=== PATIENT | female | born 1935 | race Caucasian/White ===

== ENCOUNTER → 2017-10-29 | Outpatient (CLI) | payer MEDICARE, BC ==
--- NOTE | 2017-10-29 15:18 | BD ---
EXAMINATION TYPE: Axial Bone Density DATE OF EXAM: 10/29/2017 COMPARISON: NONE CLINICAL HISTORY: 82 year-old female age related osteoporosis. Height: 5 FT 1 IN Weight: 138 FRAX RISK QUESTIONS: Family History (Parent hip fracture): YES History of Fracture in Adulthood: YES Secondary Osteoporosis: 3. Menopause before 45: YES RISK FACTORS HISTORY OF: Family History of Osteoporosis: YES Postmenopausal woman: TOTAL HYST AGE 41 MEDICATIONS: Additional Medications: PRAVASTATIN, GABAPENTIN, CARVEDILOL, LOSARTIN, TORSEMIDE,NITROSTAT, LABETALOL ,HYDROCODONE, OMEPRAZOLE, ASPIRIN, XANAX, OCUVITE, BIOTIN, TRICOR Additional History: OVARIAN CANCER AGE 51, BREAST CANCER AGE AGE 65 CHEMO FOR OVARIAN EXAM MEASUREMENTS: Bone mineral densitometry was performed using the [employer] System. Bone mineral density as measured about the Lumbar spine is: ----- L1-L4(G/cm2): 1.160 T Score Values are as follows: ----- L2: -0.3 ----- L3: 0.5 ----- L4: -0.1 ----- L1-L4: -0.2 BASELINE Bone mineral density about the R hip (g/cm2): 0.752 Bone mineral density about the L hip (g/cm2): 0.778 T Score values are as follows: -----R Neck: -2.1 -----L Neck: -1.9 -----R Total: -1.5 -----L Total: -1.2 BASELINE IMPRESSION: Osteopenia (T Score between -2.5 and -1). There is slightly increased risk of fracture and the patient may be considered for treatment. Re-Screen 2-5 years. NOTE: T-SCORE=SD OF THE YOUNG ADULT MEAN.
== END | disposition home or self-care (01) ==
LOC: RADBDWWP 12:29
PROVIDERS: ATTEND Internal Medicine Geriatric Medicine
DX: M85.88 Other specified disorders of bone density and structure, other site (principal)
CPT/HCPCS: 77080

== ENCOUNTER → 2018-02-23 | Outpatient (CLI) | payer MEDICARE, BC ==
--- NOTE | 2018-02-23 10:07 | US ---
EXAMINATION TYPE: US kidneys/renal and bladder DATE OF EXAM: 02/23/2018 COMPARISON: US & CT CLINICAL HISTORY: N18.9 Chronic Kidney Disease. Chronic kidney disease EXAM MEASUREMENTS: Right Kidney: 8.2 x 3.9 x 4.2 cm Left Kidney: 7.9 x 4.8 x 3.7 cm Right Kidney: Cyst upper pole= 0.7 x 0.6 x 0.8 cm, otherwise appeared wnl Left Kidney: Cortical thinning and small in size Bladder: wnl Bilateral Jets seen: Only right jet visualized There is no evidence for hydronephrosis at this point in time. No nephrolithiasis is seen. No stephane s are identified. The urinary bladder is anechoic. Bilateral ureteral jets are seen. IMPRESSION: 1. Renal parenchymal thinning with atrophic changes and cystic changes as noted.
== END | disposition home or self-care (01) ==
LOC: RADUSWWP 09:32
PROVIDERS: ATTEND Internal Medicine Geriatric Medicine
DX: N26.1 Atrophy of kidney (terminal) (principal); N28.89 Other specified disorders of kidney and ureter; N18.9 Chronic kidney disease, unspecified
CPT/HCPCS: 76770

== ENCOUNTER 2018-10-15 10:38 | Inpatient (IN) | payer MEDICARE, BC ==
[2018-10-15] MEDS: SODIUM CHLORIDE 0.9% 500 ML 500 ML IV SCH ×2 (11:05→11:35)
[2018-10-15] MEDS ORDERED: ATROPINE SULFATE 0.4 MG/ML 1 ML VIAL IV STA (11:05)
--- NOTE | 2018-10-15 11:05 | ED ---
General Adult HPI - General Chief complaint: Urogenital Stated complaint: Bladder infection Time Seen by Provider: 10/15/18 10:40 Source: patient, RN notes reviewed Mode of arrival: wheelchair Limitations: no limitations - History of Present Illness Initial comments: This is an 83-year-old female presents emergency department from Dr. Rice's office. Dr. Rice indicated thought the patient might be with septic. Patient states she had a 6 month appointment today when she went into see Dr. mckee she is complaining some back pain some abdominal pain. Patient states she felt very weak at that time. Patient denies any dysuria hematuria urinary frequency. Patient denies any fever. Patient denies any chest pain difficulty breathing first breath per patient denies any palpations. Patient denies any headache patient denies numbness weakness. Patient states she does feel lightheaded. - Related Data Home Medications Medication Instructions Recorded Confirmed ALPRAZolam [Xanax] 0.25 mg PO BID PRN 11/28/14 10/15/18 Aspirin 81 mg PO HS 11/28/14 10/15/18 Labetalol [Trandate] 200 mg PO Q8H PRN 11/28/14 10/15/18 Losartan Potassium 100 mg PO HS 11/28/14 10/15/18 Multivit-Min/FA/Lycopene/Lut 1 tab PO DAILY 11/28/14 10/15/18 [Centrum Silver Tablet] Nitroglycerin Sl Tabs [Nitrostat] 0.4 mg PO Q5M PRN 11/28/14 10/15/18 Omeprazole [PriLOSEC] 20 mg PO AC-BRKFST PRN 11/28/14 10/15/18 Torsemide [Demadex] 5 mg PO QAM PRN 11/28/14 10/15/18 Vits A,C,E/Lutein/Minerals 1 tab PO MOWEFRSA 11/28/14 10/15/18 [Ocuvite with Lutein Tablet] HYDROcodone/APAP 7.5-325MG [[place] 1 tab PO BID PRN 12/05/14 10/15/18 7.5-325] Biotin 1,000 1,000 - 2,000 mg PO DAILY 01/12/16 10/15/18 Apixaban [Eliquis] 2.5 mg PO BID 10/15/18 10/15/18 Carvedilol [Coreg] 25 mg PO BID 10/15/18 10/15/18 Fenofibrate Nanocrystallized 145 mg PO HS 10/15/18 10/15/18 [Fenofibrate] Gabapentin [Neurontin] 300 mg PO BID 10/15/18 10/15/18 hydrALAZINE HCL [Apresoline] 10 mg PO QID PRN 10/15/18 10/15/18 Allergies Allergy/AdvReac Type Severity Reaction Status Date / Time Penicillins Allergy Dyspnea Verified 10/15/18 11:52 Sulfa (Sulfonamide Allergy Dyspnea Verified 10/15/18 11:52 Antibiotics) triamcinolone acetonide AdvReac unsure if Verified 10/15/18 11:52 [From Kenalog] the kenalog was the cause, RASH/HIVES Review of Systems ROS Statement: Those systems with pertinent positive or pertinent negative responses have been documented in the HPI. ROS Other: All systems not noted in ROS Statement are negative. Past Medical History Past Medical History: Atrial Fibrillation, Cancer, Chest Pain / Angina, Fibromyalgia, GERD/Reflux, Hyperlipidemia, Hypertension, Mitral Valve Prolapse (MVP), Neurologic Disorder, Osteoarthritis (OA), Renal Disease, Vascular Disorder Additional Past Medical History / Comment(s): NEUROPATHY ASHER. LEGS & FEET, VARICOSE VEINS, KIDNEYS(small kidneys) FUNCTIONING @ 50%-URINE LEAKAGE- WEARS A PAD, HX skin, BREAST & OVARIAN CA-CHEMO 1986 & 1987, LUMBAR DDD-HERNIATION L3- L4, constipation History of Any Multi-Drug Resistant Organisms: None Reported Past Surgical History: Bowel Resection, Breast Surgery, Heart Catheterization, Hysterectomy, Orthopedic Surgery Additional Past Surgical History / Comment(s): COLOSTOMY & THEN REVERSAL OF COLOSTOMY,ASHER. MASTECTOMY, EXC.CATARACT ASHER, ASHER. THUMB SURGERY, skin cancer removed from nose, bowel resection 01/12/16 Past Anesthesia/Blood Transfusion Reactions: Previous Problems w/ Anesthesia Additional Past Anesthesia/Blood Transfusion Reaction / Comment(s): AFTER LAST PAIN CLINIC PROCEDURE 01/12/15 HAD ALLEGIC REACTION- broke out in hives and itching all over that lasted over 1 week, also had ELEVATED PULSE & BP. Past Psychological History: No Psychological Hx Reported Smoking Status: Former smoker Past Alcohol Use History: None Reported Past Drug Use History: None Reported - Past Family History Daughter(s) Family Medical History: No Reported History Father Family Medical History: Cancer (Father at age of 80 from lung cancer) Mother Family Medical History: Coronary Artery Disease (CAD), CVA/TIA (Mother at age of 94 and she had suffered from CAD, CABG, diabetes mellitus type 2 and CVA), Diabetes Mellitus Additional Family Medical History / Comment(s): HEART PROBLEMS General Exam - General Exam Comments Initial Comments: GENERAL: Patient is well-developed and well-nourished. Patient is nontoxic and well- hydrated and is in mild distress. ENT: Neck is soft and supple. No significant lymphadenopathy is noted. Oropharynx is clear. Moist mucous membranes. Neck has full range of motion without eliciting any pain. EYES: The sclera were anicteric and conjunctiva were pink and moist. Extraocular movements were intact and pupils were equal round and reactive to light. Eyelids were unremarkable. PULMONARY: Unlabored respirations. Good breath sounds bilaterally. No audible rales rhonchi or wheezing was noted. CARDIOVASCULAR: Patient is bradycardic at 40 beats a minute. ABDOMEN: Soft and nontender with normal bowel sounds. SKIN: Skin is clear with no lesions or rashes and otherwise unremarkable. NEUROLOGIC: Patient is alert and oriented x3. Cranial nerves II through XII are grossly intact. Motor and sensory are also intact. Normal speech, volume and content. Symmetrical smile. MUSCULOSKELETAL: Normal extremities with adequate strength and full range of motion. LYMPHATICS: No significant lymphadenopathy is noted PSYCHIATRIC: Normal psychiatric evaluation. Limitations: no limitations Course Vital Signs 10/15/18 10/15/18 10/15/18 10:47 11:09 11:30 Temperature 98.2 F Pulse Rate 57 L 34 L 78 Respiratory 18 16 18 Rate Blood Pressure 55/32 68/34 100/44 O2 Sat by Pulse 97 98 100 Oximetry 10/15/18 10/15/18 10/15/18 12:00 12:30 13:00 Temperature Pulse Rate 80 80 80 Respiratory 14 18 18 Rate Blood Pressure 100/40 92/40 98/41 O2 Sat by Pulse 100 100 99 Oximetry Medical Decision Making - Medical Decision Making EKG shows a junctional bradycardia at 39 bpm QRS is 90 QT interval 422 QTC is 339. I ordered antibiotics 1202 I got a phone call from the nurse that just prior to 2:00 that the patient hadn't ALLERGY to penicillin and we will begin Levaquin at this time.. I told her to go ahead with Erika at this time. I spoke with Dr. Ely he agreed to admit the patient admitted the patient I wrote admitting orders. Patient's blood pressure was low and I gave the patient a liter and half of fluid immediately and it came up to a systolic blood pressure of greater than 100. I spoke with the ICU doctor and he agreed to take the patient. - Lab Data Result diagrams: 10/15/18 11:04 10/15/18 11:04 Lab Results 10/15/18 10/15/18 10/15/18 Range/Units 11:04 11:04 11:04 WBC 12.5 H (3.8-10.6) k/uL RBC 3.55 L (3.80-5.40) m/uL Hgb 11.1 L (11.4-16.0) gm/dL Hct 33.0 L (34.0-46.0) % MCV 93.0 (80.0-100.0) fL MCH 31.2 (25.0-35.0) pg MCHC 33.6 (31.0-37.0) g/dL RDW 13.9 (11.5-15.5) % Plt Count 232 (150-450) k/uL Neutrophils % 91 % Lymphocytes % 4 % Monocytes % 3 % Eosinophils % 1 % Basophils % 0 % Neutrophils # 11.4 H (1.3-7.7) k/uL Lymphocytes # 0.5 L (1.0-4.8) k/uL Monocytes # 0.4 (0-1.0) k/uL Eosinophils # 0.1 (0-0.7) k/uL Basophils # 0.1 (0-0.2) k/uL PT (9.0-12.0) sec INR (<1.2) APTT (22.0-30.0) sec Sodium 136 L (137-145) mmol/L Potassium 5.2 H (3.5-5.1) mmol/L Chloride 106 (98-107) mmol/L Carbon Dioxide 18 L (22-30) mmol/L Anion Gap 12 mmol/L BUN 76 H (7-17) mg/dL Creatinine 2.60 H (0.52-1.04) mg/dL Est GFR (CKD-EPI)AfAm 19 (>60 ml/min/1.73 sqM) Est GFR (CKD-EPI)NonAf 17 (>60 ml/min/1.73 sqM) Glucose 157 H (74-99) mg/dL Plasma Lactic Acid Jerel 2.3 H* (0.7-2.0) mmol/L Calcium 10.1 (8.4-10.2) mg/dL Total Bilirubin 1.2 (0.2-1.3) mg/dL AST 75 H (14-36) U/L ALT 58 H (9-52) U/L Alkaline Phosphatase 50 (38-126) U/L Total Protein 6.4 (6.3-8.2) g/dL Albumin 3.8 (3.5-5.0) g/dL Urine Color Urine Appearance (Clear) Urine pH (5.0-8.0) Ur Specific [place] (1.001-1.035) Urine Protein (Negative) Urine Glucose (UA) (Negative) Urine Ketones (Negative) Urine Blood (Negative) Urine Nitrite (Negative) Urine Bilirubin (Negative) Urine Urobilinogen (<2.0) mg/dL Ur Leukocyte Esterase (Negative) Urine RBC (0-5) /hpf Urine WBC (0-5) /hpf Urine WBC Clumps (None) /hpf Urine Bacteria (None) /hpf 10/15/18 10/15/18 Range/Units 11:04 11:25 WBC (3.8-10.6) k/uL RBC (3.80-5.40) m/uL Hgb (11.4-16.0) gm/dL Hct (34.0-46.0) % MCV (80.0-100.0) fL MCH (25.0-35.0) pg MCHC (31.0-37.0) g/dL RDW (11.5-15.5) % Plt Count (150-450) k/uL Neutrophils % % Lymphocytes % % Monocytes % % Eosinophils % % Basophils % % Neutrophils # (1.3-7.7) k/uL Lymphocytes # (1.0-4.8) k/uL Monocytes # (0-1.0) k/uL Eosinophils # (0-0.7) k/uL Basophils # (0-0.2) k/uL PT 11.8 (9.0-12.0) sec INR 1.1 (<1.2) APTT 23.8 (22.0-30.0) sec Sodium (137-145) mmol/L Potassium (3.5-5.1) mmol/L Chloride (98-107) mmol/L Carbon Dioxide (22-30) mmol/L Anion Gap mmol/L BUN (7-17) mg/dL Creatinine (0.52-1.04) mg/dL Est GFR (CKD-EPI)AfAm (>60 ml/min/1.73 sqM) Est GFR (CKD-EPI)NonAf (>60 ml/min/1.73 sqM) Glucose (74-99) mg/dL Plasma Lactic Acid Jerel (0.7-2.0) mmol/L Calcium (8.4-10.2) mg/dL Total Bilirubin (0.2-1.3) mg/dL AST (14-36) U/L ALT (9-52) U/L Alkaline Phosphatase (38-126) U/L Total Protein (6.3-8.2) g/dL Albumin (3.5-5.0) g/dL Urine Color Yellow Urine Appearance Cloudy H (Clear) Urine pH 6.0 (5.0-8.0) Ur Specific [place] 1.016 (1.001-1.035) Urine Protein 2+ H (Negative) Urine Glucose (UA) Negative (Negative) Urine Ketones Negative (Negative) Urine Blood Moderate H (Negative) Urine Nitrite Negative (Negative) Urine Bilirubin Negative (Negative) Urine Urobilinogen <2.0 (<2.0) mg/dL Ur Leukocyte Esterase Large H (Negative) Urine RBC 180 H (0-5) /hpf Urine WBC >182 H (0-5) /hpf Urine WBC Clumps Many H (None) /hpf Urine Bacteria Moderate H (None) /hpf Critical Care Time Critical Care Time: Yes Total Critical Care Time: 35 Disposition Clinical Impression: Pyelonephritis Disposition: ADMITTED IP TO THIS [facility] Referrals: Lucio Riec MD [Primary Care Provider] - 1-2 days Time of Disposition: 14:09
[2018-10-15 11:47] LABS: INR 1.1 (<1.2); Partial Thromboplastin Time 23.8 sec (22.0-30.0); Prothrombin Time 11.8 sec (9.0-12.0)
[2018-10-15 11:48] LABS: Albumin 3.8 g/dL (3.5-5.0); Calcium 10.1 mg/dL (8.4-10.2); Potassium 5.2 mmol/L (3.5-5.1); Total Bilirubin 1.2 mg/dL (0.2-1.3); Total Protein 6.4 g/dL (6.3-8.2)
[2018-10-15 12:01] LABS: Appearance,Urine Cloudy (Clear); Bacteria,Urine Moderate /hpf; Bilirubin,Urine Negative (Negative); Blood,Urine Moderate (Negative); Color,Urine Yellow; Glucose,Urine (UA) Negative (Negative); Ketones,Urine Negative (Negative); Leukocyte Esterase,Urine Large (Negative); Nitrite,Urine Negative (Negative); Protein,Urine 2+ (Negative); RBC,Urine 180 /hpf (0-5); Specific Gravity,Urine 1.016 (1.001-1.035); Urobilinogen,Urine <2.0 mg/dL (<2.0); WBC,Urine >182 /hpf (0-5)
[2018-10-15 12:12] LABS: Basophils # (A) 0.1 k/uL (0-0.2); Basophils % (A) 0 %; Eosinophils # (A) 0.1 k/uL (0-0.7); Eosinophils % (A) 1 %; HGB 11.1 gm/dL (11.4-16.0); Lymphocytes # (A) 0.5 k/uL (1.0-4.8); Lymphocytes % (A) 4 %; MCH 31.2 pg (25.0-35.0); MCHC 33.6 g/dL (31.0-37.0); Mean Platelet Volume 7.3; Monocytes # (A) 0.4 k/uL (0-1.0); Monocytes % (A) 3 %; Neutrophils # (A) 11.4 k/uL (1.3-7.7); Neutrophils % (A) 91 %; Platelet Count 232 k/uL (150-450); RBC 3.55 m/uL (3.80-5.40); RDW 13.9 % (11.5-15.5); WBC 12.5 k/uL (3.8-10.6)
--- NOTE | 2018-10-15 13:22 | CT ---
EXAMINATION TYPE: CT abdomen pelvis wo con DATE OF EXAM: 10/15/2018 COMPARISON: 01/17/2016 HISTORY: UTI, right sided back pain, pelvic pain CT DLP: 444.3 mGycm Automated exposure control for dose reduction was used. TECHNIQUE: Helical acquisition of images was performed from the lung bases through the pelvis. FINDINGS: LUNG BASES: There is minimal bibasilar subsegmental atelectasis and peripheral basilar predominant fi brosis. Lingular wedge-shaped atelectasis is also seen. There is a small hiatal hernia visualized in the posterior mediastinum. LIVER/GB: The liver is elongated and nonenlarged extending to the iliac crest. The gallbladder is unr emarkable. PANCREAS: No significant abnormality is seen. SPLEEN: No significant abnormality is seen. ADRENALS: No significant abnormality is seen. KIDNEYS: There is left cortical renal atrophy particularly of the lower pole. Nonspecific perinephric fat stranding is seen bilaterally. There is no hydronephrosis nor nephrolithiasis is seen. There is mild periureteral fat stranding surrounding the right mid ureter such as on image 75 through 78. FREE AIR: No free air is visualized ADENOPATHY: No greater than 1 cm short axis lymph nodes are seen in the abdomen or pelvis. REPRODUCTIVE ORGANS: Uterus appears surgically absent. Peritoneum densities may be postsurgical. URINARY BLADDER: Decompressed and suboptimally evaluated OSSEOUS STRUCTURES: Mild multilevel degenerative changes of the spine and dextroscoliosis of the tho racolumbar junction are noted. BOWEL: There is circumferential rectal wall thickening up to 5 mm laterally. This is also seen withi n the distal sigmoid colon. Numerous diverticula are associated sigmoid colon series sigmoid colon is decompressed as is the splenic flexure. Right hemicolectomy has been performed. Small ventral fat fi lled umbilical hernia is seen. IMPRESSION: 1. MILD URETERAL FAT STRANDING OF THE MID RIGHT URETER IS SEEN. GIVEN THE PATIENT'S HISTORY OF URINAR Y TRACT INFECTION ASCENDING INFECTION AND PYELONEPHRITIS SHOULD BE CONSIDERED. PYELONEPHRITIS IS NOT DEFINITIVE WITHOUT CONTRAST AND CT. NO PERINEPHRIC ABSCESS. 2. RECTAL AND SIGMOID COLONIC WALL THICKENING. CORRELATE WITH ANY RECENT COLONOSCOPY TO EXCLUDE MUCOS AL NEOPLASM. THIS COULD ALTERNATIVELY SIMPLY RELATE TO UNDERDISTENTION. NO INFLAMMATORY FAT STRANDING TO SUGGEST PROCTITIS.
[2018-10-15] MEDS ORDERED: NALOXONE 0.4 MG/ML 1 ML VIAL IV PRN (14:10)
[2018-10-15] MEDS ORDERED: LEVOFLOXACIN 750MG-D5W PMX 750 MG in DEXTROSE/WATER 1 150ML.BAG IVPB STA (14:19)
--- NOTE | 2018-10-15 15:49 | XR ---
EXAMINATION TYPE: XR chest 2V DATE OF EXAM: 10/15/2018 COMPARISON: Prior chest x-ray 04/07/[address] 10/15/2017 HISTORY: Difficulty breathing TECHNIQUE: Frontal and lateral views of the chest are obtained. FINDINGS: There is no focal air space opacity, pleural effusion, or pneumothorax seen. The cardiac silhouette size is within normal limits. Prominent lung volumes are suggestive of underlying COPD. Luis F ne mineralization is reduced. There are overlying cardiac leads. The osseous structures are intact. IMPRESSION: No acute cardiopulmonary process. Emphysema.
[2018-10-15] MEDS ORDERED: KETOROLAC 30 MG/ML 1 ML VIAL IVP STA (16:32)
[2018-10-15] MEDS ORDERED: SODIUM CHLORIDE 0.9% 500 ML 500 ML IV ONE (18:46)
[2018-10-15 19:56] LABS: Glucose,Whole Blood 152 mg/dL (75-99)
[2018-10-15] MEDS ORDERED: PANTOPRAZOLE 40 MG TABLET PO PRN (20:08)
[2018-10-15] MEDS ORDERED: hydrALAZINE HCL 10 MG TAB PO PRN (20:08)
--- NOTE | 2018-10-15 20:21 | P.CNPUL ---
History of Present Illness Consult date: 10/15/18 Chief complaint: UTI, sepsis History of present illness: Pleasant 83-year-old female patient was sent over from her primary care physician's office because of an acute pain along the right flank area suspecting an underlying urine tract infection. The patient was therefore routine 6 months check and she was complaining of back and abdominal pain and flank pain and she was feeling also weak. She denies having any dysuria or hematuria or any urinary symptoms. Nevertheless this patient has had previous urinary tract infections. No history of nephrolithiasis. Upon arrival to the burst department, the patient was found to be apprehensive and her initial blood pressure was 65/32. She responded nicely to fluids and his systolic blood pr essure came up to the mid 60s and then 100 and currently her most recent blood pressure is 120/51. She is producing some urine and the Rios catheter inserted for now. There was a positive for 0.5. UA was quite abnormal and creatinine was elevated at 2.6 with a BUN of 76. The CAT scan of the abdomen was done that showed mild uterine fat stranding and evidence of prior nephritis on the right. The patient also has rectal and sigmoid colonic thickening. No diarrhea. Review of Systems Constitutional: Reports fatigue, Reports lethargy, Reports weakness Eyes: denies as per HPI, denies blurred vision, denies bulging eye, denies decreased vision, denies diplopia, denies discharge, denies dry eye, denies irritation, denies itching, denies pain, denies photophobia, denies loss of peripheral vision, denies loss of vision, denies tunnel vision/blind spots Ears: deny: decreased hearing, ear discharge, earache, tinnitus Ears, nose, mouth and throat: Denies headache, Denies sore throat Breasts: absent: as per HPI, change in shape, gynecomastia, masses, nipple discharge, pain, skin changes, swelling Breasts: Reports as per HPI Cardiovascular: Reports as per HPI Respiratory: Reports as per HPI Gastrointestinal: Reports as per HPI Genitourinary: Reports as per HPI Musculoskeletal: Reports as per HPI Musculoskeletal: absent: ankle pain, ankle stiffness, ankle swelling, as per HPI, elbow pain, elbow stiffness, elbow swelling, foot pain, foot stiffness, foot swelling, hand pain, hand stiffness, hand swelling, hip pain, hip stiffness, hip swelling, knee pain, knee stiffness, knee swelling, shoulder pain, shoulder stiffness, shoulder swelling, wrist pain, wrist stiffness, wrist swelling Integumentary: Reports as per HPI Neurological: Reports as per HPI Psychiatric: Reports as per HPI Endocrine: Reports as per HPI Hematologic/Lymphatic: Reports as per HPI Allergic/Immunologic: Reports as per HPI Past Medical History Past Medical History: Atrial Fibrillation, Cancer, Chest Pain / Angina, Fibromyalgia, GERD/Reflux, Hyperlipidemia, Hypertension, Mitral Valve Prolapse (MVP), Neurologic Disorder, Osteoarthritis (OA), Renal Disease, Vascular Disorder Additional Past Medical History / Comment(s): NEUROPATHY ASHER. LEGS & FEET, VARICOSE VEINS, KIDNEYS(small kidneys) FUNCTIONING @ 50%-URINE LEAKAGE- WEARS A PAD, HX skin, BREAST cancer status post bilateral mastectomy & OVARIAN CA status post nephrectomy, hysterectomy and bowel resection with diverting colostomy and subsequent reversal-, history of skin cancer, LUMBAR DDD-HERNIATION L3-L4, constipation History of Any Multi-Drug Resistant Organisms: None Reported Past Surgical History: Bowel Resection, Breast Surgery, Heart Catheterization, Hysterectomy, Orthopedic Surgery Additional Past Surgical History / Comment(s): COLOSTOMY & THEN REVERSAL OF COLOSTOMY,ASHER. MASTECTOMY, EXC.CATARACT ASHER, ASHER. THUMB SURGERY, skin cancer removed from nose, bowel resection 01/12/16 Past Anesthesia/Blood Transfusion Reactions: Previous Problems w/ Anesthesia Additional Past Anesthesia/Blood Transfusion Reaction / Comment(s): AFTER LAST PAIN CLINIC PROCEDURE 01/12/15 HAD ALLEGIC REACTION- broke out in hives and itching all over that lasted over 1 week, also had ELEVATED PULSE & BP. Past Psychological History: No Psychological Hx Reported Smoking Status: Former smoker Past Alcohol Use History: None Reported Past Drug Use History: None Reported - Past Family History Daughter(s) Family Medical History: No Reported History Father Family Medical History: Cancer (Father at age of 80 from lung cancer) Mother Family Medical History: Coronary Artery Disease (CAD), CVA/TIA (Mother at age of 94 and she had suffered from CAD, CABG, diabetes mellitus type 2 and CVA), Diabetes Mellitus Additional Family Medical History / Comment(s): HEART PROBLEMS Medications and Allergies Home Medications Medication Instructions Recorded Confirmed Type ALPRAZolam [Xanax] 0.25 mg PO BID PRN 11/28/14 10/15/18 History Aspirin 81 mg PO HS 11/28/14 10/15/18 History Labetalol [Trandate] 200 mg PO Q8H PRN 11/28/14 10/15/18 History Losartan Potassium 100 mg PO HS 11/28/14 10/15/18 History Multivit-Min/FA/Lycopene/Lut 1 tab PO DAILY 11/28/14 10/15/18 History [Centrum Silver Tablet] Nitroglycerin Sl Tabs [Nitrostat] 0.4 mg PO Q5M PRN 11/28/14 10/15/18 History Omeprazole [PriLOSEC] 20 mg PO AC-BRKFST PRN 11/28/14 10/15/18 History Torsemide [Demadex] 5 mg PO QAM PRN 11/28/14 10/15/18 History Vits A,C,E/Lutein/Minerals 1 tab PO MOWEFRSA 11/28/14 10/15/18 History [Ocuvite with Lutein Tablet] HYDROcodone/APAP 7.5-325MG [Clearwater 1 tab PO BID PRN 12/05/14 10/15/18 History 7.5-325] Biotin 1,000 1,000 - 2,000 mg PO DAILY 01/12/16 10/15/18 History Apixaban [Eliquis] 2.5 mg PO BID 10/15/18 10/15/18 History Carvedilol [Coreg] 25 mg PO BID 10/15/18 10/15/18 History Fenofibrate Nanocrystallized 145 mg PO HS 10/15/18 10/15/18 History [Fenofibrate] Gabapentin [Neurontin] 300 mg PO BID 10/15/18 10/15/18 History hydrALAZINE HCL [Apresoline] 10 mg PO QID PRN 10/15/18 10/15/18 History Allergies Allergy/AdvReac Type Severity Reaction Status Date / Time Penicillins Allergy Dyspnea Verified 10/15/18 11:52 Sulfa (Sulfonamide Allergy Dyspnea Verified 10/15/18 11:52 Antibiotics) triamcinolone acetonide AdvReac unsure if Verified 10/15/18 11:52 [From Kenalog] the kenalog was the cause, RASH/HIVES Physical Exam Vitals: Vital Signs Temp Pulse Resp BP Pulse Ox 10/15/18 19:29 70 16 120/51 100 10/15/18 18:00 74 18 104/53 97 10/15/18 17:00 78 18 114/52 98 10/15/18 16:00 82 18 116/62 97 10/15/18 15:00 79 18 103/46 98 10/15/18 14:00 98.4 F 79 18 102/51 99 10/15/18 13:30 78 18 93/40 99 10/15/18 13:00 80 18 98/41 99 10/15/18 12:30 80 18 92/40 100 10/15/18 12:00 80 14 100/40 100 10/15/18 11:30 78 18 100/44 100 10/15/18 11:09 34 L 16 68/34 98 10/15/18 10:47 98.2 F 57 L 18 55/32 97 Intake and Output 10/15/18 10/15/18 10/15/18 06:59 14:59 22:59 Other: Weight 59.874 kg The patient appeared well nourished and normally developed. Vital signs as documented. Head exam is unremarkable. No scleral icterus or corneal arcus noted. Neck is without jugular venous distension, thyromegaly, or carotid bruits. Carotid upstrokes are brisk bilaterally. Lungs are clear to auscultation and percussion. Cardiac exam reveals the PMI to be normally sized and situated. Rhythm is regular. First and second heart sounds normal. No murmurs, rubs or gallops. Abdominal exam reveals normal bowel sounds, no masses, no organomegaly and no aortic enlargement. Extremities are nonedematous and both femoral and pedal pulses are normal.Examination of the skin revealed no evidence of significant rashes, suspicious appearing nevi or other concerning lesions. Neurologically the patient is awake and alert and there is no focal neurological deficits. Results - Laboratory Findings CBC and BMP: 10/15/18 11:04 10/15/18 11:04 PT/INR, D-dimer PT 11.8 sec (9.0-12.0) 10/15/18 11:04 INR 1.1 (<1.2) 10/15/18 11:04 Abnormal lab findings: Abnormal Labs 10/15/18 10/15/18 10/15/18 11:04 11:04 11:04 WBC 12.5 H RBC 3.55 L Hgb 11.1 L Hct 33.0 L Neutrophils # 11.4 H Lymphocytes # 0.5 L Sodium 136 L Potassium 5.2 H Carbon Dioxide 18 L BUN 76 H Creatinine 2.60 H Glucose 157 H POC Glucose (mg/dL) Plasma Lactic Acid Jerel 2.3 H* AST 75 H ALT 58 H Urine Appearance Urine Protein Urine Blood Ur Leukocyte Esterase Urine RBC Urine WBC Urine WBC Clumps Urine Bacteria 10/15/18 10/15/18 10/15/18 11:25 15:22 19:52 WBC RBC Hgb Hct Neutrophils # Lymphocytes # Sodium Potassium Carbon Dioxide BUN Creatinine Glucose POC Glucose (mg/dL) 152 H Plasma Lactic Acid Jerel 0.5 L AST ALT Urine Appearance Cloudy H Urine Protein 2+ H Urine Blood Moderate H Ur Leukocyte Esterase Large H Urine RBC 180 H Urine WBC >182 H Urine WBC Clumps Many H Urine Bacteria Moderate H - Diagnostic Findings Chest x-ray: image reviewed Assessment and Plan Plan: 1 pyelonephritis, right-sided, with secondary sepsis, suspect underlying gram- negative infection and cultures are still pending. 2 hypotension secondary to above, responded nicely to fluids and the patient is currently on no pressors 3 mild lactic acidosis improved 4. History of urinary incontinence and frequent UTIs 5 history of A. fib current rhythm is sinus 6 history of breast cancer post-bilateral mastectomy 7 ovarian cancer 8 skin cancer 9 peripheral neuropathy 10 chronic kidney disease, stage II Plan Continue IV fluids with normal saline at the rate of 1 25 mL's an hour with IV Levaquin. Urine cultures. Blood cultures. Clearwater 7.5 for pain control. Resume outpatient medication included long-term anticoagulation with Eliquis. Current rhythm is sinus. He milligrams daily stable. Altered mentation. We'll continue to follow.
[2018-10-15] MEDS: APIXABAN 2.5 MG TABLET PO SCH (20:47)
[2018-10-15] MEDS: HYDROcodone/APAP 7.5-325MG 1 EACH TAB PO PRN (20:54)
[2018-10-15] MEDS: GABAPENTIN 300 MG CAP PO SCH (20:55)
[2018-10-15] MEDS: FENOFIBRATE 160 MG TAB PO SCH (20:55)
[2018-10-15] MEDS: ASPIRIN 81 MG PO SCH (20:55)
[2018-10-15] MEDS: CARVEDILOL 12.5 MG TAB PO SCH (22:34)
[2018-10-15] MEDS: LOSARTAN 50 MG TAB PO SCH (22:35)
[2018-10-16] MEDS: ALPRAZolam 0.25 MG TAB PO PRN ×2 (02:05→23:17)
[2018-10-16 02:16] VITALS: BMI 25.9
[2018-10-16] MEDS: SODIUM CHLORIDE 0.9% 1,000 ML IV SCH ×2 (04:54→11:16)
[2018-10-16] MEDS: HYDROcodone/APAP 7.5-325MG 1 EACH TAB PO PRN ×3 (04:55→21:47)
[2018-10-16 06:32] LABS: Albumin 3.1 g/dL (3.5-5.0); Calcium 8.6 mg/dL (8.4-10.2); Magnesium 1.2 mg/dL (1.6-2.3); Potassium 4.7 mmol/L (3.5-5.1); Total Bilirubin 0.9 mg/dL (0.2-1.3); Total Protein 5.5 g/dL (6.3-8.2)
[2018-10-16 06:33] LABS: HCT 29.3 % (34.0-46.0); MCH 29.9 pg (25.0-35.0); MCHC 31.4 g/dL (31.0-37.0); MCV 95.2 fL (80.0-100.0); Mean Platelet Volume 7.2; Platelet Count 148 k/uL (150-450); RBC 3.07 m/uL (3.80-5.40); WBC 22.4 k/uL (3.8-10.6)
[2018-10-16 06:39] LABS: HGB 9.2 gm/dL (11.4-16.0)
[2018-10-16] MEDS ORDERED: MAGNESIUM SULFATE-D5W PMX 1 GM in DEXTROSE/WATER 1 100ML.BAG IVPB ONE (07:00)
[2018-10-16 07:11] LABS: Band Neutrophils % 24 %; Eosinophils # (M) 0.22 k/uL (0-0.7); Lymphocytes # (M) 1.34 k/uL (1.0-4.8); Monocytes # (M) 1.34 k/uL (0-1.0); Neutrophils % (M) 65 %; Nucleated Red Blood Cells 0 /100 WBC (0-0); Total Cells Counted 200
[2018-10-16 07:13] LABS: Anisocytosis (M) Present
[2018-10-16 07:18] LABS: Polychromasia Present
[2018-10-16] MEDS: GABAPENTIN 300 MG CAP PO SCH ×2 (08:35→21:45)
[2018-10-16] MEDS: CARVEDILOL 12.5 MG TAB PO SCH ×2 (08:35→16:31)
[2018-10-16] MEDS: VIT A,C & E-LUTEIN-MINERALS 1 EACH TAB PO SCH (08:35)
[2018-10-16] MEDS: MULTIVITAMINS, THERA 1 EACH TAB PO SCH (08:35)
[2018-10-16] MEDS: APIXABAN 2.5 MG TABLET PO SCH ×2 (08:36→21:45)
[2018-10-16] MEDS ORDERED: BIOTIN PO SCH (09:00)
[2018-10-16] MEDS: SODIUM BICARBONATE TAB 650 MG TAB PO SCH ×3 (11:12→21:46)
[2018-10-16] MEDS ORDERED: LEVOFLOXACIN 500MG-D5W PMX 500 MG in DEXTROSE/WATER 1 100ML.BAG IVPB SCH (12:00)
[2018-10-16] MEDS ORDERED: LEVOFLOXACIN 750MG-D5W PMX 750 MG in DEXTROSE/WATER 1 150ML.BAG IVPB SCH (14:00)
[2018-10-16] MEDS ORDERED: DEXTROSE IVPB SCH (14:00)
[2018-10-16] MEDS ORDERED: LEVOFLOXACIN IVPB SCH (14:00)
[2018-10-16] MEDS ORDERED: WATER IVPB SCH (14:00)
[2018-10-16] MEDS ORDERED: PMX IVPB SCH (14:00)
--- NOTE | 2018-10-16 14:03 | P.HPIM ---
History of Present Illness H&P Date: 10/15/18 Chief Complaint: Pyelonephritis with sepsis. This is an 83-year-old female one of Dr. Rice with a previous medical history significant for hypertension and hypertensive cardiovascular disease, hyperlipidemia, GERD, history of breast cancer status post mastectomy, history of proximal atrial fibrillation currently in sinus rhythm, GERD, osteoarthritis, varicose pain, patient was sent from her doctor's office after she was supposed to have a six-month appointment she was having right sided flank pain and back pain and she thought that she is having one of her urinary tract infection for the past 2 days prior to the arrival to the office however she didn't say anything about it until she came to the office where she became quite shaky hypotensive and weak ended up getting transferred to the emergency department at [facility] where she was found to have a significant pyelonephritis after she had a computed tomography scan of the abdomen and pelvis without contrast that showed periureteral stranding, with significant UTI she also did have a lactic acidosis and worsening of her kidney function issues stated that she has been having diarrhea for quite sometimes but this has been normal for her since she had a right colectomy in the past, patient was started on IV fluid resuscitation and her blood pressure started to come up and she did receive: Most 2 L of IV fluid and she was admitted to the intensive care unit was seen in consultation by Dr. Gutiérrez she was started on IV antibiotic in the form of Levaquin as the patient has penicillin and sulfa ALLERGY also she had urine and blood culture and she was admitted to the ICU for pyelonephritis with sepsis. Review of Systems Constitutional: Reports anorexia, Reports fatigue, Reports malaise, Reports weakness Eyes: denies blurred vision, denies bulging eye, denies decreased vision Ears, nose, mouth and throat: Denies dysphagia, Denies neck lump, Denies swelling in throat, Denies sore throat Cardiovascular: Reports lightheadedness, Denies chest pain, Denies decreased exercise tolerance, Denies rapid heart beat, Denies shortness of breath, Denies syncope Respiratory: Denies congestion, Denies cough with sputum, Denies home oxygen, Denies sleep apnea, Denies snoring, Denies wheezing Gastrointestinal: Reports diarrhea, Reports nausea, Denies abdominal pain, Denies BRBPR, Denies change in bowel habits, Denies heartburn, Denies hematemesis, Denies jaundice, Denies lactose intolerance, Denies loss of appetite, Denies melena, Denies vomiting Genitourinary: Reports dysuria, Reports flank pain, Denies hematuria, Denies kidney stones, Denies nocturia, Denies urgency Menstruation: Reports postmenopausal Musculoskeletal: Reports as per HPI Musculoskeletal: absent: ankle pain, ankle stiffness, ankle swelling, elbow pain, elbow stiffness, elbow swelling, foot pain, foot stiffness, foot swelling, hand pain, hand stiffness, hand swelling, hip pain, hip stiffness, hip swelling, knee pain, knee stiffness, knee swelling, shoulder pain, shoulder stiffness, shoulder swelling, wrist pain, wrist stiffness, wrist swelling Integumentary: Denies pruritus, Denies rash Neurological: Denies numbness, Denies weakness Psychiatric: Denies anxiety, Denies depression Endocrine: Denies fatigue, Denies weight change Past Medical History Past Medical History: Atrial Fibrillation, Cancer, Chest Pain / Angina, Fibromyalgia, GERD/Reflux, Hyperlipidemia, Hypertension, Mitral Valve Prolapse (MVP), Neurologic Disorder, Osteoarthritis (OA), Renal Disease, Vascular Disorder Additional Past Medical History / Comment(s): NEUROPATHY ASHER. LEGS & FEET, VARICOSE VEINS, KIDNEYS(small kidneys) FUNCTIONING @ 50%-URINE LEAKAGE- WEARS A PAD, HX skin, BREAST & OVARIAN CA-CHEMO 1986 & 1987, LUMBAR DDD-HERNIATION L3- L4, constipation History of Any Multi-Drug Resistant Organisms: None Reported Past Surgical History: Bowel Resection, Breast Surgery, Heart Catheterization, Hysterectomy, Orthopedic Surgery Additional Past Surgical History / Comment(s): COLOSTOMY & THEN REVERSAL OF COLOSTOMY,ASHER. MASTECTOMY, EXC.CATARACT ASHER, ASHER. THUMB SURGERY, skin cancer removed from nose, bowel resection 01/12/16 Past Anesthesia/Blood Transfusion Reactions: Previous Problems w/ Anesthesia Additional Past Anesthesia/Blood Transfusion Reaction / Comment(s): AFTER LAST PAIN CLINIC PROCEDURE 01/12/15 HAD ALLEGIC REACTION- broke out in hives and itching all over that lasted over 1 week, also had ELEVATED PULSE & BP. Past Psychological History: No Psychological Hx Reported Smoking Status: Former smoker Past Alcohol Use History: None Reported Past Drug Use History: None Reported - Past Family History Daughter(s) Family Medical History: No Reported History Father Family Medical History: Cancer (Father at age of 80 from lung cancer) Mother Family Medical History: Coronary Artery Disease (CAD), CVA/TIA (Mother at age of 94 and she had suffered from CAD, CABG, diabetes mellitus type 2 and CVA), Diabetes Mellitus Additional Family Medical History / Comment(s): HEART PROBLEMS Medications and Allergies Home Medications Medication Instructions Recorded Confirmed Type ALPRAZolam [Xanax] 0.25 mg PO BID PRN 11/28/14 10/15/18 History Aspirin 81 mg PO HS 11/28/14 10/15/18 History Labetalol [Trandate] 200 mg PO Q8H PRN 11/28/14 10/15/18 History Losartan Potassium 100 mg PO HS 11/28/14 10/15/18 History Multivit-Min/FA/Lycopene/Lut 1 tab PO DAILY 11/28/14 10/15/18 History [Centrum Silver Tablet] Nitroglycerin Sl Tabs [Nitrostat] 0.4 mg PO Q5M PRN 11/28/14 10/15/18 History Omeprazole [PriLOSEC] 20 mg PO AC-BRKFST PRN 11/28/14 10/15/18 History Torsemide [Demadex] 5 mg PO QAM PRN 11/28/14 10/15/18 History Vits A,C,E/Lutein/Minerals 1 tab PO MOWEFRSA 11/28/14 10/15/18 History [Ocuvite with Lutein Tablet] HYDROcodone/APAP 7.5-325MG [Mcbrides 1 tab PO BID PRN 12/05/14 10/15/18 History 7.5-325] Biotin 1,000 1,000 - 2,000 mg PO DAILY 01/12/16 10/15/18 History Apixaban [Eliquis] 2.5 mg PO BID 10/15/18 10/15/18 History Carvedilol [Coreg] 25 mg PO BID 10/15/18 10/15/18 History Fenofibrate Nanocrystallized 145 mg PO HS 10/15/18 10/15/18 History [Fenofibrate] Gabapentin [Neurontin] 300 mg PO BID 10/15/18 10/15/18 History hydrALAZINE HCL [Apresoline] 10 mg PO QID PRN 10/15/18 10/15/18 History Allergies Allergy/AdvReac Type Severity Reaction Status Date / Time Penicillins Allergy Dyspnea Verified 10/15/18 11:52 Sulfa (Sulfonamide Allergy Dyspnea Verified 10/15/18 11:52 Antibiotics) triamcinolone acetonide AdvReac unsure if Verified 10/15/18 11:52 [From Kenalog] the kenalog was the cause, RASH/HIVES Physical Exam Vitals: Vital Signs Temp Pulse Resp BP Pulse Ox 10/15/18 19:29 70 16 120/51 100 10/15/18 18:00 74 18 104/53 97 10/15/18 17:00 78 18 114/52 98 10/15/18 16:00 82 18 116/62 97 10/15/18 15:00 79 18 103/46 98 10/15/18 14:00 98.4 F 79 18 102/51 99 10/15/18 13:30 78 18 93/40 99 10/15/18 13:00 80 18 98/41 99 10/15/18 12:30 80 18 92/40 100 10/15/18 12:00 80 14 100/40 100 10/15/18 11:30 78 18 100/44 100 10/15/18 11:09 34 L 16 68/34 98 10/15/18 10:47 98.2 F 57 L 18 55/32 97 Intake and Output 10/15/18 10/15/18 10/15/18 06:59 14:59 22:59 Other: Weight 59.874 kg - Constitutional General appearance: mild distress - EENT Eyes: anicteric sclerae, EOMI, PERRLA, no ptosis, no scleral icterus, normal appearance ENT: hard of hearing, NA/AT, normal oropharynx, no thrush Ears: bilateral: normal - Neck Neck: no lymphadenopathy, normal ROM, no rigidity, no stridor, no thyromegaly Carotids: bilateral: upstroke normal - Respiratory Respiratory: bilateral: diminished, negative: dullness, rales, rhonchi, wheezing, prolonged expiration, prolonged inspiration - Cardiovascular Rhythm: regular Heart sounds: normal: S1, S2 Abnormal Heart Sounds: systolic murmur, no S3 Gallop, no S4 Gallop, no click - Gastrointestinal General gastrointestinal: normal bowel sounds, soft, no splenomegaly, no tenderness, no umbilical hernia, no ventral hernia - Integumentary Integumentary: normal, normal turgor - Neurologic Neurologic: CNII-XII intact - Musculoskeletal Musculoskeletal: gait normal, generalized weakness, strength equal bilaterally - Psychiatric Psychiatric: A&O x's 3, appropriate affect, intact judgment & insight Results CBC & Chem 7: 10/16/18 05:49 10/16/18 05:49 Labs: Abnormal Lab Results - Last 24 Hours (Table) 10/15/18 10/15/18 10/15/18 Range/Units 11:04 11:04 11:04 WBC 12.5 H (3.8-10.6) k/uL RBC 3.55 L (3.80-5.40) m/uL Hgb 11.1 L (11.4-16.0) gm/dL Hct 33.0 L (34.0-46.0) % Neutrophils # 11.4 H (1.3-7.7) k/uL Lymphocytes # 0.5 L (1.0-4.8) k/uL Sodium 136 L (137-145) mmol/L Potassium 5.2 H (3.5-5.1) mmol/L Carbon Dioxide 18 L (22-30) mmol/L BUN 76 H (7-17) mg/dL Creatinine 2.60 H (0.52-1.04) mg/dL Glucose 157 H (74-99) mg/dL POC Glucose (mg/dL) (75-99) mg/dL Plasma Lactic Acid Jerel 2.3 H* (0.7-2.0) mmol/L AST 75 H (14-36) U/L ALT 58 H (9-52) U/L Urine Appearance (Clear) Urine Protein (Negative) Urine Blood (Negative) Ur Leukocyte Esterase (Negative) Urine RBC (0-5) /hpf Urine WBC (0-5) /hpf Urine WBC Clumps (None) /hpf Urine Bacteria (None) /hpf 10/15/18 10/15/18 10/15/18 Range/Units 11:25 15:22 19:52 WBC (3.8-10.6) k/uL RBC (3.80-5.40) m/uL Hgb (11.4-16.0) gm/dL Hct (34.0-46.0) % Neutrophils # (1.3-7.7) k/uL Lymphocytes # (1.0-4.8) k/uL Sodium (137-145) mmol/L Potassium (3.5-5.1) mmol/L Carbon Dioxide (22-30) mmol/L BUN (7-17) mg/dL Creatinine (0.52-1.04) mg/dL Glucose (74-99) mg/dL POC Glucose (mg/dL) 152 H (75-99) mg/dL Plasma Lactic Acid Jerel 0.5 L (0.7-2.0) mmol/L AST (14-36) U/L ALT (9-52) U/L Urine Appearance Cloudy H (Clear) Urine Protein 2+ H (Negative) Urine Blood Moderate H (Negative) Ur Leukocyte Esterase Large H (Negative) Urine RBC 180 H (0-5) /hpf Urine WBC >182 H (0-5) /hpf Urine WBC Clumps Many H (None) /hpf Urine Bacteria Moderate H (None) /hpf Microbiology - Last 24 Hours (Table) 10/15/18 11:25 Urine Culture - Preliminary Urine,Catheterized Thrombosis Risk Factor Assmnt - DVT/VTE Prophylaxis DVT/VTE Prophylaxis: Pharmacologic Prophylaxis ordered, Mechanical Prophylaxis ordered Assessment and Plan Assessment: Assessment and plan: 1. Right sided pyelonephritis with sepsis. Continue IV fluid resuscitation in the form of normal saline at 125 mL per hour, continue IV antibiotic in the form of Levaquin 500 mg IV piggyback every 48 hours, obtain urine culture and blood culture, continue to monitor the input and output and daily weight, continue with current pain management in the form of Mcbrides 7.5/325 one tablet orally every 8 hours as needed, repeat her CBC and CMP in the next 24 hours. 2. Acute kidney injury and top of chronic kidney disease stage III. Continue IV fluid resuscitation and repeat CMP magnesium in the morning. 3. Non-anion gap metabolic acidosis due to her combination of diarrhea and chronic kidney disease. We will start the patient on sodium bicarbonate. 4. Hypertension and hypertensive cardiovascular disease was hypotensive earlier restart the patient on Coreg 25 mg orally twice every day, losartan 100 mg orally once every day, her blood pressure is good so far. 5. Hyperlipidemia. Continue patient on fenofibrate 160 minute gram orally once every day. 6. Anemia of chronic kidney disease monitor the patient's CBC. She will r equire iron infusion the next 24 hours. 7. Lactic acidosis. Resolved. 8. Paroxysmal atrial fibrillation currently in sinus rhythm continue patient on Coreg 25 mg orally twice every day, Eliquis 2.5 mg orally twice every day. 9. Leukocytosis likely due to the pyelonephritis and sepsis. Continue IV fluid and IV anabiotic repeat CBC the next 24 hours. 10. History of breast cancer status post bilateral mastectomy. In remission. 11. Peripheral neuropathy. Currently on gabapentin 300 mg orally twice every day. 12. Chronic low back pain secondary to degenerative disc disease with spon dylolisthesis status post epidural injections. Continue current Mcbrides 7.5/325 one tablet every 8 hours as needed. 13. GERD. Continue patient on Protonix 40 mg orally once every day. 14. Admitted to inpatient. Estimate a length of stay 2 midnights. 15. Patient is full code.
--- NOTE | 2018-10-16 15:17 | P.PN ---
Subjective Progress Note Date: 10/16/18 This is an 83-year-old female one of Dr. Rice with a previous medical history significant for hypertension and hypertensive cardiovascular disease, hyperlipidemia, GERD, history of breast cancer status post mastectomy, history of proximal atrial fibrillation currently in sinus rhythm, GERD, osteoarthritis, varicose pain, patient was sent from her doctor's office after she was supposed to have a six-month appointment she was having right sided flank pain and back pain and she thought that she is having one of her urinary tract infection for the past 2 days prior to the arrival to the office however she didn't say anything about it until she came to the office where she became quite shaky hypotensive and weak ended up getting transferred to the emergency department at [facility] where she was found to have a significant pyelonephritis after she had a computed tomography scan of the abdomen and pelvis without contrast that showed periureteral stranding, with significant UTI she also did have a lactic acidosis and worsening of her kidney function issues stated that she has been having diarrhea for quite sometimes but this has been normal for her since she had a right colectomy in the past, patient was started on IV fluid resuscitation and her blood pressure started to come up and she did receive: Most 2 L of IV fluid and she was admitted to the intensive care unit was seen in consultation by Dr. Gutiérrez she was started on IV antibiotic in the form of Levaquin as the patient has penicillin and sulfa ALLERGY also she had urine and blood culture and she was admitted to the ICU for pyelonephritis with sepsis. 10/16: Patient remains in the intensive care unit. She states she is still not feeling well and did not sleep during the night. She denies shortness of ozzy ath. She has been afebrile, heart rate in the 60s, blood pressure 120/58, pulse ox 90% on room air. Repeat lab work shows a white count 22.4, hemoglobin 9.2, platelet count 148. BUN 69 creatinine 2.59, sodium 137, potassium 4.7, chloride 111, CO2 15. Magnesium was 1.2. AST 60 and ALT 57. Blood cultures showing no growth after 24 hours and urine culture is showing gram-negative bacilli. Shawna ent has been transitioned to oral Levaquin. Magnesium has been replaced. Patient has also been started on sodium bicarb orally. The patient is waiting for bed on MedSurg floor. Review of Systems Constitutional: Reports anorexia, Reports fatigue, Reports malaise, Reports weakness Eyes: denies blurred vision, denies bulging eye, denies decreased vision Ears, nose, mouth and throat: Denies dysphagia, Denies neck lump, Denies swelling in throat, Denies sore throat Cardiovascular: Reports lightheadedness, Denies chest pain, Denies decreased exercise tolerance, Denies rapid heart beat, Denies shortness of breath, Denies syncope Respiratory: Denies congestion, Denies cough with sputum, Denies home oxygen, Denies sleep apnea, Denies snoring, Denies wheezing Gastrointestinal: Reports diarrhea, Reports nausea, Denies abdominal pain, Denies BRBPR, Denies change in bowel habits, Denies heartburn, Denies hematemesis, Denies jaundice, Denies lactose intolerance, Denies loss of appetite, Denies melena, Denies vomiting Genitourinary: Reports dysuria, Reports flank pain, Denies hematuria, Denies kidney stones, Denies nocturia, Denies urgency Menstruation: Reports postmenopausal Musculoskeletal: Reports as per HPI Musculoskeletal: absent: ankle pain, ankle stiffness, ankle swelling, elbow pain, elbow stiffness, elbow swelling, foot pain, foot stiffness, foot swelling, hand pain, hand stiffness, hand swelling, hip pain, hip stiffness, hip swelling, knee pain, knee stiffness, knee swelling, shoulder pain, shoulder stiffness, shoulder swelling, wrist pain, wrist stiffness, wrist swelling Integumentary: Denies pruritus, Denies rash Neurological: Denies numbness, Denies weakness Psychiatric: Denies anxiety, Denies depression, reports insomnia Endocrine: Denies fatigue, Denies weight change Objective - Vital Signs Vital signs: Vital Signs Temp 96.8 F L 10/16/18 08:00 Pulse 64 10/16/18 09:00 Resp 11 L 10/16/18 09:00 BP 128/58 10/16/18 09:00 Pulse Ox 97 10/16/18 09:00 Intake & Output 10/15/18 10/16/18 10/16/18 18:59 06:59 18:59 Intake Total 1600 250 Output Total 340 Balance 1260 250 Weight 59.874 kg 62.3 kg Intake: IV 1100 150 0.9 1100 150 Intake, IV Titration 100 Amount Magnesium Sulfate-D5w Pmx 100 1 gm In Dextrose/Water 1 100ml.bag @ 100 mls/hr IVPB ONCE ONE Rx#: [id number] Oral 500 Output: Urine 340 Other: Voiding Method Bedside Commode Bedside Commode # Voids 0 1 # Bowel Movements 1 - Exam General appearance: no distress - EENT Eyes: anicteric sclerae, EOMI, PERRLA, no ptosis, no scleral icterus, normal appearance ENT: hard of hearing, NA/AT, normal oropharynx, no thrush Ears: bilateral: normal - Neck Neck: no lymphadenopathy, normal ROM, no rigidity, no stridor, no thyromegaly Carotids: bilateral: upstroke normal - Respiratory Respiratory: bilateral: diminished, negative: dullness, rales, rhonchi, wheezing, prolonged expiration, prolonged inspiration - Cardiovascular Rhythm: regular Heart sounds: normal: S1, S2 Abnormal Heart Sounds: systolic murmur, no S3 Gallop, no S4 Gallop, no click - Gastrointestinal General gastrointestinal: normal bowel sounds, soft, no splenomegaly, no tenderness, no umbilical hernia, no ventral hernia - Integumentary Integumentary: normal, normal turgor - Neurologic Neurologic: CNII-XII intact - Musculoskeletal Musculoskeletal: gait normal, generalized weakness, strength equal bilaterally - Psychiatric Psychiatric: A&O x's 3, appropriate affect, intact judgment & insight - Labs CBC & Chem 7: 10/16/18 05:49 10/16/18 05:49 Labs: Abnormal Lab Results - Last 24 Hours (Table) 10/15/18 10/15/18 10/16/18 Range/Units 15:22 19:52 05:49 WBC 22.4 H (3.8-10.6) k/uL RBC 3.07 L (3.80-5.40) m/uL Hgb 9.2 L D (11.4-16.0) gm/dL Hct 29.3 L (34.0-46.0) % Plt Count 148 L (150-450) k/uL Neutrophils # (Manual) 19.90 H (1.3-7.7) k/uL Monocytes # (Manual) 1.34 H (0-1.0) k/uL Chloride (98-107) mmol/L Carbon Dioxide (22-30) mmol/L BUN (7-17) mg/dL Creatinine (0.52-1.04) mg/dL POC Glucose (mg/dL) 152 H (75-99) mg/dL Plasma Lactic Acid Jerel 0.5 L (0.7-2.0) mmol/L Magnesium (1.6-2.3) mg/dL AST (14-36) U/L ALT (9-52) U/L Total Protein (6.3-8.2) g/dL Albumin (3.5-5.0) g/dL 10/16/18 Range/Units 05:49 WBC (3.8-10.6) k/uL RBC (3.80-5.40) m/uL Hgb (11.4-16.0) gm/dL Hct (34.0-46.0) % Plt Count (150-450) k/uL Neutrophils # (Manual) (1.3-7.7) k/uL Monocytes # (Manual) (0-1.0) k/uL Chloride 111 H (98-107) mmol/L Carbon Dioxide 15 L (22-30) mmol/L BUN 69 H (7-17) mg/dL Creatinine 2.59 H (0.52-1.04) mg/dL POC Glucose (mg/dL) (75-99) mg/dL Plasma Lactic Acid Jerel (0.7-2.0) mmol/L Magnesium 1.2 L (1.6-2.3) mg/dL AST 60 H (14-36) U/L ALT 57 H (9-52) U/L Total Protein 5.5 L (6.3-8.2) g/dL Albumin 3.1 L (3.5-5.0) g/dL Microbiology - Last 24 Hours (Table) 10/15/18 11:25 Urine Culture - Preliminary Urine,Catheterized Assessment and Plan Plan: 1. Right sided pyelonephritis with sepsis. Continue IV fluid resuscitation in the form of normal saline at 75 mL per hour, continue IV antibiotic in the form of Levaquin 500 mg every 48 hours, obtain urine culture and blood culture, continue to monitor the input and output and daily weight, continue with current pain management in the form of [place] 7.5/325 one tablet orally every 8 hours as needed, repeat her CBC and CMP in the next 24 hours. 2. Acute kidney injury and top of chronic kidney disease stage III. Continue IV fluid resuscitation and repeat CMP magnesium in the morning. 3. Non-anion gap metabolic acidosis due to her combination of diarrhea and chronic kidney disease. We will start the patient on sodium bicarbonate. 4. Hypertension and hypertensive cardiovascular disease was hypotensive earlier restart the patient on Coreg 25 mg orally twice every day, losartan 100 mg ora lly once every day, her blood pressure is good so far. 5. Hyperlipidemia. Continue patient on fenofibrate 160 minute gram orally once every day. 6. Anemia of chronic kidney disease monitor the patient's CBC. She will require iron infusion the next 24 hours. 7. Lactic acidosis. Resolved. Patient is on oral sodium bicarbonate tablets. 8. Paroxysmal atrial fibrillation currently in sinus rhythm continue patient on Coreg 25 mg orally twice every day, Eliquis 2.5 mg orally twice every day. 9. Leukocytosis likely due to the pyelonephritis and sepsis. Continue IV fluid and IV antibiotics, repeat CBC the next 24 hours. 10. History of breast cancer status post bilateral mastectomy. In remission. 11. Peripheral neuropathy. Currently on gabapentin 300 mg orally twice every day. 12. 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 Continue current [place] 7.5/325 one tablet every 8 hours as needed. 13. GERD. Continue patient on Protonix 40 mg orally once every day. 14. Patient is full code. Discharge plan: Return home Impression and plan of care have been directed as dictated by the signing physician. Domi Fairchild nurse practitioner acting as scribe for signing physician.
--- NOTE | 2018-10-16 16:32 | P.PN ---
Subjective Progress Note Date: 10/16/18 Pleasant 83-year-old female patient was sent over from her primary care irai sahra's office because of an acute pain along the right flank area suspecting an underlying urine tract infection. The patient was therefore routine 6 months check and she was complaining of back and abdominal pain and flank pain and she was feeling also weak. She denies having any dysuria or hematuria or any urinary symptoms. Nevertheless this patient has had previous urinary tract infections. No history of nephrolithiasis. Upon arrival to the burst department, the patient was found to be apprehensive and her initial blood pressure was 65/32. She responded nicely to fluids and his systolic blood pressure came up to the mid 60s and then 100 and currently her most recent blood pressure is 120/51. She is producing some urine and the Rios catheter inserted for now. There was a positive for 0.5. UA was quite abnormal and creatinine was elevated at 2.6 with a BUN of 76. The CAT scan of the abdomen was done that showed mild ureteral fat stranding and evidence of prior nephritis on the right. The patient also has rectal and sigmoid colonic thickening. No diarrhea. On today's evaluation of 2018 and seeing this patient for a follow-up H is doing extremely well. She is calm and comfortable. No fever. No chills. No nausea or vomiting. The flank pain is still present although it has somewhat subsided. The patient's white cell count is up to 22. The patient's serum bicarbonate dropped down to 15. When necessary is 69 with a creatinine of 2.59. The urine cultures showing gram-negative bacillus. Blood cultures still negative for now. The patient is on Levaquin. The patient is currently in the intensive care unit. The patient has been hemodynamically stable and she did not require any pressors. She is waiting for a medical surgical floor. Objective - Vital Signs Vital signs: Vital Signs Temp 96.9 F L 10/16/18 15:00 Pulse 72 10/16/18 15:00 Resp 15 10/16/18 15:00 BP 122/71 10/16/18 15:00 Pulse Ox 97 10/16/18 15:00 Intake & Output 10/15/18 10/16/18 10/16/18 18:59 06:59 18:59 Intake Total 1600 800 Output Total 340 Balance 1260 800 Weight 59.874 kg 62.3 kg Intake: IV 1100 600 0.9 1100 600 Intake, IV Titration 200 Amount Levofloxacin 500Mg-D5w 100 Pmx 500 mg In Dextrose/ Water 1 100ml.bag @ 100 mls/hr IVPB Q48H [facility] Rx#: [id number] Magnesium Sulfate-D5w Pmx 100 1 gm In Dextrose/Water 1 100ml.bag @ 100 mls/hr IVPB ONCE ONE Rx#: [id number] Oral 500 Output: Urine 340 Other: Voiding Method Bedside Commode Bedside Commode # Voids 0 4 # Bowel Movements 1 3 - Exam The patient appeared well nourished and normally developed. Vital signs as documented. Head exam is unremarkable. No scleral icterus or corneal arcus noted. Neck is without jugular venous distension, thyromegaly, or carotid bruits. Carotid upstrokes are brisk bilaterally. Lungs are clear to auscultation and percussion. Cardiac exam reveals the PMI to be normally sized and situated. Rhythm is regular. First and second heart sounds normal. No murmurs, rubs or gallops. Abdominal exam reveals normal bowel sounds, no masses, no organomegaly and no aortic enlargement. Extremities are nonedematous and both femoral and pedal pulses are normal.Examination of the skin revealed no evidence of significant rashes, suspicious appearing nevi or other concerning lesions. Neurologically the patient is awake and alert and there is no focal neurological deficits. - Labs CBC & Chem 7: 10/16/18 05:49 10/16/18 05:49 Labs: Abnormal Lab Results - Last 24 Hours (Table) 10/15/18 10/16/18 10/16/18 Range/Units 19:52 05:49 05:49 WBC 22.4 H (3.8-10.6) k/uL RBC 3.07 L (3.80-5.40) m/uL Hgb 9.2 L D (11.4-16.0) gm/dL Hct 29.3 L (34.0-46.0) % Plt Count 148 L (150-450) k/uL Neutrophils # (Manual) 19.90 H (1.3-7.7) k/uL Monocytes # (Manual) 1.34 H (0-1.0) k/uL Chloride 111 H (98-107) mmol/L Carbon Dioxide 15 L (22-30) mmol/L BUN 69 H (7-17) mg/dL Creatinine 2.59 H (0.52-1.04) mg/dL POC Glucose (mg/dL) 152 H (75-99) mg/dL Magnesium 1.2 L (1.6-2.3) mg/dL AST 60 H (14-36) U/L ALT 57 H (9-52) U/L Total Protein 5.5 L (6.3-8.2) g/dL Albumin 3.1 L (3.5-5.0) g/dL Microbiology - Last 24 Hours (Table) 10/15/18 11:25 Urine Culture - Preliminary Urine,Catheterized Gram Neg Bacilli 10/15/18 11:25 Blood Culture - Preliminary Blood No Growth after 24 hours Assessment and Plan Plan: 1 pyelonephritis, right-sided, with secondary sepsis, suspect underlying gram- negative infection and the urine culture that showing gram-negative bacillus and the patient is currently on Levaquin. 2 hypotension secondary to above, responded nicely to fluids and the patient is currently on no pressors, and the patient has remained hemodynamically stable throughout the past 12 hours and the patient is on no pressors. 3 mild lactic acidosis improved, and the patient continues to have a component of non-anion gap metabolic acidosis 4. History of urinary incontinence and frequent UTIs 5 history of A. fib current rhythm is sinus 6 history of breast cancer post-bilateral mastectomy 7 ovarian cancer 8 skin cancer 9 peripheral neuropathy 10 chronic kidney disease, stage II 11 leukocytosis secondary to above Plan The IV Fluids to 75 ML an Hour. Continue Levaquin and Adjust the Dose. Add Oral Cardiac up regarding the Metabolic Acidosis Which Is of a Non-Anion Gap Type. We'll Continue to Follow. The Patient Be Transferred to a Medical Surgical Floor.
[2018-10-16] MEDS: ASPIRIN 81 MG PO SCH (21:45)
[2018-10-16] MEDS: FENOFIBRATE 160 MG TAB PO SCH (21:45)
[2018-10-16] MEDS: LOSARTAN 50 MG TAB PO SCH (21:45)
[2018-10-17] MEDS: SODIUM CHLORIDE 0.9% 1,000 ML IV SCH (00:52)
[2018-10-17 08:02] LABS: HCT 28.8 % (34.0-46.0); HGB 9.3 gm/dL (11.4-16.0); MCH 30.6 pg (25.0-35.0); MCHC 32.2 g/dL (31.0-37.0); MCV 94.9 fL (80.0-100.0); Mean Platelet Volume 7.1; Platelet Count 138 k/uL (150-450); RBC 3.04 m/uL (3.80-5.40); RDW 14.1 % (11.5-15.5); WBC 16.7 k/uL (3.8-10.6)
[2018-10-17 08:14] LABS: Albumin 2.8 g/dL (3.5-5.0); Calcium 8.4 mg/dL (8.4-10.2); Potassium 4.4 mmol/L (3.5-5.1); Total Bilirubin 0.5 mg/dL (0.2-1.3); Total Protein 5.3 g/dL (6.3-8.2)
[2018-10-17] MEDS: GABAPENTIN 300 MG CAP PO SCH ×2 (08:54→20:40)
[2018-10-17] MEDS: MULTIVITAMINS, THERA 1 EACH TAB PO SCH (08:54)
[2018-10-17] MEDS: VIT A,C & E-LUTEIN-MINERALS 1 EACH TAB PO SCH (08:54)
[2018-10-17] MEDS: CARVEDILOL 12.5 MG TAB PO SCH ×2 (08:54→17:04)
[2018-10-17] MEDS: APIXABAN 2.5 MG TABLET PO SCH ×3 (08:54→20:40)
[2018-10-17] MEDS: SODIUM BICARBONATE TAB 650 MG TAB PO SCH ×3 (08:54→20:40)
[2018-10-17] MEDS: HYDROcodone/APAP 7.5-325MG 1 EACH TAB PO PRN ×2 (08:56→17:04)
[2018-10-17] MEDS ORDERED: IPRATROPIUM-ALBUTEROL 3 ML NEB INHALATION PRN (09:13)
--- NOTE | 2018-10-17 09:36 | XR ---
EXAMINATION TYPE: XR chest 1V portable DATE OF EXAM: 10/17/2018 HISTORY: shortness of breath. REFERENCE: Previous study dated 10/15/2018. FINDINGS: Lungs are overinflated. The heart is mildly enlarged. I do not see evidence of pneumonia or edema. Pleural spaces are clear. IMPRESSION: 1. MILD CARDIOMEGALY. 2. COPD.
[2018-10-17] MEDS ORDERED: FUROSEMIDE 20 MG TAB PO SCH (11:00)
--- NOTE | 2018-10-17 12:28 | P.NPCON ---
History of Present Illness - Reason for Consult acute renal failure - Chief Complaint Altered mental status and back pain - History of Present Illness 83-year-old lady referred to the hospital by the primary care physician because of confusion and suspected urinary tract infection. She had back pain with radiating symptoms had MRI which showed disc prolapse prior to her hospital ization. When she was talking on the phone with the primary care doctor she sounded very confused and was advised to go to the hospital. When she presented to the hospital she was hypotensive with a systolic blood pressure of 55/32. Urine showed pyuria and she was started on antibiotics for urinary tract infection. Computed tomography scan of the abdomen showed pyelonephritis with periureteric fat stranding on the right side. Her baseline creatinine as of 2016 was 1.1-1.4 MG per DL. She used to follow with Dr. Reeder, one of my partners as outpatient but she moved to [facility] she lost to follow-up and follows with primary care. Creatinine on admission was 2.6 improved to 2.4 today. No nausea vomiting diarrhea. No NSAID use. No recent contrast studies. She is currently on Lasix and Cozaar. Review of Systems Constitutional: Reports as per HPI Past Medical History Past Medical History: Atrial Fibrillation, Cancer, Chest Pain / Angina, Fibromyalgia, GERD/Reflux, Hyperlipidemia, Hypertension, Mitral Valve Prolapse (MVP), Neurologic Disorder, Osteoarthritis (OA), Renal Disease, Vascular Disorder Additional Past Medical History / Comment(s): NEUROPATHY ASHER. LEGS & FEET, VARICOSE VEINS, KIDNEYS(small kidneys) FUNCTIONING @ 50%-URINE LEAKAGE- WEARS A PAD, HX skin, BREAST & OVARIAN CA-CHEMO 1986 & 1987, LUMBAR DDD-HERNIATION L3- L4, constipation History of Any Multi-Drug Resistant Organisms: None Reported Past Surgical History: Bowel Resection, Breast Surgery, Heart Catheterization, Hysterectomy, Orthopedic Surgery Additional Past Surgical History / Comment(s): COLOSTOMY & THEN REVERSAL OF COLOSTOMY,ASHER. MASTECTOMY, EXC.CATARACT ASHER, ASHER. THUMB SURGERY, skin cancer removed from nose, bowel resection 01/12/16 Past Anesthesia/Blood Transfusion Reactions: Previous Problems w/ Anesthesia Additional Past Anesthesia/Blood Transfusion Reaction / Comment(s): AFTER LAST PAIN CLINIC PROCEDURE 01/12/15 HAD ALLEGIC REACTION- broke out in hives and itching all over that lasted over 1 week, also had ELEVATED PULSE & BP. Past Psychological History: No Psychological Hx Reported Smoking Status: Former smoker Past Alcohol Use History: None Reported Past Drug Use History: None Reported - Past Family History Daughter(s) Family Medical History: No Reported History Father Family Medical History: Cancer (Father at age of 80 from lung cancer) Mother Family Medical History: Coronary Artery Disease (CAD), CVA/TIA (Mother at age of 94 and she had suffered from CAD, CABG, diabetes mellitus type 2 and CVA), Diabetes Mellitus Additional Family Medical History / Comment(s): HEART PROBLEMS Medications and Allergies Home Medications Medication Instructions Recorded Confirmed Type ALPRAZolam [Xanax] 0.25 mg PO BID PRN 11/28/14 10/15/18 History Aspirin 81 mg PO HS 11/28/14 10/15/18 History Labetalol [Trandate] 200 mg PO Q8H PRN 11/28/14 10/15/18 History Losartan Potassium 100 mg PO HS 11/28/14 10/15/18 History Multivit-Min/FA/Lycopene/Lut 1 tab PO DAILY 11/28/14 10/15/18 History [Centrum Silver Tablet] Nitroglycerin Sl Tabs [Nitrostat] 0.4 mg PO Q5M PRN 11/28/14 10/15/18 History Omeprazole [PriLOSEC] 20 mg PO AC-BRKFST PRN 11/28/14 10/15/18 History Torsemide [Demadex] 5 mg PO QAM PRN 11/28/14 10/15/18 History Vits A,C,E/Lutein/Minerals 1 tab PO MOWEFRSA 11/28/14 10/15/18 History [Ocuvite with Lutein Tablet] HYDROcodone/APAP 7.5-325MG [[place] 1 tab PO BID PRN 12/05/14 10/15/18 History 7.5-325] Biotin 1,000 1,000 - 2,000 mg PO DAILY 01/12/16 10/15/18 History Apixaban [Eliquis] 2.5 mg PO BID 10/15/18 10/15/18 History Carvedilol [Coreg] 25 mg PO BID 10/15/18 10/15/18 History Fenofibrate Nanocrystallized 145 mg PO HS 10/15/18 10/15/18 History [Fenofibrate] Gabapentin [Neurontin] 300 mg PO BID 10/15/18 10/15/18 History hydrALAZINE HCL [Apresoline] 10 mg PO QID PRN 10/15/18 10/15/18 History Allergies Allergy/AdvReac Type Severity Reaction Status Date / Time Penicillins Allergy Dyspnea Verified 10/15/18 11:52 Sulfa (Sulfonamide Allergy Dyspnea Verified 10/15/18 11:52 Antibiotics) triamcinolone acetonide AdvReac unsure if Verified 10/15/18 11:52 [From Kenalog] the kenalog was the cause, RASH/HIVES Physical Exam Vitals: Vital Signs Temp Pulse Pulse Pulse Resp BP Pulse Ox 10/17/18 07:35 98.3 F 81 16 144/75 92 L 10/17/18 00:00 97.7 F 80 16 180/84 95 10/16/18 23:00 98.1 F 75 16 166/74 97 10/16/18 15:00 96.9 F L 72 15 122/71 97 Intake and Output 10/16/18 10/17/18 10/17/18 22:59 06:59 14:59 Intake Total 1000 Balance 1000 Intake: IV 600 0.9 600 Oral 400 Other: Voiding Method Bedside Commode # Voids 4 1 # Bowel Movements 3 Lying in bed no acute distress S1-S2 heard Lungs clear Abdomen distended Trace edema Results - Lab Results Most recent lab results Calcium 8.4 mg/dL (8.4-10.2) 10/17/18 07:29 Magnesium 1.8 mg/dL (1.6-2.3) 10/16/18 16:10 10/17/18 07:29 10/17/18 07:29 Assessment and Plan Assessment: #1 acute kidney injury suspect hemodynamic ATN with low blood pressure from un derlying sepsis. #2 hypotension on admission secondary to UTI/pyelonephritis with gram-negative infection #3 chronic kidney disease stage III, baseline creatinine 1.1-1.4 as of 2016. She is in [facility] yesterday at [facility]. No recent creatinine to compare. #4 hypertension with chronic kidney disease #5 anemia with chronic kidney disease #6 non-anion gap metabolic acidosis secondary to IV fluids Plan: #1 creatinine improving since admission. Check bladder scan to rule out urinary retention. #2 stop losartan and Lasix. Also stop IV fluids for non-anion gap metabolic acidosis #3 add amlodipine for blood pressure control. Goal 120-140/90. #4 avoid nephrotoxic agents and hypotensive episodes #5 repeat labs in the morning
--- NOTE | 2018-10-17 12:52 | P.PN ---
Subjective Progress Note Date: 10/17/18 This is an 83-year-old female one of Dr. Rice with a previous medical history significant for hypertension and hypertensive cardiovascular disease, hyperlipidemia, GERD, history of breast cancer status post mastectomy, history of proximal atrial fibrillation currently in sinus rhythm, GERD, osteoarthritis, varicose pain, patient was sent from her doctor's office after she was supposed to have a six-month appointment she was having right sided flank pain and back pain and she thought that she is having one of her urinary tract infection for the past 2 days prior to the arrival to the office however she didn't say anything about it until she came to the office where she became quite shaky hypotensive and weak ended up getting transferred to the emergency department at [facility] where she was found to have a significant pyelonephritis after she had a computed tomography scan of the abdomen and pelvis without contrast that showed periureteral stranding, with significant UTI she also did have a lactic acidosis and worsening of her kidney function issues stated that she has been having diarrhea for quite sometimes but this has been normal for her since she had a right colectomy in the past, patient was started on IV fluid resuscitation and her blood pressure started to come up and she did receive: Most 2 L of IV fluid and she was admitted to the intensive care unit was seen in consultation by Dr. Gutiérrez she was started on IV antibiotic in the form of Levaquin as the patient has penicillin and sulfa ALLERGY also she had urine and blood culture and she was admitted to the ICU for pyelonephritis with sepsis. 10/16: Patient remains in the intensive care unit. She states she is still not feeling well and did not sleep during the night. She denies shortness of ozzy ath. She has been afebrile, heart rate in the 60s, blood pressure 120/58, pulse ox 90% on room air. Repeat lab work shows a white count 22.4, hemoglobin 9.2, platelet count 148. BUN 69 creatinine 2.59, sodium 137, potassium 4.7, chloride 111, CO2 15. Magnesium was 1.2. AST 60 and ALT 57. Blood cultures showing no growth after 24 hours and urine culture is showing gram-negative bacilli. Shawna ent has been transitioned to oral Levaquin. Magnesium has been replaced. Patient has also been started on sodium bicarb orally. The patient is waiting for bed on [facility]. 10/17: Patient remains afebrile, blood pressure 144/75, pulse ox 92% on room air, heart rate in the 70s and 80s. Repeat white count is down to 16.7, hemoglobin 9.3, umbilical 138. Chloride is 116 and CO2 16, BUN 66 and creatinine 2.39. AST is 52 and ALT is 52. Blood culture remains with no growth. Urine culture is E. coli pansensitive. Patient is currently on Levaquin. 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 We will ask for nephrology to evaluate. The patient is complaining of shortness of breath this morning and worse with ambulating to the bathroom. Chest x-ray reveals cardiomegaly with no acute findings. Lasix will be added at 20 mg daily oral and nebulizer ordered. IV fluids to saline lock. Review of Systems Constitutional: Reports anorexia, Reports fatigue, Reports malaise, Reports w eakness Eyes: denies blurred vision, denies bulging eye, denies decreased vision Ears, nose, mouth and throat: Denies dysphagia, Denies neck lump, Denies swelling in throat, Denies sore throat Cardiovascular: Reports lightheadedness, Denies chest pain, Denies decreased exercise tolerance, Denies rapid heart beat, reports shortness of breath, Denies syncope Respiratory: Denies congestion, Denies cough with sputum, Denies home oxygen, Denies sleep apnea, Denies snoring, Denies wheezing Gastrointestinal: Reports diarrhea, Reports nausea, Denies abdominal pain, Denies BRBPR, Denies change in bowel habits, Denies heartburn, Denies hematemesis, Denies jaundice, Denies lactose intolerance, Denies loss of appetite, Denies melena, Denies vomiting Genitourinary: Reports dysuria, Reports flank pain, Denies hematuria, Denies kidney stones, Denies nocturia, Denies urgency Menstruation: Reports postmenopausal Musculoskeletal: Reports as per HPI Musculoskeletal: absent: ankle pain, ankle stiffness, ankle swelling, elbow pain, elbow stiffness, elbow swelling, foot pain, foot stiffness, foot swelling, hand pain, hand stiffness, hand swelling, hip pain, hip stiffness, hip swelling, knee pain, knee stiffness, knee swelling, shoulder pain, shoulder stiffness, shoulder swelling, wrist pain, wrist stiffness, wrist swelling Integumentary: Denies pruritus, Denies rash Neurological: Denies numbness, Denies weakness Psychiatric: Denies anxiety, Denies depression, reports insomnia Endocrine: Denies fatigue, Denies weight change Objective - Vital Signs Vital signs: Vital Signs Temp 98.3 F 10/17/18 07:35 Pulse 81 10/17/18 07:35 Resp 16 10/17/18 07:35 BP 144/75 10/17/18 07:35 Pulse Ox 92 L 10/17/18 07:35 Intake & Output 10/16/18 10/17/18 10/17/18 18:59 06:59 18:59 Intake Total 800 1000 Balance 800 1000 Intake: IV 600 600 0.9 600 600 Intake, IV Titration 200 Amount Levofloxacin 500Mg-D5w 100 Pmx 500 mg In Dextrose/ Water 1 100ml.bag @ 100 mls/hr IVPB Q48H [facility] Rx#: [id number] Magnesium Sulfate-D5w Pmx 100 1 gm In Dextrose/Water 1 100ml.bag @ 100 mls/hr IVPB ONCE ONE Rx#: [id number] Oral 400 Other: Voiding Method Bedside Commode # Voids 4 1 # Bowel Movements 3 - Exam General appearance: no distress at rest in bed - EENT Eyes: anicteric sclerae, EOMI, PERRLA, no ptosis, no scleral icterus, normal appearance ENT: hard of hearing, NA/AT, normal oropharynx, no thrush Ears: bilateral: normal - Neck Neck: no lymphadenopathy, normal ROM, no rigidity, no stridor, no thyromegaly Carotids: bilateral: upstroke normal - Respiratory Respiratory: bilateral: diminished, negative: dullness, rales, rhonchi, wheezing, prolonged expiration, prolonged inspiration - Cardiovascular Rhythm: regular Heart sounds: normal: S1, S2 Abnormal Heart Sounds: systolic murmur, no S3 Gallop, no S4 Gallop, no click - Gastrointestinal General gastrointestinal: normal bowel sounds, soft, no splenomegaly, no tenderness, no umbilical hernia, no ventral hernia - Integumentary Integumentary: normal, normal turgor - Neurologic Neurologic: CNII-XII intact - Musculoskeletal Musculoskeletal: gait normal, generalized weakness, strength equal bilaterally - Psychiatric Psychiatric: A&O x's 3, appropriate affect, intact judgment & insight - Labs CBC & Chem 7: 10/17/18 07:29 10/17/18 07:29 Labs: Abnormal Lab Results - Last 24 Hours (Table) 10/17/18 10/17/18 Range/Units 07:29 07:29 WBC 16.7 H (3.8-10.6) k/uL RBC 3.04 L (3.80-5.40) m/uL Hgb 9.3 L (11.4-16.0) gm/dL Hct 28.8 L (34.0-46.0) % Plt Count 138 L (150-450) k/uL Chloride 116 H (98-107) mmol/L Carbon Dioxide 16 L (22-30) mmol/L BUN 66 H (7-17) mg/dL Creatinine 2.39 H (0.52-1.04) mg/dL Glucose 114 H (74-99) mg/dL AST 52 H (14-36) U/L Total Protein 5.3 L (6.3-8.2) g/dL Albumin 2.8 L (3.5-5.0) g/dL Microbiology - Last 24 Hours (Table) 10/15/18 11:25 Urine Culture - Final Urine,Catheterized Escherichia coli 10/15/18 11:25 Blood Culture - Preliminary Blood No Growth after 24 hours Assessment and Plan Plan: 1. Right sided E. coli pyelonephritis with sepsis and septic shock with hypotension. IV fluids discontinued. Continue Levaquin 500 mg every 48 hours, monitor the input and output and daily weight, continue with current pain management in the form of Hickman 7.5/325 one tablet orally every 8 hours as neede d. 2. Acute kidney injury and top of chronic kidney disease stage III. IV fluids will be discontinued. Nephrology consult requested. 3. Non-anion gap metabolic acidosis due to her combination of diarrhea and chronic kidney disease. Continue oral sodium bicarbonate. 4. Hypertension and hypertensive cardiovascular disease. Continue Coreg 25 mg orally twice every day, losartan 100 mg orally once every day. 5. Hyperlipidemia. Continue patient on fenofibrate 160 minute gram orally once every day. 6. Anemia of chronic kidney disease monitor the patient's CBC. 7. Lactic acidosis. Resolved. Patient is on oral sodium bicarbonate tablets. 8. Paroxysmal atrial fibrillation currently in sinus rhythm continue patient on Coreg 25 mg orally twice every day, Eliquis 2.5 mg orally twice every day. 9. Leukocytosis likely due to the pyelonephritis and sepsis. Continue antibiotics 10. History of breast cancer status post bilateral mastectomy. In remission. 11. Peripheral neuropathy. Currently on gabapentin 300 mg orally twice every day. 12. 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 Continue current Hickman 7.5/325 one tablet every 8 hours as needed. 13. GERD. Continue patient on Protonix 40 mg orally once every day. 14. Shortness of breath secondary to fluid overload. Patient has been off her diuretic. We will resume Lasix 20 mg orally daily and stop IV fluids. Chest x- ray shows cardiomegaly. Patient is full code. Discharge plan: Return home Impression and plan of care have been directed as dictated by the signing physician. Domi Fairchild nurse practitioner acting as scribe for signing physician.
--- NOTE | 2018-10-17 14:05 | P.PN ---
Subjective Progress Note Date: 10/17/18 Principal diagnosis: Plan of rate is, right-sided with secondary sepsis. Pleasant 83-year-old female patient was sent over from her primary care physician's office because of an acute pain along the right flank area suspecting an underlying urine tract infection. The patient was therefore routine 6 months check and she was complaining of back and abdominal pain and flank pain and she was feeling also weak. She denies having any dysuria or hematuria or any urinary symptoms. Nevertheless this patient has had previous urinary tract infections. No history of nephrolithiasis. Upon arrival to the burst department, the patient was found to be apprehensive and her initial blood pressure was 65/32. She responded nicely to fluids and his systolic blood pressure came up to the mid 60s and then 100 and currently her most recent blood pressure is 120/51. She is producing some urine and the Rios catheter inserted for now. There was a positive for 0.5. UA was quite abnormal and creatinine was elevated at 2.6 with a BUN of 76. The CAT scan of the abdomen was done that showed mild uterine fat stranding and evidence of prior nephritis on the right. The patient also has rectal and sigmoid colonic thickening. No diarrhea. The patient is seen today 10/17/2018 in follow-up on the regular medical floor. She is currently awake and alert in no acute distress. Laying flat in bed. No oxygen supplementation. She denies any shortness of breath, cough or congestion. She states she did have an episode of shortness of breath last evening possibly related to the fluid volume resuscitation for her sepsis. Today's chest x-ray shows mild cardiomegaly and evidence of COPD but no acute pulmonary process. She is maintaining O2 saturations in the 90s on room air. She's afebrile. Hemodynamically stable. Urine culture positive for E. coli. Blood culture reveals no growth to date. White count 16.7. Hemoglobin 9.3. Creatinine 2.39. She is currently on Levaquin. Objective - Vital Signs Vital signs: Vital Signs Temp 98.3 F 10/17/18 07:35 Pulse 81 10/17/18 07:35 Resp 16 10/17/18 07:35 BP 144/75 10/17/18 07:35 Pulse Ox 92 L 10/17/18 07:35 Intake & Output 10/16/18 10/17/18 10/17/18 18:59 06:59 18:59 Intake Total 800 1000 Output Total 300 Balance 800 1000 -300 Intake: IV 600 600 0.9 600 600 Intake, IV Titration 200 Amount Levofloxacin 500Mg-D5w 100 Pmx 500 mg In Dextrose/ Water 1 100ml.bag @ 100 mls/hr IVPB Q48H [facility] Rx#: [id number] Magnesium Sulfate-D5w Pmx 100 1 gm In Dextrose/Water 1 100ml.bag @ 100 mls/hr IVPB ONCE ONE Rx#: [id number] Oral 400 Output: Post Void Residual 300 Other: Voiding Method Bedside Commode # Voids 4 1 # Bowel Movements 3 - Exam The patient appeared well nourished and normally developed. Vital signs as documented. On room air. Head exam is unremarkable. No scleral icterus or corneal arcus noted. Neck is without jugular venous distension, thyromegaly, or carotid bruits. Carotid upstrokes are brisk bilaterally. Lungs are clear to auscultation and percussion. Cardiac exam reveals the PMI to be normally sized and situated. Rhythm is regular. First and second heart sounds normal. No murmurs, rubs or gallops. Abdominal exam reveals normal bowel sounds, no masses, no organomegaly and no aortic enlargement. Extremities are nonedematous and both femoral and pedal pulses are normal.Examination of the skin revealed no evidence of significant rashes, suspicious appearing nevi or other concerning lesions. Neurologically the patient is awake and alert and there is no focal neurological deficits. - Labs CBC & Chem 7: 10/17/18 07:29 10/17/18 07:29 Labs: Abnormal Lab Results - Last 24 Hours (Table) 10/17/18 10/17/18 Range/Units 07:29 07:29 WBC 16.7 H (3.8-10.6) k/uL RBC 3.04 L (3.80-5.40) m/uL Hgb 9.3 L (11.4-16.0) gm/dL Hct 28.8 L (34.0-46.0) % Plt Count 138 L (150-450) k/uL Chloride 116 H (98-107) mmol/L Carbon Dioxide 16 L (22-30) mmol/L BUN 66 H (7-17) mg/dL Creatinine 2.39 H (0.52-1.04) mg/dL Glucose 114 H (74-99) mg/dL AST 52 H (14-36) U/L Total Protein 5.3 L (6.3-8.2) g/dL Albumin 2.8 L (3.5-5.0) g/dL Microbiology - Last 24 Hours (Table) 10/15/18 11:25 Blood Culture - Preliminary Blood No Growth after 48 hours 10/15/18 11:25 Urine Culture - Final Urine,Catheterized Escherichia coli Assessment and Plan Assessment: Impression: 1 pyelonephritis, right-sided, with secondary sepsis, secondary to E. coli. Currently on Levaquin. 2 hypotension secondary to above, recovered 3 mild lactic acidosis improved, and the patient continues to have a component of non-anion gap metabolic acidosis 4. History of urinary incontinence and frequent UTIs 5 history of A. fib current rhythm is sinus 6 history of breast cancer post-bilateral mastectomy 7 ovarian cancer 8 skin cancer 9 peripheral neuropathy 10 chronic kidney disease, stage II 11 leukocytosis secondary to above Plan The patient was seen and evaluated by Dr. Gutiérrez. She is stable from the pulmonary critical care standpoint. Continue Levaquin. We'll see the patient as-needed basis. I, the cosigning physician, performed a history & physical examination of the patient. Lungs sounds are clear. Maintaining good O2 saturations in the 90s on room air. I discussed the assessment and plan of care with my nurse practitioner, Gosia Faulkner. I attest to the above note as dictated by her.
[2018-10-17] MEDS ORDERED: FUROSEMIDE 10 MG/ML 2 ML VIAL IV ONE (19:31)
[2018-10-17] MEDS: IPRATROPIUM-ALBUTEROL 3 ML NEB INHALATION SCH ×2 (20:23→20:25)
[2018-10-17] MEDS: ASPIRIN 81 MG PO SCH (20:40)
[2018-10-17] MEDS: FENOFIBRATE 160 MG TAB PO SCH (20:40)
[2018-10-17 20:48] LABS: Glucose,Whole Blood 229 mg/dL (75-99)
[2018-10-18] MEDS: HYDROcodone/APAP 7.5-325MG 1 EACH TAB PO PRN ×3 (01:56→22:32)
[2018-10-18 07:27] LABS: HCT 28.4 % (34.0-46.0); HGB 9.4 gm/dL (11.4-16.0); MCHC 33.1 g/dL (31.0-37.0); MCV 93.7 fL (80.0-100.0); Mean Platelet Volume 6.8; Platelet Count 169 k/uL (150-450); RBC 3.03 m/uL (3.80-5.40); RDW 14.4 % (11.5-15.5); WBC 12.1 k/uL (3.8-10.6)
[2018-10-18 07:42] LABS: Glucose,Whole Blood 116 mg/dL (75-99)
[2018-10-18 07:51] LABS: Albumin 2.9 g/dL (3.5-5.0); Calcium 8.8 mg/dL (8.4-10.2); Magnesium 1.6 mg/dL (1.6-2.3); Potassium 4.4 mmol/L (3.5-5.1); Total Bilirubin 0.4 mg/dL (0.2-1.3); Total Protein 5.5 g/dL (6.3-8.2)
[2018-10-18] MEDS: IPRATROPIUM-ALBUTEROL 3 ML NEB INHALATION SCH ×4 (08:16→19:16)
--- NOTE | 2018-10-18 09:16 | P.PN ---
Subjective Progress Note Date: 10/18/18 Seen and examined for the follow-up of acute kidney injury. Hemodynamically stable. One episode of low blood pressure yesterday evening with a systolic and 90s. No nausea vomiting diarrhea. Bladder scans volume of 58 post void. Objective - Vital Signs Vital signs: Vital Signs Temp 98.0 F 10/18/18 02:24 Pulse 82 10/18/18 08:27 Resp 17 10/18/18 02:24 BP 138/79 10/18/18 02:24 Pulse Ox 90 L 10/18/18 02:24 Intake & Output 10/17/18 10/18/18 10/18/18 18:59 06:59 18:59 Intake Total 540 550 Output Total 1000 Balance -460 550 Intake: Intake, IV Titration 450 Amount Sodium Chloride 0.9% 1, 450 000 ml @ 50 mls/hr IV . Q20H [facility] Rx#:[id number] Oral 540 100 Output: Urine 700 Post Void Residual 300 Other: # Voids 1 3 - Exam No acute distress lying comfortable S1-S2 heard Lungs clear Trace edema Abdomen soft - Labs CBC & Chem 7: 10/18/18 07:04 10/18/18 07:04 Labs: Abnormal Lab Results - Last 24 Hours (Table) 10/17/18 10/18/18 10/18/18 Range/Units 20:36 07:04 07:04 WBC 12.1 H (3.8-10.6) k/uL RBC 3.03 L (3.80-5.40) m/uL Hgb 9.4 L (11.4-16.0) gm/dL Hct 28.4 L (34.0-46.0) % Chloride 117 H (98-107) mmol/L Carbon Dioxide 18 L (22-30) mmol/L BUN 57 H (7-17) mg/dL Creatinine 2.32 H (0.52-1.04) mg/dL Glucose 107 H (74-99) mg/dL POC Glucose (mg/dL) 229 H (75-99) mg/dL Total Protein 5.5 L (6.3-8.2) g/dL Albumin 2.9 L (3.5-5.0) g/dL 10/18/18 Range/Units 07:17 WBC (3.8-10.6) k/uL RBC (3.80-5.40) m/uL Hgb (11.4-16.0) gm/dL Hct (34.0-46.0) % Chloride (98-107) mmol/L Carbon Dioxide (22-30) mmol/L BUN (7-17) mg/dL Creatinine (0.52-1.04) mg/dL Glucose (74-99) mg/dL POC Glucose (mg/dL) 116 H (75-99) mg/dL Total Protein (6.3-8.2) g/dL Albumin (3.5-5.0) g/dL Microbiology - Last 24 Hours (Table) 10/15/18 11:25 Blood Culture - Preliminary Blood No Growth after 48 hours 10/15/18 11:25 Urine Culture - Final Urine,Catheterized Escherichia coli Assessment and Plan Assessment: #1 acute kidney injury suspect hemodynamic ATN with low blood pressure from underlying sepsis. #2 hypotension on admission secondary to UTI/pyelonephritis with E. coli #3 chronic kidney disease stage III, baseline creatinine 1.1-1.4 as of 2016. She is in [facility] yesterday at [facility]. No recent creatinine to compare. #4 hypertension with chronic kidney disease #5 anemia with chronic kidney disease #6 non-anion gap metabolic acidosis secondary to IV fluids, IV fluids stopped yesterday. Plan: #1 creatinine improving since admission. Bladder scan postvoid residual of 58. #2 stopped losartan and Lasix yesterday. #3 amlodipine was added yesterday for blood pressure control. Goal 120-140/90. #4 avoid nephrotoxic agents and hypotensive episodes #5 repeat labs in the morning #6 on sodium bicarbonate for metabolic acidosis.
--- NOTE | 2018-10-18 12:03 | P.PN ---
Subjective Progress Note Date: 10/18/18 This is an 83-year-old female one of Dr. Rice with a previous medical history significant for hypertension and hypertensive cardiovascular disease, hyperlipidemia, GERD, history of breast cancer status post mastectomy, history of proximal atrial fibrillation currently in sinus rhythm, GERD, osteoarthritis, varicose pain, patient was sent from her doctor's office after she was supposed to have a six-month appointment she was having right sided flank pain and back pain and she thought that she is having one of her urinary tract infection for the past 2 days prior to the arrival to the office however she didn't say anything about it until she came to the office where she became quite shaky hypotensive and weak ended up getting transferred to the emergency department at [facility] where she was found to have a significant pyelonephritis after she had a computed tomography scan of the abdomen and pelvis without contrast that showed periureteral stranding, with significant UTI she also did have a lactic acidosis and worsening of her kidney function issues stated that she has been having diarrhea for quite sometimes but this has been normal for her since she had a right colectomy in the past, patient was started on IV fluid resuscitation and her blood pressure started to come up and she did receive: Most 2 L of IV fluid and she was admitted to the intensive care unit was seen in consultation by Dr. Gutiérrez she was started on IV antibiotic in the form of Levaquin as the patient has penicillin and sulfa ALLERGY also she had urine and blood culture and she was admitted to the ICU for pyelonephritis with sepsis. 10/16: Patient remains in the intensive care unit. She states she is still not feeling well and did not sleep during the night. She denies shortness of ozzy ath. She has been afebrile, heart rate in the 60s, blood pressure 120/58, pulse ox 90% on room air. Repeat lab work shows a white count 22.4, hemoglobin 9.2, platelet count 148. BUN 69 creatinine 2.59, sodium 137, potassium 4.7, chloride 111, CO2 15. Magnesium was 1.2. AST 60 and ALT 57. Blood cultures showing no growth after 24 hours and urine culture is showing gram-negative bacilli. Shawna ent has been transitioned to oral Levaquin. Magnesium has been replaced. Patient has also been started on sodium bicarb orally. The patient is waiting for bed on [facility]. 10/17: Patient remains afebrile, blood pressure 144/75, pulse ox 92% on room air, heart rate in the 70s and 80s. Repeat white count is down to 16.7, hemoglobin 9.3, umbilical 138. Chloride is 116 and CO2 16, BUN 66 and creatinine 2.39. AST is 52 and ALT is 52. Blood culture remains with no growth. Urine culture is E. coli pansensitive. Patient is currently on Levaquin. 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 We will ask for nephrology to evaluate. The patient is complaining of shortness of breath this morning and worse with ambulating to the bathroom. Chest x-ray reveals cardiomegaly with no acute findings. Lasix will be added at 20 mg daily oral and nebulizer ordered. IV fluids to saline lock. 10/18: She was seen yesterday by nephrology. A-Team was called this morning as patient had complaints of chest pain and was having episodes of pauses throughout the night. Patient was transferred to intensive care unit as an overflow for his cardiac stepdown unit and cardiology consult requested. Patient has been afebrile, heart rate in the 80s to 90s, blood pressure 130/79, pulse ox 90% on 2 L nasal cannula. White count is down to 12.1 and hemoglobin 9.4, platelet count 169. Chloride 117 and CO2 18, BUN 57 creatinine 2.32. Patient states she is still feeling short of breath and oxygen is not helping. She also states that Lasix yesterday did not help. Patient is currently in a sinus rhythm with no pauses noted and blood pressure is stable. She denies chest pain. Review of Systems Constitutional: Reports anorexia, Reports fatigue, Reports malaise, Reports weakness Eyes: denies blurred vision, denies bulging eye, denies decreased vision Ears, nose, mouth and throat: Denies dysphagia, Denies neck lump, Denies swelling in throat, Denies sore throat Cardiovascular: Reports lightheadedness, Denies chest pain, Denies decreased exercise tolerance, Denies rapid heart beat, reports shortness of breath, Denies syncope Respiratory: Denies congestion, Denies cough with sputum, Denies home oxygen, Denies sleep apnea, Denies snoring, Denies wheezing, reports shortness of breath Gastrointestinal: Denies diarrhea, denies nausea, Denies abdominal pain, Denies change in bowel habits, Denies heartburn, Denies hematemesis, Denies jaundice, Denies lactose intolerance, Denies loss of appetite, Denies melena, Denies vomiting Genitourinary: Reports dysuria, denies flank pain, Denies hematuria, Denies kidney stones, Denies nocturia, Denies urgency Menstruation: Reports postmenopausal Musculoskeletal: Reports as per HPI Musculoskeletal: absent: ankle pain, ankle stiffness, ankle swelling, elbow pain, elbow stiffness, elbow swelling, foot pain, foot stiffness, foot swelling, hand pain, hand stiffness, hand swelling, hip pain, hip stiffness, hip swelling, knee pain, knee stiffness, knee swelling, shoulder pain, shoulder stiffness, shoulder swelling, wrist pain, wrist stiffness, wrist swelling Integumentary: Denies pruritus, Denies rash Neurological: Denies numbness, Denies weakness Psychiatric: Denies anxiety, Denies depression, reports insomnia Endocrine: Denies fatigue, Denies weight change Objective - Vital Signs Vital signs: Vital Signs Temp 98.0 F 10/18/18 02:24 Pulse 82 10/18/18 08:27 Resp 17 10/18/18 02:24 BP 138/79 10/18/18 02:24 Pulse Ox 90 L 10/18/18 02:24 Intake & Output 10/17/18 10/18/18 10/18/18 18:59 06:59 18:59 Intake Total 540 550 Output Total 1000 Balance -460 550 Intake: Intake, IV Titration 450 Amount Sodium Chloride 0.9% 1, 450 000 ml @ 50 mls/hr IV . Q20H [facility] Rx#:[id number] Oral 540 100 Output: Urine 700 Post Void Residual 300 Other: # Voids 1 3 - Exam General appearance: no distress at rest in bed. Patient is complaining of feeling cold - EENT Eyes: anicteric sclerae, EOMI, PERRLA, no ptosis, no scleral icterus, normal appearance ENT: hard of hearing, NA/AT, normal oropharynx, no thrush Ears: bilateral: normal - Neck Neck: no lymphadenopathy, normal ROM, no rigidity, no stridor, no thyromegaly Carotids: bilateral: upstroke normal - Respiratory Respiratory: bilateral: diminished, negative: dullness, rales, rhonchi, wheezing, prolonged expiration, prolonged inspiration - Cardiovascular Rhythm: regular Heart sounds: normal: S1, S2 Abnormal Heart Sounds: systolic murmur, no S3 Gallop, no S4 Gallop, no click - Gastrointestinal General gastrointestinal: normal bowel sounds, soft, no splenomegaly, no tenderness, no umbilical hernia, no ventral hernia - Integumentary Integumentary: normal, normal turgor - Neurologic Neurologic: CNII-XII intact - Musculoskeletal Musculoskeletal: gait normal, generalized weakness, strength equal bilaterally - Psychiatric Psychiatric: A&O x's 3, appropriate affect, intact judgment & insight - Labs CBC & Chem 7: 10/18/18 07:04 10/18/18 07:04 Labs: Abnormal Lab Results - Last 24 Hours (Table) 10/17/18 10/18/18 10/18/18 Range/Units 20:36 07:04 07:04 WBC 12.1 H (3.8-10.6) k/uL RBC 3.03 L (3.80-5.40) m/uL Hgb 9.4 L (11.4-16.0) gm/dL Hct 28.4 L (34.0-46.0) % Chloride 117 H (98-107) mmol/L Carbon Dioxide 18 L (22-30) mmol/L BUN 57 H (7-17) mg/dL Creatinine 2.32 H (0.52-1.04) mg/dL Glucose 107 H (74-99) mg/dL POC Glucose (mg/dL) 229 H (75-99) mg/dL Total Protein 5.5 L (6.3-8.2) g/dL Albumin 2.9 L (3.5-5.0) g/dL 10/18/18 Range/Units 07:17 WBC (3.8-10.6) k/uL RBC (3.80-5.40) m/uL Hgb (11.4-16.0) gm/dL Hct (34.0-46.0) % Chloride (98-107) mmol/L Carbon Dioxide (22-30) mmol/L BUN (7-17) mg/dL Creatinine (0.52-1.04) mg/dL Glucose (74-99) mg/dL POC Glucose (mg/dL) 116 H (75-99) mg/dL Total Protein (6.3-8.2) g/dL Albumin (3.5-5.0) g/dL Microbiology - Last 24 Hours (Table) 10/15/18 11:25 Blood Culture - Preliminary Blood No Growth after 48 hours 10/15/18 11:25 Urine Culture - Final Urine,Catheterized Escherichia coli Assessment and Plan Plan: 1. Right sided E. coli pyelonephritis with sepsis and septic shock with hypotension. IV fluids discontinued. Continue Levaquin 500 mg every 48 hours, monitor the input and output and daily weight, continue with current pain management in the form of [place] 7.5/325 one tablet orally every 8 hours as needed. 2. Acute kidney injury suspect hemodynamic ATN with low blood pressure from s epsis and top of chronic kidney disease stage III. IV fluids will be discontinued. Nephrology consult appreciated. Patient is currently off Lasix and losartan. 3. Non-anion gap metabolic acidosis due to her combination of diarrhea and chronic kidney disease. Continue oral sodium bicarbonate. 4. Hypertension and hypertensive cardiovascular disease. Continue Coreg 25 mg orally twice every day, hydralazine 10 mg as needed, losartan was discontinued 5. Hyperlipidemia. Continue patient on fenofibrate 160 minute gram orally once every day. 6. Anemia of chronic kidney disease monitor the patient's CBC. 7. Lactic acidosis. Resolved. Patient is on oral sodium bicarbonate tablets. 8. Paroxysmal atrial fibrillation currently in sinus rhythm continue patient on Coreg 25 mg orally twice every day, Eliquis 2.5 mg orally twice every day. 9. Leukocytosis likely due to the pyelonephritis and sepsis. Continue antibiotics 10. History of breast cancer status post bilateral mastectomy. In remission. 11. Peripheral neuropathy. Currently on gabapentin 300 mg orally twice every day. 12. 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 Continue current [place] 7.5/325 one tablet every 8 hours as needed. 13. GERD. Continue patient on Protonix 40 mg orally once every day. 14. Shortness of breath secondary to fluid overload. Patient has been off her diuretic. Lasix 20 mg IV 1 without improvement. Chest x-ray shows cardiomegaly. Patient is full code. Discharge plan: Return home Impression and plan of care have been directed as dictated by the signing physician. Domi Fairchild nurse practitioner acting as scribe for signing physician.
--- NOTE | 2018-10-18 13:25 | P.CRDCN ---
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 She underwent a computed tomography scan of the abdomen and pelvis without contrast and that showed periurethral stranding with significant UTI and also her lactic acid was elevated. Currently the patient is in the intensive care unit. We get involved in her care because of cardiac arrhythmia mainly in the form of sinus pauses. The patient did have multiple episodes of sinus pauses up to about 8 seconds. She was asymptomatic during these episodes. The patient has been in and out atrial fibrillation. She was receiving Coreg 25 mg by mouth twice a day. She continues to be hypertensive and tachycardic. She denies any symptoms of chest pain or chest discomfort but she stated that she has been short of br eath. No dizziness or lightheadedness. No loss of consciousness of syncope. No feeling of heart racing or fluttering. The patient stated that she underwent a heart catheterization about 5 years ago and that came in to be unremarkable. She continues to follow-up with Dr. Portillo out of [facility]. At this point I am going to decrease the dose of Coreg to 12.5 mg by mouth twice a day. I will start the patient on hydralazine for better blood pressure control. Also I'll obtain a TSH and free T4. Also I am going to check her BNP. Unfortunately, eyes the patient does need to have a permanent pacemaker would come to during this admission because of the infection process with a pyelo nephritis. We'll continue following up with the patient very closely. Past Medical History Past Medical History: Atrial Fibrillation, Cancer, Chest Pain / Angina, Fibromyalgia, GERD/Reflux, Hyperlipidemia, Hypertension, Mitral Valve Prolapse (MVP), Neurologic Disorder, Osteoarthritis (OA), Renal Disease, Vascular Disorder Additional Past Medical History / Comment(s): NEUROPATHY ASHER. LEGS & FEET, VARICOSE VEINS, KIDNEYS(small kidneys) FUNCTIONING @ 50%-URINE LEAKAGE- WEARS A PAD, HX skin, BREAST & OVARIAN CA-CHEMO 1986 & 1987, LUMBAR DDD-HERNIATION L3- L4, constipation History of Any Multi-Drug Resistant Organisms: None Reported Past Surgical History: Bowel Resection, Breast Surgery, Heart Catheterization, Hysterectomy, Orthopedic Surgery Additional Past Surgical History / Comment(s): COLOSTOMY & THEN REVERSAL OF COLOSTOMY,ASHER. MASTECTOMY, EXC.CATARACT ASHER, ASHER. THUMB SURGERY, skin cancer removed from nose, bowel resection 01/12/16 Past Anesthesia/Blood Transfusion Reactions: Previous Problems w/ Anesthesia Additional Past Anesthesia/Blood Transfusion Reaction / Comment(s): AFTER LAST PAIN CLINIC PROCEDURE 01/12/15 HAD ALLEGIC REACTION- broke out in hives and itching all over that lasted over 1 week, also had ELEVATED PULSE & BP. Past Psychological History: No Psychological Hx Reported Smoking Status: Former smoker Past Alcohol Use History: None Reported Past Drug Use History: None Reported - Past Family History Daughter(s) Family Medical History: No Reported History Father Family Medical History: Cancer (Father at age of 80 from lung cancer) Mother Family Medical History: Coronary Artery Disease (CAD), CVA/TIA (Mother at age of 94 and she had suffered from CAD, CABG, diabetes mellitus type 2 and CVA), Diabetes Mellitus Additional Family Medical History / Comment(s): HEART PROBLEMS Medications and Allergies Home Medications Medication Instructions Recorded Confirmed Type ALPRAZolam [Xanax] 0.25 mg PO BID PRN 11/28/14 10/15/18 History Aspirin 81 mg PO HS 11/28/14 10/15/18 History Labetalol [Trandate] 200 mg PO Q8H PRN 11/28/14 10/15/18 History Losartan Potassium 100 mg PO HS 11/28/14 10/15/18 History Multivit-Min/FA/Lycopene/Lut 1 tab PO DAILY 11/28/14 10/15/18 History [Centrum Silver Tablet] Nitroglycerin Sl Tabs [Nitrostat] 0.4 mg PO Q5M PRN 11/28/14 10/15/18 History Omeprazole [PriLOSEC] 20 mg PO AC-BRKFST PRN 11/28/14 10/15/18 History Torsemide [Demadex] 5 mg PO QAM PRN 11/28/14 10/15/18 History Vits A,C,E/Lutein/Minerals 1 tab PO MOWEFRSA 11/28/14 10/15/18 History [Ocuvite with Lutein Tablet] HYDROcodone/APAP 7.5-325MG [[place] 1 tab PO BID PRN 12/05/14 10/15/18 History 7.5-325] Biotin 1,000 1,000 - 2,000 mg PO DAILY 01/12/16 10/15/18 History Carvedilol [Coreg] 25 mg PO BID 10/15/18 10/15/18 History Fenofibrate Nanocrystallized 145 mg PO HS 10/15/18 10/15/18 History [Fenofibrate] Gabapentin [Neurontin] 300 mg PO BID 10/15/18 10/15/18 History hydrALAZINE HCL [Apresoline] 10 mg PO QID PRN 10/15/18 10/15/18 History Allergies Allergy/AdvReac Type Severity Reaction Status Date / Time Penicillins Allergy Dyspnea Verified 10/15/18 11:52 Sulfa (Sulfonamide Allergy Dyspnea Verified 10/15/18 11:52 Antibiotics) triamcinolone acetonide AdvReac unsure if Verified 10/15/18 11:52 [From Kenalog] the kenalog was the cause, RASH/HIVES Physical Exam Vitals: Vital Signs Temp Pulse Pulse Pulse Resp BP BP 10/18/18 10:00 77 15 145/73 10/18/18 09:00 86 24 166/103 10/18/18 08:27 82 10/18/18 08:16 84 10/18/18 08:00 85 12 178/86 10/18/18 07:21 88 25 H 10/18/18 02:24 98.0 F 77 17 138/79 10/17/18 20:29 98 10/17/18 20:18 98 10/17/18 19:04 98.3 F 92 89 18 117/69 10/17/18 18:20 98.3 F 104 H 16 94/53 10/17/18 14:13 98.1 F 78 16 126/71 Pulse Ox 10/18/18 10:00 97 10/18/18 09:00 96 10/18/18 08:27 10/18/18 08:16 10/18/18 08:00 97 10/18/18 07:21 95 10/18/18 02:24 90 L 10/17/18 20:29 10/17/18 20:18 10/17/18 19:04 10/17/18 18:20 92 L 10/17/18 14:13 94 L Intake and Output 10/17/18 10/18/18 10/18/18 22:59 06:59 14:59 Intake Total 100 450 Output Total 400 Balance -300 450 Intake: Intake, IV Titration 450 Amount Sodium Chloride 0.9% 1, 450 000 ml @ 50 mls/hr IV . Q20H [facility] Rx#:[id number] Oral 100 Output: Urine 400 Other: # Voids 1 3 1 - Constitutional General appearance: no acute distress - Respiratory Respiratory: bilateral: rhonchi - Cardiovascular Rhythm: regular Heart sounds: normal: S1, S2 Abnormal Heart Sounds: systolic murmur Results 10/18/18 07:04 10/18/18 07:04 Cardiac Enzymes 10/18/18 Range/Units 07:04 AST 35 (14-36) U/L CBC 10/18/18 Range/Units 07:04 WBC 12.1 H (3.8-10.6) k/uL RBC 3.03 L (3.80-5.40) m/uL Hgb 9.4 L (11.4-16.0) gm/dL Hct 28.4 L (34.0-46.0) % Plt Count 169 (150-450) k/uL Comprehensive Metabolic Panel 10/18/18 Range/Units 07:04 Sodium 141 (137-145) mmol/L Potassium 4.4 (3.5-5.1) mmol/L Chloride 117 H (98-107) mmol/L Carbon Dioxide 18 L (22-30) mmol/L BUN 57 H (7-17) mg/dL Creatinine 2.32 H (0.52-1.04) mg/dL Glucose 107 H (74-99) mg/dL Calcium 8.8 (8.4-10.2) mg/dL AST 35 (14-36) U/L ALT 49 (9-52) U/L Alkaline Phosphatase 56 (38-126) U/L Total Protein 5.5 L (6.3-8.2) g/dL Albumin 2.9 L (3.5-5.0) g/dL Current Medications Generic Name Dose Route Start Last Admin Trade Name Freq PRN Reason Stop Dose Admin Hydrocodone Bitart/Acetaminophen 1 each 10/17/18 09:16 10/18/18 01:56 [place] 7.5-325 PO 1 each TID PRN Administration Pain Albuterol/Ipratropium 3 ml 10/17/18 18:31 10/18/18 12:54 Duoneb 0.5 Mg-3 Mg/3 Ml Soln INHALATION Not Given RT-QID BRIA Alprazolam 0.25 mg 10/15/18 20:08 10/16/18 23:17 Xanax PO 0.25 mg BID PRN Administration Anxiety Amlodipine Besylate 10 mg 10/18/18 09:00 Norvasc PO DAILY BRIA Apixaban 2.5 mg 10/15/18 21:00 10/17/18 20:40 Eliquis PO 2.5 mg BID BRIA Administration Aspirin 81 mg 10/15/18 21:00 10/17/18 20:40 Aspirin PO 81 mg HS BRIA Administration Carvedilol 12.5 mg 10/18/18 17:30 Coreg PO BID-W/MEALS BRIA Fenofibrate 160 mg 10/15/18 21:00 10/17/18 20:40 Lofibra PO 160 mg HS BRIA Administration Gabapentin 300 mg 10/15/18 21:00 10/17/18 20:40 Neurontin PO 300 mg BID BRIA Administration Hydralazine HCl 25 mg 10/18/18 21:00 Apresoline PO BID BRIA Levofloxacin 500 mg 10/18/18 12:00 Levaquin PO Q48H [facility]RIA Multivitamins 1 each 10/16/18 09:00 10/17/18 08:54 Theragran PO 1 each DAILY BRIA Administration Multivitamins/Minerals 1 each 10/16/18 09:00 10/17/18 08:54 Ivite PO 1 each MOWEFRSA BRIA Administration Naloxone HCl 0.2 mg 10/15/18 14:10 Narcan IV Q2M PRN Opioid Reversal Pantoprazole Sodium 40 mg 10/15/18 20:08 Protonix PO AC-BRKFST PRN Indigestion Sodium Bicarbonate 650 mg 10/17/18 16:00 10/17/18 20:40 Sodium Bicarbonate Tab PO 650 mg TID BRIA Administration Intake and Output 10/17/18 10/18/18 10/18/18 22:59 06:59 14:59 Intake Total 100 450 Output Total 400 Balance -300 450 Intake: Intake, IV Titration 450 Amount Sodium Chloride 0.9% 1, 450 000 ml @ 50 mls/hr IV . Q20H [facility] Rx#:[id number] Oral 100 Output: Urine 400 Other: # Voids 1 3 1 10/18/18 07:04 10/18/18 07:04 Assessment and Plan Assessment: Assessment #1 pyelonephritis #2 acute kidney injury secondary to above #3 paroxysmal atrial fibrillation. The patient currently is in normal sinus mechanism #4 multiple episodes of sinus pauses. #5 hypertension #6 multiple comorbid conditions Plan #1 decrease the dose of Coreg #2 start the patient on hydralazine #3 check the TSH and free T4 #4 obtain an echocardiogram was Doppler #5 the patient could be behaving as tachybradycardia syndrome and she might need a permanent pacemaker. This is preferably to be done after the infection is over #6 will follow-up with the patient. Thank you for allowing us participate in her care
[2018-10-18] MEDS: SODIUM BICARBONATE TAB 650 MG TAB PO SCH ×3 (13:34→21:16)
[2018-10-18] MEDS: GABAPENTIN 300 MG CAP PO SCH ×2 (13:35→20:43)
[2018-10-18] MEDS: LEVOFLOXACIN 500 MG TAB PO SCH (13:52)
[2018-10-18] MEDS: amLODIPine 10 MG TAB PO SCH (13:52)
[2018-10-18] MEDS: MULTIVITAMINS, THERA 1 EACH TAB PO SCH (13:52)
[2018-10-18 14:51] LABS: Appearance,Urine Cloudy (Clear); Bacteria,Urine Rare /hpf; Bilirubin,Urine Negative (Negative); Blood,Urine Moderate (Negative); Color,Urine Yellow; Glucose,Urine (UA) Negative (Negative); Ketones,Urine Negative (Negative); Leukocyte Esterase,Urine Large (Negative); Mucus,Urine Rare /hpf; Nitrite,Urine Negative (Negative); PH, Urine 5.5 (5.0-8.0); Protein,Urine Trace (Negative); RBC,Urine >182 /hpf (0-5); Specific Gravity,Urine 1.014 (1.001-1.035); Squamous Epithelial Cell,Urine 1 /hpf (0-4); Urobilinogen,Urine <2.0 mg/dL (<2.0); WBC,Urine 75 /hpf (0-5)
[2018-10-18 17:50] LABS: Glucose,Whole Blood 128 mg/dL (75-99)
[2018-10-18] MEDS: CARVEDILOL 12.5 MG TAB PO SCH (18:13)
[2018-10-18] MEDS: ASPIRIN 81 MG PO SCH (20:43)
[2018-10-18] MEDS: hydrALAZINE HCL 25 MG TAB PO SCH (20:43)
[2018-10-18] MEDS: APIXABAN 2.5 MG TABLET PO SCH (20:43)
[2018-10-18] MEDS: ALPRAZolam 0.25 MG TAB PO PRN (20:43)
[2018-10-18] MEDS: FENOFIBRATE 160 MG TAB PO SCH (21:17)
[2018-10-19 05:59] LABS: Calcium 8.8 mg/dL (8.4-10.2); Potassium 4.1 mmol/L (3.5-5.1)
[2018-10-19] MEDS: CARVEDILOL 12.5 MG TAB PO SCH ×2 (07:08→17:49)
[2018-10-19] MEDS: HYDROcodone/APAP 7.5-325MG 1 EACH TAB PO PRN ×3 (07:08→23:06)
--- NOTE | 2018-10-19 07:33 | P.PN ---
Subjective Progress Note Date: 10/19/18 Principal diagnosis: Cardiac arrhythmia This is a pleasant 83-year-old female patient with does follow with a [facility] at [facility] out of town with a past medical history significant for paroxysmal atrial fibrillation, hypertension, hyperlipidemia, and history of breast cancer, who was admitted from her primary care physician directed to the hospital because off right sided flank pain and back pain and the patient was diagnosed with pyelonephritis and she was admitted and started on antibiotic. She underwent a computed tomography scan of the abdomen and pelvis without contrast and that showed periurethral stranding with significant UTI and also her lactic acid was elevated. Currently the patient is in the intensive care unit. We get involved in her care because of cardiac arrhythmia mainly in the form of sinus pauses. The patient did have multiple episodes of sinus pauses up to about 8 seconds. She was asymptomatic during these episodes. The patient has been in and out atrial fibrillation. She was receiving Coreg 25 mg by mouth twice a day. She continues to be hypertensive and tachycardic. She denies any symptoms of chest pain or chest discomfort but she stated that she has been short of breath. No dizziness or lightheadedness. No loss of consciousness of syncope. No feeling of heart racing or fluttering. The patient stated that she underwent a heart catheterization about 5 years ago and that came in to be unremarkable. She continues to follow-up with Dr. Portillo out of [facility]. On follow-up with the patient today, October 192018, she is overall feeling better. She still have some shortness of breath which is better. No chest pain or chest discomfort. Yesterday I did decrease the dose of Coreg and also I did hydralazine to the current medical regimen. The blood pressure is better and she still have sinus pauses but is of shorter duration. The BMP was checked yesterday and came in to be elevated. I am going to obtain a chest x-ray. The patient might need to be diuresed. We'll continue following up with her. Objective - Vital Signs Vital signs: Vital Signs Temp 98.9 F 10/19/18 06:59 Pulse 90 10/19/18 06:59 Resp 20 10/19/18 06:59 BP 149/71 10/19/18 06:59 Pulse Ox 93 L 10/19/18 06:59 Intake & Output 10/18/18 10/19/1810/19/19 18:59 06:59 18:59 Intake Total 240 Output Total 270 600 Balance -270 -360 Weight 68.6 kg Intake: Oral 240 Output: Urine 250 600 Post Void Residual 20 Other: Voiding Method Bedside Commode # Voids 1 - Constitutional General appearance: Present: no acute distress - Respiratory Respiratory: bilateral: diminished - Cardiovascular Rhythm: regular Heart sounds: normal: S1, S2 - Labs CBC & Chem 7: 10/18/18 07:04 10/19/18 05:26 Labs: Abnormal Lab Results - Last 24 Hours (Table) 10/18/18 10/18/18 10/18/18 Range/Units 07:04 07:17 14:04 Chloride 117 H (98-107) mmol/L Carbon Dioxide 18 L (22-30) mmol/L BUN 57 H (7-17) mg/dL Creatinine 2.32 H (0.52-1.04) mg/dL Glucose 107 H (74-99) mg/dL POC Glucose (mg/dL) 116 H (75-99) mg/dL Total Protein 5.5 L (6.3-8.2) g/dL Albumin 2.9 L (3.5-5.0) g/dL Urine Appearance Cloudy H (Clear) Urine Protein Trace H (Negative) Urine Blood Moderate H (Negative) Ur Leukocyte Esterase Large H (Negative) Urine RBC >182 H (0-5) /hpf Urine WBC 75 H (0-5) /hpf Urine WBC Clumps Rare H (None) /hpf Urine Bacteria Rare H (None) /hpf Urine Mucus Rare H (None) /hpf 10/18/18 10/19/18 Range/Units 16:58 05:26 Chloride 114 H (98-107) mmol/L Carbon Dioxide 17 L (22-30) mmol/L BUN 53 H (7-17) mg/dL Creatinine 2.15 H (0.52-1.04) mg/dL Glucose 108 H (74-99) mg/dL POC Glucose (mg/dL) 128 H (75-99) mg/dL Total Protein (6.3-8.2) g/dL Albumin (3.5-5.0) g/dL Urine Appearance (Clear) Urine Protein (Negative) Urine Blood (Negative) Ur Leukocyte Esterase (Negative) Urine RBC (0-5) /hpf Urine WBC (0-5) /hpf Urine WBC Clumps (None) /hpf Urine Bacteria (None) /hpf Urine Mucus (None) /hpf Microbiology - Last 24 Hours (Table) 10/15/18 11:25 Blood Culture - Preliminary Blood No Growth after 72 hours Assessment and Plan Assessment: Assessment #1 pyelonephritis #2 acute kidney injury secondary to above #3 paroxysmal atrial fibrillation. The patient currently is in normal sinus mechanism #4 multiple episodes of sinus pauses. #5 hypertension #6 multiple comorbid conditions Plan #1 continue the current medical regimen #2 obtain a chest x-ray #3 possible start the patient on some IV Lasix. We'll follow-up with the chest x-ray #4 I would advise against pacemaker at this point in view of the infectious process with pyelonephritis #5 follow-up on the echocardiogram Thank you for allowing us participate in her care
[2018-10-19] MEDS: IPRATROPIUM-ALBUTEROL 3 ML NEB INHALATION SCH ×4 (07:49→20:08)
--- NOTE | 2018-10-19 08:19 | XR ---
EXAMINATION TYPE: XR chest 1V portable DATE OF EXAM: 10/19/2018 COMPARISON: 10/17/2018 HISTORY: Shortness of breath TECHNIQUE: Single frontal view of the chest is obtained. FINDINGS: Diffuse interstitial pattern with bilateral consolidation and pleural effusion. No pneumot horax. Diffuse osteopenia. Heart size stable. IMPRESSION: Diffuse pleural-parenchymal changes may been the basis of CHF otherwise consider pneumon ia.
[2018-10-19] MEDS: GABAPENTIN 300 MG CAP PO SCH ×2 (08:35→21:26)
[2018-10-19] MEDS: VIT A,C & E-LUTEIN-MINERALS 1 EACH TAB PO SCH (08:35)
[2018-10-19] MEDS: APIXABAN 2.5 MG TABLET PO SCH ×2 (08:35→21:26)
[2018-10-19] MEDS: MULTIVITAMINS, THERA 1 EACH TAB PO SCH (08:35)
[2018-10-19] MEDS: SODIUM BICARBONATE TAB 650 MG TAB PO SCH ×3 (08:35→21:26)
[2018-10-19] MEDS: hydrALAZINE HCL 25 MG TAB PO SCH ×2 (09:46→21:26)
[2018-10-19] MEDS: amLODIPine 10 MG TAB PO SCH (09:46)
--- NOTE | 2018-10-19 11:50 | PN ---
PROGRESS NOTE Patient is seen for followup for acute kidney injury. Her renal function has been slowly improving. She was admitted to the hospital with flank pain and abdominal pain and is currently being treated for urinary tract infection. Urine culture grew E coli. The patient has had short pauses for which she is being followed by Cardiology. She has chronic kidney disease stage III with baseline creatinine about 1.4 as of 2016. Serum creatinine has improved this admission down to 2.1 from 2.6 on initial admission. Patient has had good urine output. She remains mildly acidotic, CO2 around 17 and 18. PHYSICAL EXAMINATION: On examination today, blood pressure was 149/71, heart rate 90 per minute, she is afebrile. Examination of the heart, S1, S2. Examination of the lungs, bilateral breath sounds are heard. Abdomen is soft, nontender. Examination of the lower extremities shows no significant edema. LABS: Show sodium 139, potassium 4.1, chloride 114, CO2 IS 17, BUN 53, serum creatinine 2.15. ASSESSMENT: 1. Acute kidney injury associated with underlying urinary tract infection and hypotension, hypoperfusion. Systolic blood pressure was in the 90s at time of admission. Renal function is slowly improving. Continue with antibiotics. Continue to encourage increased oral intake. Continue off of the angiotensin receptor blockers. 2. Chronic kidney disease stage III with previous creatinine 1.4 as of 2016. The etiology is likely nephrosclerosis. 3. Urinary tract infection with urine culture growing Escherichia coli, maintained on Levaquin. 4. Metabolic acidosis secondary to renal failure, currently on sodium bicarb orally which we can continue. 5. Mild volume overload. We can add low-dose oral diuretics. MMODL / IJN: [id number] /
--- NOTE | 2018-10-19 12:15 | ECHOF ---
Referral Reason:pauses MEASUREMENTS -------- HEIGHT: 154.9 cm WEIGHT: 68.5 kg BP: 149/71 IVSd: 1.1 cm (0.6 - 1.1) LVIDd: 4.7 cm (3.9 - 5.3) LVPWd: 1.1 cm (0.6 - 1.1) IVSs: 1.6 cm LVIDs: 3.1 cm LVPWs: 1.7 cm LA Diam: 3.5 cm (2.7 - 3.8) RVIDd: 2.9 cm (< 3.3) LAESV Index (A-L): 30.88 ml/m Ao Diam: 2.8 cm (2.0 - 3.7) AV Cusp: 1.8 cm (1.5 - 2.6) EPSS: 0.4 cm MV E Alejandro: 1.06 m/s MV DecT: 208 ms MV A Alejandro: 1.05 m/s MV E/A Ratio: 1.02 RAP: 5.00 mmHg RVSP: 42.88 mmHg MV EF SLOPE: 39.86 mm/s (70 - 150) MV EXCURSION: 15.62 mm (> 18.000) FINDINGS -------- Sinus rhythm. This was a technically good study. The left ventricular size is normal. There is borderline concentric left ventricular hypertrophy. Overall left ventricular systolic function is normal with, an EF between 60 - 65 %. The right ventricle is normal in size. LA is midly dilated 29-33ml/m2. The right atrium is normal in size. Interatrial and interventricular septum intact. There is mild aortic valve sclerosis. The mitral valve leaflets are mildly thickened. Mild mitral annular calcification present. There is trace to mild mitral regurgitation. Mild tricuspid regurgitation present. There is mild pulmonary hypertension. The right ventricular systolic pressure, as measured by Doppler, is 42.88mmHg. There is no pulmonic regurgitation present. The aortic root size is normal. Normal inferior vena cava with normal inspiratory collapse consistent with estimated right atrial pre ssure of 5 mmHg. There is no pericardial effusion. CONCLUSIONS -------- 1. Sinus rhythm. 2. This was a technically good study. 3. The left ventricular size is normal. 4. There is borderline concentric left ventricular hypertrophy. 5. Overall left ventricular systolic function is normal with, an EF between 60 - 65 %. 6. The right ventricle is normal in size. 7. LA is midly dilated 29-33ml/m2. 8. The right atrium is normal in size. 9. Interatrial and interventricular septum intact. 10. There is mild aortic valve sclerosis. 11. The mitral valve leaflets are mildly thickened. 12. Mild mitral annular calcification present. 13. There is trace to mild mitral regurgitation. 14. Mild tricuspid regurgitation present. 15. There is mild pulmonary hypertension. 16. The right ventricular systolic pressure, as measured by Doppler, is 42.88mmHg. 17. There is no pulmonic regurgitation present. 18. The aortic root size is normal. 19. Normal inferior vena cava with normal inspiratory collapse consistent with estimated right atrial pressure of 5 mmHg. 20. There is no pericardial effusion. CRYPTOGRAPHY TEACHER: Giselle Garg RDCS
[2018-10-19] MEDS: FUROSEMIDE 40 MG TAB PO SCH (12:57)
--- NOTE | 2018-10-19 12:58 | P.PN ---
Subjective Progress Note Date: 10/19/18 This is an 83-year-old female one of Dr. Rice with a previous medical history significant for hypertension and hypertensive cardiovascular disease, hyperlipidemia, GERD, history of breast cancer status post mastectomy, history of proximal atrial fibrillation currently in sinus rhythm, GERD, osteoarthritis, varicose pain, patient was sent from her doctor's office after she was supposed to have a six-month appointment she was having right sided flank pain and back pain and she thought that she is having one of her urinary tract infection for the past 2 days prior to the arrival to the office however she didn't say anything about it until she came to the office where she became quite shaky hypotensive and weak ended up getting transferred to the emergency department at [facility] where she was found to have a significant pyelonephritis after she had a computed tomography scan of the abdomen and pelvis without contrast that showed periureteral stranding, with significant UTI she also did have a lactic acidosis and worsening of her kidney function issues stated that she has been having diarrhea for quite sometimes but this has been normal for her since she had a right colectomy in the past, patient was started on IV fluid resuscitation and her blood pressure started to come up and she did receive: Most 2 L of IV fluid and she was admitted to the intensive care unit was seen in consultation by Dr. Gutiérrez she was started on IV antibiotic in the form of Levaquin as the patient has penicillin and sulfa ALLERGY also she had urine and blood culture and she was admitted to the ICU for pyelonephritis with sepsis. 10/16: Patient remains in the intensive care unit. She states she is still not feeling well and did not sleep during the night. She denies shortness of ozzy ath. She has been afebrile, heart rate in the 60s, blood pressure 120/58, pulse ox 90% on room air. Repeat lab work shows a white count 22.4, hemoglobin 9.2, platelet count 148. BUN 69 creatinine 2.59, sodium 137, potassium 4.7, chloride 111, CO2 15. Magnesium was 1.2. AST 60 and ALT 57. Blood cultures showing no growth after 24 hours and urine culture is showing gram-negative bacilli. Shawna ent has been transitioned to oral Levaquin. Magnesium has been replaced. Patient has also been started on sodium bicarb orally. The patient is waiting for bed on [facility]. 10/17: Patient remains afebrile, blood pressure 144/75, pulse ox 92% on room air, heart rate in the 70s and 80s. Repeat white count is down to 16.7, hemoglobin 9.3, umbilical 138. Chloride is 116 and CO2 16, BUN 66 and creatinine 2.39. AST is 52 and ALT is 52. Blood culture remains with no growth. Urine culture is E. coli pansensitive. Patient is currently on Levaquin. Patient has history of following in [employer] with jewel hole driller is on a special study for kidney disease. We will ask for nephrology to evaluate. The patient is complaining of shortness of breath this morning and worse with ambulating to the bathroom. Chest x-ray reveals cardiomegaly with no acute findings. Lasix will be added at 20 mg daily oral and nebulizer ordered. IV fluids to saline lock. 10/18: She was seen yesterday by nephrology. A-Team was called this morning as patient had complaints of chest pain and was having episodes of pauses throughout the night. Patient was transferred to intensive care unit as an overflow for his cardiac stepdown unit and cardiology consult requested. Patient has been afebrile, heart rate in the 80s to 90s, blood pressure 130/79, pulse ox 90% on 2 L nasal cannula. White count is down to 12.1 and hemoglobin 9.4, platelet count 169. Chloride 117 and CO2 18, BUN 57 creatinine 2.32. Patient states she is still feeling short of breath and oxygen is not helping. She also states that Lasix yesterday did not help. Patient is currently in a sinus rhythm and blood pressure is stable. She denies chest pain. 10/19: Patient remains in the intensive care unit as a cardiac stepdown unit over flow. Repeat chest x-ray reveals diffuse pleuroparenchymal changes seen in base of heart failure otherwise consider pneumonia. Patient has been seen by cardiology and Coreg dose decreased and hydralazine was added. No plan for pacemaker at this point. Echocardiogram has been obtained and report is pending. Repeat lab work reveals BUN 53 and creatinine 2.15. Patient states that she still has some shortness of breath and feels weak. She denies any dizziness. Dr. Coulter is ordered Lasix 40 mg daily for her. Review of Systems Constitutional: Reports anorexia, Reports fatigue, Reports malaise, Reports weakness Eyes: denies blurred vision, denies bulging eye, denies decreased vision Ears, nose, mouth and throat: Denies dysphagia, Denies neck lump, Denies swelling in throat, Denies sore throat Cardiovascular: Reports lightheadedness, Denies chest pain, Denies decreased ex ercise tolerance, Denies rapid heart beat, reports shortness of breath, Denies syncope Respiratory: Denies congestion, Denies cough with sputum, Denies home oxygen, Denies sleep apnea, Denies snoring, Denies wheezing, reports shortness of breath Gastrointestinal: Denies diarrhea, denies nausea, Denies abdominal pain, reports loss of appetite, Denies melena, Denies vomiting Genitourinary: Reports dysuria, denies flank pain, Denies hematuria, Denies kidney stones, Denies nocturia, Denies urgency Menstruation: Reports postmenopausal Musculoskeletal: Reports as per HPI Musculoskeletal: absent: ankle pain, ankle stiffness, ankle swelling, elbow pa in, elbow stiffness, elbow swelling, foot pain, foot stiffness, foot swelling, hand pain, hand stiffness, hand swelling, hip pain, hip stiffness, hip swelling, knee pain, knee stiffness, knee swelling, shoulder pain, shoulder stiffness, shoulder swelling, wrist pain, wrist stiffness, wrist swelling Integumentary: Denies pruritus, Denies rash Neurological: Denies numbness, Denies weakness Psychiatric: Denies anxiety, Denies depression, reports insomnia Endocrine: Denies fatigue, Denies weight change Objective - Vital Signs Vital signs: Vital Signs Temp 97.8 F 10/19/18 08:00 Pulse 80 10/19/18 08:00 Resp 14 10/19/18 08:00 BP 102/81 10/19/18 08:00 Pulse Ox 97 10/19/18 08:00 Intake & Output 10/18/18 10/19/18 10/19/18 18:59 06:59 18:59 Intake Total 240 Output Total 270 600 Balance -270 -360 Weight 68.6 kg Intake: Oral 240 Output: Urine 250 600 Post Void Residual 20 Other: Voiding Method Bedside Commode # Voids 1 - Exam General appearance: no distress at rest in bed. - EENT Eyes: anicteric sclerae, EOMI, PERRLA, no ptosis, no scleral icterus, normal appearance ENT: hard of hearing, NA/AT, normal oropharynx, no thrush Ears: bilateral: normal - Neck Neck: no lymphadenopathy, normal ROM, no rigidity, no stridor, no thyromegaly Carotids: bilateral: upstroke normal - Respiratory Respiratory: bilateral: diminished, negative: dullness, rales, rhonchi, wheezing, prolonged expiration, prolonged inspiration - Cardiovascular Rhythm: regular Heart sounds: normal: S1, S2 Abnormal Heart Sounds: systolic murmur, no S3 Gallop, no S4 Gallop, no click - Gastrointestinal General gastrointestinal: normal bowel sounds, soft, no splenomegaly, no tenderness, no umbilical hernia, no ventral hernia - Integumentary Integumentary: normal, normal turgor - Neurologic Neurologic: CNII-XII intact - Musculoskeletal Musculoskeletal: gait normal, generalized weakness, strength equal bilaterally - Psychiatric Psychiatric: A&O x's 3, appropriate affect, intact judgment & insight - Labs CBC & Chem 7: 10/18/18 07:04 10/19/18 05:26 Labs: Abnormal Lab Results - Last 24 Hours (Table) 10/18/18 10/18/18 10/19/18 Range/Units 14:04 16:58 05:26 Chloride 114 H (98-107) mmol/L Carbon Dioxide 17 L (22-30) mmol/L BUN 53 H (7-17) mg/dL Creatinine 2.15 H (0.52-1.04) mg/dL Glucose 108 H (74-99) mg/dL POC Glucose (mg/dL) 128 H (75-99) mg/dL Urine Appearance Cloudy H (Clear) Urine Protein Trace H (Negative) Urine Blood Moderate H (Negative) Ur Leukocyte Esterase Large H (Negative) Urine RBC >182 H (0-5) /hpf Urine WBC 75 H (0-5) /hpf Urine WBC Clumps Rare H (None) /hpf Urine Bacteria Rare H (None) /hpf Urine Mucus Rare H (None) /hpf Microbiology - Last 24 Hours (Table) 10/15/18 11:25 Blood Culture - Preliminary Blood No Growth after 72 hours Assessment and Plan Plan: 1. Right sided E. coli pyelonephritis with sepsis and septic shock with hypote nsion. IV fluids discontinued. Continue Levaquin 500 mg every 48 hours, monitor the input and output and daily weight, continue with current pain management in the form of [place] 7.5/325 one tablet orally every 8 hours as needed. 2. Acute kidney injury suspect hemodynamic ATN with low blood pressure from sepsis and top of chronic kidney disease stage III. IV fluids will be discontinued. Nephrology consult appreciated. Patient is currently off Lasix and losartan. 3. Non-anion gap metabolic acidosis due to her combination of diarrhea and chronic kidney disease. Continue oral sodium bicarbonate. 4. Hypertension and hypertensive cardiovascular disease. Continue Coreg 12.5 mg orally twice every day, hydralazine 25 mg twice daily added by cardiology, losartan was discontinued 5. Hyperlipidemia. Continue patient on fenofibrate 160 minute gram orally once every day. 6. Anemia of chronic kidney disease monitor the patient's CBC. 7. Lactic acidosis. Resolved. Patient is on oral sodium bicarbonate tablets. 8. Paroxysmal atrial fibrillation currently in sinus rhythm continue patient on Coreg decreased to 12.5 mg orally twice every day, continue Eliquis 2.5 mg orally twice every day. 9. Leukocytosis likely due to the pyelonephritis and sepsis. Continue antibiotics 10. History of breast cancer status post bilateral mastectomy. In remission. 11. Peripheral neuropathy. Currently on gabapentin 300 mg orally twice every day. 12. 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 Continue current [place] 7.5/325 one tablet every 8 hours as needed. 13. GERD. Continue patient on Protonix 40 mg orally once every day. 14. Shortness of breath secondary to fluid overload. Patient has been off her diuretic. Lasix 20 mg IV 1 without improvement. Chest x-ray shows cardiomegaly. Lasix 40 mg oral daily. Patient is full code. Discharge plan: Return home Impression and plan of care have been directed as dictated by the signing physician. Domi Fairchild nurse practitioner acting as scribe for signing physician.
[2018-10-19] MEDS ORDERED: MAGNESIUM HYDROXIDE 2,400 MG/10 ML CUP PO PRN (16:55)
[2018-10-19] MEDS: ALPRAZolam 0.25 MG TAB PO PRN (21:26)
[2018-10-19] MEDS: FENOFIBRATE 160 MG TAB PO SCH (21:26)
[2018-10-19] MEDS: ASPIRIN 81 MG PO SCH (21:26)
[2018-10-20 01:28] VITALS: RESP 18
[2018-10-20] MEDS: CARVEDILOL 12.5 MG TAB PO SCH ×3 (01:42→16:00)
[2018-10-20 07:33] LABS: Calcium 9.1 mg/dL (8.4-10.2); Potassium 3.8 mmol/L (3.5-5.1)
[2018-10-20] MEDS: HYDROcodone/APAP 7.5-325MG 1 EACH TAB PO PRN ×2 (08:25→18:16)
[2018-10-20] MEDS: SODIUM BICARBONATE TAB 650 MG TAB PO SCH ×3 (08:25→21:26)
[2018-10-20] MEDS: LEVOFLOXACIN 500 MG TAB PO SCH (08:27)
[2018-10-20] MEDS: FUROSEMIDE 40 MG TAB PO SCH (08:27)
[2018-10-20] MEDS: MULTIVITAMINS, THERA 1 EACH TAB PO SCH (08:27)
[2018-10-20] MEDS: hydrALAZINE HCL 25 MG TAB PO SCH ×2 (08:27→21:26)
[2018-10-20] MEDS: GABAPENTIN 300 MG CAP PO SCH ×2 (08:27→21:26)
[2018-10-20] MEDS: APIXABAN 2.5 MG TABLET PO SCH ×2 (08:28→21:26)
[2018-10-20] MEDS: amLODIPine 10 MG TAB PO SCH (08:28)
[2018-10-20] MEDS: IPRATROPIUM-ALBUTEROL 3 ML NEB INHALATION SCH ×4 (09:04→20:58)
[2018-10-20] MEDS ORDERED: ACETAMINOPHEN TAB 325 MG TAB PO PRN (11:49)
--- NOTE | 2018-10-20 13:59 | P.PN ---
Subjective Progress Note Date: 10/20/18 This is an 83-year-old female one of Dr. Rice with a previous medical history significant for hypertension and hypertensive cardiovascular disease, hyperlipidemia, GERD, history of breast cancer status post mastectomy, history of proximal atrial fibrillation currently in sinus rhythm, GERD, osteoarthritis, varicose pain, patient was sent from her doctor's office after she was supposed to have a six-month appointment she was having right sided flank pain and back pain and she thought that she is having one of her urinary tract infection for the past 2 days prior to the arrival to the office however she didn't say anything about it until she came to the office where she became quite shaky hypotensive and weak ended up getting transferred to the emergency department at [facility] where she was found to have a significant pyelonephritis after she had a computed tomography scan of the abdomen and pelvis without contrast that showed periureteral stranding, with significant UTI she also did have a lactic acidosis and worsening of her kidney function issues stated that she has been having diarrhea for quite sometimes but this has been normal for her since she had a right colectomy in the past, patient was started on IV fluid resuscitation and her blood pressure started to come up and she did receive: Most 2 L of IV fluid and she was admitted to the intensive care unit was seen in consultation by Dr. Gutiérrez she was started on IV antibiotic in the form of Levaquin as the patient has penicillin and sulfa ALLERGY also she had urine and blood culture and she was admitted to the ICU for pyelonephritis with sepsis. 10/16: Patient remains in the intensive care unit. She states she is still not feeling well and did not sleep during the night. She denies shortness of ozzy ath. She has been afebrile, heart rate in the 60s, blood pressure 120/58, pulse ox 90% on room air. Repeat lab work shows a white count 22.4, hemoglobin 9.2, platelet count 148. BUN 69 creatinine 2.59, sodium 137, potassium 4.7, chloride 111, CO2 15. Magnesium was 1.2. AST 60 and ALT 57. Blood cultures showing no growth after 24 hours and urine culture is showing gram-negative bacilli. Shawna ent has been transitioned to oral Levaquin. Magnesium has been replaced. Patient has also been started on sodium bicarb orally. The patient is waiting for bed on [facility]. 10/17: Patient remains afebrile, blood pressure 144/75, pulse ox 92% on room air, heart rate in the 70s and 80s. Repeat white count is down to 16.7, hemoglobin 9.3, umbilical 138. Chloride is 116 and CO2 16, BUN 66 and creatinine 2.39. AST is 52 and ALT is 52. Blood culture remains with no growth. Urine culture is E. coli pansensitive. Patient is currently on Levaquin. 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 We will ask for nephrology to evaluate. The patient is complaining of shortness of breath this morning and worse with ambulating to the bathroom. Chest x-ray reveals cardiomegaly with no acute findings. Lasix will be added at 20 mg daily oral and nebulizer ordered. IV fluids to saline lock. 10/18: She was seen yesterday by nephrology. A-Team was called this morning as patient had complaints of chest pain and was having episodes of pauses throughout the night. Patient was transferred to intensive care unit as an overflow for his cardiac stepdown unit and cardiology consult requested. Patient has been afebrile, heart rate in the 80s to 90s, blood pressure 130/79, pulse ox 90% on 2 L nasal cannula. White count is down to 12.1 and hemoglobin 9.4, platelet count 169. Chloride 117 and CO2 18, BUN 57 creatinine 2.32. Patient states she is still feeling short of breath and oxygen is not helping. She also states that Lasix yesterday did not help. Patient is currently in a sinus rhythm and blood pressure is stable. She denies chest pain. 10/19: Patient remains in the intensive care unit as a cardiac stepdown unit over flow. Repeat chest x-ray reveals diffuse pleuroparenchymal changes seen in base of heart failure otherwise consider pneumonia. Patient has been seen by cardiology and Coreg dose decreased and hydralazine was added. No plan for pacemaker at this point. Echocardiogram has been obtained and report is pending. Repeat lab work reveals BUN 53 and creatinine 2.15. Patient states that she still has some shortness of breath and feels weak. She denies any dizziness. Dr. Coulter is ordered Lasix 40 mg daily for her. 10/20: The patient is now seen on the cardiac stepdown unit. She has been afebrile, blood pressure 128/72, heart rate in the 80s to 90s, pulse ox 90% on 2 L nasal cannula. Repeat lab work reveals BUN of 56 and creatinine 2.26. Echocardiogram reveals EF of 60-65% with borderline concentric left ventricular hypertrophy, mild aortic valve sclerosis, trace to mild mitral regurgitation, mild tricuspid regurgitation, mild pulmonary hypertension. Patient states her breathing is better. She does have a cough but not bringing up phlegm. She denies any abdominal pain. She does have chronic diarrhea secondary to extensive bowel surgery. She denies feeling lightheaded or dizzy. She does complain of upper and lower back discomfort secondary to stenosis and degenerative disc disease. We will decrease Lasix to 20 mg oral daily. PT and OT added and patient encouraged to increase activity. Review of Systems Constitutional: Reports anorexia, Reports fatigue, Reports malaise, Reports weakness Eyes: denies blurred vision, denies bulging eye, denies decreased vision Ears, nose, mouth and throat: Denies dysphagia, Denies neck lump, Denies swelling in throat, Denies sore throat Cardiovascular: Reports lightheadedness, Denies chest pain, Denies decreased exercise tolerance, Denies rapid heart beat, reports shortness of breath, Denies syncope Respiratory: Denies congestion, reports cough with sputum, Denies home oxygen, Denies sleep apnea, Denies snoring, Denies wheezing, reports shortness of breath Gastrointestinal: Denies diarrhea, denies nausea, Denies abdominal pain, reports loss of appetite, Denies melena, Denies vomiting Genitourinary: Reports dysuria, denies flank pain, Denies hematuria, Denies kidney stones, Denies nocturia, Denies urgency Menstruation: Reports postmenopausal Musculoskeletal: Reports as per HPI Musculoskeletal: absent: ankle pain, ankle stiffness, ankle swelling, elbow pain , elbow stiffness, elbow swelling, foot pain, foot stiffness, foot swelling, hand pain, hand stiffness, hand swelling, hip pain, hip stiffness, hip swelling, knee pain, knee stiffness, knee swelling, shoulder pain, shoulder stiffness, shoulder swelling, wrist pain, wrist stiffness, wrist swelling, complains of back discomfort Integumentary: Denies pruritus, Denies rash Neurological: Denies numbness, Denies weakness Psychiatric: Denies anxiety, Denies depression, reports insomnia Endocrine: Denies fatigue, Denies weight change Objective - Vital Signs Vital signs: Vital Signs Temp 98.2 F 10/20/18 00:00 Pulse 82 10/20/18 09:07 Resp 18 10/20/18 03:41 BP 128/72 10/20/18 03:40 Pulse Ox 98 10/20/18 09:07 Intake & Output 10/19/18 10/20/18 10/20/18 18:59 06:59 18:59 Intake Total 225 240 Output Total 1675 800 Balance -1450 -560 Weight 63.7 kg Intake: Oral 225 240 Output: Urine 1300 400 Post Void Residual 375 400 Other: Voiding Method Bedside Commode Bedside Commode # Voids 1 - Exam General appearance: no distress at rest in bed. - EENT Eyes: anicteric sclerae, EOMI, PERRLA, no ptosis, no scleral icterus, normal appearance ENT: hard of hearing, NA/AT, normal oropharynx, no thrush Ears: bilateral: normal - Neck Neck: no lymphadenopathy, normal ROM, no rigidity, no stridor, no thyromegaly Carotids: bilateral: upstroke normal - Respiratory Respiratory: bilateral: diminished, clear negative: dullness, rales, rhonchi, wheezing, prolonged expiration, prolonged inspiration - Cardiovascular Rhythm: regular Heart sounds: normal: S1, S2 Abnormal Heart Sounds: systolic murmur, no S3 Gallop, no S4 Gallop, no click - Gastrointestinal General gastrointestinal: normal bowel sounds, soft, no splenomegaly, no tenderness, no umbilical hernia, no ventral hernia - Integumentary Integumentary: normal, normal turgor - Neurologic Neurologic: CNII-XII intact - Musculoskeletal Musculoskeletal: gait normal, generalized weakness, strength equal bilaterally - Psychiatric Psychiatric: A&O x's 3, appropriate affect, intact judgment & insight - Labs CBC & Chem 7: 10/18/18 07:04 10/20/18 06:43 Labs: Abnormal Lab Results - Last 24 Hours (Table) 10/20/18 Range/Units 06:43 Chloride 110 H (98-107) mmol/L BUN 56 H (7-17) mg/dL Creatinine 2.26 H (0.52-1.04) mg/dL Glucose 110 H (74-99) mg/dL Microbiology - Last 24 Hours (Table) 10/15/18 11:25 Blood Culture - Preliminary Blood No Growth after 96 hours Assessment and Plan Plan: 1. Right sided E. coli pyelonephritis with sepsis and septic shock with hypotension. IV fluids discontinued. Continue Levaquin 500 mg every 48 hours, monitor the input and output and daily weight, continue with current pain management in the form of Eugene 7.5/325 one tablet orally every 8 hours as needed. 2. Acute kidney injury suspect hemodynamic ATN with low blood pressure from sepsis and top of chronic kidney disease stage III. IV fluids will be discontinued. Nephrology consult appreciated. Patient is currently off losartan. 3. Non-anion gap metabolic acidosis due to her combination of diarrhea and chronic kidney disease. Continue oral sodium bicarbonate. 4. Hypertension and hypertensive cardiovascular disease. Continue Coreg 12.5 mg orally twice every day, hydralazine 25 mg twice daily added by cardiology, losartan was discontinued 5. Hyperlipidemia. Continue patient on fenofibrate 160 minute gram orally once every day. 6. Anemia of chronic kidney disease monitor the patient's CBC. 7. Lactic acidosis. Resolved. Patient is on oral sodium bicarbonate tablets. 8. Paroxysmal atrial fibrillation currently in sinus rhythm continue patient on Coreg decreased to 12.5 mg orally twice every day, continue Eliquis 2.5 mg orally twice every day. 9. Leukocytosis likely due to the pyelonephritis and sepsis. Continue antibiotics 10. History of breast cancer status post bilateral mastectomy. In remission. 11. Peripheral neuropathy. Currently on gabapentin 300 mg orally twice every day. 12. Chronic low back pain secondary to degenerative disc disease with s pondylolisthesis status post epidural injections. Continue current Eugene 7.5/325 one tablet every 8 hours as needed. 13. GERD. Continue patient on Protonix 40 mg orally once every day. 14. Shortness of breath secondary to fluid overload. Patient has been off her diuretic. Lasix 20 mg orally daily. Chest x-ray shows cardiomegaly. Patient is full code. Discharge plan: Return home, PT and OT added. Impression and plan of care have been directed as dictated by the signing physician. Domi Fairchild nurse practitioner acting as scribe for signing physician.
--- NOTE | 2018-10-20 14:42 | P.PN ---
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 She underwent a computed tomography scan of the abdomen and pelvis without contrast and that showed periurethral stranding with significant UTI and also her lactic acid was elevated. Currently the patient is in the intensive care unit. We get involved in her care because of cardiac arrhythmia mainly in the form of sinus pauses. The patient did have multiple episodes of sinus pauses up to about 8 seconds. She was asymptomatic during these episodes. The patient has been in and out atrial fibrillation. She was receiving Coreg 25 mg by mouth twice a day. She continues to be hypertensive and tachycardic. She denies any symptoms of chest pain or chest discomfort but she stated that she has been short of breath. No dizziness or lightheadedness. No loss of consciousness of syncope. No feeling of heart racing or fluttering. The patient stated that she underwent a heart catheterization about 5 years ago and that came in to be unremarkable. She continues to follow-up with Dr. Portillo out of [facility]. 10/20/2018 Patient was seen and examined today, no further episodes of pauses were noted on the monitor. She continues to be on 12-1/2 mg of Coreg twice a day. Blood pressure 106/56 with a heart rate in the 70s to 80s, 93% on room air. Sodium 140, potassium 3.8, BUN 56 and creatinine 2.2. Objective - Vital Signs Vital signs: Vital Signs Temp 97.8 F 10/20/18 12:00 Pulse 80 10/20/18 12:03 Resp 18 10/20/18 12:00 BP 106/57 10/20/18 12:00 Pulse Ox 93 L 10/20/18 12:00 Intake & Output 10/19/18 10/20/18 10/20/18 18:59 06:59 18:59 Intake Total 225 480 Output Total 1675 1000 Balance -1450 -520 Weight 63.7 kg Intake: Oral 225 480 Output: Urine 1300 600 Post Void Residual 375 400 Other: Voiding Method Bedside Commode Bedside Commode Bedside Commode # Voids 1 # Bowel Movements 1 - Exam PHYSICAL EXAMINATION: GENERAL: 83-year-old female in no acute distress at the time of my examination HEENT: Head is atraumatic, normocephalic. Pupils equal, round. Sclera anicteric. Conjunctiva are clear. Mucous membranes of the mouth are moist. Neck is supple. There is no elevated jugular venous pressure. No carotid bruit is heard. HEART EXAMINATION: S1 and S2 1 systolic murmur is heard CHEST EXAMINATION: Lungs reveal scattered coarse rhonchi bilaterally ABDOMEN: Soft, nontender. Bowel sounds are heard. No organomegaly noted. EXTREMITIES: 2+ peripheral pulses with no evidence of peripheral edema and no c group home tenderness noted. NEUROLOGIC patient is awake, alert and oriented 3 . . - Labs CBC & Chem 7: 10/18/18 07:04 10/20/18 06:43 Labs: Abnormal Lab Results - Last 24 Hours (Table) 10/20/18 Range/Units 06:43 Chloride 110 H (98-107) mmol/L BUN 56 H (7-17) mg/dL Creatinine 2.26 H (0.52-1.04) mg/dL Glucose 110 H (74-99) mg/dL Microbiology - Last 24 Hours (Table) 10/15/18 11:25 Blood Culture - Preliminary Blood No Growth after 120 hours Assessment and Plan Plan: Assessment #1 pyelonephritis #2 acute kidney injury secondary to above #3 paroxysmal atrial fibrillation. The patient currently is in normal sinus mec hanism #4 multiple episodes of sinus pauses. #5 hypertension #6 multiple comorbid conditions Plan Echocardiogram with Doppler study was performed which revealed an ejection fraction of 60-65%. No further episodes of pauses have been noted on the monitor. We will continue current dose of beta anitha. DNP note has been reviewed, I agree with a documented findings and plan of care. Patient was seen and examined.
--- NOTE | 2018-10-20 15:55 | CDI ---
Documentation Clarification Form Date: 10/20/2018 3:39:27 PM From: Kavitha EricHamiltonTATYANA givens, CCDS Admit Date: 10/15/2018 2:10:00 PM Patient Name: Teresa Bailey Visit Number: [id number] Discharge Date: ATTENTION: The Clinical Documentation Specialists (CDI) and [facility] Coding Staff appreciate your assistance in clarifying documentation. Please respond to the clarification below the line at the bottom and electronically sign. The CDI & [facility] Coding staff will review the response and follow-up if needed. Please note: Queries are made part of the Legal Health Record. If you have any questions, please contact the author of this message via ITS. Dr. Adrienne Ely: Per the 10/19 & 10/20 attending progress notes: "Repeat chest x-ray reveals diffuse pleuroparenchymal changes seen in base of heart failure otherwise consider pneumonia." History/Risk Factors: Hypertension and hypertensive cardiovascular disease, Hyperlipidemia, GERD, history of breast cancer status post mastectomy, Ovarian cancer status post hysterectomy, Paroxysmal atrial fibrillation currently in sinus rhythm, osteoarthritis and former smoker. Clinical Indicators: Presented with back pain & weakness. Diagnosed with Sepsis due to pyelonephritis. Trace pedal edema noted on 10/17. VS: P 57*, BP 55/32, PO 97 RA-98 2Lnc BNP (10/18): 14,600 Echocardiogram Results: EF 60-65%, systolic wnl, Borderline LVH, Trace-mild MR, Mild TR, mild pulmonary hypertension. CXR 10/15: No acute cardiopulmonary process. CXR 10/17: Mild cardiomegaly. CXR 10/19: Diffuse pleural-parenchymal changes may be on basis of CHF otherwise consider pneumonia. Treatment 10/15: IV fluid rate 1000, IV Levaquin, IV Toradol, IV fluid bolus. 10/16: IV fl rate 50, IV MagSulfate, IV Levaquin, Albuterol INH, po Lasix. 10/17: IV Lasix; 10/19 IV Lasix x1 & po 40 mg, 10/21: po Lasix. In your professional opinion, can you please clarify the acuity and type of CHF if known? Diastolic Heart Failure: o Acute o Chronic o Acute on Chronic Systolic & Diastolic Heart Failure: o Acute o Chronic o Acute on Chronic Heart Failure Unable to Determine Other, please specify (Last Revision: September 2017) It will be in the discharge summary MTDD
--- NOTE | 2018-10-20 20:07 | PN ---
PROGRESS NOTE The patient is seen for followup for chronic kidney disease and acute kidney injury. She has been started on Lasix yesterday. Chest x-ray showed evidence of fluid overload. The patient states she is feeling slightly better in terms of her shortness of breath. She is still quite weak and is complaining of pain in her back. The patient has chronic kidney disease with baseline creatinine around 1.5-1.2 mg/dL in 2016. We do not have any labs after 2016 until this admission. Patient was admitted for urinary tract infection. PHYSICAL EXAMINATION: On examination today, blood pressure this morning was 114/50, heart rate 80 per minute. She is afebrile. Examination of the heart S1, S2. Examination of the lungs bilateral breath sounds are heard. Abdomen is soft, nontender. Exam of lower extremities shows no significant edema. MANAGED CARE SPECIALIST exam is grossly intact. LAB: Show sodium 140, potassium 3.8, chloride 110, BUN 56, serum creatinine 2.26. ASSESSMENT: 1. Acute kidney injury secondary to urinary tract infection, hypotension currently stable. Serum creatinine staying at about 2-2.2 mg/dL now which may be patient's new baseline. 2. Chronic kidney disease with previous creatinine 1.2-1.5 mg/dL in 2016. We do not have any labs between 2016 and 2019 on this admission, her new baseline creatinine may very well be around 2 mg/dL. Etiology is nephrosclerosis. The patient does have trace proteinuria and moderate blood, but she has significant underlying urinary tract infection. 3. Urinary tract infection with urine culture growing Escherichia coli, maintained on Levaquin. 4. Metabolic acidosis, currently on oral sodium bicarb and improved. 5. Chronic low back pain. 6. History of breast cancer status post bilateral mastectomy, currently in remission. 7. Hypertension currently patient remains off of angiotensin receptor blockers. 8. Volume overload. Continue with current dose of Lasix. 9. Paroxysmal atrial fibrillation, currently in sinus rhythm, maintained on Eliquis and Coreg. PLAN: Continue with oral Lasix. Repeat chest x-ray in a.m. I see the Lasix was decreased from 40-20 mg. However, the chest x-ray shows persistent CHF. We may need to increase the diuretics. I will also try to obtain the more recent labs as outpatient to assess patient's baseline renal function. MMODL / IJN: [id number] /
[2018-10-20] MEDS: FENOFIBRATE 160 MG TAB PO SCH (21:26)
[2018-10-20] MEDS: ASPIRIN 81 MG PO SCH (21:26)
[2018-10-21] MEDS: HYDROcodone/APAP 7.5-325MG 1 EACH TAB PO PRN ×2 (01:53→09:05)
[2018-10-21] MEDS: CARVEDILOL 12.5 MG TAB PO SCH (06:44)
[2018-10-21] MEDS: IPRATROPIUM-ALBUTEROL 3 ML NEB INHALATION SCH ×3 (08:39→16:16)
[2018-10-21] MEDS ORDERED: FUROSEMIDE 20 MG TAB PO SCH (09:00)
[2018-10-21] MEDS: APIXABAN 2.5 MG TABLET PO SCH (09:05)
[2018-10-21] MEDS: MULTIVITAMINS, THERA 1 EACH TAB PO SCH (09:05)
[2018-10-21] MEDS: SODIUM BICARBONATE TAB 650 MG TAB PO SCH (09:05)
[2018-10-21] MEDS: amLODIPine 10 MG TAB PO SCH (09:05)
[2018-10-21] MEDS: hydrALAZINE HCL 25 MG TAB PO SCH (09:05)
[2018-10-21] MEDS: GABAPENTIN 300 MG CAP PO SCH (09:05)
[2018-10-21] MEDS: VIT A,C & E-LUTEIN-MINERALS 1 EACH TAB PO SCH (09:08)
--- NOTE | 2018-10-21 09:35 | XR ---
EXAMINATION TYPE: XR chest 2V DATE OF EXAM: 10/21/2018 COMPARISON: 10/19/2018 TECHNIQUE: PA and lateral views submitted. HISTORY: Shortness of breath FINDINGS: Bilateral consolidation small effusion. Underlying COPD noted. There is improvement in the interstiti um. Heart size stable. Diffuse osteopenia. IMPRESSION: 1. COPD with bilateral infiltrate and small effusion. Improving interstitium suggestive of improving CHF.
[2018-10-21 11:10] VITALS: BP 135/63; TEMP 97.5
[2018-10-21 11:51] VITALS: PULSE 82
--- NOTE | 2018-10-21 12:26 | P.PN ---
Subjective Progress Note Date: 10/21/18 This is a pleasant 83-year-old female patient with does follow with a planisher out of town with a past medical history significant for paroxysmal atrial fibrillation, hypertension, hyperlipidemia, and history of breast cancer, who was admitted from her primary care physician directed to the hospital because off right sided flank pain and back pain and the patient was diagnosed with pyelonephritis and she was admitted and started on antibiotic. She underwent a computed tomography scan of the abdomen and pelvis without contrast and that showed periurethral stranding with significant UTI and also her lactic acid was elevated. Currently the patient is in the intensive care unit. We get involved in her care because of cardiac arrhythmia mainly in the form of sinus pauses. The patient did have multiple episodes of sinus pauses up to about 8 seconds. She was asymptomatic during these episodes. The patient has been in and out atrial fibrillation. She was receiving Coreg 25 mg by mouth twice a day. She continues to be hypertensive and tachycardic. She denies any symptoms of chest pain or chest discomfort but she stated that she has been short of breath. No dizziness or lightheadedness. No loss of consciousness of syncope. No feeling of heart racing or fluttering. The patient stated that she underwent a heart catheterization about 5 years ago and that came in to be unremarkable. She continues to follow-up with Dr. Portillo out of [facility]. 10/20/2018 Patient was seen and examined today, no further episodes of pauses were noted on the monitor. She continues to be on 12-1/2 mg of Coreg twice a day. Blood pressure 106/56 with a heart rate in the 70s to 80s, 93% on room air. Sodium 140, potassium 3.8, BUN 56 and creatinine 2.2. 10/21/2018 Patient was seen and examined today, hemodynamically stable, no further pauses noted on the monitor. Objective - Vital Signs Vital signs: Vital Signs Temp 97.5 F L 10/21/18 11:09 Pulse 82 10/21/18 11:50 Resp 18 10/21/18 11:41 BP 135/63 10/21/18 11:09 Pulse Ox 97 10/21/18 11:09 Intake & Output 10/20/18 10/21/18 10/21/18 18:59 06:59 18:59 Intake Total 960 120 180 Output Total 1600 Balance -640 120 180 Weight 61.3 kg Intake: Oral 960 120 180 Output: Urine 1200 Post Void Residual 400 Other: Voiding Method Bedside Commode Bedside Commode # Voids 2 # Bowel Movements 1 - Exam PHYSICAL EXAMINATION: GENERAL: 83-year-old female in no acute distress at the time of my examination HEENT: Head is atraumatic, normocephalic. Pupils equal, round. Sclera anicteric. Conjunctiva are clear. Mucous membranes of the mouth are moist. Neck is supple. There is no elevated jugular venous pressure. No carotid bru it is heard. HEART EXAMINATION: S1 and S2 1 systolic murmur is heard CHEST EXAMINATION: Lungs reveal scattered coarse rhonchi bilaterally ABDOMEN: Soft, nontender. Bowel sounds are heard. No organomegaly noted. EXTREMITIES: 2+ peripheral pulses with no evidence of peripheral edema and no calf tenderness noted. NEUROLOGIC patient is awake, alert and oriented 3 . . - Labs CBC & Chem 7: 10/18/18 07:04 10/20/18 06:43 Labs: Microbiology - Last 24 Hours (Table) 10/15/18 11:25 Blood Culture - Preliminary Blood No Growth after 120 hours Assessment and Plan Plan: Assessment #1 pyelonephritis #2 acute kidney injury secondary to above #3 paroxysmal atrial fibrillation. The patient currently is in normal sinus mechanism #4 multiple episodes of sinus pauses. #5 hypertension #6 multiple comorbid conditions Plan Echocardiogram with Doppler study was performed which revealed an ejection fraction of 60-65%. No further episodes of pauses have been noted on the monitor. We will continue current dose of beta anitha. We will follow this patient along with you now on an as-needed basis only, please don't hesitate to call with any questions. DNP note has been reviewed, I agree with a documented findings and plan of care. Patient was seen and examined.
--- NOTE | 2018-10-21 14:58 | P.DS ---
Providers Date of admission: 10/15/18 14:10 Expected date of discharge: 10/21/18 Attending physician: Adrienne Ely Consults: 10/15/18 14:10 Consult Physician Urgent Consulting Provider: Alexis Gutiérrez Consult Reason/Comments: Critical care management Do you want consulting provider notified?: Yes 10/17/18 10:51 Consult Physician Routine Consulting Provider: Kel Chatterjee Consult Reason/Comments: SHARIF, CKD Do you want consulting provider notified?: Yes 10/18/18 06:29 Consult Physician Urgent Consulting Provider: Juventino Owens Consult Reason/Comments: Pause Do you want consulting provider notified?: Yes 10/18/18 09:24 Consult Physician Routine Consulting Provider: Tono Kendrick Consult Reason/Comments: pauses Do you want consulting provider notified?: Already Contacted Primary care physician: [facility] Course: This is an 83-year-old female one of Dr. Rice with a previous medical history significant for hypertension and hypertensive cardiovascular disease, hyperlipidemia, GERD, history of breast cancer status post mastectomy, history of proximal atrial fibrillation currently in sinus rhythm, GERD, osteoarthritis, varicose pain, patient was sent from her doctor's office after she was supposed to have a six-month appointment she was having right sided flank pain and back pain and she thought that she is having one of her urinary tract infection for the past 2 days prior to the arrival to the office however she didn't say anything about it until she came to the office where she became quite shaky hypotensive and weak ended up getting transferred to the emergency department at [facility] where she was found to have a significant pyelonephritis after she had a computed tomography scan of the abdomen and pelvis without contrast that showed periureteral stranding, with significant UTI she also did have a lactic acidosis and worsening of her kidney function issues stated that she has been having diarrhea for quite sometimes but this has been normal for her since she had a right colectomy in the past, patient was started on IV fluid resuscitation and her blood pressure started to come up and she did receive: Mos t 2 L of IV fluid and she was admitted to the intensive care unit was seen in consultation by Dr. Gutiérrez she was started on IV antibiotic in the form of Levaquin as the patient has penicillin and sulfa ALLERGY also she had urine and blood culture and she was admitted to the ICU for pyelonephritis with sepsis. 10/16: Patient remains in the intensive care unit. She states she is still not feeling well and did not sleep during the night. She denies shortness of breath. She has been afebrile, heart rate in the 60s, blood pressure 120/58, pulse ox 90% on room air. Repeat lab work shows a white count 22.4, hemoglobin 9.2, platelet count 148. BUN 69 creatinine 2.59, sodium 137, potassium 4.7, chloride 111, CO2 15. Magnesium was 1.2. AST 60 and ALT 57. Blood cultures showing no growth after 24 hours and urine culture is showing gram-negative bacilli. Patient has been transitioned to oral Levaquin. Magnesium has been replaced. Patient has also been started on sodium bicarb orally. The patient is waiting for bed on [facility] floor. 10/17: Patient remains afebrile, blood pressure 144/75, pulse ox 92% on room air, heart rate in the 70s and 80s. Repeat white count is down to 16.7, hemoglobin 9.3, umbilical 138. Chloride is 116 and CO2 16, BUN 66 and creatinine 2.39. AST is 52 and ALT is 52. Blood culture remains with no growth. Urine culture is E. coli pansensitive. Patient is currently on Levaquin. 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 We will ask for nephrology to evaluate. The patient is complaining of shortness of breath this morning and worse with ambulating to the bathroom. Chest x-ray reveals cardiomegaly with no acute findings. Lasix will be added at 20 mg daily oral and nebulizer ordered. IV fluids to saline lock. 10/18: She was seen yesterday by nephrology. A-Team was called this morning as patient had complaints of chest pain and was having episodes of pauses throughout the night. Patient was transferred to intensive care unit as an overflow for his cardiac stepdown unit and cardiology consult requested. Patient has been afebrile, heart rate in the 80s to 90s, blood pressure 130/79, pulse ox 90% on 2 L nasal cannula. White count is down to 12.1 and hemoglobin 9.4, platelet count 169. Chloride 117 and CO2 18, BUN 57 creatinine 2.32. Patient states she is still feeling short of breath and oxygen is not helping. She also states that Lasix yesterday did not help. Patient is currently in a sinus rhythm and blood pressure is stable. She denies chest pain. 10/19: Patient remains in the intensive care unit as a cardiac stepdown unit overflow. Repeat chest x-ray reveals diffuse pleuroparenchymal changes seen in base of heart failure otherwise consider pneumonia. Patient has been seen by cardiology and Coreg dose decreased and hydralazine was added. No plan for pacemaker at this point. Echocardiogram has been obtained and report is pending. Repeat lab work reveals BUN 53 and creatinine 2.15. Patient states that she still has some shortness of breath and feels weak. She denies any dizziness. Dr. Coulter is ordered Lasix 40 mg daily for her. 10/20: The patient is now seen on the cardiac stepdown unit. She has been afebrile, blood pressure 128/72, heart rate in the 80s to 90s, pulse ox 90% on 2 L nasal cannula. Repeat lab work reveals BUN of 56 and creatinine 2.26. Echocardiogram reveals EF of 60-65% with borderline concentric left ventricular hypertrophy, mild aortic valve sclerosis, trace to mild mitral regurgitation, mild tricuspid regurgitation, mild pulmonary hypertension. Patient states her breathing is better. She does have a cough but not bringing up phlegm. She denies any abdominal pain. She does have chronic diarrhea secondary to extensive bowel surgery. She denies feeling lightheaded or dizzy. She does complain of upper and lower back discomfort secondary to stenosis and degenerative disc disease. We will decrease Lasix to 20 mg oral daily. PT and OT added and patient encouraged to increase activity. 10/21: Patient has been evaluated by occupational therapy this morning with recommendations for subacute rehab. PT evaluation is pending. Patient has agreed to go to [facility] for subacute rehab. She has been afebrile, heart rate in the 80s, blood pressure 135/63, pulse ox 97% on room air. The patient states that she has some increased weakness. She would really like to go home but she is agreeable to [facility]. She has started to use a walker while in the hospital. Patient will be discharged to [facility] today in stable condition once all arrangements are completed. Discharge diagnoses: 1. Right sided E. coli pyelonephritis with sepsis and septic shock with hypotension. 2. Acute kidney injury suspect hemodynamic ATN with low blood pressure from sepsis and top of chronic kidney disease stage III. 3. Non-anion gap metabolic acidosis due to her combination of diarrhea and c hronic kidney disease. 4. Hypertension and hypertensive cardiovascular disease. 5. Hyperlipidemia. 6. Anemia of chronic kidney disease. 7. Lactic acidosis. 8. Paroxysmal atrial fibrillation currently in sinus rhythm. 9. Leukocytosis likely due to the pyelonephritis and sepsis. 10. History of breast cancer status post bilateral mastectomy. 11. Peripheral neuropathy. 12. 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 13. GERD. 14. Fluid overload secondary to sepsis fluid resuscitation. Patient does not have a history of heart failure. Discharge plan: Subacute rehab at [facility]. Impression and plan of care have been directed as dictated by the signing physician. Domi Fairchild nurse practitioner acting as scribe for signing physician. Patient Condition at Discharge: Good Plan - Discharge Summary Discharge Rx Participant: No New Discharge Prescriptions: New hydrALAZINE HCL [Apresoline] 25 mg PO BID tab Carvedilol [Coreg*] 12.5 mg PO BID-W/MEALS tab Ipratropium-Albuterol Nebulize [Duoneb 0.5 mg-3 mg/3 ml Soln] 3 ml INHALATION RT-QID ampul.neb Apixaban [Eliquis] 2.5 mg PO BID tablet Furosemide [Lasix] 20 mg PO DAILY tab amLODIPine [Norvasc] 10 mg PO DAILY tab Sodium Bicarbonate Tab 650 mg PO TID tab Levofloxacin [Levaquin] 500 mg PO Q48H #4 tab Continue Omeprazole [PriLOSEC] 20 mg PO AC-BRKFST PRN PRN Reason: Indigestion Aspirin 81 mg PO HS Nitroglycerin Sl Tabs [Nitrostat] 0.4 mg PO Q5M PRN PRN Reason: Chest Pain Vits A,C,E/Lutein/Minerals [Ocuvite with Lutein Tablet] 1 tab PO MOWEFRSA Multivit-Min/FA/Lycopene/Lut [Centrum Silver Tablet] 1 tab PO DAILY Biotin 1,000 1,000 - 2,000 mg PO DAILY Fenofibrate Nanocrystallized [Fenofibrate] 145 mg PO HS Gabapentin [Neurontin] 300 mg PO BID HYDROcodone/APAP 7.5-325MG [[place] 7.5-325] 1 tab PO BID PRN #6 tab PRN Reason: Pain ALPRAZolam [Xanax] 0.25 mg PO BID PRN #6 tab PRN Reason: Anxiety Discontinued Losartan Potassium 100 mg PO HS Torsemide [Demadex] 5 mg PO QAM PRN PRN Reason: Edema Labetalol [Trandate] 200 mg PO Q8H PRN PRN Reason: Blood Pressure - High hydrALAZINE HCL [Apresoline] 10 mg PO QID PRN PRN Reason: Blood Pressure - High Carvedilol [Coreg] 25 mg PO BID Discharge Medication List Aspirin 81 mg PO HS 11/28/14 [History] Multivit-Min/FA/Lycopene/Lut [Centrum Silver Tablet] 1 tab PO DAILY 11/28/14 [History] Nitroglycerin Sl Tabs [Nitrostat] 0.4 mg PO Q5M PRN 11/28/14 [History] Omeprazole [PriLOSEC] 20 mg PO AC-BRKFST PRN 11/28/14 [History] Vits A,C,E/Lutein/Minerals [Ocuvite with Lutein Tablet] 1 tab PO MOWEFRSA 11/28/14 [History] Biotin 1,000 1,000 - 2,000 mg PO DAILY 01/12/16 [History] Fenofibrate Nanocrystallized [Fenofibrate] 145 mg PO HS 10/15/18 [History] Gabapentin [Neurontin] 300 mg PO BID 10/15/18 [History] ALPRAZolam [Xanax] 0.25 mg PO BID PRN #6 tab 10/21/18 [Rx] Apixaban [Eliquis] 2.5 mg PO BID tablet 10/21/18 [Rx] Carvedilol [Coreg*] 12.5 mg PO BID-W/MEALS tab 10/21/18 [Rx] Furosemide [Lasix] 20 mg PO DAILY tab 10/21/18 [Rx] HYDROcodone/APAP 7.5-325MG [[place] 7.5-325] 1 tab PO BID PRN #6 tab 10/21/18 [Rx] Ipratropium-Albuterol Nebulize [Duoneb 0.5 mg-3 mg/3 ml Soln] 3 ml INHALATION RT-QID ampul.neb 10/21/18 [Rx] Levofloxacin [Levaquin] 500 mg PO Q48H #4 tab 10/21/18 [Rx] Sodium Bicarbonate Tab 650 mg PO TID tab 10/21/18 [Rx] amLODIPine [Norvasc] 10 mg PO DAILY tab 10/21/18 [Rx] hydrALAZINE HCL [Apresoline] 25 mg PO BID tab 10/21/18 [Rx] Follow up Appointment(s)/Referral(s): Tono Kendrick MD [STAFF PHYSICIAN] - 1 Week Lucio Rice MD [Primary Care Provider] - 1 Week Sarah Quesada MD [STAFF PHYSICIAN] - 1 Week Alexis Gutiérrez MD [STAFF PHYSICIAN] - 1 Week Patient Instructions/Handouts: Acute Kidney Injury (DC), Kidney Infection (DC), Sepsis (GEN) Activity/Diet/Wound Care/Special Instructions: [facility] Discharge Disposition: TRANSFER TO SNF/ECF
--- NOTE | 2018-10-21 18:34 | PN ---
PROGRESS NOTE Patient is seen for followup for acute kidney injury on top of chronic kidney disease. She was admitted with urinary tract infection. Her serum creatinine peaked to about 2.6 mg/dL. It is now down to 2.1 and 2.2 mg/dL. Previous creatinine was as low as 1.2 in 2016. This morning patient states she feels fairly well and wants to go home. PHYSICAL EXAMINATION: Blood pressure this morning was 140/76, heart rate 80 per minute. She is afebrile. Examination of the heart S1, S2. Examination of the lungs bilateral breath sounds are heard. Abdomen is soft, nontender. Exam of lower extremities shows no significant edema. [employer] exam is grossly intact. LAB: Shows sodium 140, potassium 3.8, BUN 56, serum creatinine 2.26. ASSESSMENT: 1. Acute kidney injury secondary to underlying urinary tract infection and sepsis, currently improved from admission. However, the patient will need followup as outpatient as this may be her new baseline for kidney disease. 2. E coli urinary tract infection maintained on antibiotics. 3. Chronic kidney disease stage 3 to 4 with previous creatinine as low as 1.2-1.5 in 2016, most likely secondary to nephrosclerosis. The patient will need follow up as outpatient. 4. History of breast cancer status post bilateral mastectomy. 5. Metabolic acidosis, currently on sodium bicarb. 6. Paroxysmal atrial fibrillation, maintained on Eliquis and Coreg. PLAN: Continue with gentle diuresis. Follow up as outpatient with Nephrology. Continue to avoid nephrotoxic medications. Avoid NSAIDs. MMODL / IJN: [id number] /
== END 2018-10-21 16:22 | DRG 871 ==
LOC: EC 10:38 → 2SICU 14:10 → 4SSUR 10-16 23:22 → 2SICU 10-18 07:10 → 3SCARD 10-19 23:00
PROVIDERS: ADMIT Internal Medicine; ATTEND Internal Medicine
DX: A41.51 Sepsis due to Escherichia coli [E. coli] (principal); R65.21 Severe sepsis with septic shock; N17.0 Acute kidney failure with tubular necrosis; N12 Tubulo-interstitial nephritis, not specified as acute or chronic; E87.2 Acidosis; N18.4 Chronic kidney disease, stage 4 (severe); Z85.828 Personal history of other malignant neoplasm of skin; Z85.3 Personal history of malignant neoplasm of breast; Z85.43 Personal history of malignant neoplasm of ovary; Z92.21 Personal history of antineoplastic chemotherapy; Z90.13 Acquired absence of bilateral breasts and nipples; D63.1 Anemia in chronic kidney disease; E78.5 Hyperlipidemia, unspecified; G62.9 Polyneuropathy, unspecified; G89.29 Other chronic pain; I34.1 Nonrheumatic mitral (valve) prolapse; I48.0 Paroxysmal atrial fibrillation; J44.9 Chronic obstructive pulmonary disease, unspecified; K21.9 Gastro-esophageal reflux disease without esophagitis; K52.9 Noninfective gastroenteritis and colitis, unspecified; M43.10 Spondylolisthesis, site unspecified; M51.36 Other intervertebral disc degeneration, lumbar region; M79.7 Fibromyalgia; N27.1 Small kidney, bilateral; Z79.01 Long term (current) use of anticoagulants; Z79.82 Long term (current) use of aspirin; Z79.899 Other long term (current) drug therapy; Z80.1 Family history of malignant neoplasm of trachea, bronchus and lung; Z82.3 Family history of stroke; Z82.49 Family history of ischemic heart disease and other diseases of the circulatory system; Z83.3 Family history of diabetes mellitus; Z87.440 Personal history of urinary (tract) infections; Z87.891 Personal history of nicotine dependence; Z88.0 Allergy status to penicillin; Z90.49 Acquired absence of other specified parts of digestive tract; Z90.5 Acquired absence of kidney; Z90.710 Acquired absence of both cervix and uterus; E87.70 Fluid overload, unspecified; I83.90 Asymptomatic varicose veins of unspecified lower extremity; I13.10 Hypertensive heart and chronic kidney disease without heart failure, with stage 1 through stage 4 chronic kidney disease, or unspecified chronic kidney disease
CPT/HCPCS: 36415; 71045; 71046; 74176; 80048; 80053; 81001; 83605; 83735; 83880; 84439; 84443; 85025; 85027; 85610; 85730; 87040; 87077; 87086; 87186; 93005; 93306; 94640; 94760; 96365; 96375; 99285

== ENCOUNTER 2018-10-26 19:22 | Emergency (ER) | payer MEDICARE, BC ==
[2018-10-26 19:27] VITALS: BP 111/43; PULSE 83; TEMP 98
[2018-10-26] MEDS ORDERED: PANTOPRAZOLE 40 MG/10 ML VIAL IVP STA (19:29)
[2018-10-26] MEDS ORDERED: SODIUM CHLORIDE 0.9% 500 ML 500 ML IV STA (19:29)
[2018-10-26] MEDS ORDERED: ONDANSETRON 4 MG/2 ML VIAL IVP STA (19:29)
--- NOTE | 2018-10-26 19:30 | ED ---
Recheck HPI - General Chief Complaint: Recheck/Abnormal Lab/Rx Stated Complaint: Abnormal Labs-needs blood transfusion Time Seen by Provider: 10/26/18 19:29 Source: patient, family, RN notes reviewed, old records reviewed Mode of arrival: ambulatory Limitations: no limitations - History of Present Illness Initial Comments: This is an 81-year-old female the ER for evaluation of anemia. Patient resists similar complaints of GI bleed and anemia. Patient recent transfusion. Patient was sent ER for evaluation regarding hemoglobin he will of 6.7 on outpatient basis. Patient denies any complaints currently. No active bleeding. No weakness lightheadedness or dizziness Complaint: abnormal lab -: unknown Returns Today for: Called Because of Abnormal Lab/Test Symptoms Since Prior Visit: no new symptoms Context: called for abnormal lab result Associated Symptoms: malaise - Related Data Home Medications Medication Instructions Recorded Confirmed Aspirin 81 mg PO HS@209911/28/14 10/26/18 Multivit-Min/FA/Lycopene/Lut 1 tab PO DAILY@0911/28/14 10/26/18 [Centrum Silver Tablet] Nitroglycerin Sl Tabs [Nitrostat] 0.4 mg PO Q5M PRN 11/28/14 10/26/18 Omeprazole [PriLOSEC] 20 mg PO DAILY@59911/28/14 10/26/18 Vits A,C,E/Lutein/Minerals 1 tab PO MOWEFRSA@89911/28/14 10/26/18 [Ocuvite with Lutein Tablet] Fenofibrate Nanocrystallized 145 mg PO HS@209910/15/18 10/26/18 [Fenofibrate] Biotin 5 mg PO DAILY@0910/26/18 10/26/18 Carvedilol [Coreg*] 12.5 mg PO BID@0900,1700 10/26/18 10/26/18 Furosemide [Lasix] 20 mg PO DAILY@89910/26/18 10/26/18 HYDROcodone/APAP 7.5-325MG [Whitney 1 tab PO TID PRN 10/26/18 10/26/18 7.5-325] Sodium Bicarbonate Tab 650 mg PO TID@0900,1300,2100 10/26/18 10/26/18 amLODIPine [Norvasc] 10 mg PO DAILY@0900 10/26/18 10/26/18 Previous Rx's Medication Instructions Recorded ALPRAZolam [Xanax] 0.25 mg PO BID PRN #6 tab 10/21/18 Apixaban [Eliquis] 2.5 mg PO BID tablet 10/21/18 Gabapentin [Neurontin] 300 mg PO BID #6 cap 10/21/18 Ipratropium-Albuterol Nebulize 3 ml INHALATION RT-QID ampul.neb 10/21/18 [Duoneb 0.5 mg-3 mg/3 ml Soln] Levofloxacin [Levaquin] 500 mg PO Q48H #4 tab 10/21/18 hydrALAZINE HCL [Apresoline] 25 mg PO BID tab 10/21/18 Allergies Allergy/AdvReac Type Severity Reaction Status Date / Time Penicillins Allergy Dyspnea Verified 10/26/18 19:40 Sulfa (Sulfonamide Allergy Dyspnea Verified 10/26/18 19:40 Antibiotics) triamcinolone acetonide AdvReac unsure if Verified 10/26/18 19:40 [From Kenalog] the kenalog was the cause, RASH/HIVES Review of Systems ROS Statement: Those systems with pertinent positive or pertinent negative responses have been documented in the HPI. ROS Other: All systems not noted in ROS Statement are negative. Past Medical History Past Medical History: Atrial Fibrillation, Cancer, Chest Pain / Angina, Fibro myalgia, GERD/Reflux, Hyperlipidemia, Hypertension, Mitral Valve Prolapse (MVP), Neurologic Disorder, Osteoarthritis (OA), Renal Disease, Vascular Disorder Additional Past Medical History / Comment(s): NEUROPATHY ASHER. LEGS & FEET, VARICOSE VEINS, KIDNEYS(small kidneys) FUNCTIONING @ 50%-URINE LEAKAGE- WEARS A PAD, HX skin, BREAST & OVARIAN CA-CHEMO 1986 & 1987, LUMBAR DDD-HERNIATION L3- L4, constipation History of Any Multi-Drug Resistant Organisms: None Reported Past Surgical History: Bowel Resection, Breast Surgery, Heart Catheterization, Hysterectomy, Orthopedic Surgery Additional Past Surgical History / Comment(s): COLOSTOMY & THEN REVERSAL OF COLOSTOMY,ASHER. MASTECTOMY, EXC.CATARACT ASHER, ASHER. THUMB SURGERY, skin cancer removed from nose, bowel resection 01/12/16 Past Anesthesia/Blood Transfusion Reactions: Previous Problems w/ Anesthesia Additional Past Anesthesia/Blood Transfusion Reaction / Comment(s): AFTER LAST PAIN CLINIC PROCEDURE 01/12/15 HAD ALLEGIC REACTION- broke out in hives and itching all over that lasted over 1 week, also had ELEVATED PULSE & BP. Past Psychological History: No Psychological Hx Reported Smoking Status: Former smoker Past Alcohol Use History: None Reported Past Drug Use History: None Reported - Past Family History Daughter(s) Family Medical History: No Reported History Father Family Medical History: Cancer (Father at age of 80 from lung cancer) Mother Family Medical History: Coronary Artery Disease (CAD), CVA/TIA (Mother at age of 94 and she had suffered from CAD, CABG, diabetes mellitus type 2 and CVA), Diabetes Mellitus Additional Family Medical History / Comment(s): HEART PROBLEMS General Exam Limitations: no limitations General appearance: alert, in no apparent distress Head exam: Present: atraumatic, normocephalic, normal inspection Eye exam: Present: normal appearance, PERRL, EOMI. Absent: scleral icterus, conjunctival injection, periorbital swelling ENT exam: Present: normal exam, mucous membranes moist Neck exam: Present: normal inspection. Absent: tenderness, meningismus, lymphadenopathy Respiratory exam: Present: normal lung sounds bilaterally. Absent: respiratory distress, wheezes, rales, rhonchi, stridor Cardiovascular Exam: Present: regular rate, normal rhythm, normal heart sounds. Absent: systolic murmur, diastolic murmur, rubs, gallop, clicks GI/Abdominal exam: Present: soft, normal bowel sounds. Absent: distended, tenderness, guarding, rebound, rigid Extremities exam: Present: normal inspection, full ROM, normal capillary refill. Absent: tenderness, pedal edema, joint swelling, calf tenderness Back exam: Present: normal inspection Neurological exam: Present: alert, oriented X3, CN II-XII intact Psychiatric exam: Present: normal affect, normal mood Skin exam: Present: warm, dry, intact, normal color. Absent: rash Course Vital Signs 10/26/18 10/26/18 19:25 19:27 Temperature 98 F Pulse Rate 83 Respiratory 20 19 Rate Blood Pressure 111/43 O2 Sat by Pulse 98 Oximetry - Reevaluation(s) Reevaluation #1: Medical record and transfer paperwork reviewed including hemoglobin of 6.7 as an outpatient Medical Decision Making - Medical Decision Making 81 female the ER for evaluation. Abnormal lab values being hemoglobin. Hemoglobin is 8.0 today and patient can be discharged home with no need for transfusion currently - Lab Data Result diagrams: 10/26/18 19:30 Lab Results 10/26/18 10/26/18 10/26/18 Range/Units 19:29 19:30 19:30 WBC 8.6 (3.8-10.6) k/uL RBC 2.75 L (3.80-5.40) m/uL Hgb 8.0 L (11.4-16.0) gm/dL Hct 25.8 L (34.0-46.0) % MCV 94.0 (80.0-100.0) fL MCH 29.0 (25.0-35.0) pg MCHC 30.9 L (31.0-37.0) g/dL RDW 15.2 (11.5-15.5) % Plt Count 380 D (150-450) k/uL Neutrophils % 73 % Lymphocytes % 14 % Monocytes % 5 % Eosinophils % 4 % Basophils % 1 % Neutrophils # 6.3 (1.3-7.7) k/uL Lymphocytes # 1.2 (1.0-4.8) k/uL Monocytes # 0.4 (0-1.0) k/uL Eosinophils # 0.4 (0-0.7) k/uL Basophils # 0.1 (0-0.2) k/uL Hypochromasia Slight PT 12.7 H (9.0-12.0) sec INR 1.2 H (<1.2) APTT 27.8 (22.0-30.0) sec Troponin I <0.012 (0.000-0.034) ng/mL Blood Type Blood Type Recheck Antibody Screen Spec Expiration Date 10/26/18 Range/Units 19:43 WBC (3.8-10.6) k/uL RBC (3.80-5.40) m/uL Hgb (11.4-16.0) gm/dL Hct (34.0-46.0) % MCV (80.0-100.0) fL MCH (25.0-35.0) pg MCHC (31.0-37.0) g/dL RDW (11.5-15.5) % Plt Count (150-450) k/uL Neutrophils % % Lymphocytes % % Monocytes % % Eosinophils % % Basophils % % Neutrophils # (1.3-7.7) k/uL Lymphocytes # (1.0-4.8) k/uL Monocytes # (0-1.0) k/uL Eosinophils # (0-0.7) k/uL Basophils # (0-0.2) k/uL Hypochromasia PT (9.0-12.0) sec INR (<1.2) APTT (22.0-30.0) sec Troponin I (0.000-0.034) ng/mL Blood Type B Positive Blood Type Recheck No Antibody Screen NEGATIVE Spec Expiration Date 10/29/2018 - 2330 Disposition Clinical Impression: Anemia Disposition: HOME SELF-CARE Condition: Good Instructions (If sedation given, give patient instructions): Anemia (ED) Is patient prescribed a controlled substance at d/c from ED?: No Referrals: Lucio Rice MD [Primary Care Provider] - 1-2 days
[2018-10-26 19:58] LABS: Basophils # (A) 0.1 k/uL (0-0.2); Basophils % (A) 1 %; Eosinophils # (A) 0.4 k/uL (0-0.7); Eosinophils % (A) 4 %; HCT 25.8 % (34.0-46.0); Hypochromasia Slight; Lymphocytes # (A) 1.2 k/uL (1.0-4.8); Lymphocytes % (A) 14 %; MCHC 30.9 g/dL (31.0-37.0); Mean Platelet Volume 7.3; Monocytes # (A) 0.4 k/uL (0-1.0); Monocytes % (A) 5 %; Neutrophils # (A) 6.3 k/uL (1.3-7.7); Neutrophils % (A) 73 %; RBC 2.75 m/uL (3.80-5.40); RDW 15.2 % (11.5-15.5); WBC 8.6 k/uL (3.8-10.6)
[2018-10-26 19:59] LABS: Platelet Count 380 k/uL (150-450)
[2018-10-26 20:11] LABS: INR 1.2 (<1.2); Partial Thromboplastin Time 27.8 sec (22.0-30.0); Prothrombin Time 12.7 sec (9.0-12.0)
[2018-10-26 20:41] VITALS: RESP 19
== END 2018-10-26 20:21 | disposition home or self-care (01) ==
LOC: EC 19:22
DX: D64.9 Anemia, unspecified (principal); K21.9 Gastro-esophageal reflux disease without esophagitis; E78.5 Hyperlipidemia, unspecified; I10 Essential (primary) hypertension; M19.90 Unspecified osteoarthritis, unspecified site; Z87.891 Personal history of nicotine dependence; Z88.0 Allergy status to penicillin; Z88.2 Allergy status to sulfonamides; Z88.8 Allergy status to other drugs, medicaments and biological substances; Z79.82 Long term (current) use of aspirin; Z79.899 Other long term (current) drug therapy; Z85.3 Personal history of malignant neoplasm of breast; Z85.43 Personal history of malignant neoplasm of ovary; Z85.828 Personal history of other malignant neoplasm of skin; Z92.21 Personal history of antineoplastic chemotherapy; Z87.448 Personal history of other diseases of urinary system; Z90.13 Acquired absence of bilateral breasts and nipples; Z98.890 Other specified postprocedural states
CPT/HCPCS: 36415; 86900; 86901; 84484; 85025; 85610; 85730; 86850; 99283; 96374; 96375; J2405; C9113

== ENCOUNTER 2019-03-09 00:12 | Inpatient (IN) | payer MEDICARE, BC ==
--- NOTE | 2019-03-09 00:45 | ED ---
SOB HPI - General Stated Complaint: JENNIFER Time Seen by Provider: 03/09/19 00:15 - History of Present Illness Initial Comments: Aimee is a pleasant 83-year-old female who is brought to the emergency department today by EMS for evaluation of shortness of breath. Patient reports she's had progressively worsening shortness of breath without chest pain or cou ple of days. She states that today she felt that she cannot breathe anymore which prompted her call EMS. EMS reports that they arrived on scene to find the patient in moderate respiratory distress and oxygen saturation of 82%. Patient was given 3 breathing treatments a dose of Solu-Medrol and supplemental oxygen in route to the hospital. Upon arrival the patient reports feeling significantly better though she still feels somewhat short of breath. denies any recent fevers or chills she reports she does have a history of heart failure. Plan with all her home medications. - Related Data Home Medications Medication Instructions Recorded Confirmed Aspirin 81 mg PO HS@209911/28/14 10/26/18 Multivit-Min/FA/Lycopene/Lut 1 tab PO DAILY@89911/28/14 10/26/18 [Centrum Silver Tablet] Nitroglycerin Sl Tabs [Nitrostat] 0.4 mg PO Q5M PRN 11/28/14 10/26/18 Omeprazole [PriLOSEC] 20 mg PO DAILY@59911/28/14 10/26/18 Vits A,C,E/Lutein/Minerals 1 tab PO MOWEFRSA@89911/28/14 10/26/18 [Ocuvite with Lutein Tablet] Fenofibrate Nanocrystallized 145 mg PO HS@209910/15/18 10/26/18 [Fenofibrate] Biotin 5 mg PO DAILY@89910/26/18 10/26/18 Carvedilol [Coreg*] 12.5 mg PO BID@0900,1700 10/26/18 10/26/18 Furosemide [Lasix] 20 mg PO DAILY@89910/26/18 10/26/18 HYDROcodone/APAP 7.5-325MG [Vincent 1 tab PO TID PRN 10/26/18 10/26/18 7.5-325] Sodium Bicarbonate Tab 650 mg PO TID@0900,1300,209910/26/18 10/26/18 amLODIPine [Norvasc] 10 mg PO DAILY@0900 10/26/18 10/26/18 Previous Rx's Medication Instructions Recorded ALPRAZolam [Xanax] 0.25 mg PO BID PRN #6 tab 10/21/18 Apixaban [Eliquis] 2.5 mg PO BID tablet 10/21/18 Gabapentin [Neurontin] 300 mg PO BID #6 cap 10/21/18 Ipratropium-Albuterol Nebulize 3 ml INHALATION RT-QID ampul.neb 10/21/18 [Duoneb 0.5 mg-3 mg/3 ml Soln] Levofloxacin [Levaquin] 500 mg PO Q48H #4 tab 10/21/18 hydrALAZINE HCL [Apresoline] 25 mg PO BID tab 10/21/18 Allergies Allergy/AdvReac Type Severity Reaction Status Date / Time Penicillins Allergy Dyspnea Verified 03/09/19 00:46 Sulfa (Sulfonamide Allergy Dyspnea Verified 03/09/19 00:46 Antibiotics) triamcinolone acetonide AdvReac unsure if Verified 03/09/19 00:46 [From Kenalog] the kenalog was the cause, RASH/HIVES Review of Systems ROS Statement: Those systems with pertinent positive or pertinent negative responses have been documented in the HPI. ROS Other: All systems not noted in ROS Statement are negative. Past Medical History Past Medical History: Atrial Fibrillation, Cancer, Chest Pain / Angina, Fibromyalgia, GERD/Reflux, Hyperlipidemia, Hypertension, Mitral Valve Prolapse (MVP), Neurologic Disorder, Osteoarthritis (OA), Renal Disease, Vascular Disorder Additional Past Medical History / Comment(s): NEUROPATHY ASHER. LEGS & FEET, VARICOSE VEINS, KIDNEYS(small kidneys) FUNCTIONING @ 50%-URINE LEAKAGE- WEARS A PAD, HX skin, BREAST & OVARIAN CA-CHEMO 1986 & 1987, LUMBAR DDD-HERNIATION L3- L4, constipation History of Any Multi-Drug Resistant Organisms: None Reported Past Surgical History: Bowel Resection, Breast Surgery, Heart Catheterization, Hysterectomy, Orthopedic Surgery Additional Past Surgical History / Comment(s): COLOSTOMY & THEN REVERSAL OF COLOSTOMY,ASHER. MASTECTOMY, EXC.CATARACT ASHER, ASHER. THUMB SURGERY, skin cancer removed from nose, bowel resection 01/12/16 Past Anesthesia/Blood Transfusion Reactions: Previous Problems w/ Anesthesia Additional Past Anesthesia/Blood Transfusion Reaction / Comment(s): AFTER LAST PAIN CLINIC PROCEDURE 7/30/15 HAD ALLEGIC REACTION- broke out in hives and itching all over that lasted over 1 week, also had ELEVATED PULSE & BP. Past Psychological History: No Psychological Hx Reported Smoking Status: Former smoker Past Alcohol Use History: None Reported Past Drug Use History: None Reported - Past Family History Daughter(s) Family Medical History: No Reported History Father Family Medical History: Cancer (Father at age of 80 from lung cancer) Mother Family Medical History: Coronary Artery Disease (CAD), CVA/TIA (Mother at age of 94 and she had suffered from CAD, CABG, diabetes mellitus type 2 and CVA), Diabetes Mellitus Additional Family Medical History / Comment(s): HEART PROBLEMS General Exam - General Exam Comments Initial Comments: Physical Exam GENERAL: Chronically ill-appearing elderly female HENT: Normocephalic, Atraumatic. EYES: PERRL, EOMI PULMONARY: Decreased breath sounds at left base CARDIOVASCULAR: There is a regular rate and rhythm without any murmurs gallops or rubs. Pacemaker in place ABDOMEN: Soft and nontender with normal bowel sounds. SKIN: Skin is cool to the touch : Deferred NEUROLOGIC: Patient is alert and oriented x3. Moving all extremities spontaneously MUSCULOSKELETAL: Minimal edema lower extremities PSYCHIATRIC: Normal psychiatric evaluation. Course Vital Signs 03/09/19 03/09/19 03/09/19 00:25 00:46 01:07 Temperature Pulse Rate 60 60 Respiratory 20 18 18 Rate Blood Pressure 129/65 O2 Sat by Pulse 94 L 94 L Oximetry 03/09/19 03/09/19 01:43 02:51 Temperature 93.2 F L Pulse Rate Respiratory 18 Rate Blood Pressure 114/52 113/65 O2 Sat by Pulse 92 L 94 L Oximetry Medical Decision Making - Medical Decision Making Patient was seen and evaluated immediately upon arrival to the emergency department Patient contacted EMS was found to be in moderate respiratory distress, oxygen saturation the 80s, she received supplemental oxygen trouble DuoNeb's and slightly Medrol and route to the hospital History and physical exam also concerning for heart failure Labs with chronic anemia, chronic kidney disease, elevation of BNP concerning for heart failure Patient was also noted to be hypothermic with a rectal temperature of only 93 Considering the patients constellation of symptoms I do feel the patient warrants admission to hospital. Patient is agreeable. Patient care was discussed with primary care doctor though who recommends we obtain a pro- calcitonin, cortisol levels, admit the patient for heart failure but treat empirically for sepsis as the patient is hypothermic. Admission orders placed. - Lab Data Result diagrams: 03/09/19 00:55 03/09/19 00:55 Lab Results 03/09/19 03/09/19 03/09/19 Range/Units 00:55 00:55 00:55 WBC 5.5 (3.8-10.6) k/uL RBC 3.22 L (3.80-5.40) m/uL Hgb 9.3 L (11.4-16.0) gm/dL Hct 28.2 L (34.0-46.0) % MCV 87.6 (80.0-100.0) fL MCH 28.7 (25.0-35.0) pg MCHC 32.8 (31.0-37.0) g/dL RDW 19.4 H (11.5-15.5) % Plt Count 163 (150-450) k/uL Hypochromasia Slight Poikilocytosis Slight Anisocytosis Slight PT (9.0-12.0) sec INR (<1.2) APTT (22.0-30.0) sec Sodium 142 (137-145) mmol/L Potassium 5.0 (3.5-5.1) mmol/L Chloride 110 H (98-107) mmol/L Carbon Dioxide 23 (22-30) mmol/L Anion Gap 9 mmol/L BUN 82 H (7-17) mg/dL Creatinine 2.30 H (0.52-1.04) mg/dL Est GFR (CKD-EPI)AfAm 22 (>60 ml/min/1.73 sqM) Est GFR (CKD-EPI)NonAf 19 (>60 ml/min/1.73 sqM) Glucose 160 H (74-99) mg/dL Calcium 10.2 (8.4-10.2) mg/dL Magnesium 2.2 (1.6-2.3) mg/dL Total Bilirubin 0.3 (0.2-1.3) mg/dL AST 176 H (14-36) U/L ALT 113 H (9-52) U/L Alkaline Phosphatase 66 (38-126) U/L Troponin I (0.000-0.034) ng/mL NT-Pro-B Natriuret Pep 1540 pg/mL Total Protein 6.6 (6.3-8.2) g/dL Albumin 3.8 (3.5-5.0) g/dL 03/09/19 03/09/19 Range/Units 00:55 00:55 WBC (3.8-10.6) k/uL RBC (3.80-5.40) m/uL Hgb (11.4-16.0) gm/dL Hct (34.0-46.0) % MCV (80.0-100.0) fL MCH (25.0-35.0) pg MCHC (31.0-37.0) g/dL RDW (11.5-15.5) % Plt Count (150-450) k/uL Hypochromasia Poikilocytosis Anisocytosis PT 13.3 H (9.0-12.0) sec INR 1.3 H (<1.2) APTT 32.4 H (22.0-30.0) sec Sodium (137-145) mmol/L Potassium (3.5-5.1) mmol/L Chloride (98-107) mmol/L Carbon Dioxide (22-30) mmol/L Anion Gap mmol/L BUN (7-17) mg/dL Creatinine (0.52-1.04) mg/dL Est GFR (CKD-EPI)AfAm (>60 ml/min/1.73 sqM) Est GFR (CKD-EPI)NonAf (>60 ml/min/1.73 sqM) Glucose (74-99) mg/dL Calcium (8.4-10.2) mg/dL Magnesium (1.6-2.3) mg/dL Total Bilirubin (0.2-1.3) mg/dL AST (14-36) U/L ALT (9-52) U/L Alkaline Phosphatase (38-126) U/L Troponin I <0.012 (0.000-0.034) ng/mL NT-Pro-B Natriuret Pep pg/mL Total Protein (6.3-8.2) g/dL Albumin (3.5-5.0) g/dL - EKG Data -: EKG Interpreted by [facility] EKG Comments: EKG was obtained due to complaint of shortness of breath, EKG obtained at 1:01 AM, rate is 60 further is atrial paced, NC is prolonged at 3:30, curious 114, QTC [address] elevations or depressions or evidence of acute ischemia or infarction. Disposition Clinical Impression: Congestive heart failure, Pleural effusion, Acute respiratory failure Disposition: ADMITTED IP TO THIS HOSP Condition: Serious Is patient prescribed a controlled substance at d/c from ED?: No Referrals: Lucio Rice MD [Primary Care Provider] - 1-2 days
[2019-03-09 01:17] LABS: INR 1.3 (<1.2); Partial Thromboplastin Time 32.4 sec (22.0-30.0); Prothrombin Time 13.3 sec (9.0-12.0)
[2019-03-09 01:18] LABS: Anisocytosis Slight; HCT 28.2 % (34.0-46.0); HGB 9.3 gm/dL (11.4-16.0); Hypochromasia Slight; MCH 28.7 pg (25.0-35.0); MCHC 32.8 g/dL (31.0-37.0); MCV 87.6 fL (80.0-100.0); Mean Platelet Volume 8.3; Platelet Count 163 k/uL (150-450); Poikilocytosis Slight; RBC 3.22 m/uL (3.80-5.40); RDW 19.4 % (11.5-15.5)
--- NOTE | 2019-03-09 01:32 | XR ---
EXAMINATION TYPE: XR chest 2V DATE OF EXAM: 03/09/2019 COMPARISON: 10/21/2018 HISTORY: Chest pain TECHNIQUE: Frontal and lateral views of the chest are obtained. FINDINGS: There is pulmonary vascular congestion and pulmonary mild edema. There is airspace infiltr ate right lower lobe. There is bilateral blunting of the costophrenic angles. There is a left axillar y pacemaker. Heart is enlarged. IMPRESSION: Congestive heart failure and pulmonary edema is new compared to last exam. There is incr easing pleural fluid on the right side and no change on the left side compared to old exam.
[2019-03-09 01:33] LABS: Albumin 3.8 g/dL (3.5-5.0); Calcium 10.2 mg/dL (8.4-10.2); Magnesium 2.2 mg/dL (1.6-2.3); Total Bilirubin 0.3 mg/dL (0.2-1.3); Total Protein 6.6 g/dL (6.3-8.2)
[2019-03-09] MEDS ORDERED: FUROSEMIDE 10 MG/ML 4 ML VIAL IV STA (01:56)
[2019-03-09] MEDS ORDERED: HYDROcodone/APAP 7.5-325MG 1 EACH TAB PO ONE ×2 (02:27→06:22)
[2019-03-09] MEDS ORDERED: cefTRIAXone IN SWFI 1,000 MG/10 ML SYRINGE IVP STA (03:18)
[2019-03-09] MEDS ORDERED: AZITHROMYCIN 500 MG in SODIUM CHLORIDE 0.9% 250 ML IVPB STA (03:18)
[2019-03-09] MEDS ORDERED: IPRATROPIUM-ALBUTEROL 3 ML NEB INHALATION PRN (03:29)
[2019-03-09 03:41] LABS: Band Neutrophils % 3 %; Eosinophils # (M) 0.22 k/uL (0-0.7); Lymphocytes # (M) 0.97 k/uL (1.0-4.8); Monocytes # (M) 0.43 k/uL (0-1.0); Neutrophils % (M) 67 %; Nucleated Red Blood Cells 1 /100 WBC (0-0); Total Cells Counted 200; WBC 5.4 k/uL (3.8-10.6)
[2019-03-09 03:42] LABS: Polychromasia Present; Target Cells Present
[2019-03-09 03:43] LABS: Large Platelets Present
[2019-03-09 04:02] LABS: Appearance,Urine Clear (Clear); Bacteria,Urine Rare /hpf; Bilirubin,Urine Negative (Negative); Blood,Urine Negative (Negative); Color,Urine Light Yellow; Glucose,Urine (UA) Negative (Negative); Ketones,Urine Negative (Negative); Leukocyte Esterase,Urine Moderate (Negative); Mucus,Urine Rare /hpf; Nitrite,Urine Negative (Negative); PH, Urine 5.5 (5.0-8.0); Protein,Urine Negative (Negative); RBC,Urine 1 /hpf (0-5); Specific Gravity,Urine 1.011 (1.001-1.035); Squamous Epithelial Cell,Urine 1 /hpf (0-4); Transitional Epi Cells,Urine <1 /hpf (0-1); Urobilinogen,Urine <2.0 mg/dL (<2.0); WBC,Urine 20 /hpf (0-5)
[2019-03-09 04:55] LABS: T4, Free (Free Thyroxine) 1.2 ng/dL (0.78-2.19)
[2019-03-09] MEDS: FUROSEMIDE 10 MG/ML 4 ML VIAL IV SCH ×3 (07:12→20:05)
[2019-03-09 10:28] LABS: Anisocytosis Slight; Basophils # (A) 0.1 k/uL (0-0.2); Basophils % (A) 2 %; Eosinophils % (A) 1 %; HCT 30.3 % (34.0-46.0); HGB 9.7 gm/dL (11.4-16.0); Hypochromasia Slight; Lymphocytes # (A) 0.4 k/uL (1.0-4.8); Lymphocytes % (A) 8 %; MCH 28.5 pg (25.0-35.0); MCHC 32.1 g/dL (31.0-37.0); MCV 88.9 fL (80.0-100.0); Monocytes # (A) 0.1 k/uL (0-1.0); Monocytes % (A) 3 %; Neutrophils # (A) 4.1 k/uL (1.3-7.7); Neutrophils % (A) 86 %; Platelet Count 176 k/uL (150-450); Poikilocytosis Slight; RBC 3.41 m/uL (3.80-5.40); RDW 18.1 % (11.5-15.5); WBC 4.8 k/uL (3.8-10.6)
[2019-03-09 11:47] LABS: Albumin 4.1 g/dL (3.5-5.0); Calcium 10.6 mg/dL (8.4-10.2); Potassium 4.4 mmol/L (3.5-5.1); Total Bilirubin 0.3 mg/dL (0.2-1.3); Total Protein 7.2 g/dL (6.3-8.2)
--- NOTE | 2019-03-09 12:54 | P.CNPUL ---
History of Present Illness Consult date: 03/09/19 Reason for consult: dyspnea History of present illness: This is a 83-year-old female patient who came in today because of worsening shortness of breath. The patient was diagnosed having a UTI on outpatient basis and she was diagnosed and treated with antibiotics and she received ciprofloxacin. Progressively following that she became more short of breath. Her pulse ox at the time of arrival was 82 on room air. The patient was given [id number] breathing treatment. Chest x-ray was done and showed CHF and pulmonary edema compared to the prior x-ray from 10/21/2018. There was also increase in pleural fluid on the right more than the left compared to the previous exam. The patient was started on IV Lasix. The patient was admitted t o the medical floor. White cell count is at 4.8 with a hemoglobin of 9.7. The patient has chronic renal failure with a creatinine of 2.3. Her GFR is 18 . Her pro-calcitonin level was slightly elevated at 0.14. Her BNP level is 1540 and a troponin level is less than 0.012. UA had shown 20 daily bases and moderate amount of leukocyte esterase. The patient currently is on IV Lasix. The patient is receiving 40 mg IV Lasix in the 8 hours. She is already feeling much better compared to yesterday. She is less short of breath at this point in time. She her last echo from October 2018 showed an EF of around 6065%. RV was within normal size. There was mild pulmonary hypertension. Right ventricular systolic pressure was 42 mmHg. She is known to have chronic atrial fibrillation. She has been on long-term anticoagulation with Eliquis. She also has hypertension and hyperlipidemia and chronic kidney disease as mentioned. She is post bilateral mastectomy and this was done for breast cancer and the patient is awaiting cancer for which she has undergone surgical resection. Note that the patient also has a pacemaker insertion. The patient has a pacemaker inserted to [facility]. She was having cardiac positive this was confirmed and the patient states that she was having 11 secondary to cardiac positive without any significant syncope. She ultimately end up having a p acemaker inserted at [facility] in [place] Review of Systems Constitutional: Reports fatigue, Reports lethargy, Reports weakness Eyes: denies as per HPI, denies blurred vision, denies bulging eye, denies decreased vision, denies diplopia, denies discharge, denies dry eye, denies irritation, denies itching, denies pain, denies photophobia, denies loss of peripheral vision, denies loss of vision, denies tunnel vision/blind spots Ears: deny: decreased hearing, ear discharge, earache, tinnitus Ears, nose, mouth and throat: Denies headache, Denies sore throat Breasts: absent: as per HPI, change in shape, gynecomastia, masses, nipple discharge, pain, skin changes, swelling Breasts: Reports as per HPI Cardiovascular: Reports as per HPI Respiratory: Reports as per HPI, and there is worsening shortness of breath Gastrointestinal: Reports as per HPI Genitourinary: Reports as per HPI, recent she is for UTI Musculoskeletal: Reports as per HPI Musculoskeletal: absent: ankle pain, ankle stiffness, ankle swelling, as per HPI, elbow pain, elbow stiffness, elbow swelling, foot pain, foot stiffness, foot swelling, hand pain, hand stiffness, hand swelling, hip pain, hip stiffness, hip swelling, knee pain, knee stiffness, knee swelling, shoulder pain , shoulder stiffness, shoulder swelling, wrist pain, wrist stiffness, wrist swelling Integumentary: Reports as per HPI Neurological: Reports as per HPI Psychiatric: Reports as per HPI Endocrine: Reports as per HPI Hematologic/Lymphatic: Reports as per HPI Allergic/Immunologic: Reports as per HPI Past Medical History Past Medical History: Atrial Fibrillation, Coronary Artery Disease (CAD), Cancer, Chest Pain / Angina, Fibromyalgia, GERD/Reflux, Hyperlipidemia, Hypertension, Mitral Valve Prolapse (MVP), Neurologic Disorder, Osteoarthritis (OA), Renal Disease, Vascular Disorder Additional Past Medical History / Comment(s): Coronary artery disease, chronic atrial fibrillation, hypertension, hyperlipidemia, chronic kidney disease stage IV, osteoarthritis, peripheral vascular disease, history of recurrent UTIs, history of right breast cancer with bilateral mastectomy, history of ovarian cancer with surgery followed by chemotherapy, previous history of diverticular disease, Cardenas's esophagus, varicose veins, previous history of pyelonephritis and septic shock treated on outpatient basis, peripheral neuropathy, degenerative arthritis, lumbar stenosis, herniated disc at the level of L3 and L4, chronic back pain, sciatica, history of skin cancer resected, history of recent pacemaker insertion for cardiac causes. History of Any Multi-Drug Resistant Organisms: None Reported Past Surgical History: Bowel Resection, Breast Surgery, Heart Catheterization, Hysterectomy, Orthopedic Surgery, Tonsillectomy Additional Past Surgical History / Comment(s): 12/11/18 pacer inserted at [facility], R breast cancer with bilateral mastectomies/R side lymph node removals, total hysterectomy/bowel resection with part of rectum removed d/t ovarian cancer, bowel resection d/t tumor in ascending colon and also removed appendix, bilateral thumb surgery, pain clinic procedures, skin cancer removals, BMB, EGDs/colonoscopies, bilateral cataract removals/lens implants. Past Anesthesia/Blood Transfusion Reactions: Previous Problems w/ Anesthesia Additional Past Anesthesia/Blood Transfusion Reaction / Comment(s): AFTER LAST PAIN CLINIC PROCEDURE 01/12/15 HAD ALLEGIC REACTION- broke out in hives and itching all over that lasted over 1 week, also had ELEVATED PULSE & BP. Smoking Status: Former smoker - Past Family History Daughter(s) Family Medical History: No Reported History Father Family Medical History: Cancer (Father at age of 80 from lung cancer) Mother Family Medical History: Coronary Artery Disease (CAD), CVA/TIA (Mother at age of 94 and she had suffered from CAD, CABG, diabetes mellitus type 2 and CVA), Diabetes Mellitus Additional Family Medical History / Comment(s): HEART PROBLEMS Medications and Allergies Home Medications Medication Instructions Recorded Confirmed Type Multivit-Min/FA/Lycopene/Lut 1 tab PO DAILY@89911/28/14 03/09/19 History [Centrum Silver Tablet] Nitroglycerin Sl Tabs [Nitrostat] 0.4 mg PO Q5M PRN 11/28/14 03/09/19 History Omeprazole [PriLOSEC] 20 mg PO DAILY@59911/28/14 03/09/19 History Vits A,C,E/Lutein/Minerals 1 tab PO MOWEFRSA@89911/28/14 03/09/19 History [Ocuvite with Lutein Tablet] Fenofibrate Nanocrystallized 145 mg PO HS@2100 10/15/18 03/09/19 History [Fenofibrate] ALPRAZolam [Xanax] 0.25 mg PO BID PRN #6 tab 10/21/18 03/09/19 Rx Apixaban [Eliquis] 2.5 mg PO BID tablet 10/21/18 03/09/19 Rx Gabapentin [Neurontin] 300 mg PO BID #6 cap 10/21/18 03/09/19 Rx hydrALAZINE HCL [Apresoline] 25 mg PO BID tab 10/21/18 03/09/19 Rx Biotin 5 mg PO DAILY@0900 10/26/18 03/09/19 History HYDROcodone/APAP 7.5-325MG [[place] 1 tab PO BID 10/26/18 03/09/19 History 7.5-325] amLODIPine [Norvasc] 10 mg PO DAILY@89910/26/18 03/09/19 History Ascorbic Acid [Vitamin C] 500 mg PO DAILY 03/09/19 03/09/19 History Carvedilol 25 mg PO BID 03/09/19 03/09/19 History Cholecalciferol (Vitamin D3) 2,000 unit PO DAILY 03/09/19 03/09/19 History [Vitamin D3] Fish Oil/Dha/Epa [Fish Oil 1,200 1 cap PO DAILY 03/09/19 03/09/19 History mg Fish Oil] L.acidoph,Paracasei, B.lactis 1 cap PO DAILY 03/09/19 03/09/19 History [Probiotic] Labetalol [Trandate] 200 mg PO Q8H PRN 03/09/19 03/09/19 History Torsemide [Demadex] 5 mg PO Q48H 03/09/19 03/09/19 History Allergies Allergy/AdvReac Type Severity Reaction Status Date / Time Penicillins Allergy Dyspnea Verified 03/09/19 08:18 Sulfa (Sulfonamide Allergy Dyspnea Verified 03/09/19 08:18 Antibiotics) triamcinolone acetonide AdvReac unsure if Verified 03/09/19 08:18 [From Kenalog] the kenalog was the cause, RASH/HIVES Physical Exam Vitals: Vital Signs Temp Pulse Pulse Resp BP BP Pulse Ox 03/09/19 12:00 98.0 F 88 16 133/63 98 03/09/19 08:13 97.0 F L 03/09/19 08:00 78 18 133/63 98 03/09/19 06:14 94.5 F L 68 18 119/56 96 03/09/19 04:29 94.1 F L 63 18 124/57 95 03/09/19 03:38 93.8 F L 62 18 114/63 94 L 03/09/19 02:51 18 113/65 94 L 03/09/19 01:43 93.2 F L 114/52 92 L 03/09/19 01:07 18 03/09/19 00:46 60 18 94 L 03/09/19 00:25 60 20 129/65 94 L Intake and Output 03/08/19 03/09/19 03/09/19 22:59 06:59 14:59 Other: Voiding Method Bedside Commode # Voids 1 Weight 59.874 kg The patient appeared well nourished and normally developed. Vital signs as documented. Head exam is unremarkable. No scleral icterus or corneal arcus noted. Neck is without jugular venous distension, thyromegaly, or carotid bruits. Carotid upstrokes are brisk bilaterally. Lungs are diminished breath sound bilaterally along with some bibasilar crackles.. Cardiac exam reveals the PMI to be normally sized and situated. Rhythm is regular. First and second heart sounds normal. No murmurs, rubs or gallops. The patient is currently atrially paced with a pacemaker pocket of the left anterior chest area that can be easily palpated. Abdominal exam reveals normal bowel sounds, no masses, no organom egaly and no aortic enlargement. Extremities are nonedematous and both femoral and pedal pulses are normal. Examination of the skin revealed no evidence of significant rashes, suspicious appearing nevi or other concerning lesions. Neurologically the patient is awake and alert and there is no focal neurological deficits. Results - Laboratory Findings CBC and BMP: 03/09/19 10:13 03/09/19 10:13 PT/INR, D-dimer PT 13.3 sec (9.0-12.0) H 03/09/19 00:55 INR 1.3 (<1.2) H 03/09/19 00:55 Abnormal lab findings: Abnormal Labs 03/09/19 03/09/19 03/09/19 00:55 00:55 00:55 RBC 3.22 L Hgb 9.3 L Hct 28.2 L RDW 19.4 H Lymphocytes # Lymphocytes # (Manual) 0.97 L Nucleated RBCs 1 H PT 13.3 H INR 1.3 H APTT 32.4 H Chloride 110 H Carbon Dioxide BUN 82 H Creatinine 2.30 H Glucose 160 H Plasma Lactic Acid Jerel Calcium AST 176 H ALT 113 H Procalcitonin TSH Ur Leukocyte Esterase Urine WBC Urine WBC Clumps Urine Bacteria Urine Mucus 03/09/19 03/09/19 03/09/19 00:55 00:55 03:35 RBC Hgb Hct RDW Lymphocytes # Lymphocytes # (Manual) Nucleated RBCs PT INR APTT Chloride Carbon Dioxide BUN Creatinine Glucose Plasma Lactic Acid Jerel Calcium AST ALT Procalcitonin 0.14 H TSH 0.321 L Ur Leukocyte Esterase Moderate H Urine WBC 20 H Urine WBC Clumps Rare H Urine Bacteria Rare H Urine Mucus Rare H 03/09/19 03/09/19 03/09/19 10:13 10:13 10:13 RBC 3.41 L Hgb 9.7 L Hct 30.3 L RDW 18.1 H Lymphocytes # 0.4 L Lymphocytes # (Manual) Nucleated RBCs PT INR APTT Chloride 110 H Carbon Dioxide 21 L BUN 79 H Creatinine 2.39 H Glucose 152 H Plasma Lactic Acid Jerel 0.6 L Calcium 10.6 H AST 163 H ALT 119 H Procalcitonin TSH Ur Leukocyte Esterase Urine WBC Urine WBC Clumps Urine Bacteria Urine Mucus - Diagnostic Findings Chest x-ray: image reviewed Assessment and Plan Plan: 1 acute decompensated heart failure with secondary shortness of breath. The patient's chest x-rays consistent with pulmonary edema and [place] pleural effusion, responding to diuretics 2 CHF with possible diastolic dysfunction 3 history of cardiac pauses post pacemaker insertion in the patient's cardiac r hythm is currently AV paced 4 coronary artery disease 5 history of atrial fibrillation maintained on long-term medical condition with Eliquis 6 chronic stage IV kidney disease 7 history of breast cancer with bilateral mastectomy 8 history of ovarian cancer postresection 9 history of skin cancer 10 previous hospitalization for pyelonephritis, treated 11 history of skin cancer 12 hyperlipidemia 13 hypertension 14 peripheral neuropathy 15 peripheral vascular disease 16 chronic back pain with spinal stenosis and sciatica and degenerative disc disease at the level of L3-L4 17 recurrent UTIs Plan May need to repeat echocardiogram. The final decision will be left up to cardiology. Subject this patient IV Lasix. Optimize volume status. Continue Coreg. Continue long-term articulation with Eliquis. We'll continue to follow. Cardiology consultation regarding the recent cardiac events including a pacemaker insertion. We'll continue to follow.
[2019-03-09] MEDS: HYDROcodone/APAP 7.5-325MG 1 EACH TAB PO SCH ×2 (13:19→20:06)
[2019-03-09] MEDS: hydrALAZINE HCL 25 MG TAB PO SCH ×2 (13:19→22:45)
[2019-03-09] MEDS: GABAPENTIN 300 MG CAP PO SCH ×2 (13:19→20:06)
[2019-03-09] MEDS: methylPREDNISolone SOD SUCCI 40 MG/ML 1 ML VIAL IV SCH ×2 (13:19→20:05)
[2019-03-09] MEDS: amLODIPine 10 MG TAB PO SCH (13:20)
[2019-03-09] MEDS: CARVEDILOL 12.5 MG TAB PO SCH ×3 (13:24→22:45)
[2019-03-09] MEDS: APIXABAN 2.5 MG TABLET PO SCH ×2 (13:24→20:05)
--- NOTE | 2019-03-09 15:15 | P.HPIM ---
History of Present Illness H&P Date: 03/09/19 This is an 83-year-old female one of Dr. Rice, Dr. Kendrick and Dr. Gutiérrez with a previous medical history significant for hypertension and hypertensive cardiovascular disease, hyperlipidemia, GERD, history of breast cancer status post mastectomy, history of paroxysmal atrial fibrillation status post pacemaker, chronic kidney disease stage III, anemia of chronic kidney disease, GERD, osteoarthritis, varicose veins. Patient states that she just Dr. Rice on March 01. The week before she had received her flu immunization and did not feel well but by the time she saw Dr. tyler on Friday she felt like she was back to normal. She did not have any cough at the time. By Friday s he was feeling suddenly very sick with weakness, shortness of breath, cough. She states she was so weak she had trouble standing up. Cough was loose and nonproductive. She denies having any fever or chills. She obtain an antibiotic for UTI but only took one pill. She denies any difficulty with urination, no blood in her urine. She denies any sick contacts. She has chronically loose stools that were unchanged. She does not use oxygen or nebulizer at home. Patient complains of difficulty swallowing food and she has had an EGD done in [address] Young the digits show an esophageal stricture. She has had no follow-up since that time. Patient came into [facility] emergency center for evaluation by EMS. Pulse ox 82% enroute and patient was started on Solu-Medrol and oxygen. Patient was also found to be hypothermic with a rectal temperature of 93. WBC 5.5, hemoglobin 9.3, platelet count 163. Sodium 142, potassium 5.0, chloride 110, CO2 23, BUN 82, creatinine 2.30, blood sugar 160. ProBNP 1540. Total bilirubin 0.3, AST 176, ALT 113, alkaline phosphatase 66, albumin 3.8. INR 1.3, troponin 0.012. EKG was atrial paced rhythm. Chest x-ray reveals congestive heart failure pulmonary edema new compared to last exam on 10/21/2018. There is increasing pleural fluid on the right side and no change on the left. Patient was started on IV Lasix 40 mg every 8 hours, IV Solu-Medrol and admitted to the MedSurg floor. Patient was currently waiting in the ER for room assignment. Oral temperatures up to 98 and Boogie hugger will be discontinued. Review of Systems Constitutional: Reports anorexia, Reports daytime sleepiness, Reports fatigue, Reports lethargy, Reports malaise, Reports poor appetite, Reports weakness, Denies chills, Denies fever Eyes: denies blurred vision, denies pain Ears, nose, mouth and throat: Reports dysphagia, Denies headache, Denies nasal congestion, Denies nasal discharge, Denies sore throat Cardiovascular: Reports dyspnea on exertion, Reports edema, Reports leg edema, Reports shortness of breath, Denies chest pain, Denies syncope Respiratory: Reports cough, Reports dyspnea, Denies cough with sputum, Denies excessive sputum, Denies hemoptysis, Denies home oxygen, Denies sleep apnea, Denies wheezing Gastrointestinal: Denies abdominal pain, Denies diarrhea, Denies nausea, Denies vomiting Genitourinary: Denies dysuria, Denies hematuria, Denies urgency, Denies urinary frequency Musculoskeletal: Reports muscle weakness, Denies myalgias Integumentary: Denies pruritus, Denies rash, Denies wounds Neurological: Denies change in mentation, Denies change in speech, Denies numbness, Denies seizures, Denies weakness Psychiatric: Denies anxiety, Denies depression Endocrine: Denies fatigue, Denies weight change Past Medical History Past Medical History: Atrial Fibrillation, Coronary Artery Disease (CAD), Cancer, Chest Pain / Angina, Fibromyalgia, GERD/Reflux, Hyperlipidemia, Hypertension, Mitral Valve Prolapse (MVP), Neurologic Disorder, Osteoarthritis (OA), Renal Disease, Vascular Disorder Additional Past Medical History / Comment(s): Cardiomyopathy, recent pacemaker insertion for pauses, MVP, ASHD, PVD/venous influx, past UTI and recent UTI completed antibiotic, current upper respiratory tract infection with antibiotic, R breast cancer with surgery, ovarian cancer with surgery and chemotherapy, chronic diarrhea, skin cancers with removals, arthritis in multiple joints, chronic low back pain/bilateral sciatica, lumbar DDD/stenosis/herniated discs L3-L4/DDD, neuropathy bilateral legs/feet, kidneys are "small"-CKD recently told stage IV, pyelonephritis with sepsis/septic shock, anemia, hiatal hernia, diverticular disease, Cardenas's esophagus, varicose veins. History of Any Multi-Drug Resistant Organisms: None Reported Past Surgical History: Bowel Resection, Breast Surgery, Heart Catheterization, Hysterectomy, Orthopedic Surgery, Tonsillectomy Additional Past Surgical History / Comment(s): 12/11/18 pacer inserted at [facility], R breast cancer with bilateral mastectomies/R side lymph node removals, total hysterectomy/bowel resection with part of rectum removed d/t ovarian cancer, bowel resection d/t tumor in ascending colon and also removed appendix, bilateral thumb surgery, pain clinic procedures, skin cancer removals, BMB, EGDs/colonoscopies, bilateral cataract removals/lens implants. Past Anesthesia/Blood Transfusion Reactions: Previous Problems w/ Anesthesia Additional Past Anesthesia/Blood Transfusion Reaction / Comment(s): AFTER LAST PAIN CLINIC PROCEDURE 01/12/15 HAD ALLEGIC REACTION- broke out in hives and itching all over that lasted over 1 week, also had ELEVATED PULSE & BP. Smoking Status: Former smoker - Past Family History Daughter(s) Family Medical History: No Reported History Father Family Medical History: Cancer (Father at age of 80 from lung cancer) Mother Family Medical History: Coronary Artery Disease (CAD), CVA/TIA (Mother at age of 94 and she had suffered from CAD, CABG, diabetes mellitus type 2 and CVA), Diabetes Mellitus Additional Family Medical History / Comment(s): HEART PROBLEMS Medications and Allergies Home Medications Medication Instructions Recorded Confirmed Type Multivit-Min/FA/Lycopene/Lut 1 tab PO DAILY@0911/28/14 03/09/19 History [Centrum Silver Tablet] Nitroglycerin Sl Tabs [Nitrostat] 0.4 mg PO Q5M PRN 11/28/14 03/09/19 History Omeprazole [PriLOSEC] 20 mg PO DAILY@59911/28/14 03/09/19 History Vits A,C,E/Lutein/Minerals 1 tab PO MOWEFRSA@89911/28/14 03/09/19 History [Ocuvite with Lutein Tablet] Fenofibrate Nanocrystallized 145 mg PO HS@2100 10/15/18 03/09/19 History [Fenofibrate] ALPRAZolam [Xanax] 0.25 mg PO BID PRN #6 tab 10/21/18 03/09/19 Rx Apixaban [Eliquis] 2.5 mg PO BID tablet 10/21/18 03/09/19 Rx Gabapentin [Neurontin] 300 mg PO BID #6 cap 10/21/18 03/09/19 Rx hydrALAZINE HCL [Apresoline] 25 mg PO BID tab 10/21/18 03/09/19 Rx Biotin 5 mg PO DAILY@89910/26/18 03/09/19 History HYDROcodone/APAP 7.5-325MG [[place] 1 tab PO BID 10/26/18 03/09/19 History 7.5-325] amLODIPine [Norvasc] 10 mg PO DAILY@89910/26/18 03/09/19 History Ascorbic Acid [Vitamin C] 500 mg PO DAILY 03/09/19 03/09/19 History Carvedilol 25 mg PO BID 03/09/19 03/09/19 History Cholecalciferol (Vitamin D3) 2,000 unit PO DAILY 03/09/19 03/09/19 History [Vitamin D3] Fish Oil/Dha/Epa [Fish Oil 1,200 1 cap PO DAILY 03/09/19 03/09/19 History mg Fish Oil] L.acidoph,Paracasei, B.lactis 1 cap PO DAILY 03/09/19 03/09/19 History [Probiotic] Labetalol [Trandate] 200 mg PO Q8H PRN 03/09/19 03/09/19 History Torsemide [Demadex] 5 mg PO Q48H 03/09/19 03/09/19 History Allergies Allergy/AdvReac Type Severity Reaction Status Date / Time Penicillins Allergy Dyspnea Verified 03/09/19 08:18 Sulfa (Sulfonamide Allergy Dyspnea Verified 03/09/19 08:18 Antibiotics) triamcinolone acetonide AdvReac unsure if Verified 03/09/19 08:18 [From Kenalog] the kenalog was the cause, RASH/HIVES Physical Exam Vitals: Vital Signs Temp Pulse Pulse Resp BP BP Pulse Ox 03/09/19 08:13 97.0 F L 03/09/19 08:00 78 18 133/63 98 03/09/19 06:14 94.5 F L 68 18 119/56 96 03/09/19 04:29 94.1 F L 63 18 124/57 95 03/09/19 03:38 93.8 F L 62 18 114/63 94 L 03/09/19 02:51 18 113/65 94 L 03/09/19 01:43 93.2 F L 114/52 92 L 03/09/19 01:07 18 03/09/19 00:46 60 18 94 L 03/09/19 00:25 60 20 129/65 94 L Intake and Output 03/08/19 03/09/19 03/09/19 22:59 06:59 14:59 Other: Voiding Method Bedside Commode Weight 59.874 kg - Constitutional General appearance: mild distress, patient seen in the emergency center. Deisi Hugger in place. - EENT Eyes: anicteric sclerae, EOMI, PERRLA, no ptosis, no scleral icterus, normal appearance ENT: hard of hearing, NA/AT, normal oropharynx, no thrush Ears: bilateral: normal - Neck Neck: no lymphadenopathy, normal ROM, no rigidity, no stridor, no thyromegaly Carotids: bilateral: upstroke normal - Respiratory Respiratory: bilateral: diminished, negative: dullness, rales, rhonchi, wheezing, prolonged expiration, prolonged inspiration - Cardiovascular Rhythm: regular Heart sounds: normal: S1, S2 Abnormal Heart Sounds: systolic murmur, no S3 Gallop, no S4 Gallop, no click playground monitor is atrial paced - Gastrointestinal General gastrointestinal: normal bowel sounds, soft, no splenomegaly, no t enderness, no umbilical hernia, no ventral hernia - Integumentary Integumentary: normal, normal turgor - Neurologic Neurologic: CNII-XII intact - Musculoskeletal Musculoskeletal: gait normal, generalized weakness, strength equal bilaterally - Psychiatric Psychiatric: A&O x's 3, appropriate affect, intact judgment & insight Results CBC & Chem 7: 03/09/19 10:13 03/09/19 10:13 Labs: Abnormal Lab Results - Last 24 Hours (Table) 03/09/19 03/09/19 03/09/19 Range/Units 00:55 00:55 00:55 RBC 3.22 L (3.80-5.40) m/uL Hgb 9.3 L (11.4-16.0) gm/dL Hct 28.2 L (34.0-46.0) % RDW 19.4 H (11.5-15.5) % Lymphocytes # (1.0-4.8) k/uL Lymphocytes # (Manual) 0.97 L (1.0-4.8) k/uL Nucleated RBCs 1 H (0-0) /100 WBC PT 13.3 H (9.0-12.0) sec INR 1.3 H (<1.2) APTT 32.4 H (22.0-30.0) sec Chloride 110 H (98-107) mmol/L BUN 82 H (7-17) mg/dL Creatinine 2.30 H (0.52-1.04) mg/dL Glucose 160 H (74-99) mg/dL Plasma Lactic Acid Jerel (0.7-2.0) mmol/L AST 176 H (14-36) U/L ALT 113 H (9-52) U/L TSH (0.465-4.680) mIU/L Ur Leukocyte Esterase (Negative) Urine WBC (0-5) /hpf Urine WBC Clumps (None) /hpf Urine Bacteria (None) /hpf Urine Mucus (None) /hpf 03/09/19 03/09/19 03/09/19 Range/Units 00:55 03:35 10:13 RBC (3.80-5.40) m/uL Hgb (11.4-16.0) gm/dL Hct (34.0-46.0) % RDW (11.5-15.5) % Lymphocytes # (1.0-4.8) k/uL Lymphocytes # (Manual) (1.0-4.8) k/uL Nucleated RBCs (0-0) /100 WBC PT (9.0-12.0) sec INR (<1.2) APTT (22.0-30.0) sec Chloride (98-107) mmol/L BUN (7-17) mg/dL Creatinine (0.52-1.04) mg/dL Glucose (74-99) mg/dL Plasma Lactic Acid Jerel 0.6 L (0.7-2.0) mmol/L AST (14-36) U/L ALT (9-52) U/L TSH 0.321 L (0.465-4.680) mIU/L Ur Leukocyte Esterase Moderate H (Negative) Urine WBC 20 H (0-5) /hpf Urine WBC Clumps Rare H (None) /hpf Urine Bacteria Rare H (None) /hpf Urine Mucus Rare H (None) /hpf 03/09/19 Range/Units 10:13 RBC 3.41 L (3.80-5.40) m/uL Hgb 9.7 L (11.4-16.0) gm/dL Hct 30.3 L (34.0-46.0) % RDW 18.1 H (11.5-15.5) % Lymphocytes # 0.4 L (1.0-4.8) k/uL Lymphocytes # (Manual) (1.0-4.8) k/uL Nucleated RBCs (0-0) /100 WBC PT (9.0-12.0) sec INR (<1.2) APTT (22.0-30.0) sec Chloride (98-107) mmol/L BUN (7-17) mg/dL Creatinine (0.52-1.04) mg/dL Glucose (74-99) mg/dL Plasma Lactic Acid Jerel (0.7-2.0) mmol/L AST (14-36) U/L ALT (9-52) U/L TSH (0.465-4.680) mIU/L Ur Leukocyte Esterase (Negative) Urine WBC (0-5) /hpf Urine WBC Clumps (None) /hpf Urine Bacteria (None) /hpf Urine Mucus (None) /hpf Thrombosis Risk Factor Assmnt - DVT/VTE Prophylaxis DVT/VTE Prophylaxis: Pharmacologic Prophylaxis ordered - Choose All That Apply Any of the Below Risk Factors Present?: Yes Each Factor Represents 1 point: Heart failure (<1month), Serious lung disease incl. pneumonia (< 1month) Other Risk Factors: Yes Each Risk Factor Represents 2 Points: Malignancy Each Risk Factor Represents 3 Points: Age 75 years or older Other congenital or acquired thrombophilia - If yes, enter type in comment: No Thrombosis Risk Factor Assessment Total Risk Factor Score: 7 Thrombosis Risk Factor Assessment Level: High Risk Assessment and Plan Plan: 1. Acute diastolic heart failure and bilateral pleural effusion. Consult with Dr. Gutiérrez. Continue Lasix 40 mg IV every 8 hours. 2. History of cardiac pauses status post pacemaker placement. 3. Acute kidney injury with chronic kidney disease stage III. Consult with nephrology. 4. Possible urinary tract infection with sepsis, hypothermia. Deisi skaggs discontinued. 5. Elevated liver function tests. Continue to monitor. 6. Hypertension and hypertensive cardiovascular disease. Continue Coreg 25 mg orally twice every day, amlodipine 10 mg daily, hydralazine 25 mg twice daily. Labetalol on hold. 7. Hyperlipidemia. Continue patient on fenofibrate 160 minute gram orally once every day. 8. Anemia of chronic kidney disease monitor the patient's CBC. 9. Dysphagia with known esophageal stricture. Consult with Dr. Zheng Howard, upper GI study with esophagus ordered. 10. Paroxysmal atrial fibrillation, patient is status post pacemaker. Coreg 25 mg orally twice every day, Eliquis 2.5 mg orally twice every day. 11. Right-sided pyelonephritis and sepsis requiring admission October 2018. 12. History of breast cancer status post bilateral mastectomy. In remission. 13. History of ovarian cancer status post resection. 14. Peripheral neuropathy. Currently on gabapentin 300 mg orally twice every day. 15. 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 Continue current [place] 7.5/325 one tablet twice daily as needed. 16. GERD. Continue patient on Protonix 40 mg orally once every day. 17. Admitted to inpatient. Estimate a length of stay 2 midnights. 18. Patient is full code. Impression and plan of care have been directed as dictated by the signing physician. Domi Fairchild nurse practitioner acting as scribe for signing physician.
[2019-03-09] MEDS: CHOLECALCIFEROL 1,000 UNIT TAB PO SCH (16:08)
--- NOTE | 2019-03-09 17:20 | FL ---
EXAMINATION TYPE: FL UGI w esophagus DATE OF EXAM: 03/09/2019 COMPARISON: 01/22/2016 HISTORY: 83-year-old female with dysphagia to dry foods, difficulty swallowing TECHNIQUE: A double contrast esophagram and UGI study is performed. Total fluoroscopy time: 2 minutes 16 seconds. Total images: 47. FINDINGS: Cervical esophagus evaluation shows persistent superficial penetration. Anterior endplate spondylosis at C5-C6 with mild focal impression onto the posterior upper cervical esophagus secondary to a mildl y hypertrophied cricopharyngeus. The thoracic esophagus shows blunted secondary stripping waves with mild to moderate tertiary perista ltic contractions. No fixed narrowing or mucosal abnormality or suspicious filling defect. Some images show a tiny sliding hiatal hernia. Prone drinking images were not taken due to patient's age. No windy gastroesophageal reflux is identified. The course of the study though there is persistent re tained contrast in the esophagus when the patient is prone or supine. The stomach shows normal distensibility and peristalsis though there is mild generalized fold thicken ing especially towards the fundus and body and suggestion of some possible underlying hyperplastic po lyps. No evidence of any mass or ulcer disease. The duodenal bulb, sweep, and proximal small bowel loops are unremarkable. IMPRESSION: 1. Moderate dysmotility with blunted secondary stripping waves and prolonged pooling of contrast in t he esophagus with the patient is prone or supine. 2. Mild hypertrophy of the cricopharyngeus. 3. Persistent superficial penetration during swallows. No aspiration seen. 4. Mild generalized fold thickening along the gastric fundus and body and suggestion of some underlyi ng hyperplastic polyps. Correlate for a chronic gastritis. 5. Tiny sliding hiatal hernia. 6. No stricture or obstruction.
[2019-03-09] MEDS ORDERED: CARVEDILOL 12.5 MG TAB PO SCH (17:30)
[2019-03-09] MEDS: FENOFIBRATE 160 MG TAB PO SCH (20:06)
[2019-03-09] MEDS ORDERED: hydrALAZINE HCL 25 MG TAB PO SCH (21:00)
[2019-03-09] MEDS ORDERED: HYDROcodone/APAP 7.5-325MG 1 EACH TAB PO SCH (21:00)
[2019-03-09] MEDS ORDERED: GABAPENTIN 300 MG CAP PO SCH (21:00)
[2019-03-09] MEDS ORDERED: APIXABAN 2.5 MG TABLET PO SCH (21:00)
--- NOTE | 2019-03-09 21:44 | CONS ---
CONSULTATION Patient is seen for renal failure. HISTORY OF PRESENT ILLNESS: The patient is an 83-year-old female with history of chronic kidney disease, NKF stage IIIB to IV, with serum creatinine staying at about 2.1-2.3 mg/dL, most of 2019. Etiology is nephrosclerosis. Patient is also enrolled in the [place] study at [facility]. She was admitted to the hospital with complaints of increased lower extremity swelling and shortness of breath. The patient denied any chest pain. No fever, chills, nausea, vomiting, abdominal pain or diarrhea. Serum creatinine is not far from baseline. It is around 2.3-2.39 mg/dL. Currently patient is maintained on IV Lasix and she states she is feeling much better. Chest x-ray confirmed pulmonary vascular congestion. Patient states that the diuretics were decreased as outpatient a few months ago. However, she started significant fluid weight gain over the past 1-2 weeks. PAST MEDICAL HISTORY: CKD stage IV to IIIB, paroxysmal atrial fibrillation, hyperlipidemia, hypertension, osteoarthritis, gastroesophageal reflux disease, mitral valve prolapse, fibromyalgia, cardiomyopathy, ejection fraction not known. PAST SURGICAL HISTORY: Bowel resection, bilateral mastectomies for breast cancer, cardiac catheterization, hysterectomy, tonsillectomy, cataract surgery, appendicectomy, thumb surgery, skin cancer removal. EGDs, colonoscopies, total hysterectomy, bowel resection with part of the rectum removed for ovarian cancer. SOCIAL HISTORY: Negative for smoking, drug abuse or alcohol abuse. MEDICATIONS: Medications prior to admission included multivitamins, Nitrostat, Prilosec, fenofibrate, Eliquis, Neurontin, hydralazine, [place], Norvasc, vitamin C, Coreg, vitamin D3, labetalol, Demadex. ALLERGIES: INCLUDE PENICILLIN CAUSES SHORTNESS OF BREATH. SULFA CAUSES DYSPNEA. KENALOG CREAM CAUSES RASH AND HIVES. REVIEW OF SYSTEMS: As per HPI. Other systems negative. EXAMINATION: Patient is comfortable, awake, alert, oriented x3. She is not in any acute distress. The patient is seen in the ER. Blood pressure was 133/63, heart rate of 80 per minute. Patient is afebrile. Examination of the heart S1, S2. Examination of the lungs, bilateral breath sounds are heard. Decreased breath sounds at bases. Abdomen is soft, nontender. Examination lower extremities shows edema trace bilaterally. F[employer]DER exam grossly intact. LABS: Show hemoglobin 9.7, white cell count 4.8. Sodium 144, potassium 4.4, BUN 79, serum creatinine 2.39, calcium 10.6. UA is completely unremarkable. Chest x-ray showed pulmonary vascular congestion. ASSESSMENT: 1. Chronic kidney disease secondary to nephrosclerosis and NKF stage IV, renal function close to baseline. 2. Congestive heart failure exacerbation, acute on top of chronic. Currently maintained on IV Lasix. It is mainly diastolic dysfunction. Ejection fraction 60 to 65% on echocardiogram done in October of 2018. 3. Coronary artery disease. 4. History of paroxysmal atrial fibrillation, maintained on anticoagulation overload. 5. Right-sided pyelonephritis and sepsis in October of 2018. 6. History of breast cancer, status post bilateral mastectomies. 7. History of ovarian cancer status post hysterectomy, bowel resection, as well as resection of part of the rectum. 8. Chronic back pain, maintained on [place]. 9. Mild hypercalcemia. Check vitamin D levels and PTH levels. PLAN: Continue current dose of IV Lasix. Repeat calcium and basic metabolic panel in a.m. The patient has mild hypercalcemia. She is not maintained on thiazide diuretics. She does take vitamin D3. I will check a 25 hydroxy vitamin D level and patient will be advised to avoid any calcium supplements or Tums for now. We will also check our office records for her previous metabolic bone disease history. Thank you for this consultation. We will continue to follow the patient with you during her hospitalization. MMODL / IJN: [id number] /
[2019-03-09] MEDS: ALPRAZolam 0.25 MG TAB PO PRN (22:45)
--- NOTE | 2019-03-09 23:03 | P.PN ---
Subjective Attempts to see the patient today, however she was not her room and was at her esophagram. Will see her tomorrow. Objective - Vital Signs Vital signs: Vital Signs Temp 97.7 F 03/09/19 19:57 Pulse 89 03/09/19 20:10 Resp 17 03/09/19 20:10 BP 123/72 03/09/19 19:57 Pulse Ox 96 03/09/19 19:57 Intake & Output 03/09/19 03/09/19 03/10/19 06:59 18:59 06:59 Intake Total 480 130 Balance 480 130 Weight 59.874 kg Intake: IV 10 0.9 10 Oral 480 120 Other: Voiding Method Bedside Commode Bedside Commode # Voids 2 - Labs CBC & Chem 7: 03/09/19 10:13 03/09/19 10:13 Labs: Abnormal Lab Results - Last 24 Hours (Table) 03/09/19 03/09/19 03/09/19 Range/Units 00:55 00:55 00:55 RBC 3.22 L (3.80-5.40) m/uL Hgb 9.3 L (11.4-16.0) gm/dL Hct 28.2 L (34.0-46.0) % RDW 19.4 H (11.5-15.5) % Lymphocytes # (1.0-4.8) k/uL Lymphocytes # (Manual) 0.97 L (1.0-4.8) k/uL Nucleated RBCs 1 H (0-0) /100 WBC PT 13.3 H (9.0-12.0) sec INR 1.3 H (<1.2) APTT 32.4 H (22.0-30.0) sec Chloride 110 H (98-107) mmol/L Carbon Dioxide (22-30) mmol/L BUN 82 H (7-17) mg/dL Creatinine 2.30 H (0.52-1.04) mg/dL Glucose 160 H (74-99) mg/dL Plasma Lactic Acid Jerel (0.7-2.0) mmol/L Calcium (8.4-10.2) mg/dL AST 176 H (14-36) U/L ALT 113 H (9-52) U/L Procalcitonin (0.02-0.09) ng/mL TSH (0.465-4.680) mIU/L Ur Leukocyte Esterase (Negative) Urine WBC (0-5) /hpf Urine WBC Clumps (None) /hpf Urine Bacteria (None) /hpf Urine Mucus (None) /hpf 03/09/19 03/09/19 03/09/19 Range/Units 00:55 00:55 03:35 RBC (3.80-5.40) m/uL Hgb (11.4-16.0) gm/dL Hct (34.0-46.0) % RDW (11.5-15.5) % Lymphocytes # (1.0-4.8) k/uL Lymphocytes # (Manual) (1.0-4.8) k/uL Nucleated RBCs (0-0) /100 WBC PT (9.0-12.0) sec INR (<1.2) APTT (22.0-30.0) sec Chloride (98-107) mmol/L Carbon Dioxide (22-30) mmol/L BUN (7-17) mg/dL Creatinine (0.52-1.04) mg/dL Glucose (74-99) mg/dL Plasma Lactic Acid Jerel (0.7-2.0) mmol/L Calcium (8.4-10.2) mg/dL AST (14-36) U/L ALT (9-52) U/L Procalcitonin 0.14 H (0.02-0.09) ng/mL TSH 0.321 L (0.465-4.680) mIU/L Ur Leukocyte Esterase Moderate H (Negative) Urine WBC 20 H (0-5) /hpf Urine WBC Clumps Rare H (None) /hpf Urine Bacteria Rare H (None) /hpf Urine Mucus Rare H (None) /hpf 03/09/19 03/09/19 03/09/19 Range/Units 10:13 10:13 10:13 RBC 3.41 L (3.80-5.40) m/uL Hgb 9.7 L (11.4-16.0) gm/dL Hct 30.3 L (34.0-46.0) % RDW 18.1 H (11.5-15.5) % Lymphocytes # 0.4 L (1.0-4.8) k/uL Lymphocytes # (Manual) (1.0-4.8) k/uL Nucleated RBCs (0-0) /100 WBC PT (9.0-12.0) sec INR (<1.2) APTT (22.0-30.0) sec Chloride 110 H (98-107) mmol/L Carbon Dioxide 21 L (22-30) mmol/L BUN 79 H (7-17) mg/dL Creatinine 2.39 H (0.52-1.04) mg/dL Glucose 152 H (74-99) mg/dL Plasma Lactic Acid Jerel 0.6 L (0.7-2.0) mmol/L Calcium 10.6 H (8.4-10.2) mg/dL AST 163 H (14-36) U/L ALT 119 H (9-52) U/L Procalcitonin (0.02-0.09) ng/mL TSH (0.465-4.680) mIU/L Ur Leukocyte Esterase (Negative) Urine WBC (0-5) /hpf Urine WBC Clumps (None) /hpf Urine Bacteria (None) /hpf Urine Mucus (None) /hpf
[2019-03-10] MEDS: methylPREDNISolone SOD SUCCI 40 MG/ML 1 ML VIAL IV SCH ×3 (01:06→17:15)
[2019-03-10] MEDS: FUROSEMIDE 10 MG/ML 4 ML VIAL IV SCH ×2 (05:12→12:12)
[2019-03-10] MEDS: PANTOPRAZOLE 40 MG TABLET PO SCH (06:54)
[2019-03-10] MEDS: CARVEDILOL 12.5 MG TAB PO SCH ×2 (06:54→17:15)
[2019-03-10] MEDS: HYDROcodone/APAP 7.5-325MG 1 EACH TAB PO SCH ×2 (06:54→19:51)
[2019-03-10] MEDS ORDERED: CHOLECALCIFEROL 1,000 UNIT TAB PO SCH (09:00)
[2019-03-10] MEDS ORDERED: amLODIPine 10 MG TAB PO SCH (09:00)
[2019-03-10] MEDS: APIXABAN 2.5 MG TABLET PO SCH ×2 (10:28→19:50)
[2019-03-10] MEDS: MULTIVITAMINS, THERA 1 EACH TAB PO SCH (10:28)
[2019-03-10] MEDS: CHOLECALCIFEROL 1,000 UNIT TAB PO SCH (10:28)
[2019-03-10] MEDS: GABAPENTIN 300 MG CAP PO SCH ×2 (10:28→19:50)
[2019-03-10] MEDS: hydrALAZINE HCL 25 MG TAB PO SCH ×2 (10:28→19:51)
[2019-03-10] MEDS: amLODIPine 10 MG TAB PO SCH (10:28)
--- NOTE | 2019-03-10 10:54 | P.CRDCN ---
History of Present Illness Consult date: 03/10/19 History of present illness: This is a 83-year-old female with history of atrial fibrillation, sick sinus syndrome and permanent pacemaker implantation and chronic renal failure. Patient apparently was recently seen in the primary care physician's office for sickness and not feeling well. She was diagnosed to have UTI and was treated with antibiotics and also Cipro. However, patient started having progressive shortness of breath and finally came to the emergency room. Her chest x-ray were consistent with congestive heart failure and pleural effusion. She was tr eated with IV Lasix with improvement of her symptoms to some extent. Denied any chest pain, palpitations, dizziness or syncope. Patient was here in October and had an echocardiogram which showed an ejection fraction of 60-65%. Right-sided pressures were normal at the time. EKG showed atrial paced rhythm. She is on long-term anticoagulation therapy because of history of atrial fibrillation. I'll continue her current medical therapy. We'll get an echocardiogram to assess LV function. Further recommendation will depend upon the clinical course Review of Systems As per the chart Past Medical History Past Medical History: Atrial Fibrillation, Coronary Artery Disease (CAD), Cancer, Chest Pain / Angina, Fibromyalgia, GERD/Reflux, Hyperlipidemia, Hypertension, Mitral Valve Prolapse (MVP), Neurologic Disorder, Osteoarthritis (OA), Renal Disease, Vascular Disorder Additional Past Medical History / Comment(s): Cardiomyopathy, recent pacemaker insertion for pauses, MVP, ASHD, PVD/venous influx, past UTI and recent UTI completed antibiotic, current upper respiratory tract infection with antibiotic, R breast cancer with surgery, ovarian cancer with surgery and chemotherapy, chronic diarrhea, skin cancers with removals, arthritis in multiple joints, chronic low back pain/bilateral sciatica, lumbar DDD/stenosis/herniated discs L3-L4/DDD, neuropathy bilateral legs/feet, kidneys are "small"-CKD recently told stage IV, pyelonephritis with sepsis/septic shock, anemia, hiatal hernia, diverticular disease, Cardenas's esophagus, varicose veins. History of Any Multi-Drug Resistant Organisms: None Reported Past Surgical History: Bowel Resection, Breast Surgery, Heart Catheterization, Hysterectomy, Orthopedic Surgery, Tonsillectomy Additional Past Surgical History / Comment(s): 12/11/[address] [facility], R breast cancer with bilateral mastectomies/R side lymph node removals, total hysterectomy/bowel resection with part of rectum removed d/t ovarian cancer, bowel resection d/t tumor in ascending colon and also removed appendix, bilateral thumb surgery, pain clinic procedures, skin cancer removals, BMB, EGDs/colonoscopies, bilateral cataract removals/lens implants. Past Anesthesia/Blood Transfusion Reactions: Previous Problems w/ Anesthesia Additional Past Anesthesia/Blood Transfusion Reaction / Comment(s): AFTER LAST PAIN CLINIC PROCEDURE 01/12/15 HAD ALLEGIC REACTION- broke out in hives and itching all over that lasted over 1 week, also had ELEVATED PULSE & BP. Smoking Status: Former smoker - Past Family History Daughter(s) Family Medical History: No Reported History Father Family Medical History: Cancer (Father at age of 80 from lung cancer) Mother Family Medical History: Coronary Artery Disease (CAD), CVA/TIA (Mother at age of 94 and she had suffered from CAD, CABG, diabetes mellitus type 2 and CVA), Diabetes Mellitus Additional Family Medical History / Comment(s): HEART PROBLEMS Medications and Allergies Home Medications Medication Instructions Recorded Confirmed Type Multivit-Min/FA/Lycopene/Lut 1 tab PO DAILY@0900 11/28/14 03/09/19 History [Centrum Silver Tablet] Nitroglycerin Sl Tabs [Nitrostat] 0.4 mg PO Q5M PRN 11/28/14 03/09/19 History Omeprazole [PriLOSEC] 20 mg PO DAILY@0600 11/28/14 03/09/19 History Vits A,C,E/Lutein/Minerals 1 tab PO MOWEFRSA@0900 11/28/14 03/09/19 History [Ocuvite with Lutein Tablet] Fenofibrate Nanocrystallized 145 mg PO HS@2100 10/15/18 03/09/19 History [Fenofibrate] ALPRAZolam [Xanax] 0.25 mg PO BID PRN #6 tab 10/21/18 03/09/19 Rx Apixaban [Eliquis] 2.5 mg PO BID tablet 10/21/18 03/09/19 Rx Gabapentin [Neurontin] 300 mg PO BID #6 cap 10/21/18 03/09/19 Rx hydrALAZINE HCL [Apresoline] 25 mg PO BID tab 10/21/18 03/09/19 Rx Biotin 5 mg PO DAILY@0900 05/13/19 09/24/19 History HYDROcodone/APAP 7.5-325MG [Acworth 1 tab PO BID 10/26/18 03/09/19 History 7.5-325] amLODIPine [Norvasc] 10 mg PO DAILY@0900 10/26/18 03/09/19 History Ascorbic Acid [Vitamin C] 500 mg PO DAILY 03/09/19 03/09/19 History Carvedilol 25 mg PO BID 03/09/19 03/09/19 History Cholecalciferol (Vitamin D3) 2,000 unit PO DAILY 03/09/19 03/09/19 History [Vitamin D3] Fish Oil/Dha/Epa [Fish Oil 1,200 1 cap PO DAILY 03/09/19 03/09/19 History mg Fish Oil] L.acidoph,Paracasei, B.lactis 1 cap PO DAILY 03/09/19 03/09/19 History [Probiotic] Labetalol [Trandate] 200 mg PO Q8H PRN 03/09/19 03/09/19 History Torsemide [Demadex] 5 mg PO Q48H 03/09/19 03/09/19 History Allergies Allergy/AdvReac Type Severity Reaction Status Date / Time Penicillins Allergy Dyspnea Verified 03/09/19 08:18 Sulfa (Sulfonamide Allergy Dyspnea Verified 03/09/19 08:18 Antibiotics) triamcinolone acetonide AdvReac unsure if Verified 03/09/19 08:18 [From Kenalog] the kenalog was the cause, RASH/HIVES Physical Exam Vitals: Vital Signs Temp Pulse Resp BP Pulse Ox 03/10/19 08:45 96.7 F L 78 16 108/42 96 03/10/19 08:12 95 03/10/19 04:00 97.9 F 84 17 116/63 2 L 03/10/19 00:00 97.7 F 91 19 131/68 96 03/09/19 20:10 89 17 03/09/19 19:57 97.7 F 89 17 123/72 96 03/09/19 15:50 97.4 F L 82 16 120/65 95 03/09/19 13:30 98.0 F 87 16 124/64 96 03/09/19 12:00 98.0 F 88 16 133/63 98 Intake and Output 03/09/19 03/10/19 03/10/19 22:59 06:59 14:59 Intake Total 370 240 Output Total 900 Balance 370 -900 240 Intake: IV 10 0.9 10 Oral 360 240 Output: Urine 900 Other: Voiding Method Bedside Commode Bedside Commode # Voids 2 3 Weight 59.874 kg GENERAL EXAM: Patient is alert and oriented and doesn't appear to be in any acute distress HEENT: Normocephalic. Normal reaction of pupils, equal size, normal range of extraocular motion. No erythema or exudates in the throat. NECK: No masses, no nuchal rigidity. CHEST: No chest wall deformity. LUNGS: Distant breath sounds on the right side HEART: S1 and S2 normal with no audible mumurs or gallops. Regular rhythm, fe morals equal on both sides.. ABDOMEN: No hepatosplenomegaly, normal bowel sounds, no guarding or rigidity. SKIN: No rashes CENTRAL NERVOUS SYSTEM: No focal deficits. EXTREMITIES: No cyanosis, clubbing or edema. Results 03/09/19 10:13 03/09/19 10:13 Cardiac Enzymes 03/09/19 Range/Units 10:13 AST 163 H (14-36) U/L Comprehensive Metabolic Panel 03/09/19 Range/Units 10:13 Sodium 144 (137-145) mmol/L Potassium 4.4 (3.5-5.1) mmol/L Chloride 110 H (98-107) mmol/L Carbon Dioxide 21 L (22-30) mmol/L BUN 79 H (7-17) mg/dL Creatinine 2.39 H (0.52-1.04) mg/dL Glucose 152 H (74-99) mg/dL Calcium 10.6 H (8.4-10.2) mg/dL AST 163 H (14-36) U/L ALT 119 H (9-52) U/L Alkaline Phosphatase 74 (38-126) U/L Total Protein 7.2 (6.3-8.2) g/dL Albumin 4.1 (3.5-5.0) g/dL Current Medications Generic Name Dose Route Start Last Admin Trade Name Freq PRN Reason Stop Dose Admin Hydrocodone Bitart/Acetaminophen 1 each 03/09/19 13:00 03/10/19 06:54 [place] 7.5-325 PO 1 each BID BRIA Administration Albuterol/Ipratropium 3 ml 03/09/19 03:29 Duoneb 0.5 Mg-3 Mg/3 Ml Soln INHALATION Q4H PRN Wheezing Alprazolam 0.25 mg 03/09/19 10:00 03/09/19 22:45 Xanax PO 0.25 mg BID PRN Administration Anxiety Amlodipine Besylate 10 mg 03/09/19 13:00 03/10/19 10:28 Norvasc PO 10 mg DAILY@0900 BRIA Administration Apixaban 2.5 mg 03/09/19 13:00 03/10/19 10:28 Eliquis PO 2.5 mg BID BRIA Administration Carvedilol 25 mg 03/09/19 12:47 03/10/19 06:54 Coreg PO 25 mg BID-W/MEALS BRIA Administration Cholecalciferol 2,000 unit 03/09/19 13:00 03/10/19 10:28 Vitamin D3 (25 Mcg = 1000 Iu) PO 2,000 unit DAILY BRIA Administration Fenofibrate 160 mg 03/09/19 21:00 03/09/19 20:06 Lofibra PO 160 mg HS@2100 BRIA Administration Furosemide 40 mg 03/09/19 03:30 03/10/19 05:12 Lasix IV Not Given Q8H BRIA Gabapentin 300 mg 03/09/19 12:49 03/10/19 10:28 Neurontin PO 300 mg BID BRIA Administration Hydralazine HCl 25 mg 03/09/19 13:00 03/10/19 10:28 Apresoline PO 25 mg BID BRIA Administration Methylprednisolone Sodium Succinate 40 mg 03/09/19 08:00 03/10/19 10:27 Solu-Medrol IV 40 mg Q8H BRIA Administration Multivitamins 1 each 03/10/19 09:00 03/10/19 10:28 Theragran PO 1 each DAILY@0900 BRIA Administration Pantoprazole Sodium 40 mg 03/10/19 06:00 03/10/19 06:54 Protonix PO 40 mg DAILY@0600 BRIA Administration Intake and Output 03/09/19 03/10/19 03/10/19 22:59 06:59 14:59 Intake Total 370 240 Output Total 900 Balance 370 -900 240 Intake: IV 10 0.9 10 Oral 360 240 Output: Urine 900 Other: Voiding Method Bedside Commode Bedside Commode # Voids 2 3 Weight 59.874 kg Patient Weight 03/11/19 06:59 Weight 59.874 kg 03/09/19 10:13 03/09/19 10:13 EKG Interpretations (text) Atrial paced rhythm Assessment and Plan (1) Acute diastolic CHF (congestive heart failure) Current Visit: Yes Status: Acute Code(s): I50.31 - ACUTE DIASTOLIC (CONGESTIVE) HEART FAILURE SNOMED Code(s): 482338705 (2) History of atrial fibrillation Current Visit: Yes Status: Acute Code(s): Z86.79 - PERSONAL HISTORY OF OTHER DISEASES OF THE CIRCULATORY SYSTEM SNOMED Code(s): 569504743 (3) Chronic renal failure Current Visit: Yes Status: Acute Code(s): N18.9 - CHRONIC KIDNEY DISEASE, UNSPECIFIED SNOMED Code(s): 22418413 (4) Essential hypertension Current Visit: Yes Status: Acute Code(s): I10 - ESSENTIAL (PRIMARY) HYPERTENSION SNOMED Code(s): 27854198 Plan: Continue current medical therapy. Patient is on beta anitha and hydralazine. I'll get an echocardiogram repeated. Further examination depend upon the clinical course
[2019-03-10 11:41] LABS: Vitamin D 25 Hydroxy 28.7 ng/mL (30.0-100.0)
--- NOTE | 2019-03-10 11:50 | PN ---
PROGRESS NOTE Patient is seen for followup for chronic kidney disease. We do not have labs from today. She feels better. Patient was admitted with CHF exacerbation and volume overload. She is maintained on Lasix 40 mg q.8 hours. PHYSICAL EXAMINATION: On examination, blood pressure is 108/42, heart rate 78 per minute. Patient is afebrile. EXAMINATION OF THE HEART: S1, S2. EXAMINATION OF THE LUNGS: Bilateral breath sounds are heard. Abdomen is soft, nontender. Examination of the lower extremities shows trace edema bilaterally. MEAT APPRENTICE exam is grossly intact. Hemoglobin is 9.7 g/dL from yesterday. Creatinine was 2.39 yesterday. ASSESSMENT: 1. Chronic kidney disease NKF stage 4, renal function fairly stable. 2. Congestive heart failure exacerbation, volume overload. Repeat labs today. Consider decreasing Lasix to q.12 hours and the patient can likely be discharged tomorrow. 3. Diastolic heart failure. 4. Coronary artery disease. 5. History of paroxysmal atrial fibrillation. 6. History of breast cancer and ovarian cancer, status post bilateral mastectomy, hysterectomy, bowel resection as well as resection of part of the rectum. 7. Mild hypercalcemia for which the vitamin D and PTH levels were ordered, they are and currently pending. PLAN: Check labs today. Consider changing the Lasix to q.12 hours and switch to p.o. diuretics tomorrow. MMODL / IJN: [id number] /
[2019-03-10 12:16] LABS: Calcium 9.6 mg/dL (8.4-10.2)
--- NOTE | 2019-03-10 13:01 | ECHOF ---
Referral Reason:Chest pain and cardiomyopathy MEASUREMENTS -------- HEIGHT: 154.9 cm WEIGHT: 59.9 kg BP: 108/42 RVIDd: 3.3 cm (< 3.3) IVSd: 1.3 cm (0.6 - 1.1) LVIDd: 4.8 cm (3.9 - 5.3) LVPWd: 1.2 cm (0.6 - 1.1) IVSs: 1.5 cm LVIDs: 3.2 cm LVPWs: 1.5 cm LA Diam: 3.7 cm (2.7 - 3.8) LAESV Index (A-L): 33.91 ml/m Ao Diam: 2.5 cm (2.0 - 3.7) AV Cusp: 1.7 cm (1.5 - 2.6) MV EXCURSION: 12.755 mm (> 18.000) MV EF SLOPE: 29 mm/s (70 - 150) EPSS: 0.6 cm MV E Alejandro: 1.19 m/s MV DecT: 175 ms MV A Alejandro: 0.94 m/s MV E/A Ratio: 1.26 RAP: 5.00 mmHg RVSP: 38.38 mmHg TAPSE: 25.44 mm FINDINGS -------- Sinus rhythm. Pacerwire seen in RV and RA. This was a technically good study. The left ventricular size is normal. There is mild concentric left ventricular hypertrophy. Overa ll left ventricular systolic function is normal with, an EF between 55 - 60 %. The diastolic fillin g pattern indicates impaired relaxation 19.36. The right ventricle is mildly enlarged. LA is midly dilated 29-33ml/m2. The right atrial size is normal. Interatrial and interventricular septum intact. The aortic valve is trileaflet and appears structurally normal. Trace amount of aortic regurgitatio n. Mild mitral annular calcification present. Moderate mitral regurgitation is present. [id number] tricuspid regurgitation present. There is mild pulmonary hypertension. The right ventricular systolic pressure, as measured by Doppler, is 38.38mmHg. Trace/mild (physiologic) pulmonic regurgitation. The aortic root size is normal. Normal inferior vena cava with normal inspiratory collapse consistent with estimated right atrial pre ssure of 5 mmHg. There is no pericardial effusion. CONCLUSIONS -------- 1. Sinus rhythm. 2. Pacerwire seen in RV and RA. 3. This was a technically good study. 4. The left ventricular size is normal. 5. There is mild concentric left ventricular hypertrophy. 6. Overall left ventricular systolic function is normal with, an EF between 55 - 60 %. 7. The diastolic filling pattern indicates impaired relaxation 19.36.. 8. The right ventricle is mildly enlarged. 9. LA is midly dilated 29-33ml/m2. 10. The aortic valve is trileaflet and appears structurally normal. 11. Trace amount of aortic regurgitation. 12. Mild mitral annular calcification present. 13. Moderate mitral regurgitation is present. 14. Ojdr-wm-bfzmurio tricuspid regurgitation present. 15. There is mild pulmonary hypertension. 16. Trace/mild (physiologic) pulmonic regurgitation. 17. The aortic root size is normal. 18. Normal inferior vena cava with normal inspiratory collapse consistent with estimated right atrial pressure of 5 mmHg. 19. There is no pericardial effusion. DIRECTOR HOSPICE OPERATIONS: Giselle Garg RDCS
[2019-03-10] MEDS ORDERED: DOCUSATE 100 MG CAP PO PRN (13:30)
--- NOTE | 2019-03-10 15:54 | P.PN ---
Subjective Progress Note Date: 03/10/19 This is an 83-year-old female one of Dr. Rice, Dr. Kendrick and Dr. Gutiérrez with a previous medical history significant for hypertension and hypertensive cardiovascular disease, hyperlipidemia, GERD, history of breast cancer status post mastectomy, history of paroxysmal atrial fibrillation status post pacemaker, chronic kidney disease stage III, anemia of chronic kidney disease, GERD, osteoarthritis, varicose veins. Patient states that she just Dr. Rice on March 01. The week before she had received her flu immunization and did not feel well but by the time she saw Dr. tyler on Friday she felt like she was back to normal. She did not have any cough at the time. By Friday she was feeling suddenly very sick with weakness, shortness of breath, cough. She states she was so weak she had trouble standing up. Cough was loose and nonproductive. She denies having any fever or chills. She obtain an antibiotic for UTI but only took one pill. She denies any difficulty with urination, no blood in her urine. She denies any sick contacts. She has chronically loose stools that were unchanged. She does not use oxygen or nebulizer at home. Patient complains of difficulty swallowing food and she has had an EGD [place] [address] Young the digits show an esophageal stricture. She has had no follow-up since that time. Patient came into [facility] emergency center for evaluation by EMS. Pulse ox 82% enroute and patient was started on Solu-Medrol and oxygen. Patient was also found to be hypothermic with a rectal temperature of 93. WBC 5.5, hemoglobin 9.3, platelet count 163. Sodium 142, potassium 5.0, chloride 110, CO2 23, BUN 82, creatinine 2.30, blood sugar 160. ProBNP 1540. Total bilirubin 0.3, AST 176, ALT 113, alkaline phosphatase 66, albumin 3.8. INR 1.3, troponin 0.012. EKG was atrial paced rhythm. Chest x-ray reveals congestive he art failure pulmonary edema new compared to last exam on 10/21/2018. There is increasing pleural fluid on the right side and no change on the left. Patient was started on IV Lasix 40 mg every 8 hours, IV Solu-Medrol and admitted to [facility] floor. Patient was currently waiting in the ER for room assignment. Oral temperatures up to 98 and Boogie hugger will be discontinued. 03/10: Esophagram reveals moderate dysmotility with blunted secondary stripping waves and prolonged pooling of contrast in the esophagus with patient prone or supine. Mild hypertrophy of the cricopharyngeus. Persistent superficial penetration during swallows. No aspiration seen. Mild generalized bowl thickening along the gastric fundus and body suggesting some underlying hyperplastic polyps. Correlate for chronic gastritis. Tiny sliding hiatal hernia. No stricture or obstruction. Consult with is pending. Patient has been seen by property assessment monitor with recommendations to continue current medical therapy. Echocardiogram has been ordered. She has been afebrile, heart rate 70, blood pressure 108/42, pulse ox 96% on 2 L nasal cannula. Patient is currently on Lasix 40 mg every 8 hours IV & Medrol 40 mg every 8 hours. Patient has been seen by nephrology with recommendations to decrease Lasix to oral which will be done, assignment to decrease to 40 mg IV every 8 hours. Patient states that she is a little short of breath but not bad. No pedal edema. Echocardiogram reveals an EF of 55-60% with mild concentric left nuclear hypertrophy, trace aortic regurgitation, moderate mitral regurgitation, mzpn-[id number]-jvjmnhyn tricuspid regurgitation, mild pulmonary hypertension, no pericardial effusion. Anticipate discharge home tomorrow. We will add PT OT evaluations to ensure patient is safe to return home. Objective - Vital Signs Vital signs: Vital Signs Temp 96.7 F L 03/10/19 08:45 Pulse 78 03/10/19 08:45 Resp 16 03/10/19 08:45 BP 108/42 03/10/19 08:45 Pulse Ox 96 03/10/19 08:45 Intake & Output 03/09/19 03/10/19 03/10/19 18:59 06:59 18:59 Intake Total 480 130 240 Output Total 900 Balance 480 -770 240 Weight 60.4 kg 59.874 kg Intake: IV 10 0.9 10 Oral 480 120 240 Output: Urine 900 Other: Voiding Method Bedside Commode Bedside Commode # Voids 2 3 - Exam Review of Systems Constitutional: Reports anorexia, Reports daytime sleepiness, Reports fatigue, d enies lethargy, Reports malaise, Reports poor appetite, Reports weakness, Denies chills, Denies fever Eyes: denies blurred vision, denies pain Ears, nose, mouth and throat: Reports dysphagia, Denies headache, Denies nasal congestion, Denies nasal discharge, Denies sore throat Cardiovascular: Reports dyspnea on exertion, denies edema, denies leg edema, denies shortness of breath, Denies chest pain, Denies syncope Respiratory: Reports cough, denies dyspnea, Denies cough with sputum, Denies excessive sputum, Denies hemoptysis, Denies home oxygen, Denies sleep apnea, Denies wheezing Gastrointestinal: Denies abdominal pain, Denies diarrhea, Denies nausea, Denies vomiting Genitourinary: Denies dysuria, Denies hematuria, Denies urgency, Denies urinary frequency Musculoskeletal: Reports muscle weakness, Denies myalgias Integumentary: Denies pruritus, Denies rash, Denies wounds Neurological: Denies change in mentation, Denies change in speech, Denies numbness, Denies seizures, Denies weakness Psychiatric: Denies anxiety, Denies depression Endocrine: Denies fatigue, Denies weight change - Constitutional General appearance: mild distress, patient sitting up in bed appears to be comfortable and in no acute distress. - EENT Eyes: anicteric sclerae, EOMI, PERRLA, no ptosis, no scleral icterus, normal appearance ENT: hard of hearing, NA/AT, normal oropharynx, no thrush Ears: bilateral: normal - Neck Neck: no lymphadenopathy, normal ROM, no rigidity, no stridor, no thyromegaly Carotids: bilateral: upstroke normal - Respiratory Respiratory: bilateral: diminished, negative: dullness, rales, rhonchi, wheezing, prolonged expiration, prolonged inspiration - Cardiovascular Rhythm: regular Heart sounds: normal: S1, S2 Abnormal Heart Sounds: systolic murmur, no S3 Gallop, no S4 Gallop, no click property assessment monitor is atrial paced No pedal edema - Gastrointestinal General gastrointestinal: normal bowel sounds, soft, no splenomegaly, no tenderness, no umbilical hernia, no ventral hernia - Integumentary Integumentary: normal, normal turgor - Neurologic Neurologic: CNII-XII intact - Musculoskeletal Musculoskeletal: gait normal, generalized weakness, strength equal bilaterally - Psychiatric Psychiatric: A&O x's 3, appropriate affect, intact judgment & insight - Labs CBC & Chem 7: 03/09/19 10:13 03/10/19 11:19 Labs: Abnormal Lab Results - Last 24 Hours (Table) 03/09/19 03/09/19 Range/Units 00:55 10:13 Chloride 110 H (98-107) mmol/L Carbon Dioxide 21 L (22-30) mmol/L BUN 79 H (7-17) mg/dL Creatinine 2.39 H (0.52-1.04) mg/dL Glucose 152 H (74-99) mg/dL Calcium 10.6 H (8.4-10.2) mg/dL AST 163 H (14-36) U/L ALT 119 H (9-52) U/L Procalcitonin 0.14 H (0.02-0.09) ng/mL Microbiology - Last 24 Hours (Table) 03/09/19 04:17 Blood Culture - Preliminary Blood No Growth after 24 hours Assessment and Plan Plan: 1. Acute diastolic heart failure and bilateral pleural effusion. Consult with Dr. Gutiérrez appreciated. Continue Lasix transitioned to oral. Solu-Medrol decreased to 40 mg IV every 8 hours 2. History of cardiac pauses status post pacemaker placement. 3. Acute kidney injury with chronic kidney disease stage III. Consult with nephrolog appreciated y. 4. Possible urinary tract infection with sepsis, hypothermia. Deisi hugger discontinued. Rocephin added. 5. Elevated liver function tests. Continue to monitor. 6. Hypertension and hypertensive cardiovascular disease. Continue Coreg 25 mg orally twice every day, amlodipine 10 mg daily, hydralazine 25 mg twice daily. Labetalol on hold. 7. Hyperlipidemia. Continue patient on fenofibrate 160 minute gram orally once every day. 8. Anemia of chronic kidney disease monitor the patient's CBC. 9. Dysphagia with known esophageal stricture. Consult with Dr. Zheng Howard, upper GI study with esophagus ordered. 10. Paroxysmal atrial fibrillation, patient is status post pacemaker. Coreg 25 mg orally twice every day, Eliquis 2.5 mg orally twice every day. 11. Right-sided pyelonephritis and sepsis requiring admission October 2018. 12. History of breast cancer status post bilateral mastectomy. In remission. 13. History of ovarian cancer status post resection. 14. Peripheral neuropathy. Currently on gabapentin 300 mg orally twice every day. 15. 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 Continue current [place] 7.5/325 one tablet twice daily as needed. 16. GERD. Continue patient on Protonix 40 mg orally once every day. Patient is full code. Discharge plan: Return home tomorrow. PT and OT.. Impression and plan of care have been directed as dictated by the signing physician. Domi Fairchild nurse practitioner acting as scribe for signing physician.
--- NOTE | 2019-03-10 17:33 | P.PN ---
Subjective Progress Note Date: 03/10/19 Principal diagnosis: acute decompensated heart failure with secondary shortness of breath. The patient's chest x-rays consistent with pulmonary edema and Byetta pleural effusion, responding to diuretics This is a 83-year-old female patient who came in today because of worsening shortness of breath. The patient was diagnosed having a UTI on outpatient basis and she was diagnosed and treated with antibiotics and she received ciprofloxacin. Progressively following that she became more short of breath. Her pulse ox at the time of arrival was 82 on room air. The patient was given [id number] breathing treatment. Chest x-ray was done and showed CHF and pulmonary edema compared to the prior x-ray from 10/21/2018. There was also increase in pleural fluid on the right more than the left compared to the previous exam. The patient was started on IV Lasix. The patient was admitted to the medical floor. White cell count is at 4.8 with a hemoglobin of 9.7. The patient has chronic renal failure with a creatinine of 2.3. Her GFR is 18 . Her pro-calcitonin level was slightly elevated at 0.14. Her BNP level is 1540 and a troponin level is less than 0.012. UA had shown 20 daily bases and moderate amount of leukocyte esterase. The patient currently is on IV Lasix. The patient is receiving 40 mg IV Lasix in the 8 hours. She is already feeling much better compared to yesterday. She is less short of breath at this point in time. She her last echo from October 2018 showed an EF of around 6065%. RV was within normal size. There was mild pulmonary hypertension. Right ventricular systolic pressure was 42 mmHg. She is known to have chronic atrial fibrillation . She has been on long-term anticoagulation with Eliquis. She also has hypertension and hyperlipidemia and chronic kidney disease as mentioned. She is post bilateral mastectomy and this was done for breast cancer and the patient is awaiting cancer for which she has undergone surgical resection. Note that the patient also has a pacemaker insertion. The patient has a pacemaker inserted to [facility]. She was having cardiac positive this was confirmed and the patient states that she was having 11 secondary to cardiac positive without any significant syncope. She ultimately end up having a pacemaker inserted at [facility] in [place]. On 03/10/2019 patient seen in follow-up on selective care unit, she is awake and alert, reports improvement in her breathing, she is currently on room air, with a pulse ox of 95%, she is afebrile, denies any chest pain, no significant cough or congestion. She has been ambulating in the room, tolerating activity well, she states social dyspnea has significantly improved, lung sounds are positive for minimal crackles at the right lower base, no rhonchi, or wheezing. Echocardiogram has been completed showing normal EF of 55-60%, trace aortic regurgitation, moderate mitral regurgitation, not to moderate tricuspid regurgitation. She is maintaining on Lasix 40 mg every 8 hours. Nephrology is following Objective - Vital Signs Vital signs: Vital Signs Temp 96.8 F L 03/10/19 16:00 Pulse 77 03/10/19 16:00 Resp 16 03/10/19 16:00 BP 115/65 03/10/19 16:00 Pulse Ox 95 03/10/19 16:00 Intake & Output 03/09/19 03/10/19 03/10/19 18:59 06:59 18:59 Intake Total 480 130 480 Output Total 900 Balance 480 -770 480 Weight 60.4 kg 59.874 kg Intake: IV 10 0.9 10 Oral 480 120 480 Output: Urine 900 Other: Voiding Method Bedside Commode Bedside Commode Bedside Commode # Voids 2 3 3 # Bowel Movements 1 - Exam GENERAL EXAM: Alert, active, comfortable in no apparent distress. HEAD: Normocephalic/atraumatic. EYES: Normal reaction of pupils, equal size. Conjunctiva pink, sclera white. NOSE: Clear with pink turbinates. THROAT: No erythema or exudates. NECK: No masses, no JVD, no thyroid enlargement, no adenopathy. CHEST: No chest wall deformity. Symmetrical expansion. LUNGS: Equal air entry with minimal crackles at the right lower base, no wheeze, rhonchi or dullness. CVS: Regular rate and rhythm, normal S1 and S2, no gallops, no murmurs, no rubs ABDOMEN: Soft, nontender. No hepatosplenomegaly, normal bowel sounds, no guarding or rigidity. EXTREMITIES: No clubbing, no edema, no cyanosis, 2+ pulses and upper and lower extremities. MUSCULOSKELETAL: Muscle strength and tone normal. SPINE: No scoliosis or deformity SKIN: No rashes CENTRAL NERVOUS SYSTEM: Alert and oriented -3. No focal deficits, tone is normal in all 4 extremities. PSYCHIATRIC: Alert and oriented -3. Appropriate affect. Intact judgment and insight. - Labs CBC & Chem 7: 03/09/19 10:13 03/10/19 11:19 Labs: Abnormal Lab Results - Last 24 Hours (Table) 03/10/19 03/10/19 Range/Units 05:52 11:19 BUN 114 H* (7-17) mg/dL Creatinine 2.56 H (0.52-1.04) mg/dL Glucose 150 H (74-99) mg/dL Vitamin D 25-Hydroxy 28.7 L (30.0-100.0) ng/mL PTH Intact 125.6 H (14.0-72.0) pg/mL Microbiology - Last 24 Hours (Table) 03/09/19 10:13 Blood Culture - Preliminary Blood No Growth after 24 hours 03/09/19 04:17 Blood Culture - Preliminary Blood No Growth after 24 hours Assessment and Plan Plan: 1 acute decompensated heart failure with secondary shortness of breath. The patient's chest x-rays consistent with pulmonary edema and Byetta pleural effusion, responding to diuretics 2 CHF with possible diastolic dysfunction 3 history of cardiac pauses post pacemaker insertion in the patient's cardiac rhythm is currently AV paced 4 coronary artery disease 5 history of atrial fibrillation maintained on long-term medical condition with Eliquis 6 chronic stage IV kidney disease 7 history of breast cancer with bilateral mastectomy 8 history of ovarian cancer postresection 9 history of skin cancer 10 previous hospitalization for pyelonephritis, treated 11 history of skin cancer 12 hyperlipidemia 13 hypertension 14 peripheral neuropathy 15 peripheral vascular disease 16 chronic back pain with spinal stenosis and sciatica and degenerative disc disease at the level of L3-L4 17 recurrent UTIs Plan: Continue current medical treatment, diuretics per nephrology and cardiology, maintaining negative fluid balance, breathing has improved, she is off the johnson pplemental oxygen, increase activity as tolerated, echocardiogram results have been noted, no acute events overnight, no complaints of chest pain. I performed a history & physical examination of the patient and discussed their management with my nurse practitioner, Randa Junior. I reviewed the nurse practitioner's note and agree with the documented findings and plan of care. Lung sounds are positive for minimal crackles at the right lower base. The findings and the impression was discussed with the patient. I attest to the documentation by the nurse practitioner. Time with Patient: Less than 30
[2019-03-10] MEDS: FENOFIBRATE 160 MG TAB PO SCH (19:51)
[2019-03-10] MEDS ORDERED: FUROSEMIDE 10 MG/ML 4 ML VIAL IV SCH (21:00)
--- NOTE | 2019-03-10 22:19 | P.CONS ---
History of Present Illness - Reason for Consult Consult date: 03/10/19 Dysphagia Requesting physician: Yessica Sun - Chief Complaint Shortness of breath - History of Present Illness 83-year-old female with a medical history significant for hypertension, hyperlipidemia, GERD, rest cancer status post mastectomy, proximal atrial fibrillation, chronic kidney disease and osteoarthritis who presented to the hospital for evaluation of shortness of breath. The patient reported feeling weak and short of breath with associated cough prior to presentation. Currently she is receiving treatment for an acute exacerbation of congestive heart failu re. The patient was evaluated with x-ray esophagram due to complaints of solid food dysphagia with findings of esophageal dysmotility, hiatal hernia, and gastritis. The patient has a long-standing history of solid food dysphagia with patient reporting difficulty swallowing solid foods such as breads and chicken. This has been going on at least since 2015 when the patient had an upper endoscopy with the surgical service on 01/24/2016 which was significant for a hiatal hernia, and gastritis. She reports that episodes of dysphagia are predominantly the sensation of food moving down her esophagus slowly. The patient states that she generally will alleviate foods which are very chopped and take small bites with sips of water between solid bites and ordered to minimize a problem. Currently she is seen sitting bedside reporting that she has tolerated her dinner. Review of Systems REVIEW OF SYSTEMS: CONSTITUTIONAL: Denies any fevers, chills, but does report fatigue and weight gain prior to presentation. CARDIOVASCULAR: Denies any chest pain, palpitations high or low blood pressures RESPIRATORY: Denies any hemoptysis or cough, but does report shortness of breath. GENITOURINARY: No dysuria or hematuria. MUSCULOSKELETAL: No weakness reported. SKIN: Denies any new rashes or lesions, jaundice or pallor. PSYCHIATRIC: Denies any depression or anxiety. NEUROLOGY: Denies headache, denies any new focal deficits. EARS/NOSE/THROAT: No recent hearing change, congestion, nasal discharge or sore throat. EYES: No pain in eyes, discharge or change in vision. GASTROINTESTINAL: As per HPI. Past Medical History Past Medical History: Atrial Fibrillation, Coronary Artery Disease (CAD), Cancer, Chest Pain / Angina, Fibromyalgia, GERD/Reflux, Hyperlipidemia, Hypertension, Mitral Valve Prolapse (MVP), Neurologic Disorder, Osteoarthritis (OA), Renal Disease, Vascular Disorder Additional Past Medical History / Comment(s): Cardiomyopathy, recent pacemaker insertion for pauses, MVP, ASHD, PVD/venous influx, past UTI and recent UTI completed antibiotic, current upper respiratory tract infection with antibiotic, R breast cancer with surgery, ovarian cancer with surgery and chemotherapy, chronic diarrhea, skin cancers with removals, arthritis in multiple joints, chronic low back pain/bilateral sciatica, lumbar DDD/stenosis/herniated discs L3-L4/DDD, neuropathy bilateral legs/feet, kidneys are "small"-CKD recently told stage IV, pyelonephritis with sepsis/septic shock, anemia, hiatal hernia, diverticular disease, Cardenas's esophagus, varicose veins. History of Any Multi-Drug Resistant Organisms: None Reported Past Surgical History: Bowel Resection, Breast Surgery, Heart Catheterization, Hysterectomy, Orthopedic Surgery, Tonsillectomy Additional Past Surgical History / Comment(s): 12/11/18 pacer inserted at [facility], R breast cancer with bilateral mastectomies/R side lymph node removals, total hysterectomy/bowel resection with part of rectum removed d/t ovarian cancer, bowel resection d/t tumor in ascending colon and also removed appendix, bilateral thumb surgery, pain clinic procedures, skin cancer removals, BMB, EGDs/colonoscopies, bilateral cataract removals/lens implants. Past Anesthesia/Blood Transfusion Reactions: Previous Problems w/ Anesthesia Additional Past Anesthesia/Blood Transfusion Reaction / Comm: AFTER LAST PAIN CLINIC PROCEDURE 01/12/15 HAD ALLEGIC REACTION- broke out in hives and itching all over that lasted over 1 week, also had ELEVATED PULSE & BP. Smoking Status: Former smoker - Past Family History Daughter(s) Family Medical History: No Reported History Father Family Medical History: Cancer (Father at age of 80 from lung cancer) Mother Family Medical History: Coronary Artery Disease (CAD), CVA/TIA (Mother at age of 94 and she had suffered from CAD, CABG, diabetes mellitus type 2 and CVA), Diabetes Mellitus Additional Family Medical History / Comment(s): HEART PROBLEMS Medications and Allergies Home Medications Medication Instructions Recorded Confirmed Type Multivit-Min/FA/Lycopene/Lut 1 tab PO DAILY@0900 11/28/14 03/09/19 History [Centrum Silver Tablet] Nitroglycerin Sl Tabs [Nitrostat] 0.4 mg PO Q5M PRN 11/28/14 03/09/19 History Omeprazole [PriLOSEC] 20 mg PO DAILY@59911/28/14 03/09/19 History Vits A,C,E/Lutein/Minerals 1 tab PO MOWEFRSA@89911/28/14 03/09/19 History [Ocuvite with Lutein Tablet] Fenofibrate Nanocrystallized 145 mg PO HS@2100 10/15/18 03/09/19 History [Fenofibrate] ALPRAZolam [Xanax] 0.25 mg PO BID PRN #6 tab 10/21/18 03/09/19 Rx Apixaban [Eliquis] 2.5 mg PO BID tablet 10/21/18 03/09/19 Rx Gabapentin [Neurontin] 300 mg PO BID #6 cap 10/21/18 03/09/19 Rx hydrALAZINE HCL [Apresoline] 25 mg PO BID tab 10/21/18 03/09/19 Rx Biotin 5 mg PO DAILY@89910/26/18 03/09/19 History HYDROcodone/APAP 7.5-325MG [[place] 1 tab PO BID 10/26/18 03/09/19 History 7.5-325] amLODIPine [Norvasc] 10 mg PO DAILY@89910/26/18 03/09/19 History Ascorbic Acid [Vitamin C] 500 mg PO DAILY 03/09/19 03/09/19 History Carvedilol 25 mg PO BID 03/09/19 03/09/19 History Cholecalciferol (Vitamin D3) 2,000 unit PO DAILY 03/09/19 03/09/19 History [Vitamin D3] Fish Oil/Dha/Epa [Fish Oil 1,200 1 cap PO DAILY 03/09/19 03/09/19 History mg Fish Oil] L.acidoph,Paracasei, B.lactis 1 cap PO DAILY 03/09/19 03/09/19 History [Probiotic] Labetalol [Trandate] 200 mg PO Q8H PRN 03/09/19 03/09/19 History Torsemide [Demadex] 5 mg PO Q48H 03/09/19 03/09/19 History Allergies Allergy/AdvReac Type Severity Reaction Status Date / Time Penicillins Allergy Dyspnea Verified 03/09/19 08:18 Sulfa (Sulfonamide Allergy Dyspnea Verified 03/09/19 08:18 Antibiotics) triamcinolone acetonide AdvReac unsure if Verified 03/09/19 08:18 [From Kenalog] the kenalog was the cause, RASH/HIVES Physical Exam Vitals: Vital Signs Temp Pulse Resp BP Pulse Ox 03/10/19 11:55 76 16 113/43 96 03/10/19 08:45 96.7 F L 78 16 108/42 96 03/10/19 08:12 95 03/10/19 04:00 97.9 F 84 17 116/63 2 L 03/10/19 00:00 97.7 F 91 19 131/68 96 03/09/19 20:10 89 17 03/09/19 19:57 97.7 F 89 17 123/72 96 03/09/19 15:50 97.4 F L 82 16 120/65 95 Intake and Output 03/10/19 03/10/19 03/10/19 06:59 14:59 22:59 Intake Total 480 Output Total 900 Balance -900 480 Intake: Oral 480 Output: Urine 900 Other: Voiding Method Bedside Commode Bedside Commode # Voids 3 3 # Bowel Movements 1 Weight 60.4 kg 59.874 kg On physical examination, patient appears comfortable in no apparent distress. HEAD: Normocephalic, atraumatic. EYES: No scleral icterus. No conjunctival injection. MOUTH: No lesions, tongue midline. NECK: Trachea midline, no gross abnormalities. CHEST: Decreased air entry bilaterally. HEART: S1-S2 appreciated. ABDOMEN: Soft, obese. Bowel sounds are positive. No organomegaly. No guarding or rigidity. EXTREMITIES: Bilateral pedal edema. SKIN: No rashes, no jaundice. NEUROLOGIC: Alert and oriented x3. No focal deficits. Results CBC & Chem 7: 03/09/19 10:13 03/10/19 11:19 Labs: Abnormal Lab Results - Last 24 Hours (Table) 03/10/19 03/10/19 Range/Units 05:52 11:19 BUN 114 H* (7-17) mg/dL Creatinine 2.56 H (0.52-1.04) mg/dL Glucose 150 H (74-99) mg/dL Vitamin D 25-Hydroxy 28.7 L (30.0-100.0) ng/mL PTH Intact 125.6 H (14.0-72.0) pg/mL Microbiology - Last 24 Hours (Table) 03/09/19 10:13 Blood Culture - Preliminary Blood No Growth after 24 hours 03/09/19 04:17 Blood Culture - Preliminary Blood No Growth after 24 hours Abdominal x-ray: report reviewed (x-ray esophagram due to complaints of solid food dysphagia with findings of esophageal dysmotility, hiatal hernia, and gastritis) Assessment and Plan (1) Esophageal dysphagia Narrative/Plan: 83-year-old female with multiple medical comorbidities currently receiving treatment for an acute exacerbation of congestive heart failure who reports intermittent solid food dysphagia. She had x-ray esophagram with findings of dysmotility, a hiatal hernia, and gastritis. Previously she had EGD and which showed a hiatal hernia, gastritis and a patent distal esophageal narrowing. Patient reports that she is been able to manage with lifestyle modifications including sitting upright while eating, symptoms of liquids betwe en solid foods and avoiding trigger foods as well as chopping her food finely. Current Visit: Yes Status: Acute Code(s): R13.10 - DYSPHAGIA, UNSPECIFIED SNOMED Code(s): 79849767 (2) GERD (gastroesophageal reflux disease) Current Visit: No Status: Acute Code(s): K21.9 - GASTRO-ESOPHAGEAL REFLUX DI SEASE WITHOUT ESOPHAGITIS SNOMED Code(s): 486812058 Plan: Supportive care Okay for diet as tolerated Continue Protonix daily Continue management of acute exacerbation of congestive heart failure per primary team Discussion with the patient is not interested in further evaluation at this time given the chronicity of her symptoms, if the patient would like to undergo further testing can have repeat EGD and possible manometry an outpatient setting after discharge Thank you for allowing us to participate in the care of the patient, the [facility] will stand by, please call us back with any questions or concerns
[2019-03-11] MEDS: ALPRAZolam 0.25 MG TAB PO PRN (00:14)
[2019-03-11] MEDS: methylPREDNISolone SOD SUCCI 40 MG/ML 1 ML VIAL IV SCH ×2 (00:14→08:19)
[2019-03-11] MEDS: CARVEDILOL 12.5 MG TAB PO SCH ×2 (06:17→17:22)
[2019-03-11] MEDS: PANTOPRAZOLE 40 MG TABLET PO SCH (06:17)
[2019-03-11 06:23] LABS: Anisocytosis Slight; HCT 24.5 % (34.0-46.0); Hypochromasia Slight; MCH 28.9 pg (25.0-35.0); MCV 87.6 fL (80.0-100.0); Platelet Count 196 k/uL (150-450); RDW 19.9 % (11.5-15.5); WBC 15.2 k/uL (3.8-10.6)
[2019-03-11 06:25] LABS: Albumin 3.6 g/dL (3.5-5.0); Calcium 9.5 mg/dL (8.4-10.2); HGB 8.1 gm/dL (11.4-16.0); Potassium 3.4 mmol/L (3.5-5.1); Total Bilirubin 0.2 mg/dL (0.2-1.3); Total Protein 6.3 g/dL (6.3-8.2)
[2019-03-11] MEDS: HYDROcodone/APAP 7.5-325MG 1 EACH TAB PO SCH ×2 (08:18→20:04)
[2019-03-11] MEDS: GABAPENTIN 300 MG CAP PO SCH ×2 (08:18→20:04)
[2019-03-11] MEDS: CHOLECALCIFEROL 1,000 UNIT TAB PO SCH (08:18)
[2019-03-11] MEDS: hydrALAZINE HCL 25 MG TAB PO SCH (08:18)
[2019-03-11] MEDS: APIXABAN 2.5 MG TABLET PO SCH ×2 (08:19→20:05)
[2019-03-11] MEDS: MULTIVITAMINS, THERA 1 EACH TAB PO SCH (08:19)
[2019-03-11] MEDS ORDERED: FUROSEMIDE 40 MG TAB PO SCH (09:00)
--- NOTE | 2019-03-11 11:49 | P.PN ---
Subjective Progress Note Date: 03/11/19 This 83-year-old female is admitted with increasing shortness of breath and evidence of congestive heart failure. Echo showed normal LV function, suggestive of diastolic CHF. Patient is diuresing well. Chest x-ray showed improvement. Patient still complains of exertional shortness of breath. We'll continue current medical therapy. Increase activity Objective - Vital Signs Vital signs: Vital Signs Temp 97.3 F L 03/11/19 11:33 Pulse 76 03/11/19 11:33 Resp 20 03/11/19 11:33 BP 107/57 03/11/19 11:33 Pulse Ox 93 L 03/11/19 11:33 Intake & Output 03/10/19 03/11/19 03/11/19 18:59 06:59 18:59 Intake Total 480 240 Output Total 500 Balance 480 -260 Weight 59.874 kg 60.2 kg Intake: Oral 480 240 Output: Urine 500 Other: Voiding Method Bedside Commode Bedside Commode # Voids 3 1 1 # Bowel Movements 1 1 - Exam GENERAL EXAM: Patient is alert and oriented and doesn't appear to be in any acute distress HEENT: Normocephalic. Normal reaction of pupils, equal size, normal range of extraocular motion. No erythema or exudates in the throat. NECK: No masses, no nuchal rigidity. CHEST: No chest wall deformity. LUNGS: Equal air entry with no crackles or wheeze. HEART: S1 and S2 normal with no audible mumurs or gallops. Regular rhythm, femorals equal on both sides.. ABDOMEN: No hepatosplenomegaly, normal bowel sounds, no guarding or rigidity. SKIN: No rashes CENTRAL NERVOUS SYSTEM: No focal deficits. EXTREMITIES: No cyanosis, clubbing or edema. - Labs CBC & Chem 7: 03/11/19 05:42 03/11/19 05:42 Labs: Abnormal Lab Results - Last 24 Hours (Table) 03/10/19 03/11/19 03/11/19 Range/Units 11:19 05:42 05:42 WBC 15.2 H (3.8-10.6) k/uL RBC 2.80 L (3.80-5.40) m/uL Hgb 8.1 L D (11.4-16.0) gm/dL Hct 24.5 L (34.0-46.0) % RDW 19.9 H (11.5-15.5) % Potassium 3.4 L (3.5-5.1) mmol/L BUN 114 H* 120 H* (7-17) mg/dL Creatinine 2.56 H 2.83 H (0.52-1.04) mg/dL Glucose 150 H 162 H (74-99) mg/dL AST 68 H (14-36) U/L ALT 83 H (9-52) U/L Microbiology - Last 24 Hours (Table) 03/09/19 04:17 Blood Culture - Preliminary Blood No Growth after 48 hours 03/09/19 10:13 Blood Culture - Preliminary Blood No Growth after 24 hours Assessment and Plan (1) Acute diastolic CHF (congestive heart failure) Current Visit: Yes Status: Acute Code(s): I50.31 - ACUTE DIASTOLIC (CONGESTIVE) HEART FAILURE SNOMED Code(s): 097653271 (2) History of atrial fibrillation Current Visit: Yes Status: Acute Code(s): Z86.79 - PERSONAL HISTORY OF OTHER DISEASES OF THE CIRCULATORY SYSTEM SNOMED Code(s): 779292769 (3) Chronic renal failure Current Visit: Yes Status: Acute Code(s): N18.9 - CHRONIC KIDNEY DISEASE, UNSPECIFIED SNOMED Code(s): 23284745 (4) Essential hypertension Current Visit: Yes Status: Acute Code(s): I10 - ESSENTIAL (PRIMARY) HYPERTENSION SNOMED Code(s): 68140650 Plan: Patient's volume status is improved. Chest x-ray also showed improvement. However, patient is still symptomatic. Part of her symptoms could be from COPD. Increase activity. May switch to by mouth diuretics
--- NOTE | 2019-03-11 12:50 | XR ---
EXAMINATION TYPE: XR chest 2V DATE OF EXAM: 03/11/2019 COMPARISON: Prior chest x-ray 03/09/2019 HISTORY: Congestive heart failure TECHNIQUE: Frontal and lateral views of the chest are obtained. FINDINGS: Heart is stable, enlarged. Patient is rotated which makes accentuate appearance. There is a generator in the left pectoral region, leads are present in the right atrium and ventricle. No evid ent pneumothorax. Bibasilar increased densities present with blunting the costophrenic angles. There is improvement in the interstitium, aeration in the upper lungs. Pulmonary vascularity is improved. P rominent lung volumes suggest underlying COPD. IMPRESSION: Improvement in patient's aeration, volume status. Persistent pleural effusions right gre ater than left and probable associated atelectasis. Pneumonia not excluded, follow-up as indicated.
--- NOTE | 2019-03-11 15:04 | P.PN ---
Subjective Progress Note Date: 03/11/19 This is an 83-year-old female one of Dr. Rice, Dr. Kendrick and Dr. Gutiérrez with a previous medical history significant for hypertension and hypertensive cardiovascular disease, hyperlipidemia, GERD, history of breast cancer status post mastectomy, history of paroxysmal atrial fibrillation status post pacemaker, chronic kidney disease stage III, anemia of chronic kidney disease, GERD, osteoarthritis, varicose veins. Patient states that she just Dr. Rice on March 01. The week before she had received her flu immunization and did not feel well but by the time she saw Dr. tyler on Friday she felt like she was back to normal. She did not have any cough at the time. By Friday she was feeling suddenly very sick with weakness, shortness of breath, cough. She states she was so weak she had trouble standing up. Cough was loose and nonproductive. She denies having any fever or chills. She obtain an antibiotic for UTI but only took one pill. She denies any difficulty with urination, no blood in her urine. She denies any sick contacts. She has chronically loose stools that were unchanged. She does not use oxygen or nebulizer at home. Patient complains of difficulty swallowing food and she has had an EGD [place] [address] Young the digits show an esophageal stricture. She has had no follow-up since that time. Patient came into [facility] emergency center for evaluation by EMS. Pulse ox 82% enroute and patient was started on Solu-Medrol and oxygen. Patient was also found to be hypothermic with a rectal temperature of 93. WBC 5.5, hemoglobin 9.3, platelet count 163. Sodium 142, potassium 5.0, chloride 110, CO2 23, BUN 82, creatinine 2.30, blood sugar 160. ProBNP 1540. Total bilirubin 0.3, AST 176, ALT 113, alkaline phosphatase 66, albumin 3.8. INR 1.3, troponin 0.012. EKG was atrial paced rhythm. Chest x-ray reveals congestive he art failure pulmonary edema new compared to last exam on 10/21/2018. There is increasing pleural fluid on the right side and no change on the left. Patient was started on IV Lasix 40 mg every 8 hours, IV Solu-Medrol and [facility]. Patient was currently waiting in the ER for room assignment. Oral temperatures up to 98 and Boogie hugger will be discontinued. 03/10: Esophagram reveals moderate dysmotility with blunted secondary stripping waves and prolonged pooling of contrast in the esophagus with patient prone or supine. Mild hypertrophy of the cricopharyngeus. Persistent superficial penetration during swallows. No aspiration seen. Mild generalized bowl thickening along the gastric fundus and body suggesting some underlying hyperplastic polyps. Correlate for chronic gastritis. Tiny sliding hiatal hernia. No stricture or obstruction. Consult with is pending. Patient has been seen by outside parts salesman with recommendations to continue current medical therapy. Echocardiogram has been ordered. She has been afebrile, heart rate 70, blood pressure 108/42, pulse ox 96% on 2 L nasal cannula. Patient is currently on Lasix 40 mg every 8 hours IV & Medrol 40 mg every 8 hours. Patient has been seen by nephrology with recommendations to decrease Lasix to oral which will be done, assignment to decrease to 40 mg IV every 8 hours. Patient states that she is a little short of breath but not bad. No pedal edema. Echocardiogram reveals an EF of 55-60% with mild concentric left nuclear hypertrophy, trace aortic regurgitation, moderate mitral regurgitation, [id number] tricuspid regurgitation, mild pulmonary hypertension, no pericardial effusion. Anticipate discharge home tomorrow. We will add PT OT evaluations to ensure patient is safe to return home. 03/11: Patient was seen by Dr. Rendon with recommendations for possible EGD and possible manometry as an outpatient. Patient has been afebrile, heart rate 76, blood pressure 107/57 and pulse ox 93% on room air. Pulse ox after ambulation is 94%. Patient states she continues to have some shortness of breath. She occasionally has lightheadedness. Hydralazine will be discontinued due to lower blood pressure and worsening renal failure. Lasix decreased to 20 mg oral daily and Solu-Medrol changed to oral prednisone. Patient does state she has a productive cough. She denies any choking. She is on modified diet. Repeat lab work reveals potassium 3.4, BUN 120 and creatinine 2.3. WBC 15.2, hemoglobin 8.1. Chest x-ray reveals improvement in aeration and blind status. Persistent pleural effusions right greater than left probably associated atelectasis. Pneumonia not excluded. Plan to monitor overnight and plan for discharge tomorrow. Objective - Vital Signs Vital signs: Vital Signs Temp 97.3 F L 03/11/19 11:33 Pulse 76 03/11/19 11:33 Resp 20 03/11/19 11:33 BP 107/57 03/11/19 11:33 Pulse Ox 93 L 03/11/19 11:33 Intake & Output 03/10/19 03/11/19 03/11/19 18:59 06:59 18:59 Intake Total 480 240 Output Total 500 Balance 480 -260 Weight 59.874 kg 60.2 kg Intake: Oral 480 240 Output: Urine 500 Other: Voiding Method Bedside Commode Bedside Commode # Voids 3 1 1 # Bowel Movements 1 1 - Exam Review of Systems Constitutional: Reports anorexia, Reports daytime sleepiness, Reports fatigue, denies lethargy, Reports malaise, Reports poor appetite, Reports weakness Eyes: denies blurred vision, denies pain Ears, nose, mouth and throat: Reports dysphagia, Denies headache, Denies nasal congestion, Denies nasal discharge, Denies sore throat Cardiovascular: Reports dyspnea on exertion, denies edema, denies leg edema, denies shortness of breath, Denies chest pain, Denies syncope Respiratory: Reports cough, denies dyspnea, Denies cough with sputum, Denies excessive sputum, Denies hemoptysis, Denies home oxygen, Denies sleep apnea, Denies wheezing Gastrointestinal: Denies abdominal pain, Denies diarrhea, Denies nausea, Denies vomiting Genitourinary: Denies dysuria, Denies hematuria, Denies urgency, Denies urinary frequency Musculoskeletal: Reports muscle weakness, Denies myalgias Integumentary: Denies pruritus, Denies rash, Denies wounds Neurological: Denies change in mentation, Denies change in speech, Denies numbn ess, Denies seizures, Denies weakness Psychiatric: Denies anxiety, Denies depression Endocrine: Denies fatigue, Denies weight change - Constitutional General appearance: no distress, patient sitting up in bed appears to be comfortable and in no acute distress. - EENT Eyes: anicteric sclerae, EOMI, PERRLA, no ptosis, no scleral icterus, normal appearance ENT: hard of hearing, NA/AT, normal oropharynx, no thrush Ears: bilateral: normal - Neck Neck: no lymphadenopathy, normal ROM, no rigidity, no stridor, no thyromegaly Carotids: bilateral: upstroke normal - Respiratory Respiratory: bilateral: diminished, negative: dullness, rales, rhonchi, wheezing, prolonged expiration, prolonged inspiration - Cardiovascular Rhythm: regular Heart sounds: normal: S1, S2 Abnormal Heart Sounds: systolic murmur, no S3 Gallop, no S4 Gallop, no click library monitor is atrial paced No pedal edema - Gastrointestinal General gastrointestinal: normal bowel sounds, soft, no splenomegaly, no tenderness, no umbilical hernia, no ventral hernia - Integumentary Integumentary: normal, normal turgor - Neurologic Neurologic: CNII-XII intact - Musculoskeletal Musculoskeletal: gait normal, generalized weakness, strength equal bilaterally - Psychiatric Psychiatric: A&O x's 3, appropriate affect, intact judgment & insight - Labs CBC & Chem 7: 03/11/19 05:42 03/11/19 05:42 Labs: Abnormal Lab Results - Last 24 Hours (Table) 03/10/19 03/11/19 03/11/19 Range/Units 11:19 05:42 05:42 WBC 15.2 H (3.8-10.6) k/uL RBC 2.80 L (3.80-5.40) m/uL Hgb 8.1 L D (11.4-16.0) gm/dL Hct 24.5 L (34.0-46.0) % RDW 19.9 H (11.5-15.5) % Potassium 3.4 L (3.5-5.1) mmol/L BUN 114 H* 120 H* (7-17) mg/dL Creatinine 2.56 H 2.83 H (0.52-1.04) mg/dL Glucose 150 H 162 H (74-99) mg/dL AST 68 H (14-36) U/L ALT 83 H (9-52) U/L Microbiology - Last 24 Hours (Table) 03/09/19 04:17 Blood Culture - Preliminary Blood No Growth after 48 hours 03/09/19 10:13 Blood Culture - Preliminary Blood No Growth after 24 hours Assessment and Plan Plan: 1. Acute diastolic heart failure and bilateral pleural effusion. Consult with Dr. Brock murrell. Continue Lasix transitioned to oral and decreased to 20 mg daily. Solu-Medrol transitioned to oral prednisone. 2. History of cardiac pauses status post pacemaker placement. 3. Acute kidney injury with chronic kidney disease stage III. Consult with nephrolog appreciated. 4. Possible urinary tract infection with sepsis, hypothermia. Deisi hugger discontinued. Rocephin added. 5. Elevated liver function tests, improved. Continue to monitor. 6. Hypertension and hypertensive cardiovascular disease. Continue Coreg 25 mg orally twice every day, amlodipine 10 mg daily, hydralazine discontinued. Labetalol on hold. 7. Hyperlipidemia. Continue patient on fenofibrate 160 minute gram orally once every day. 8. Anemia of chronic kidney disease monitor the patient's CBC. 9. Dysphagia with known esophageal stricture. Consult with Dr. Zheng Howard, upper GI study with esophagus ordered. Consult with GI appreciated. Plan for outpatient evaluation for possible EGD. 10. Paroxysmal atrial fibrillation, patient is status post pacemaker. Coreg 25 mg orally twice every day, Eliquis 2.5 mg orally twice every day. 11. Right-sided pyelonephritis and sepsis requiring admission October 2018. 12. History of breast cancer status post bilateral mastectomy. In remission. 13. History of ovarian cancer status post resection. 14. Peripheral neuropathy. Currently on gabapentin 300 mg orally twice every day. 15. 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 Continue current [place] 7.5/325 one tablet twice daily as needed. 16. GERD. Continue patient on Protonix 40 mg orally once every day. Patient is full code. Discharge plan: Return home tomorrow. PT and OT. Impression and plan of care have been directed as dictated by the signing physician. Domi Fairchild nurse practitioner acting as scribe for signing physician.
[2019-03-11] MEDS: AZITHROMYCIN 500 MG TAB PO SCH (17:22)
[2019-03-11] MEDS: FENOFIBRATE 160 MG TAB PO SCH (20:05)
--- NOTE | 2019-03-11 20:33 | PN ---
PROGRESS NOTE The patient is seen for followup for acute kidney injury, which appears to be mainly cardiorenal. Lasix was decreased yesterday as serum creatinine had increased to 2.5. BUN was elevated as well. However, BUN is also elevated from steroids. The patient states she is feeling jittery and shaky and does not like the side effects of the steroids. She states she is breathing better. The patient has been voiding. PHYSICAL EXAMINATION: Blood pressure was 107/57, heart rate 76 per minute. She is afebrile. Examination of the heart S1, S2. Examination of the lungs, bilateral breath sounds are heard. Abdomen is soft, nontender. Exam of lower extremities shows no evidence of edema. GENERATION ENGINEERING TECHNOLOGIST exam grossly intact. LABS: Show sodium 139, potassium 3.4, chloride 103, BUN 120, serum creatinine 2.83, hemoglobin 8.1 g/dL. Calcium is 9.5, vitamin D was 28.7, PTH 125.6. ASSESSMENT: 1. Acute kidney injury, cardiorenal. Lasix has been decreased. Serum creatinine has gone up somewhat to about 2.8 from around 2.3 previously. She is currently switched to p.o. Lasix. The patient's blood pressure is also slightly on the lower side. I will hold off on the amlodipine for now. 2. Hypokalemia secondary to diuretics, being replaced. 3. Mild hypercalcemia, currently resolved. The vitamin D level was not elevated. PTH was 125.6, which is slightly on the higher side for a calcium of 10.6. The patient will benefit from use of Sensipar if she remains hypercalcemic, this can be monitored as outpatient. 4. Chronic obstructive pulmonary disease with exacerbation. PLAN: Check chest x-ray today. Continue with vitamin D3. Decrease steroids. Hold off on the amlodipine for now and repeat labs in a.m. Patient can possibly be discharged tomorrow depending on her respiratory status. MMODL / IJN: [id number] /
[2019-03-12] MEDS: ALPRAZolam 0.25 MG TAB PO PRN ×2 (01:20→23:48)
[2019-03-12] MEDS: PANTOPRAZOLE 40 MG TABLET PO SCH (06:14)
[2019-03-12] MEDS: CARVEDILOL 12.5 MG TAB PO SCH ×2 (06:14→16:32)
[2019-03-12 07:05] LABS: Potassium 3.1 mmol/L (3.5-5.1)
[2019-03-12] MEDS: FUROSEMIDE 20 MG TAB PO SCH (07:47)
[2019-03-12] MEDS: GABAPENTIN 300 MG CAP PO SCH ×2 (07:47→21:18)
[2019-03-12] MEDS: APIXABAN 2.5 MG TABLET PO SCH (07:47)
[2019-03-12] MEDS: AZITHROMYCIN 500 MG TAB PO SCH (07:47)
[2019-03-12] MEDS: CHOLECALCIFEROL 1,000 UNIT TAB PO SCH (07:47)
[2019-03-12] MEDS: MULTIVITAMINS, THERA 1 EACH TAB PO SCH (07:48)
--- NOTE | 2019-03-12 08:40 | PN ---
PROGRESS NOTE Patient is seen for followup for CKD and acute kidney injury. She was admitted with volume overload. Patient has been diuresed. Her creatinine jumped up to about 2.8. Diuretics were decreased. The creatinine is down to 2.6 today. The patient states she is feeling better. She is maintained on steroids and this is associated with significant increase in her BUN. PHYSICAL EXAMINATION: On examination today, blood pressure was 118/56, heart rate is 72 per minute. Patient is afebrile. EXAMINATION OF THE HEART: S1, S2. EXAMINATION OF THE LUNGS: Bilateral breath sounds are heard. Abdomen is soft, nontender. Examination of the lower extremities shows no significant edema. LABS: Labs show sodium 141, potassium 3.1, BUN 126, serum creatinine 2.65. ASSESSMENT: 1. 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 2. Acute kidney injury, cardiorenal and associated with recent diuresis, currently improving. 3. Disproportionately elevated BUN secondary to steroids. 4. Hypokalemia from diuresis. 5. Hypercalcemia on initial admission, currently improved. PTH was at 125 which is slightly high for a calcium of 10.6. If the hypercalcemia persists as outpatient, we can add Sensipar. Calcium is down to 9.0 now. Patient is advised not to take any calcium supplements. She can continue with the vitamin D supplementation. 6. Anemia. No active bleeding noted. Follow up and rule out iron deficiency. This can be done as outpatient if the patient is being discharged. PLAN: Patient is stable for discharge from Nephrology standpoint. Follow up as outpatient in one week. MMODL / IJN: [id number] /
[2019-03-12] MEDS ORDERED: Potassium Replacement Protocol 1 EACH MISC MISCELLANE PRN (08:41)
[2019-03-12] MEDS ORDERED: predniSONE 20 MG TAB PO SCH (09:00)
[2019-03-12] MEDS ORDERED: POTASSIUM CHLORIDE ER 20 MEQ TAB.ER PO SCH (09:00)
[2019-03-12] MEDS ORDERED: FUROSEMIDE 40 MG TAB PO SCH (09:00)
[2019-03-12] MEDS: POTASSIUM CHLORIDE ER 20 MEQ TAB.ER PO SCH ×2 (10:03→16:32)
[2019-03-12] MEDS: HYDROcodone/APAP 7.5-325MG 1 EACH TAB PO SCH ×2 (11:00→21:18)
--- NOTE | 2019-03-12 14:00 | P.PN ---
Subjective Progress Note Date: 03/12/19 This is an 83-year-old female one of Dr. Rice, Dr. Kendrick and Dr. Gutiérrez with a previous medical history significant for hypertension and hypertensive cardiovascular disease, hyperlipidemia, GERD, history of breast cancer status post mastectomy, history of paroxysmal atrial fibrillation status post pacemaker, chronic kidney disease stage III, anemia of chronic kidney disease, GERD, osteoarthritis, varicose veins. Patient states that she just Dr. Rice on March 01. The week before she had received her flu immunization and did not feel well but by the time she saw Dr. tyler on Friday she felt like she was back to normal. She did not have any cough at the time. By Friday she was feeling suddenly very sick with weakness, shortness of breath, cough. She states she was so weak she had trouble standing up. Cough was loose and nonproductive. She denies having any fever or chills. She obtain an antibiotic for UTI but only took one pill. She denies any difficulty with urination, no blood in her urine. She denies any sick contacts. She has chronically loose stools that were unchanged. She does not use oxygen or nebulizer at home. Patient complains of difficulty swallowing food and she has had an EGD [place] [address] Young the digits show an esophageal stricture. She has had no follow-up since that time. Patient came into [facility] emergency center for evaluation by EMS. Pulse ox 82% enroute and patient was started on Solu-Medrol and oxygen. Patient was also found to be hypothermic with a rectal temperature of 93. WBC 5.5, hemoglobin 9.3, platelet count 163. Sodium 142, potassium 5.0, chloride 110, CO2 23, BUN 82, creatinine 2.30, blood sugar 160. ProBNP 1540. Total bilirubin 0.3, AST 176, ALT 113, alkaline phosphatase 66, albumin 3.8. INR 1.3, troponin 0.012. EKG was atrial paced rhythm. Chest x-ray reveals congestive he art failure pulmonary edema new compared to last exam on 10/21/2018. There is increasing pleural fluid on the right side and no change on the left. Patient was started on IV Lasix 40 mg every 8 hours, IV Solu-Medrol and admitted to the [facility] floor. Patient was currently waiting in the ER for room assignment. Oral temperatures up to 98 and Boogie hugger will be discontinued. 03/10: Esophagram reveals moderate dysmotility with blunted secondary stripping waves and prolonged pooling of contrast in the esophagus with patient prone or supine. Mild hypertrophy of the cricopharyngeus. Persistent superficial penetration during swallows. No aspiration seen. Mild generalized bowl thickening along the gastric fundus and body suggesting some underlying hyperplastic polyps. Correlate for chronic gastritis. Tiny sliding hiatal hernia. No stricture or obstruction. Consult with is pending. 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 Echocardiogram has been ordered. She has been afebrile, heart rate 70, blood pressure 108/42, pulse ox 96% on 2 L nasal cannula. Patient is currently on Lasix 40 mg every 8 hours IV & Medrol 40 mg every 8 hours. Patient has been seen by nephrology with recommendations to decrease Lasix to oral which will be done, assignment to decrease to 40 mg IV every 8 hours. Patient states that she is a little short of breath but not bad. No pedal edema. Echocardiogram reveals an EF of 55-60% with mild concentric left nuclear hypertrophy, trace aortic regurgitation, moderate mitral regurgitation, [id number] tricuspid regurgitation, mild pulmonary hypertension, no pericardial effusion. Anticipate discharge home tomorrow. We will add PT OT evaluations to ensure patient is safe to return home. 03/11: Patient was seen by Dr. Rendon with recommendations for possible EGD and possible manometry as an outpatient. Patient has been afebrile, heart rate 76, blood pressure 107/57 and pulse ox 93% on room air. Pulse ox after ambulation is 94%. Patient states she continues to have some shortness of breath. She occasionally has lightheadedness. Hydralazine will be discontinued due to lower blood pressure and worsening renal failure. Lasix decreased to 20 mg oral daily and Solu-Medrol changed to oral prednisone. Patient does state she has a productive cough. She denies any choking. She is on modified diet. Repeat lab work reveals potassium 3.4, BUN 120 and creatinine 2.3. WBC 15.2, hemoglobin 8.1. Chest x-ray reveals improvement in aeration and blind status. Persistent pleural effusions right greater than left probably associated atelectasis. Pneumonia not excluded. Plan to monitor overnight and plan for discharge tomorrow. 03/12: Patient has been evaluated by Dr. Coulter this morning and cleared for discharge with plan for follow-up in one week. She has been afebrile, blood pressure 118/56, pulse ox 91% on room air. Heart rate 72. Repeat lab work reveals potassium 3.1 and patient has been replaced with 80 mEq of potassium. BUN 126 and creatinine 2.65. Vitamin D 25-hydroxy 28.7 and parathyroid hormone intact 125.6. This morning, patient complains of diarrhea which is not unusual for her but she noticed black stools. We will discontinue eliquis and prednisone and start Pulmicort. Dr. Rendon will be reconsulted. The patient gives history of having 2 bowel resections 1 for large tumor and one secondary to an ovarian tumor. She has had a colonoscopy done in [address] Young. Objective - Vital Signs Vital signs: Vital Signs Temp 97.3 F L 03/12/19 07:38 Pulse 72 03/12/19 07:38 Resp 12 03/12/19 07:38 BP 118/56 03/12/19 07:38 Pulse Ox 91 L 03/12/19 07:38 Intake & Output 03/11/19 03/12/19 03/12/19 18:59 06:59 18:59 Intake Total 650 120 360 Output Total 500 150 Balance 150 120 210 Weight 60.2 kg Intake: Intake, IV Titration 50 Amount cefTRIAXone 1 gm In 50 Sodium Chloride 0.9% 50 ml @ 100 mls/hr IVPB Q24HR [facility] Rx#:[id number] Oral 600 120 360 Output: Urine 500 150 Other: Voiding Method Bedside Commode Bedside Commode # Voids 2 1 # Bowel Movements 1 - Exam Review of Systems Constitutional: Reports anorexia, Reports daytime sleepiness, Reports fatigue, denies lethargy, Reports malaise, Reports poor appetite, Reports weakness Eyes: denies blurred vision, denies pain Ears, nose, mouth and throat: Reports dysphagia, Denies headache, Denies nasal congestion, Denies nasal discharge, Denies sore throat Cardiovascular: Reports dyspnea on exertion, denies edema, denies leg edema, denies shortness of breath, Denies chest pain, Denies syncope Respiratory: Reports cough, denies dyspnea, Denies cough with sputum, Denies excessive sputum, Denies hemoptysis, Denies home oxygen, Denies sleep apnea, Denies wheezing Gastrointestinal: Denies abdominal pain, reports diarrhea, Denies nausea, Denies vomiting, reports black stools Genitourinary: Denies dysuria, Denies hematuria, Denies urgency, Denies urinary frequency Musculoskeletal: Reports muscle weakness, Denies myalgias Integumentary: Denies pruritus, Denies rash, Denies wounds Neurological: Denies change in mentation, Denies change in speech, Denies numbness, Denies seizures, Denies weakness Psychiatric: Denies anxiety, Denies depression Endocrine: Denies fatigue, Denies weight change - Constitutional General appearance: no distress, patient sitting up in bed. - EENT Eyes: anicteric sclerae, EOMI, PERRLA, no ptosis, no scleral icterus, normal appearance ENT: hard of hearing, NA/AT, normal oropharynx, no thrush Ears: bilateral: normal - Neck Neck: no lymphadenopathy, normal ROM, no rigidity, no stridor, no thyromegaly Carotids: bilateral: upstroke normal - Respiratory Respiratory: bilateral: diminished, negative: dullness, rales, rhonchi, wheezing, prolonged expiration, prolonged inspiration - Cardiovascular Rhythm: regular Heart sounds: normal: S1, S2 Abnormal Heart Sounds: systolic murmur, no S3 Gallop, no S4 Gallop, no click library monitor is atrial paced No pedal edema - Gastrointestinal General gastrointestinal: normal bowel sounds, soft, no splenomegaly, no tenderness, no umbilical hernia, no ventral hernia - Integumentary Integumentary: normal, normal turgor - Neurologic Neurologic: CNII-XII intact - Musculoskeletal Musculoskeletal: gait normal, generalized weakness, strength equal bilaterally - Psychiatric Psychiatric: A&O x's 3, appropriate affect, intact judgment & insight - Labs CBC & Chem 7: 03/11/19 05:42 03/12/19 12:05 Labs: Abnormal Lab Results - Last 24 Hours (Table) 03/12/19 Range/Units 06:24 Potassium 3.1 L (3.5-5.1) mmol/L BUN 126 H* (7-17) mg/dL Creatinine 2.65 H (0.52-1.04) mg/dL Glucose 137 H (74-99) mg/dL Microbiology - Last 24 Hours (Table) 03/09/19 04:17 Blood Culture - Preliminary Blood No Growth after 72 hours 03/09/19 10:13 Blood Culture - Preliminary Blood No Growth after 48 hours Assessment and Plan Plan: 1. Acute diastolic heart failure and bilateral pleural effusion. Consult with Dr. Gutiérrez appreciated. Continue Lasix transitioned to oral and decreased to 20 mg daily discontinue prednisone. 2. History of cardiac pauses status post pacemaker placement. 3. Acute kidney injury with chronic kidney disease stage III. Consult with nephrolog appreciated. 4. Possible urinary tract infection with sepsis, hypothermia. Deisi hugger discontinued. Rocephin added. 5. Elevated liver function tests, improved. Continue to monitor. 6. Acute GI bleed with black stools. Stool specimen will be sent for C. difficile toxin. Reconsult Dr. Rendon, discontinue eliquis, discontinue prednisone. 7. Hypertension and hypertensive cardiovascular disease. Continue Coreg 25 mg orally twice every day, amlodipine 10 mg daily, hydralazine discontinued. Labetalol on hold. 7. Hyperlipidemia. Continue patient on fenofibrate 160 minute gram orally once every day. 8. Anemia of chronic kidney disease monitor the patient's CBC. 9. Dysphagia with known esophageal stricture. Consult with GI appreciated. Plan for outpatient evaluation for possible EGD. 10. Paroxysmal atrial fibrillation, patient is status post pacemaker. Coreg 25 mg orally twice every day, Eliquis --placed on hold. 11. Right-sided pyelonephritis and sepsis requiring admission October 2018. 12. History of breast cancer status post bilateral mastectomy. In remission. 13. History of ovarian cancer status post resection. 14. Peripheral neuropathy. Currently on gabapentin 300 mg orally twice every day. 15. Chronic low back pain secondary to degenerative disc disease with sp ondylolisthesis status post epidural injections. Continue current Dudley 7.5/325 one tablet twice daily as needed. 16. GERD. Continue patient on Protonix 40 mg orally once every day. Patient is full code. Discharge plan: Return home. PT and OT. Impression and plan of care have been directed as dictated by the signing physician. Domi Fairchild nurse practitioner acting as scribe for signing bean gray.
--- NOTE | 2019-03-12 14:25 | P.PN ---
Subjective Progress Note Date: 03/12/19 Principal diagnosis: rectal bleeding 83-year-old female CKD stage 4 nephrosclerosis admitted with acute CHF exacerbation on ELiquis seen in GI consult a few days ago for esophageal dysphasia. GI service asked to reevaluate patient today regards to red blood per rectum without abdominal pain x24 hours. Hemoglobin yesterday 8.1 repeat pending. Previous hemoglobin 03/09/2019 was 9.7. BUN is elevated 126. Creatinine is 2.6 and stable. Patient has a history of chronic diarrhea and bowel resection secondary to and large unresectable colon polyp per colonoscopy. She had more than 10 bowel movements her last 24 hours upon wiping bright red blood thought it was related to perirectal. Anticoagulation discontinued today. Last bowel movement described as dark chocolate in color. Presently no abdominal pain denies hematemesis. Tolerating diet without difficulty or dysphasia. Esophagram study earlier this week reported no evidence of obstruction. Colonoscopy 2016 reported as normal. EGD 2016 hiatal hernia patent distal esophageal narrowing. Objective - Vital Signs Vital signs: Vital Signs Temp 97.3 F L 03/12/19 11:50 Pulse 68 03/12/19 11:50 Resp 16 03/12/19 12:00 BP 118/56 03/12/19 11:50 Pulse Ox 90 L 03/12/19 11:50 Intake & Output 03/11/19 03/12/19 03/12/19 18:59 06:59 18:59 Intake Total 650 120 720 Output Total 500 150 Balance 150 120 570 Weight 60.2 kg Intake: Intake, IV Titration 50 Amount cefTRIAXone 1 gm In 50 Sodium Chloride 0.9% 50 ml @ 100 mls/hr IVPB Q24HR [facility] Rx#:[id number] Oral 600 120 720 Output: Urine 500 150 Other: Voiding Method Bedside Commode Bedside Commode # Voids 2 1 # Bowel Movements 1 - Exam General appearance: The patient is alert, oriented, in no acute distress. HET: Head is normocephalic and atraumatic. Pupils are equal and reactive. Oropharynx is clear without lesions. Neck: Supple without lymphadenopathy. Trachea midline. Heart: S1 S2. Lungs: No crackles or wheezes are heard. Abdomen: Soft, nontender, nondistended with bowel sounds. No peritoneal signs. No palpable organomegaly or masses. Extremities: Normal skin color and turgor. No cyanosis, rash, ulceration, clubbing, or edema. Radial and pedal pulses are 2/4 bilaterally. REctal: Internal hemorrhoid felt no blood on foner. No masses. No external hemorrhoids. Perirectal irritation noted. Neurological: No focal deficits. Strength and sensation are grossly intact. - Labs CBC & Chem 7: 03/11/19 05:42 03/12/19 12:05 Labs: Abnormal Lab Results - Last 24 Hours (Table) 03/12/19 Range/Units 06:24 Potassium 3.1 L (3.5-5.1) mmol/L BUN 126 H* (7-17) mg/dL Creatinine 2.65 H (0.52-1.04) mg/dL Glucose 137 H (74-99) mg/dL Microbiology - Last 24 Hours (Table) 03/09/19 10:13 Blood Culture - Preliminary Blood No Growth after 72 hours 03/09/19 04:17 Blood Culture - Preliminary Blood No Growth after 72 hours Assessment and Plan (1) Rectal bleeding Narrative/Plan: Suspect hemorrhoidal in nature exacerbated by anticoagulation and multiple episodes of diarrhea x 24 hours. Rectal exam small internal hemorrhoid no active bleeding. Anticoagulation discontinued. Colonoscopy 2016 reported as normal per pt. Current Visit: Yes Status: Acute Code(s): K62.5 - HEMORRHAGE OF ANUS AND RECTUM SNOMED Code(s): 87455359 (2) Esophageal dysphagia Narrative/Plan: Esophogram no obstruction EGD 2016 patent distal esophageal narrowing. Current Visit: Yes Status: Acute Code(s): R13.10 - DYSPHAGIA, UNSPECIFIED SNOMED Code(s): 91250301 (3) Acute diastolic CHF (congestive heart failure) Current Visit: Yes Status: Acute Code(s): I50.31 - ACUTE DIASTOLIC (CONGESTIVE) HEART FAILURE SNOMED Code(s): 140987071 (4) Chronic kidney disease Narrative/Plan: stage IV disproportionate BUN/creatinine suspect secondary to steroids nephrology following. Current Visit: Yes Status: Acute Code(s): N18.9 - CHRONIC KIDNEY DISEASE, UNSPECIFIED SNOMED Code(s): 106911946 Plan: 1. Anusol-HC QHS. 2. CBC monitoring. 3. Eliquis on hold. 4. Will follow. Assessment and plan of care discussed with Dr. Howard
[2019-03-12 14:31] LABS: Anisocytosis Slight; Basophils % (A) 0 %; Eosinophils % (A) 0 %; HCT 24.3 % (34.0-46.0); HGB 7.9 gm/dL (11.4-16.0); Hypochromasia Slight; Lymphocytes # (A) 0.5 k/uL (1.0-4.8); Lymphocytes % (A) 4 %; MCH 28.5 pg (25.0-35.0); MCHC 32.7 g/dL (31.0-37.0); MCV 87.1 fL (80.0-100.0); Mean Platelet Volume 6.6; Monocytes # (A) 0.4 k/uL (0-1.0); Monocytes % (A) 3 %; Neutrophils # (A) 11.1 k/uL (1.3-7.7); Neutrophils % (A) 91 %; Platelet Count 206 k/uL (150-450); Poikilocytosis Slight; RBC 2.79 m/uL (3.80-5.40); RDW 18.3 % (11.5-15.5); WBC 12.2 k/uL (3.8-10.6)
--- NOTE | 2019-03-12 17:07 | P.PN ---
Subjective Progress Note Date: 03/12/19 This 83-year-old female is admitted with increasing shortness of breath and evidence of congestive heart failure. Echo showed normal LV function, suggestive of diastolic CHF. Patient is diuresing well. Chest x-ray showed improvement. Patient still complains of exertional shortness of breath. We'll continue current medical therapy. Increase activity 03/12/2019: This patient is admitted with a diastolic CHF. Treated with the diuretics and with improvement of in CHF findings. However, patient developed significant diarrhea and also rectal bleeding last night. Seen by surgical team. She is being treated for possible hemorrhoids. Still complains of being fatigued and tired. No overt signs of fluid overload. Continue current management. If patient's diarrhea and bleeding remains stable, patient could be discharged home within next 24 hours Objective - Vital Signs Vital signs: Vital Signs Temp 98.2 F 03/12/19 16:00 Pulse 79 03/12/19 16:00 Resp 16 03/12/19 16:00 BP 121/64 03/12/19 16:00 Pulse Ox 94 L 03/12/19 16:00 Intake & Output 03/11/19 03/12/19 03/12/19 18:59 06:59 18:59 Intake Total 650 120 920 Output Total 500 750 Balance 150 120 170 Weight 60.2 kg Intake: Intake, IV Titration 50 Amount cefTRIAXone 1 gm In 50 Sodium Chloride 0.9% 50 ml @ 100 mls/hr IVPB Q24HR [facility] Rx#:[id number] Oral 600 120 920 Output: Urine 500 750 Other: Voiding Method Bedside Commode Bedside Commode # Voids 2 1 # Bowel Movements 1 - Exam GENERAL EXAM: Patient is alert and oriented and doesn't appear to be in any acute distress HEENT: Normocephalic. Normal reaction of pupils, equal size, normal range of extraocular motion. No erythema or exudates in the throat. NECK: No masses, no nuchal rigidity. CHEST: No chest wall deformity. LUNGS: Equal air entry with no crackles or wheeze. HEART: S1 and S2 normal with no audible mumurs or gallops. Regular rhythm, femorals equal on both sides.. ABDOMEN: No hepatosplenomegaly, normal bowel sounds, no guarding or rigidity. SKIN: No rashes CENTRAL NERVOUS SYSTEM: No focal deficits. EXTREMITIES: No cyanosis, clubbing or edema. - Labs CBC & Chem 7: 03/12/19 13:54 03/12/19 12:05 Labs: Abnormal Lab Results - Last 24 Hours (Table) 03/12/19 03/12/19 Range/Units 06:24 13:54 WBC 12.2 H (3.8-10.6) k/uL RBC 2.79 L (3.80-5.40) m/uL Hgb 7.9 L (11.4-16.0) gm/dL Hct 24.3 L (34.0-46.0) % RDW 18.3 H (11.5-15.5) % Neutrophils # 11.1 H (1.3-7.7) k/uL Lymphocytes # 0.5 L (1.0-4.8) k/uL Potassium 3.1 L (3.5-5.1) mmol/L BUN 126 H* (7-17) mg/dL Creatinine 2.65 H (0.52-1.04) mg/dL Glucose 137 H (74-99) mg/dL Microbiology - Last 24 Hours (Table) 03/09/19 10:13 Blood Culture - Preliminary Blood No Growth after 72 hours 03/09/19 04:17 Blood Culture - Preliminary Blood No Growth after 72 hours Assessment and Plan (1) Acute diastolic CHF (congestive heart failure) Current Visit: Yes Status: Acute Code(s): I50.31 - ACUTE DIASTOLIC (CONGE STIVE) HEART FAILURE SNOMED Code(s): 330077883 (2) History of atrial fibrillation Current Visit: Yes Status: Acute Code(s): Z86.79 - PERSONAL HISTORY OF OTHER DISEASES OF THE CIRCULATORY SYSTEM SNOMED Code(s): 444346828 (3) Chronic renal failure Current Visit: Yes Status: Acute Code(s): N18.9 - CHRONIC KIDNEY DISEASE, UNSPECIFIED SNOMED Code(s): 93393341 (4) Essential hypertension Current Visit: Yes Status: Acute Code(s): I10 - ESSENTIAL (PRIMARY) HYPERTENSION SNOMED Code(s): 47031794 Plan: Patient developed issues with the diarrhea and rectal bleeding. Being seen by surgical team. Cardiac-bustillo seems to be stable. Admitted to diastolic CHF. If clinically stable, patient could be discharged home within next 24 hours
[2019-03-12] MEDS: BUDESONIDE 0.5 MG/2 ML NEBU INHALATION SCH (20:18)
[2019-03-12] MEDS: FENOFIBRATE 160 MG TAB PO SCH (21:18)
[2019-03-12] MEDS: HYDROCORTISONE SUPPOSITORY 25 MG SUPP RECTAL SCH (21:19)
[2019-03-13] MEDS: CARVEDILOL 12.5 MG TAB PO SCH ×2 (06:19→17:09)
[2019-03-13] MEDS: PANTOPRAZOLE 40 MG TABLET PO SCH (06:19)
[2019-03-13 07:20] LABS: Potassium 3.4 mmol/L (3.5-5.1)
[2019-03-13] MEDS: BUDESONIDE 0.5 MG/2 ML NEBU INHALATION SCH ×2 (08:01→19:09)
[2019-03-13] MEDS: MULTIVITAMINS, THERA 1 EACH TAB PO SCH (09:19)
[2019-03-13] MEDS: CHOLECALCIFEROL 1,000 UNIT TAB PO SCH (09:19)
[2019-03-13] MEDS: AZITHROMYCIN 500 MG TAB PO SCH (09:19)
[2019-03-13] MEDS: GABAPENTIN 300 MG CAP PO SCH ×2 (09:19→21:30)
[2019-03-13] MEDS: FUROSEMIDE 20 MG TAB PO SCH (09:19)
[2019-03-13 10:27] LABS: Anisocytosis Slight; Basophils # (A) 0.1 k/uL (0-0.2); Basophils % (A) 1 %; Eosinophils % (A) 0 %; HCT 23.7 % (34.0-46.0); HGB 7.8 gm/dL (11.4-16.0); Hypochromasia Moderate; Lymphocytes # (A) 0.7 k/uL (1.0-4.8); Lymphocytes % (A) 7 %; MCH 29.5 pg (25.0-35.0); MCHC 32.7 g/dL (31.0-37.0); MCV 90.2 fL (80.0-100.0); Mean Platelet Volume 8.6; Monocytes # (A) 0.8 k/uL (0-1.0); Monocytes % (A) 8 %; Neutrophils # (A) 7.8 k/uL (1.3-7.7); Neutrophils % (A) 81 %; Platelet Count 185 k/uL (150-450); Poikilocytosis Slight; RBC 2.63 m/uL (3.80-5.40); RDW 18.2 % (11.5-15.5); WBC 9.6 k/uL (3.8-10.6)
--- NOTE | 2019-03-13 10:41 | PN ---
PROGRESS NOTE DATE OF DICTATION: 03/13/2019 The patient is an 83-year-old pleasant white female admitted to the hospital with congestive heart failure. While in the hospital she started complaining of rectal bleeding for the last 2 days' duration. She has been having about 2 to 3 episodes of bright red blood per rectum. She was seen in consultation yesterday and started on hydrocortisone suppositories and this morning had one episode of rectal bleeding. She denies any abdominal pain, reports no nausea or vomiting. She has history of atrial fibrillation and has been on oral anticoagulation with Eliquis, which has been on hold since yesterday. She reports no nausea or vomiting. PHYSICAL EXAMINATION: She appears comfortable, in no apparent distress. Vital signs are stable. Blood pressure 124/58, pulse rate 71, temperature 97.4. HEENT examination unremarkable. Conjunctivae pink. Sclerae anicteric. Oral cavity no lesions. NECK: No JVD or lymph node enlargement. CHEST: Clear to auscultation. HEART: Regular rate and rhythm. ABDOMEN: Soft. Bowel sounds are positive. No organomegaly. EXTREMITIES: No pedal edema. SKIN: No rashes. NEUROLOGIC: Alert and oriented x3. No focal deficits. LABS: WBC 12.2, hemoglobin 7.9, platelets 206. At the time of admission to the hospital her hemoglobin was 9.7. IMPRESSION: 1. Rectal bleeding, probably related to internal hemorrhoids. The patient did mention that she had a colonoscopy done about 3 years ago that was unremarkable. She has been having intermittent rectal bleeding for 2 days. Eliquis has been on hold. No significant change in her symptoms. She dropped her hemoglobin from 9.7 to 7.9 g/dL. 2. History of atrial fibrillation, on Eliquis, which has been on hold since yesterday. 3. Exacerbation of congestive heart failure. Patient gradually improving. 4. Chronic renal insufficiency. RECOMMENDATIONS: 1. Continue with Anusol HC suppository once at bedtime. 2. Hold Eliquis. 3. Will continue to monitor the patient daily with a repeat CBC tomorrow morning. If she still continues to bleed, will consider colonoscopy during this hospitalization. However, if she does well tomorrow, she can be discharged home with an outpatient followup. Plan was discussed with the patient. She is agreeable to it. Thank you for this consultation. MMODL / IJN: [id number] /
[2019-03-13] MEDS: POTASSIUM CHLORIDE ER 20 MEQ TAB.ER PO SCH (11:56)
[2019-03-13] MEDS: HYDROcodone/APAP 7.5-325MG 1 EACH TAB PO SCH ×2 (11:56→21:30)
[2019-03-13] MEDS ORDERED: LOPERAMIDE 2 MG CAP PO PRN (12:04)
--- NOTE | 2019-03-13 12:11 | P.PN ---
Subjective Progress Note Date: 03/13/19 This is an 83-year-old female one of Dr. Rice, Dr. Kendrick and Dr. Gutiérrez with a previous medical history significant for hypertension and hypertensive cardiovascular disease, hyperlipidemia, GERD, history of breast cancer status post mastectomy, history of paroxysmal atrial fibrillation status post pacemaker, chronic kidney disease stage III, anemia of chronic kidney disease, GERD, osteoarthritis, varicose veins. Patient states that she just Dr. Rice on March 01. The week before she had received her flu immunization and did not feel well but by the time she saw Dr. tyler on Friday she felt like she was back to normal. She did not have any cough at the time. By Friday she was feeling suddenly very sick with weakness, shortness of breath, cough. She states she was so weak she had trouble standing up. Cough was loose and nonproductive. She denies having any fever or chills. She obtain an antibiotic for UTI but only took one pill. She denies any difficulty with urination, no blood in her urine. She denies any sick contacts. She has chronically loose stools that were unchanged. She does not use oxygen or nebulizer at home. Patient complains of difficulty swallowing food and she has had an EGD [place] [address] Young the digits show an esophageal stricture. She has had no follow-up since that time. Patient came into [facility] emergency center for evaluation by EMS. Pulse ox 82% enroute and patient was started on Solu-Medrol and oxygen. Patient was also found to be hypothermic with a rectal temperature of 93. WBC 5.5, hemoglobin 9.3, platelet count 163. Sodium 142, potassium 5.0, chloride 110, CO2 23, BUN 82, creatinine 2.30, blood sugar 160. ProBNP 1540. Total bilirubin 0.3, AST 176, ALT 113, alkaline phosphatase 66, albumin 3.8. INR 1.3, troponin 0.012. EKG was atrial paced rhythm. Chest x-ray reveals congestive he art failure pulmonary edema new compared to last exam on 10/21/2018. There is increasing pleural fluid on the right side and no change on the left. Patient was started on IV Lasix 40 mg every 8 hours, IV Solu-Medrol and admitted to the [facility] floor. Patient was currently waiting in the ER for room assignment. Oral temperatures up to 98 and Boogie hugger will be discontinued. 03/10: Esophagram reveals moderate dysmotility with blunted secondary stripping waves and prolonged pooling of contrast in the esophagus with patient prone or supine. Mild hypertrophy of the cricopharyngeus. Persistent superficial penetration during swallows. No aspiration seen. Mild generalized bowl thickening along the gastric fundus and body suggesting some underlying hyperplastic polyps. Correlate for chronic gastritis. Tiny sliding hiatal hernia. No stricture or obstruction. Consult with is pending. Patient has been seen by county historian with recommendations to continue current medical therapy. Echocardiogram has been ordered. She has been afebrile, heart rate 70, blood pressure 108/42, pulse ox 96% on 2 L nasal cannula. Patient is currently on Lasix 40 mg every 8 hours IV & Medrol 40 mg every 8 hours. Patient has been seen by nephrology with recommendations to decrease Lasix to oral which will be done, assignment to decrease to 40 mg IV every 8 hours. Patient states that she is a little short of breath but not bad. No pedal edema. Echocardiogram reveals an EF of 55-60% with mild concentric left nuclear hypertrophy, trace aortic regurgitation, moderate mitral regurgitation, [id number] tricuspid regurgitation, mild pulmonary hypertension, no pericardial effusion. Anticipate discharge home tomorrow. We will add PT OT evaluations to ensure patient is safe to return home. 03/11: Patient was seen by Dr. Rendon with recommendations for possible EGD and possible manometry as an outpatient. Patient has been afebrile, heart rate 76, blood pressure 107/57 and pulse ox 93% on room air. Pulse ox after ambulation is 94%. Patient states she continues to have some shortness of breath. She occasionally has lightheadedness. Hydralazine will be discontinued due to lower blood pressure and worsening renal failure. Lasix decreased to 20 mg oral daily and Solu-Medrol changed to oral prednisone. Patient does state she has a productive cough. She denies any choking. She is on modified diet. Repeat lab work reveals potassium 3.4, BUN 120 and creatinine 2.3. WBC 15.2, hemoglobin 8.1. Chest x-ray reveals improvement in aeration and blind status. Persistent pleural effusions right greater than left probably associated atelectasis. Pneumonia not excluded. Plan to monitor overnight and plan for discharge tomorrow. 03/12: Patient has been evaluated by Dr. Coulter this morning and cleared for discharge with plan for follow-up in one week. She has been afebrile, blood pressure 118/56, pulse ox 91% on room air. Heart rate 72. Repeat lab work reveals potassium 3.1 and patient has been replaced with 80 mEq of potassium. BUN 126 and creatinine 2.65. Vitamin D 25-hydroxy 28.7 and parathyroid hormone intact 125.6. This morning, patient complains of diarrhea which is not unusual for her but she noticed black stools. We will discontinue eliquis and prednisone and start Pulmicort. Dr. Rendon will be reconsulted. The patient gives history of having 2 bowel resections 1 for large tumor and one secondary to an ovarian tumor. She has had a colonoscopy done in [address] Young. 03/13 patient examined bedside continues to have 8-10 bowel movements a day. She is using Anusol for hemorrhoidal bleed. Patient has short gut from previous surgeries and has 4-5 loose stools at her baseline. We'll initiate Imodium to help with diarrhea and improve hemorrhoidal bleed. Patient is unable to tolerate regular heart healthy diet will switch to soft mechanical diet. On evaluation of patient's blood work patient has a WBC of 12.2 improved from 15 patient was once prednisone prior. Hemoglobin is stable at 7.9. Potassium 3.4 status full support he milliequivalent potassium. BUN has improved to 1:15 creatinine stable at 2.32. Repeat CBC and a pro-calcitonin ordered. Objective - Vital Signs Vital signs: Vital Signs Temp 97.4 F L 03/13/19 07:35 Pulse 76 03/13/19 08:13 Resp 16 03/13/19 07:35 BP 124/58 03/13/19 07:35 Pulse Ox 93 L 03/13/19 07:35 Intake & Output 03/12/19 03/13/19 03/13/19 18:59 06:59 18:59 Intake Total 920 240 Output Total 750 Balance 170 240 Weight 60.1 kg Intake: Oral 920 240 Output: Urine 750 Other: Voiding Method Bedside Commode Bedside Commode Bedside Commode - Exam Review of Systems Constitutional: Reports anorexia, Reports daytime sleepiness, Reports fatigue, denies lethargy, Reports malaise, Reports poor appetite, Reports weakness Eyes: denies blurred vision, denies pain Ears, nose, mouth and throat: Reports dysphagia, Denies headache, Denies nasal congestion, Denies nasal discharge, Denies sore throat Cardiovascular: Reports dyspnea on exertion, denies edema, denies leg edema, denies shortness of breath, Denies chest pain, Denies syncope Respiratory: Reports cough, denies dyspnea, Denies cough with sputum, Denies excessive sputum, Denies hemoptysis, Denies home oxygen, Denies sleep apnea, Denies wheezing Gastrointestinal: Denies abdominal pain, reports diarrhea worsened, Denies nausea, Denies vomiting, reports fresh blood per rectum Genitourinary: Denies dysuria, Denies hematuria, Denies urgency, Denies urinary frequency Musculoskeletal: Reports muscle weakness, Denies myalgias Integumentary: Denies pruritus, Denies rash, Denies wounds Neurological: Denies change in mentation, Denies change in speech, Denies numbness, Denies seizures, Denies weakness Psychiatric: Denies anxiety, Denies depression Endocrine: Denies fatigue, Denies weight change - Constitutional General appearance: no distress, patient sitting up in bed. - EENT Eyes: anicteric sclerae, EOMI, PERRLA, no ptosis, no scleral icterus, normal appearance ENT: hard of hearing, NA/AT, normal oropharynx, no thrush Ears: bilateral: normal - Neck Neck: no lymphadenopathy, normal ROM, no rigidity, no stridor, no thyromegaly Carotids: bilateral: upstroke normal - Respiratory Respiratory: bilateral: diminished, negative: dullness, rales, rhonchi, wheezing, prolonged expiration, prolonged inspiration - Cardiovascular Rhythm: regular Heart sounds: normal: S1, S2 Abnormal Heart Sounds: systolic murmur, no S3 Gallop, no S4 Gallop, no click security monitor is atrial paced No pedal edema - Gastrointestinal General gastrointestinal: normal bowel sounds, soft, no splenomegaly, no tenderness, no umbilical hernia, no ventral hernia - Integumentary Integumentary: normal, normal turgor - Neurologic Neurologic: CNII-XII intact - Musculoskeletal Musculoskeletal: gait normal, generalized weakness, strength equal bilaterally - Psychiatric Psychiatric: A&O x's 3, appropriate affect, intact judgment & insight - Labs CBC & Chem 7: 03/13/19 05:48 09/28/19 05:48 Labs: Abnormal Lab Results - Last 24 Hours (Table) 03/12/19 03/13/19 03/13/19 Range/Units 13:54 05:48 05:48 WBC 12.2 H (3.8-10.6) k/uL RBC 2.79 L 2.63 L (3.80-5.40) m/uL Hgb 7.9 L 7.8 L (11.4-16.0) gm/dL Hct 24.3 L 23.7 L (34.0-46.0) % RDW 18.3 H 18.2 H (11.5-15.5) % Neutrophils # 11.1 H 7.8 H (1.3-7.7) k/uL Lymphocytes # 0.5 L 0.7 L (1.0-4.8) k/uL Potassium 3.4 L (3.5-5.1) mmol/L BUN 115 H* (7-17) mg/dL Creatinine 2.32 H (0.52-1.04) mg/dL Glucose 179 H (74-99) mg/dL Microbiology - Last 24 Hours (Table) 03/09/19 04:17 Blood Culture - Preliminary Blood No Growth after 96 hours 03/09/19 10:13 Blood Culture - Preliminary Blood No Growth after 72 hours Assessment and Plan Plan: 1. Acute diastolic heart failure and bilateral pleural effusion. Consult with Dr. Gutiérrez appreciated. Continue Lasix transitioned to oral and decreased to 20 mg daily discontinue prednisone. 2. History of cardiac pauses status post pacemaker placement. 3. Acute kidney injury with chronic kidney disease stage III. Consult with nephrolog appreciated. 4. Possible urinary tract infection with sepsis, hypothermia. Deisi hugger discontinued. Rocephin added. Stop date 03/14 5. Elevated liver function tests, improved. Continue to monitor. 6. Acute GI bleed with black stools. The continue to hemorrhoidal bleed Stool specimen will be sent for C. difficile toxin. Reconsult Dr. Rendon, discontinue eliquis, discontinue prednisone. On and also 7. Hypertension and hypertensive cardiovascular disease. Continue Coreg 25 mg orally twice every day, amlodipine 10 mg daily, hydralazine discontinued. Labetalol on hold. 7. Hyperlipidemia. Continue patient on fenofibrate 160 minute gram orally once every day. 8. Anemia of chronic kidney disease monitor the patient's CBC. 9. Dysphagia with known esophageal stricture. Consult with GI appreciated. Plan for outpatient evaluation for possible EGD. Soft mechanical diet while in the hospital 10. Paroxysmal atrial fibrillation, patient is status post pacemaker. Coreg 25 mg orally twice every day, Eliquis --placed on hold. 11. Right-sided pyelonephritis and sepsis requiring admission October 2018. 12. History of breast cancer status post bilateral mastectomy. In remission. 13. History of ovarian cancer status post resection. 14. Peripheral neuropathy. Currently on gabapentin 300 mg orally twice every day. 15. 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 Continue current Marshall 7.5/325 one tablet twice daily as needed. 16. GERD. Continue patient on Protonix 40 mg orally once every day. Patient is full code. Discharge plan: Return home. PT and OT.
--- NOTE | 2019-03-13 12:56 | P.PN ---
Subjective Progress Note Date: 03/13/19 Follow-up of chronic kidney disease. No acute issues. Feels better today. Objective - Vital Signs Vital signs: Vital Signs Temp 97.4 F L 03/13/19 07:35 Pulse 76 03/13/19 08:13 Resp 16 03/13/19 07:35 BP 124/58 03/13/19 07:35 Pulse Ox 93 L 03/13/19 07:35 Intake & Output 03/12/19 03/13/19 03/13/19 18:59 06:59 18:59 Intake Total 920 600 Output Total 750 Balance 170 600 Weight 60.1 kg Intake: Oral 920 600 Output: Urine 750 Other: Voiding Method Bedside Commode Bedside Commode Bedside Commode - Exam No acute distress S1-S2 heard Decreased breath sounds Abdomen soft Trace edema - Labs CBC & Chem 7: 03/13/19 05:48 03/13/19 05:48 Labs: Abnormal Lab Results - Last 24 Hours (Table) 03/12/19 03/13/19 03/13/19 Range/Units 13:54 05:48 05:48 WBC 12.2 H (3.8-10.6) k/uL RBC 2.79 L 2.63 L (3.80-5.40) m/uL Hgb 7.9 L 7.8 L (11.4-16.0) gm/dL Hct 24.3 L 23.7 L (34.0-46.0) % RDW 18.3 H 18.2 H (11.5-15.5) % Neutrophils # 11.1 H 7.8 H (1.3-7.7) k/uL Lymphocytes # 0.5 L 0.7 L (1.0-4.8) k/uL Potassium 3.4 L (3.5-5.1) mmol/L BUN 115 H* (7-17) mg/dL Creatinine 2.32 H (0.52-1.04) mg/dL Glucose 179 H (74-99) mg/dL Microbiology - Last 24 Hours (Table) 03/09/19 10:13 Blood Culture - Preliminary Blood No Growth after 96 hours 03/09/19 04:17 Blood Culture - Preliminary Blood No Growth after 96 hours Assessment and Plan Assessment: #1 chronic kidney disease stage IV secondary to nephrosclerosis, currently at baseline #2 acute kidney injury resolved. #3 hypokalemia secondary to diuretics #4 hypercalcemia on admission, resolved #5 anemia Plan: #1 renal function stable. #2 continue with Lasix at discharge. #3 avoid nephrotoxic agents and hypotensive episodes. #4 stable from nephrology point of view for discharge to be followed up in the office in a week.
--- NOTE | 2019-03-13 14:06 | P.PN ---
Subjective Progress Note Date: 03/13/19 supplies an 83-year-old female patient who is admitted with increasing shortness of breath and evidence of congestive heart failure. Echocardiogram showed normal LV systolic function which is suggestive of diastolic congestive heart failure. She's been diuresed with improvement in her breathing. Chest x-ray showed improvement. She continues to have some mild exertional shortness of breath but this is improved. Patient developed some diarrhea as well as rectal bleeding and has been evaluated by GI was recommended to continue to hold Eliquisand continue to monitor CBC tomorrow and if needed consider colonoscopy during this hospitalization. hemoglobin this morning is stable compared to yesterday. Objective - Vital Signs Vital signs: Vital Signs Temp 97.4 F L 03/13/19 07:35 Pulse 73 03/13/19 12:00 Resp 16 03/13/19 12:00 BP 122/78 03/13/19 12:00 Pulse Ox 96 03/13/19 12:00 Intake & Output 03/12/19 03/13/19 03/13/19 18:59 06:59 18:59 Intake Total 920 650 Output Total 750 Balance 170 650 Weight 60.1 kg Intake: IV 50 cefTRIAXone 1 gm In 50 Sodium Chloride 0.9% 50 ml @ 100 mls/hr IVPB Q24HR [facility] Rx#:[id number] Oral 920 600 Output: Urine 750 Other: Voiding Method Bedside Commode Bedside Commode Bedside Commode - Exam PHYSICAL EXAMINATION: HEENT: [Head is atraumatic, normocephalic. Pupils equal, round. Neck is supple. There is no elevated jugular venous pressure.] HEART EXAMINATION: [Heart sounds regular, S1 and S2 with a systolic murmur at the apex.] CHEST EXAMINATION:[ Lungs are clear to auscultation and precussion. No chest wall tenderness is noted on palpation or with deep breathing.] ABDOMEN: [ Soft, nontender. Bowel sounds are heard. No organomegaly noted]. EXTREMITIES:[ 2+ peripheral pulses with no evidence of peripheral edema and no calf tenderness noted]. NEUROLOGIC [patient is awake, alert and oriented x3.] . - Labs CBC & Chem 7: 03/13/19 05:48 03/13/19 05:48 Labs: Abnormal Lab Results - Last 24 Hours (Table) 09/27/19 09/28/19 09/28/19 Range/Units 13:54 05:48 05:48 WBC 12.2 H (3.8-10.6) k/uL RBC 2.79 L 2.63 L (3.80-5.40) m/uL Hgb 7.9 L 7.8 L (11.4-16.0) gm/dL Hct 24.3 L 23.7 L (34.0-46.0) % RDW 18.3 H 18.2 H (11.5-15.5) % Neutrophils # 11.1 H 7.8 H (1.3-7.7) k/uL Lymphocytes # 0.5 L 0.7 L (1.0-4.8) k/uL Potassium 3.4 L (3.5-5.1) mmol/L BUN 115 H* (7-17) mg/dL Creatinine 2.32 H (0.52-1.04) mg/dL Glucose 179 H (74-99) mg/dL Microbiology - Last 24 Hours (Table) 03/09/19 10:13 Blood Culture - Preliminary Blood No Growth after 96 hours 03/09/19 04:17 Blood Culture - Preliminary Blood No Growth after 96 hours Assessment and Plan Assessment: #1 acute on chronic diastolic congestive heart failure #2 paroxysmal atrial fibrillation #3 rectal bleeding and anemia #4 chronic kidney disease #5 hypertension Plan: from cardiology perspective, medications were reviewed and will continue the same. From our standpoint patient may be discharged home once cleared by GI and primary. We will continue to follow the patient and provide further recommendations accordingly. TUBE BACKER note has been reviewed, I agree with a documented findings and plan of care. Patient was seen and examined.
[2019-03-13] MEDS: FENOFIBRATE 160 MG TAB PO SCH (21:30)
[2019-03-13] MEDS: HYDROCORTISONE SUPPOSITORY 25 MG SUPP RECTAL SCH (21:30)
[2019-03-14] MEDS: ALPRAZolam 0.25 MG TAB PO PRN (00:12)
[2019-03-14 06:18] LABS: Calcium 8.9 mg/dL (8.4-10.2); Potassium 4.1 mmol/L (3.5-5.1)
[2019-03-14] MEDS: CARVEDILOL 12.5 MG TAB PO SCH ×2 (06:32→17:01)
[2019-03-14] MEDS: PANTOPRAZOLE 40 MG TABLET PO SCH (06:32)
[2019-03-14 06:34] LABS: Anisocytosis Slight; Basophils % (A) 0 %; Eosinophils # (A) 0.3 k/uL (0-0.7); Eosinophils % (A) 3 %; HCT 22.4 % (34.0-46.0); HGB 7.2 gm/dL (11.4-16.0); Hypochromasia Moderate; Lymphocytes # (A) 1.2 k/uL (1.0-4.8); Lymphocytes % (A) 15 %; MCHC 32.3 g/dL (31.0-37.0); MCV 86.8 fL (80.0-100.0); Mean Platelet Volume 6.7; Monocytes # (A) 0.4 k/uL (0-1.0); Monocytes % (A) 5 %; Neutrophils # (A) 5.9 k/uL (1.3-7.7); Neutrophils % (A) 72 %; Platelet Count 200 k/uL (150-450); Poikilocytosis Slight; RBC 2.59 m/uL (3.80-5.40); WBC 8.2 k/uL (3.8-10.6)
[2019-03-14] MEDS: BUDESONIDE 0.5 MG/2 ML NEBU INHALATION SCH ×2 (08:20→19:45)
[2019-03-14] MEDS: AZITHROMYCIN 500 MG TAB PO SCH (08:36)
[2019-03-14] MEDS: POTASSIUM CHLORIDE ER 20 MEQ TAB.ER PO SCH (08:38)
[2019-03-14] MEDS: FUROSEMIDE 20 MG TAB PO SCH (08:38)
[2019-03-14] MEDS: CHOLECALCIFEROL 1,000 UNIT TAB PO SCH (08:38)
[2019-03-14] MEDS: MULTIVITAMINS, THERA 1 EACH TAB PO SCH (08:38)
[2019-03-14] MEDS: GABAPENTIN 300 MG CAP PO SCH ×2 (08:38→20:58)
[2019-03-14] MEDS: HYDROcodone/APAP 7.5-325MG 1 EACH TAB PO SCH ×2 (10:51→20:58)
--- NOTE | 2019-03-14 11:08 | P.PN ---
Subjective Progress Note Date: 03/14/19 Follow-up of chronic kidney disease. No acute issues. Feels better today. Objective - Vital Signs Vital signs: Vital Signs Temp 97.8 F 03/14/19 08:00 Pulse 72 03/14/19 08:30 Resp 16 03/14/19 08:00 BP 115/65 03/14/19 08:00 Pulse Ox 93 L 03/14/19 08:00 Intake & Output 03/13/19 03/14/19 03/14/19 18:59 06:59 18:59 Intake Total 650 240 Balance 650 240 Weight 59.8 kg Intake: IV 50 cefTRIAXone 1 gm In 50 Sodium Chloride 0.9% 50 ml @ 100 mls/hr IVPB Q24HR [facility] Rx#:[id number] Oral 600 240 Other: Voiding Method Bedside Commode Toilet Toilet - Exam No acute distress S1-S2 heard Decreased breath sounds Abdomen soft Trace edema - Labs CBC & Chem 7: 03/14/19 05:50 03/14/19 05:50 Labs: Abnormal Lab Results - Last 24 Hours (Table) 03/13/19 03/14/19 03/14/19 Range/Units 05:48 05:50 05:50 RBC 2.59 L (3.80-5.40) m/uL Hgb 7.2 L (11.4-16.0) gm/dL Hct 22.4 L (34.0-46.0) % RDW 18.0 H (11.5-15.5) % Chloride 109 H (98-107) mmol/L BUN 100 H (7-17) mg/dL Creatinine 2.22 H (0.52-1.04) mg/dL Glucose 113 H (74-99) mg/dL Procalcitonin 0.10 H (0.02-0.09) ng/mL Microbiology - Last 24 Hours (Table) 03/09/19 04:17 Blood Culture - Preliminary Blood No Growth after 120 hours 03/09/19 10:13 Blood Culture - Preliminary Blood No Growth after 96 hours Assessment and Plan Assessment: #1 chronic kidney disease stage IV secondary to nephrosclerosis, currently at baseline #2 acute kidney injury resolved. #3 hypokalemia secondary to diuretics #4 hypercalcemia on admission, resolved #5 anemia Plan: #1 renal function stable. #2 continue with Lasix at discharge. #3 avoid nephrotoxic agents and hypotensive episodes. #4 stable from nephrology point of view for discharge to be followed up in the office in a week.
--- NOTE | 2019-03-14 11:42 | P.PN ---
Subjective Progress Note Date: 03/14/19 supplies an 83-year-old female patient who is admitted with increasing shortness of breath and evidence of congestive heart failure. Echocardiogram showed normal LV systolic function which is suggestive of diastolic congestive heart failure. She's been diuresed with improvement in her breathing. Chest x-ray showed improvement. She continues to have some mild exertional shortness of breath but this is improved. Patient developed some diarrhea as well as rectal bleeding and has been evaluated by GI was recommended to continue to hold Eliquisand continue to monitor CBC tomorrow and if needed consider colonoscopy during this hospitalization. hemoglobin this morning is stable compared to yesterday. 03/14/19 patient was seen and examined this morning. She is sitting up at the side of the bed. She was seen by Dr. Dolly Howard this morning and due to further rectal bleeding and continued decline in hemoglobin she is going to be scheduled for colonoscopy tomorrow. Anticoagulants remain on hold. her renal function is stable. Objective - Vital Signs Vital signs: Vital Signs Temp 97.8 F 03/14/19 08:00 Pulse 72 03/14/19 08:30 Resp 16 03/14/19 08:00 BP 115/65 03/14/19 08:00 Pulse Ox 93 L 03/14/19 08:00 Intake & Output 03/13/19 03/14/19 03/14/19 18:59 06:59 18:59 Intake Total 650 240 360 Balance 650 240 360 Weight 59.8 kg Intake: IV 50 cefTRIAXone 1 gm In 50 Sodium Chloride 0.9% 50 ml @ 100 mls/hr IVPB Q24HR [facility] Rx#:[id number] Oral 600 240 360 Other: Voiding Method Bedside Commode Toilet Toilet - Exam PHYSICAL EXAMINATION: HEENT: [Head is atraumatic, normocephalic. Pupils equal, round. Neck is supple. There is no elevated jugular venous pressure.] HEART EXAMINATION: [Heart sounds regular, S1 and S2 with a systolic murmur at the apex.] CHEST EXAMINATION:[ Lungs are clear to auscultation. No chest wall tenderness is noted on palpation or with deep breathing.] ABDOMEN: [ Soft, nontender. Bowel sounds are heard. No organomegaly noted]. EXTREMITIES:[ 2+ peripheral pulses with no evidence of peripheral edema and no calf tenderness noted]. NEUROLOGIC [patient is awake, alert and oriented x3.] . - Labs CBC & Chem 7: 03/14/19 05:50 03/14/19 05:50 Labs: Abnormal Lab Results - Last 24 Hours (Table) 03/13/19 03/14/19 03/14/19 Range/Units 05:48 05:50 05:50 RBC 2.59 L (3.80-5.40) m/uL Hgb 7.2 L (11.4-16.0) gm/dL Hct 22.4 L (34.0-46.0) % RDW 18.0 H (11.5-15.5) % Chloride 109 H (98-107) mmol/L BUN 100 H (7-17) mg/dL Creatinine 2.22 H (0.52-1.04) mg/dL Glucose 113 H (74-99) mg/dL Procalcitonin 0.10 H (0.02-0.09) ng/mL Microbiology - Last 24 Hours (Table) 03/09/19 04:17 Blood Culture - Preliminary Blood No Growth after 120 hours 03/09/19 10:13 Blood Culture - Preliminary Blood No Growth after 96 hours Assessment and Plan Assessment: #1 acute on chronic diastolic congestive heart failure #2 paroxysmal atrial fibrillation #3 rectal bleeding and anemia #4 chronic kidney disease #5 hypertension Plan: from cardiology perspective, medications were reviewed and will continue the same. continue to hold anticoagulation. We will await recommendations from Dr. Dolly Howard following colonoscopy tomorrow. further recommendations to follow. TRUCK [employer]IVER FLAT[employer]ED note has been reviewed, I agree with a documented findings and plan of care. Patient was seen and examined.
--- NOTE | 2019-03-14 12:42 | P.PN ---
Subjective This is an 83-year-old female one of Dr. Rice, Dr. Kendrick and Dr. Gutiérrez with a previous medical history significant for hypertension and hypertensive cardiovascular disease, hyperlipidemia, GERD, history of breast cancer status post mastectomy, history of paroxysmal atrial fibrillation status post pacemaker, chronic kidney disease stage III, anemia of chronic kidney disease, GERD, osteoarthritis, varicose veins. Patient states that she just Dr. Rice on March 01. The week before she had received her flu immunization and did not feel well but by the time she saw Dr. tyler on Friday she felt like she was back to normal. She did not have any cough at the time. By Friday she was feeling suddenly very sick with weakness, shortness of breath, cough. She states she was so weak she had trouble standing up. Cough was loose and nonproductive. She denies having any fever or chills. She obtain an antibiotic for UTI but only took one pill. She denies any difficulty with urination, no blood in her urine. She denies any sick contacts. She has chronically loose stools that were unchanged. She does not use oxygen or nebulizer at home. Patient complains of difficulty swallowing food and she has had an EGD done in with Dr. Young the digits show an esophageal stricture. She has had no follow-up since that time. Patient came into [facility] emergency center for evaluation by EMS. Pulse ox 82% enroute and patient was started on Solu-Medrol and oxygen. Patient was also found to be hypothermic with a rectal temperature of 93. WBC 5.5, hemoglobin 9.3, platelet count 163. Sodium 142, potassium 5.0, chloride 110, CO2 23, BUN 82, creatinine 2.30, blood sugar 160. ProBNP 1540. Total danny irubin 0.3, AST 176, ALT 113, alkaline phosphatase 66, albumin 3.8. INR 1.3, troponin 0.012. EKG was atrial paced rhythm. Chest x-ray reveals congestive heart failure pulmonary edema new compared to last exam on 10/21/2018. There is increasing pleural fluid on the right side and no change on the left. Patient was started on IV Lasix 40 mg every 8 hours, IV Solu-Medrol and admitted to the [facility] floor. Patient was currently waiting in the ER for room assignment. Oral temperatures up to 98 and Boogie hugger will be discontinued. 03/10: Esophagram reveals moderate dysmotility with blunted secondary stripping waves and prolonged pooling of contrast in the esophagus with patient prone or s upine. Mild hypertrophy of the cricopharyngeus. Persistent superficial penetration during swallows. No aspiration seen. Mild generalized bowl thickening along the gastric fundus and body suggesting some underlying hyperplastic polyps. Correlate for chronic gastritis. Tiny sliding hiatal hernia. No stricture or obstruction. Consult with is pending. Patient has been seen by agency trainer with recommendations to continue current medical therapy. Echocardiogram has been ordered. She has been afebrile, heart rate 70, blood pressure 108/42, pulse ox 96% on 2 L nasal cannula. Patient is currently on Lasix 40 mg every 8 hours IV & Medrol 40 mg every 8 hours. Patient has been seen by nephrology with recommendations to decrease Lasix to oral which will be done, assignment to decrease to 40 mg IV every 8 hours. Patient states that she is a little short of breath but not bad. No pedal edema. Echocardiogram reveals an EF of 55-60% with mild concentric left nuclear hypertrophy, trace aortic regurgitation, moderate mitral regurgitation, [id number] tricuspid regurgitation, mild pulmonary hypertension, no pericardial effusion. Anticipate discharge home tomorrow. We will add PT OT evaluations to ensure patient is safe to return home. 03/11: Patient was seen by Dr. Rendon with recommendations for possible EGD and possible manometry as an outpatient. Patient has been afebrile, heart rate 76, blood pressure 107/57 and pulse ox 93% on room air. Pulse ox after ambulation is 94%. Patient states she continues to have some shortness of breath. She occasionally has lightheadedness. Hydralazine will be discontinued due to lower blood pressure and worsening renal failure. Lasix decreased to 20 mg oral daily and Solu-Medrol changed to oral prednisone. Patient does state she has a productive cough. She denies any choking. She is on modified diet. Repeat lab work reveals potassium 3.4, BUN 120 and creatinine 2.3. WBC 15.2, hemoglobin 8.1. Chest x-ray reveals improvement in aeration and blind status. Persistent pleural effusions right greater than left probably associated atelectasis. Pneumonia not excluded. Plan to monitor overnight and plan for discharge tomorrow. 03/12: Patient has been evaluated by Dr. Coulter this morning and cleared for dis charge with plan for follow-up in one week. She has been afebrile, blood pressure 118/56, pulse ox 91% on room air. Heart rate 72. Repeat lab work reveals potassium 3.1 and patient has been replaced with 80 mEq of potassium. BUN 126 and creatinine 2.65. Vitamin D 25-hydroxy 28.7 and parathyroid hormone intact 125.6. This morning, patient complains of diarrhea which is not unusual for her but she noticed black stools. We will discontinue eliquis and prednisone and start Pulmicort. Dr. Rendon will be reconsulted. The patient gives history of having 2 bowel resections 1 for large tumor and one secondary to an ovarian tumor. She has had a colonoscopy done [place] [address] Young. 03/13 patient examined bedside continues to have 8-10 bowel movements a day. She is using Anusol for hemorrhoidal bleed. Patient has short gut from previous surgeries and has 4-5 loose stools at her baseline. We'll initiate Imodium to help with diarrhea and improve hemorrhoidal bleed. Patient is unable to tolerate regular heart healthy diet will switch to soft mechanical diet. On evaluation of patient's blood work patient has a WBC of 12.2 improved from 15 patient was once prednisone prior. Hemoglobin is stable at 7.9. Potassium 3.4 status full support he milliequivalent potassium. BUN has improved to 1:15 creatinine stable at 2.32. Repeat CBC and a pro-calcitonin ordered. 03/14 patient examined bedside continued to have bowel movements which has improve in consistency since yesterday. Hemoglobin today is 7.2 patient otherwise is feeling well tolerating diet. She denies any chest pain or shortness of breath or abdominal pain. Plan for colonoscopy tomorrow. 2. Objective - Vital Signs Vital signs: Vital Signs Temp 97 F L 03/14/19 11:52 Pulse 62 03/14/19 11:52 Resp 16 03/14/19 11:52 BP 118/56 03/14/19 11:52 Pulse Ox 98 03/14/19 11:52 Intake & Output 03/13/19 03/14/19 03/14/19 18:59 06:59 18:59 Intake Total 650 240 410 Balance 650 240 410 Weight 59.8 kg Intake: IV 50 50 cefTRIAXone 1 gm In 50 50 Sodium Chloride 0.9% 50 ml @ 100 mls/hr IVPB Q24HR [facility] Rx#:[id number] Oral 600 240 360 Other: Voiding Method Bedside Commode Toilet Toilet - Exam Review of Systems Constitutional: Reports anorexia, Reports daytime sleepiness, Reports fatigue, denies lethargy, Reports malaise, Reports poor appetite, Reports weakness Eyes: denies blurred vision, denies pain Ears, nose, mouth and throat: Reports dysphagia, Denies headache, Denies nasal congestion, Denies nasal discharge, Denies sore throat Cardiovascular: Reports dyspnea on exertion, denies edema, denies leg edema, d enies shortness of breath, Denies chest pain, Denies syncope Respiratory: Reports cough, denies dyspnea, Denies cough with sputum, Denies excessive sputum, Denies hemoptysis, Denies home oxygen, Denies sleep apnea, Denies wheezing Gastrointestinal: Denies abdominal pain, reports diarrhea worsened, Denies nausea, Denies vomiting, reports fresh blood per rectum Genitourinary: Denies dysuria, Denies hematuria, Denies urgency, Denies urinary frequency Musculoskeletal: Reports muscle weakness, Denies myalgias Integumentary: Denies pruritus, Denies rash, Denies wounds Neurological: Denies change in mentation, Denies change in speech, Denies numbness, Denies seizures, Denies weakness Psychiatric: Denies anxiety, Denies depression Endocrine: Denies fatigue, Denies weight change - Constitutional General appearance: no distress, patient sitting up in bed. - EENT Eyes: anicteric sclerae, EOMI, PERRLA, no ptosis, no scleral icterus, normal appearance ENT: hard of hearing, NA/AT, normal oropharynx, no thrush Ears: bilateral: normal - Neck Neck: no lymphadenopathy, normal ROM, no rigidity, no stridor, no thyromegaly Carotids: bilateral: upstroke normal - Respiratory Respiratory: bilateral: diminished, negative: dullness, rales, rhonchi, wheezing, prolonged expiration, prolonged inspiration - Cardiovascular Rhythm: regular Heart sounds: normal: S1, S2 Abnormal Heart Sounds: systolic murmur, no S3 Gallop, no S4 Gallop, no click secured entrance monitor is atrial paced No pedal edema - Gastrointestinal General gastrointestinal: normal bowel sounds, soft, no splenomegaly, no tenderness, no umbilical hernia, no ventral hernia - Integumentary Integumentary: normal, normal turgor - Neurologic Neurologic: CNII-XII intact - Musculoskeletal Musculoskeletal: gait normal, generalized weakness, strength equal bilaterally - Psychiatric Psychiatric: A&O x's 3, appropriate affect, intact judgment & insight - Labs CBC & Chem 7: 03/14/19 05:50 03/14/19 05:50 Labs: Abnormal Lab Results - Last 24 Hours (Table) 03/13/19 03/14/19 03/14/19 Range/Units 05:48 05:50 05:50 RBC 2.59 L (3.80-5.40) m/uL Hgb 7.2 L (11.4-16.0) gm/dL Hct 22.4 L (34.0-46.0) % RDW 18.0 H (11.5-15.5) % Chloride 109 H (98-107) mmol/L BUN 100 H (7-17) mg/dL Creatinine 2.22 H (0.52-1.04) mg/dL Glucose 113 H (74-99) mg/dL Procalcitonin 0.10 H (0.02-0.09) ng/mL Microbiology - Last 24 Hours (Table) 03/09/19 10:13 Blood Culture - Preliminary Blood No Growth after 120 hours 03/09/19 04:17 Blood Culture - Preliminary Blood No Growth after 120 hours Assessment and Plan Plan: 1. Acute diastolic heart failure and bilateral pleural effusion. Consult with Dr. Gutiérrez appreciated. Continue Lasix transitioned to oral and decreased to 20 mg daily discontinue prednisone. 2. History of cardiac pauses status post pacemaker placement. 3. Acute kidney injury with chronic kidney disease stage III. Consult with nephrolog appreciated. 4. Possible urinary tract infection with sepsis, hypothermia. Deisi hugger discontinued. Rocephin added. Stop date 03/14 5. Elevated liver function tests, improved. Continue to monitor. 6. Acute GI bleed with black stools. The continue to hemorrhoidal bleed Stool specimen will be sent for C. difficile toxin. Reconsult Dr. Rendon, filibertou e gila, discontinue prednisone. Plan plan for colonoscopy tomorrow 7. Hypertension and hypertensive cardiovascular disease. Continue Coreg 25 mg orally twice every day, amlodipine 10 mg daily, hydralazine discontinued. Labetalol on hold. 7. Hyperlipidemia. Continue patient on fenofibrate 160 minute gram orally once every day. 8. Anemia of chronic kidney disease monitor the patient's CBC. 9. Dysphagia with known esophageal stricture. Consult with GI appreciated. Plan for outpatient evaluation for possible EGD. Soft mechanical diet while in the hospital 10. Paroxysmal atrial fibrillation, patient is status post pacemaker. Coreg 25 mg orally twice every day, Eliquis --placed on hold. 11. Right-sided pyelonephritis and sepsis requiring admission October 2018. 12. History of breast cancer status post bilateral mastectomy. In remission. 13. History of ovarian cancer status post resection. 14. Peripheral neuropathy. Currently on gabapentin 300 mg orally twice every day. 15. 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 Continue current Cumby 7.5/325 one tablet twice daily as needed. 16. GERD. Continue patient on Protonix 40 mg orally once every day. Patient is full code. Discharge plan: Return home. PT and OT.
--- NOTE | 2019-03-14 13:42 | PN ---
PROGRESS NOTE DATE OF DICTATION: March 14, 2019 Patient is an 83-year-old pleasant white female admitted to hospital with congestive heart failure. While in the hospital, she started developing some rectal bleeding. She is having 2-3 bowel movements daily with bright red blood per rectum. She was started on suppositories and Eliquis has been on hold for 3 days with no resolution of her symptoms. She dropped hemoglobin to 7.2 g/dL today. She denies any abdominal pain. Reports no nausea, vomiting. PHYSICAL EXAMINATION: Appears comfortable. No apparent distress. VITAL SIGNS: Stable. Blood pressure is 118/56, pulse rate 62, temperature 97. HEENT examination unremarkable. Conjunctivae pink. Sclerae anicteric. Oral cavity no lesions. NECK: No JVD or lymph node enlargement. CHEST: Clear to auscultation. HEART: Regular rate and rhythm. ABDOMEN: Soft. Bowel sounds are positive. No organomegaly. EXTREMITIES: No pedal edema. SKIN: No rashes. NEUROLOGIC: Alert and oriented x3. No focal deficits. LABS: From today WBC 8.2, hemoglobin 7.2, platelets 200. BUN 100, creatinine 2.22. IMPRESSION: 1. Rectal bleeding for the last 3 days duration. Hemoglobin gradually dropping to 7.2 g/dL. Clinically, she is hemodynamically stable. Eliquis has been on hold for 2 days, but she still continues to have rectal bleeding. 2. Diastolic congestive heart failure, which has improved. 3. History of cardiac arrhythmias status post pacemaker implantation in the past. 4. Chronic kidney disease. 5. Atrial fibrillation on Eliquis, currently on hold for the last 2 days. RECOMMENDATIONS: 1. CBC in the morning. 2. We will proceed with colonoscopy tomorrow. I had a lengthy discussion with the patient regarding further workup of rectal bleeding, especially since the fact that the Eliquis has been on hold and she still continues to have small amount of bleeding and drop in her hemoglobin in the last 2 days. Discussed with her risks, benefits, and complications of the procedure and she is agreeable to it. 3. In the meantime, continue to hold Eliquis. 4. Repeat CBC in the morning. 5. We will follow with you closely during her hospital stay. Thank you for this consultation. MMODL / IJN: [id number] /
[2019-03-14] MEDS ORDERED: PEG 3350-NA SULF,BICARB,CL/KCL 4,000 ML BOTTLE PO ONE (17:00)
[2019-03-14] MEDS: FENOFIBRATE 160 MG TAB PO SCH (20:58)
[2019-03-14] MEDS: HYDROCORTISONE SUPPOSITORY 25 MG SUPP RECTAL SCH (20:59)
[2019-03-15] MEDS: ALPRAZolam 0.25 MG TAB PO PRN ×2 (04:09→23:20)
[2019-03-15] MEDS: CARVEDILOL 12.5 MG TAB PO SCH ×2 (06:53→17:08)
[2019-03-15] MEDS: PANTOPRAZOLE 40 MG TABLET PO SCH (06:54)
[2019-03-15] MEDS: GABAPENTIN 300 MG CAP PO SCH ×2 (06:56→20:36)
[2019-03-15] MEDS: AZITHROMYCIN 500 MG TAB PO SCH (08:18)
[2019-03-15] MEDS: HYDROcodone/APAP 7.5-325MG 1 EACH TAB PO SCH ×2 (08:18→20:35)
[2019-03-15] MEDS: BUDESONIDE 0.5 MG/2 ML NEBU INHALATION SCH ×2 (08:49→20:33)
[2019-03-15 09:59] LABS: Ferritin 64.3 ng/mL (10.0-291.0)
[2019-03-15 10:13] LABS: Iron Saturation 5.92 (12.00-45.00)
[2019-03-15] MEDS ORDERED: DARBEPOETIN ALFA 40 MCG/0.4 ML SYRINGE SQ SCH (13:00)
--- NOTE | 2019-03-15 13:00 | P.PN ---
Subjective Patient is seen in follow-up for acute kidney injury on chronic kidney disease. Renal function is improved. Creatinine 2.22 as of yesterday. Scheduled for EGD and colonoscopy today. Urine output is good. No vomiting or diarrhea. No active bleeding. Vital signs are stable. General: The patient appeared well nourished and normally developed. HEENT: Head exam is unremarkable. Neck is without jugular venous distension. LUNGS: Lungs are clear to auscultation and percussion. Breath sounds decreased. HEART: Rate and Rhythm are regular. First and second heart sounds normal. No murmurs, rubs or gallops. ABDOMEN: Abdominal exam reveals normal bowel sounds. Non-tender and non- distended. No evidence of peritonitis. EXTREMITITES: No clubbing, cyanosis, or edema. Objective - Vital Signs Vital signs: Vital Signs Temp 97.7 F 03/15/19 11:38 Pulse 70 03/15/19 11:38 Resp 20 03/15/19 11:38 BP 120/61 03/15/19 11:38 Pulse Ox 95 03/15/19 11:38 Intake & Output 03/14/19 03/15/19 03/15/19 18:59 06:59 18:59 Intake Total 1130 Output Total 1300 Balance 1130 -1300 Weight 58.6 kg Intake: IV 50 cefTRIAXone 1 gm In 50 Sodium Chloride 0.9% 50 ml @ 100 mls/hr IVPB Q24HR [facility] Rx#:[id number] Oral 1080 Output: Urine 800 Stool 500 Other: Voiding Method Toilet Toilet # Voids 1 400 # Bowel Movements 3 - Labs CBC & Chem 7: 03/14/19 05:50 03/14/19 05:50 Labs: Abnormal Lab Results - Last 24 Hours (Table) 03/14/19 03/15/19 Range/Units 05:50 00:58 Plasma Lactic Acid Jerel <0.5 L (0.7-2.0) mmol/L Iron 26 L (50-170) ug/dL Iron Saturation 5.92 L (12.00-45.00) Microbiology - Last 24 Hours (Table) 03/09/19 10:13 Blood Culture - Final Blood No Growth after 144 hours 03/09/19 04:17 Blood Culture - Final Blood No Growth after 144 hours Assessment and Plan Plan: Assessment: 1. Acute kidney injury mostly prerenal secondary to cardiorenal syndrome. Resolved. 2. Chronic kidney disease stage IV secondary to nephrosclerosis with baseline creatinine in the range of 2.1-2.3. GFR at baseline. 3. Chronic diastolic CHF with moderate mitral regurgitation and mild to mode rate tricuspid regurgitation. 4. Anemia of chronic kidney disease. Iron deficiency noted. Scheduled for EGD and colonoscopy today. 5. Hypertension with chronic kidney disease. Controlled. Plan: Maintain Lasix 20 mg daily. IV iron 3 doses. First dose today. Add Aranesp. Continue to monitor renal function and urine output.
[2019-03-15] MEDS ORDERED: PROPOFOL 10 MG/ML 20 ML VIAL IV ONE (13:31)
[2019-03-15] MEDS ORDERED: IV FLUID CONTINUATION 1,000 ML IV ONE ×2 (13:43)
--- NOTE | 2019-03-15 13:48 | P.PCN ---
Date of Procedure: 03/15/19 Procedure(s) Performed: BRIEF HISTORY: Patient is a 83-year-old pleasant white female admitted hospital with exacerbation of congestive heart failure. His been hospital she was having rectal bleeding and dropped hemoglobin from 9-7.2 g/dL. Sindy has been on hold for 4 days and she continues to have intermittent rectal bleeding and and she is hence scheduled for a colonoscopy to evaluate further. PROCEDURE PERFORMED: Colonoscopy. PREOPERATIVE DIAGNOSIS: rectal bleeding or 5 days duration IV sedation per Anesthesia. PROCEDURE: After informed consent was obtained, the patient, was brought into the endoscopy unit. IV sedation was administered by Anesthesia under continuous monitoring. Digital rectal examination was normal. Initially the Olympus CF-160 flexible video colonoscope was then inserted in the rectum, gradually advanced into the right colon with ileocolic anastomosis was visualized and appeared normal. The mucosa of the transverse colon, descending colon, sigmoid colon, and rectum appeared normal. Scattered sigmoid diverticulosis seen. Retroflexion was performed in the rectum and monitor hemorrhoids ere seen. The patient tolerated the procedure well. IMPRESSION: Small internal hemorrhoids with no active bleeding Scattered sigmoidal diverticulosis RECOMMENDATIONS: Findings of this examination were discussed with the patient as well as a family. She was advised to be a high-fiber diet and take fiber supplements a regular basis. Anticoagulation can be resumed today. She'll be started on a regular diet.
[2019-03-15] MEDS: SODIUM FERRIC GLUCONAT-SUCROSE 125 MG in SODIUM CHLORIDE 0.9% 100 ML IVPB SCH (14:29)
--- NOTE | 2019-03-15 15:39 | P.PN ---
Subjective Progress Note Date: 03/15/19 This is an 83-year-old female one of Dr. Rice, Dr. Kendrick and Dr. Gutiérrez with a previous medical history significant for hypertension and hypertensive cardiovascular disease, hyperlipidemia, GERD, history of breast cancer status post mastectomy, history of paroxysmal atrial fibrillation status post pacemaker, chronic kidney disease stage III, anemia of chronic kidney disease, GERD, osteoarthritis, varicose veins. Patient states that she just Dr. Rice on March 01. The week before she had received her flu immunization and did not feel well but by the time she saw Dr. tyler on Friday she felt like she was back to normal. She did not have any cough at the time. By Friday she was feeling suddenly very sick with weakness, shortness of breath, cough. She states she was so weak she had trouble standing up. Cough was loose and nonproductive. She denies having any fever or chills. She obtain an antibiotic for UTI but only took one pill. She denies any difficulty with urination, no blood in her urine. She denies any sick contacts. She has chronically loose stools that were unchanged. She does not use oxygen or nebulizer at home. Patient complains of difficulty swallowing food and she has had an EGD [place] [address] Young the digits show an esophageal stricture. She has had no follow-up since that time. Patient came into [facility] emergency center for evaluation by EMS. Pulse ox 82% enroute and patient was started on Solu-Medrol and oxygen. Patient was also found to be hypothermic with a rectal temperature of 93. WBC 5.5, hemoglobin 9.3, platelet count 163. Sodium 142, potassium 5.0, chloride 110, CO2 23, BUN 82, creatinine 2.30, blood sugar 160. ProBNP 1540. Total bilirubin 0.3, AST 176, ALT 113, alkaline phosphatase 66, albumin 3.8. INR 1.3, troponin 0.012. EKG was atrial paced rhythm. Chest x-ray reveals congestive he art failure pulmonary edema new compared to last exam on 10/21/2018. There is increasing pleural fluid on the right side and no change on the left. Patient was started on IV Lasix 40 mg every 8 hours, IV Solu-Medrol and admitted to the [facility] floor. Patient was currently waiting in the ER for room assignment. Oral temperatures up to 98 and Boogie hugger will be discontinued. 03/10: Esophagram reveals moderate dysmotility with blunted secondary stripping waves and prolonged pooling of contrast in the esophagus with patient prone or supine. Mild hypertrophy of the cricopharyngeus. Persistent superficial penetration during swallows. No aspiration seen. Mild generalized bowl thickening along the gastric fundus and body suggesting some underlying hyperplastic polyps. Correlate for chronic gastritis. Tiny sliding hiatal hernia. No stricture or obstruction. Consult with is pending. Patient has been seen by environmental compliance officer with recommendations to continue current medical therapy. Echocardiogram has been ordered. She has been afebrile, heart rate 70, blood pressure 108/42, pulse ox 96% on 2 L nasal cannula. Patient is currently on Lasix 40 mg every 8 hours IV & Medrol 40 mg every 8 hours. Patient has been seen by nephrology with recommendations to decrease Lasix to oral which will be done, assignment to decrease to 40 mg IV every 8 hours. Patient states that she is a little short of breath but not bad. No pedal edema. Echocardiogram reveals an EF of 55-60% with mild concentric left nuclear hypertrophy, trace aortic regurgitation, moderate mitral regurgitation, [id number] tricuspid regurgitation, mild pulmonary hypertension, no pericardial effusion. Anticipate discharge home tomorrow. We will add PT OT evaluations to ensure patient is safe to return home. 03/11: Patient was seen by Dr. Rendon with recommendations for possible EGD and possible manometry as an outpatient. Patient has been afebrile, heart rate 76, blood pressure 107/57 and pulse ox 93% on room air. Pulse ox after ambulation is 94%. Patient states she continues to have some shortness of breath. She occasionally has lightheadedness. Hydralazine will be discontinued due to lower blood pressure and worsening renal failure. Lasix decreased to 20 mg oral daily and Solu-Medrol changed to oral prednisone. Patient does state she has a productive cough. She denies any choking. She is on modified diet. Repeat lab work reveals potassium 3.4, BUN 120 and creatinine 2.3. WBC 15.2, hemoglobin 8.1. Chest x-ray reveals improvement in aeration and blind status. Persistent pleural effusions right greater than left probably associated atelectasis. Pneumonia not excluded. Plan to monitor overnight and plan for discharge tomorrow. 03/12: Patient has been evaluated by Dr. Coulter this morning and cleared for discharge with plan for follow-up in one week. She has been afebrile, blood pressure 118/56, pulse ox 91% on room air. Heart rate 72. Repeat lab work reveals potassium 3.1 and patient has been replaced with 80 mEq of potassium. BUN 126 and creatinine 2.65. Vitamin D 25-hydroxy 28.7 and parathyroid hormone intact 125.6. This morning, patient complains of diarrhea which is not unusual for her but she noticed black stools. We will discontinue eliquis and prednisone and start Pulmicort. Dr. Rendon will be reconsulted. The patient gives history of having 2 bowel resections 1 for large tumor and one secondary to an ovarian tumor. She has had a colonoscopy done in [address] Young. 03/13 patient examined bedside continues to have 8-10 bowel movements a day. She is using Anusol for hemorrhoidal bleed. Patient has short gut from previous surgeries and has 4-5 loose stools at her baseline. We'll initiate Imodium to help with diarrhea and improve hemorrhoidal bleed. Patient is unable to tolerate regular heart healthy diet will switch to soft mechanical diet. On evaluation of patient's blood work patient has a WBC of 12.2 improved from 15 patient was once prednisone prior. Hemoglobin is stable at 7.9. Potassium 3.4 status full support he milliequivalent potassium. BUN has improved to 1:15 creatinine stable at 2.32. Repeat CBC and a pro-calcitonin ordered. 03/14 patient examined bedside continued to have bowel movements which has improve in consistency since yesterday. Hemoglobin today is 7.2 patient otherwise is feeling well tolerating diet. She denies any chest pain or shortness of breath or abdominal pain. Plan for colonoscopy tomorrow. 2. 03/15: Patient again had hypothermia mass night down to 92 requiring Boogie hugger. Patient states that she was feeling very weak and cold last evening. She is feeling better this morning. She is scheduled to undergo EGD and colonoscopy today with Dr. Howard. Patient has had no nausea or vomiting. No diarrhea. No blood in her stools. Iron studies were low and she is scheduled for 3 doses of IV iron starting today and Aranesp was added to Dr. Chatterjee. Currently temperature is 97.7, heart rate 70, blood pressure 120/61 and pulse ox 95% on room air. Lactic acid was negative. Objective - Vital Signs Vital signs: Vital Signs Temp 97.4 F L 03/15/19 14:20 Pulse 71 03/15/19 14:20 Resp 20 03/15/19 14:20 BP 122/55 03/15/19 14:20 Pulse Ox 98 03/15/19 14:20 Intake & Output 03/14/19 03/15/19 03/15/19 18:59 06:59 18:59 Intake Total 1130 50 Output Total 1300 Balance 1130 -1300 50 Weight 58.6 kg Intake: IV 50 50 cefTRIAXone 1 gm In 50 Sodium Chloride 0.9% 50 ml @ 100 mls/hr IVPB Q24HR [facility] Rx#:[id number] Oral 1080 Output: Urine 800 Stool 500 Other: Voiding Method Toilet Toilet # Voids 1 400 # Bowel Movements 3 - Exam Review of Systems Constitutional: Reports anorexia, report chills Reports daytime sleepiness, Reports fatigue, denies lethargy, Reports malaise, Reports poor appetite, Reports weakness Eyes: denies blurred vision, denies pain Ears, nose, mouth and throat: Reports dysphagia, Denies headache, Denies nasal congestion, Denies nasal discharge, Denies sore throat Cardiovascular: Reports dyspnea on exertion, denies edema, denies leg edema, denies shortness of breath, Denies chest pain, Denies syncope Respiratory: Reports cough, denies dyspnea, Denies cough with sputum, Denies ex cessive sputum, Denies hemoptysis, Denies home oxygen, Denies sleep apnea, Denies wheezing Gastrointestinal: Denies abdominal pain, reports diarrhea, Denies nausea, Denies vomiting, reports black stools Genitourinary: Denies dysuria, Denies hematuria, Denies urgency, Denies urinary frequency Musculoskeletal: Reports muscle weakness, Denies myalgias Integumentary: Denies pruritus, Denies rash, Denies wounds Neurological: Denies change in mentation, Denies change in speech, Denies numbness, Denies seizures, Denies weakness Psychiatric: Denies anxiety, Denies depression Endocrine: Denies fatigue, Denies weight change - Constitutional General appearance: no distress, patient sitting up in bed. is at bedside. - EENT Eyes: anicteric sclerae, EOMI, PERRLA, no ptosis, no scleral icterus, normal appearance ENT: hard of hearing, NA/AT, normal oropharynx, no thrush Ears: bilateral: normal - Neck Neck: no lymphadenopathy, normal ROM, no rigidity, no stridor, no thyromegaly Carotids: bilateral: upstroke normal - Respiratory Respiratory: bilateral: diminished, negative: dullness, rales, rhonchi, wheezing, prolonged expiration, prolonged inspiration - Cardiovascular Rhythm: regular Heart sounds: normal: S1, S2 Abnormal Heart Sounds: systolic murmur, no S3 Gallop, no S4 Gallop, no click site monitor is atrial paced No pedal edema - Gastrointestinal General gastrointestinal: normal bowel sounds, soft, no splenomegaly, no tenderness, no umbilical hernia, no ventral hernia - Integumentary Integumentary: normal, normal turgor - Neurologic Neurologic: CNII-XII intact - Musculoskeletal Musculoskeletal: gait normal, generalized weakness, strength equal bilaterally - Psychiatric Psychiatric: A&O x's 3, appropriate affect, intact judgment & insight - Labs CBC & Chem 7: 03/14/19 05:50 03/14/19 05:50 Labs: Abnormal Lab Results - Last 24 Hours (Table) 03/14/19 03/15/19 Range/Units 05:50 00:58 Plasma Lactic Acid Jerel <0.5 L (0.7-2.0) mmol/L Iron 26 L (50-170) ug/dL Iron Saturation 5.92 L (12.00-45.00) Microbiology - Last 24 Hours (Table) 03/09/19 10:13 Blood Culture - Final Blood No Growth after 144 hours 03/09/19 04:17 Blood Culture - Final Blood No Growth after 144 hours Assessment and Plan Plan: 1. Acute diastolic heart failure and bilateral pleural effusion. Consult with Dr. Gutiérrez appreciated. Continue Lasix transitioned to oral and decreased to 20 mg daily discontinue prednisone. 2. History of cardiac pauses status post pacemaker placement. 3. Acute kidney injury with chronic kidney disease stage III. Consult with nephrolog appreciated. 4. Possible urinary tract infection with sepsis, hypothermia. Deisi hugger discontinued. Rocephin completed. 5. Elevated liver function tests, improved. Continue to monitor. 6. Acute GI bleed with black stools. Stool specimen will be sent for C. difficile toxin. Reconsult Dr. Rendon, discontinue eliquis, discontinue prednisone. Plan for EGD and colonoscopy today. 7. Hypertension and hypertensive cardiovascular disease. Continue Coreg 25 mg orally twice every day, amlodipine and hydralazine discontinued. Labetalol on hold. 7. Hyperlipidemia. Continue patient on fenofibrate 160 minute gram orally once every day. 8. Anemia of chronic kidney disease monitor the patient's CBC. Ferrlecit 3 doses, Aranesp started by Dr. Chatterjee. 9. Dysphagia with known esophageal stricture. Consult with GI appreciated. Plan for outpatient evaluation for possible EGD. 10. Paroxysmal atrial fibrillation, patient is status post pacemaker. Coreg 25 mg orally twice every day, Eliquis --placed on hold. 11. Right-sided pyelonephritis and sepsis requiring admission October 2018. 12. History of breast cancer status post bilateral mastectomy. In remission. 13. History of ovarian cancer status post resection. 14. Peripheral neuropathy. Currently on gabapentin 300 mg orally twice every day. 15. 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 Continue current [place] 7.5/325 one tablet twice daily as needed. 16. GERD. Continue patient on Protonix 40 mg orally once every day. Patient is full code. Discharge plan: Return home. PT and OT. Impression and plan of care have been directed as dictated by the signing physician. Domi Fairchild nurse practitioner acting as scribe for signing physician.
[2019-03-15] MEDS: MULTIVITAMINS, THERA 1 EACH TAB PO SCH (17:08)
[2019-03-15] MEDS: FUROSEMIDE 20 MG TAB PO SCH (17:08)
[2019-03-15] MEDS: CHOLECALCIFEROL 1,000 UNIT TAB PO SCH (17:08)
[2019-03-15] MEDS: HYDROCORTISONE SUPPOSITORY 25 MG SUPP RECTAL SCH (20:35)
[2019-03-15] MEDS: FENOFIBRATE 160 MG TAB PO SCH (20:36)
[2019-03-16] MEDS: CARVEDILOL 12.5 MG TAB PO SCH ×2 (05:56→17:28)
[2019-03-16] MEDS: PANTOPRAZOLE 40 MG TABLET PO SCH (05:56)
[2019-03-16] MEDS: BUDESONIDE 0.5 MG/2 ML NEBU INHALATION SCH ×2 (07:30→20:27)
[2019-03-16] MEDS: HYDROcodone/APAP 7.5-325MG 1 EACH TAB PO SCH ×2 (08:16→20:17)
[2019-03-16] MEDS: FUROSEMIDE 20 MG TAB PO SCH (08:16)
[2019-03-16] MEDS: MULTIVITAMINS, THERA 1 EACH TAB PO SCH (08:17)
[2019-03-16] MEDS: CHOLECALCIFEROL 1,000 UNIT TAB PO SCH (08:17)
[2019-03-16] MEDS: GABAPENTIN 300 MG CAP PO SCH ×2 (08:17→20:17)
[2019-03-16] MEDS: AZITHROMYCIN 500 MG TAB PO SCH (08:17)
[2019-03-16] MEDS: SODIUM FERRIC GLUCONAT-SUCROSE 125 MG in SODIUM CHLORIDE 0.9% 100 ML IVPB SCH (10:03)
[2019-03-16 11:22] LABS: Anisocytosis Slight; HCT 24.6 % (34.0-46.0); HGB 8.1 gm/dL (11.4-16.0); Hypochromasia Moderate; MCH 28.9 pg (25.0-35.0); MCV 87.6 fL (80.0-100.0); Mean Platelet Volume 6.3; Platelet Count 195 k/uL (150-450); Poikilocytosis Slight; RDW 17.2 % (11.5-15.5); WBC 6.7 k/uL (3.8-10.6)
[2019-03-16 11:39] LABS: Potassium 3.6 mmol/L (3.5-5.1)
--- NOTE | 2019-03-16 13:42 | P.PN ---
Subjective Progress Note Date: 03/16/19 This is an 83-year-old female one of Dr. Rice, Dr. Kendrick and Dr. Gutiérrez with a previous medical history significant for hypertension and hypertensive cardiovascular disease, hyperlipidemia, GERD, history of breast cancer status post mastectomy, history of paroxysmal atrial fibrillation status post pacemaker, chronic kidney disease stage III, anemia of chronic kidney disease, GERD, osteoarthritis, varicose veins. Patient states that she just Dr. Rice on March 01. The week before she had received her flu immunization and did not feel well but by the time she saw Dr. tyler on Friday she felt like she was back to normal. She did not have any cough at the time. By Friday she was feeling suddenly very sick with weakness, shortness of breath, cough. She states she was so weak she had trouble standing up. Cough was loose and nonproductive. She denies having any fever or chills. She obtain an antibiotic for UTI but only took one pill. She denies any difficulty with urination, no blood in her urine. She denies any sick contacts. She has chronically loose stools that were unchanged. She does not use oxygen or nebulizer at home. Patient complains of difficulty swallowing food and she has had an EGD [place] [address] Young the digits show an esophageal stricture. She has had no follow-up since that time. Patient came into [facility] emergency center for evaluation by EMS. Pulse ox 82% enroute and patient was started on Solu-Medrol and oxygen. Patient was also found to be hypothermic with a rectal temperature of 93. WBC 5.5, hemoglobin 9.3, platelet count 163. Sodium 142, potassium 5.0, chloride 110, CO2 23, BUN 82, creatinine 2.30, blood sugar 160. ProBNP 1540. Total bilirubin 0.3, AST 176, ALT 113, alkaline phosphatase 66, albumin 3.8. INR 1.3, troponin 0.012. EKG was atrial paced rhythm. Chest x-ray reveals congestive he art failure pulmonary edema new compared to last exam on 10/21/2018. There is increasing pleural fluid on the right side and no change on the left. Patient was started on IV Lasix 40 mg every 8 hours, IV Solu-Medrol and admitted to the [facility] floor. Patient was currently waiting in the ER for room assignment. Oral temperatures up to 98 and Boogie hugger will be discontinued. 03/10: Esophagram reveals moderate dysmotility with blunted secondary stripping waves and prolonged pooling of contrast in the esophagus with patient prone or supine. Mild hypertrophy of the cricopharyngeus. Persistent superficial penetration during swallows. No aspiration seen. Mild generalized bowl thickening along the gastric fundus and body suggesting some underlying hyperplastic polyps. Correlate for chronic gastritis. Tiny sliding hiatal hernia. No stricture or obstruction. Consult with is pending. Patient has been seen by drywaller with recommendations to continue current medical therapy. Echocardiogram has been ordered. She has been afebrile, heart rate 70, blood pressure 108/42, pulse ox 96% on 2 L nasal cannula. Patient is currently on Lasix 40 mg every 8 hours IV & Medrol 40 mg every 8 hours. Patient has been seen by nephrology with recommendations to decrease Lasix to oral which will be done, assignment to decrease to 40 mg IV every 8 hours. Patient states that she is a little short of breath but not bad. No pedal edema. Echocardiogram reveals an EF of 55-60% with mild concentric left nuclear hypertrophy, trace aortic regurgitation, moderate mitral regurgitation, [id number] tricuspid regurgitation, mild pulmonary hypertension, no pericardial effusion. Anticipate discharge home tomorrow. We will add PT OT evaluations to ensure patient is safe to return home. 03/11: Patient was seen by Dr. Rendon with recommendations for possible EGD and possible manometry as an outpatient. Patient has been afebrile, heart rate 76, blood pressure 107/57 and pulse ox 93% on room air. Pulse ox after ambulation is 94%. Patient states she continues to have some shortness of breath. She occasionally has lightheadedness. Hydralazine will be discontinued due to lower blood pressure and worsening renal failure. Lasix decreased to 20 mg oral daily and Solu-Medrol changed to oral prednisone. Patient does state she has a productive cough. She denies any choking. She is on modified diet. Repeat lab work reveals potassium 3.4, BUN 120 and creatinine 2.3. WBC 15.2, hemoglobin 8.1. Chest x-ray reveals improvement in aeration and blind status. Persistent pleural effusions right greater than left probably associated atelectasis. Pneumonia not excluded. Plan to monitor overnight and plan for discharge tomorrow. 03/12: Patient has been evaluated by Dr. Coulter this morning and cleared for discharge with plan for follow-up in one week. She has been afebrile, blood pressure 118/56, pulse ox 91% on room air. Heart rate 72. Repeat lab work reveals potassium 3.1 and patient has been replaced with 80 mEq of potassium. BUN 126 and creatinine 2.65. Vitamin D 25-hydroxy 28.7 and parathyroid hormone intact 125.6. This morning, patient complains of diarrhea which is not unusual for her but she noticed black stools. We will discontinue eliquis and prednisone and start Pulmicort. Dr. Rendon will be reconsulted. The patient gives history of having 2 bowel resections 1 for large tumor and one secondary to an ovarian tumor. She has had a colonoscopy done in [address] Young. 03/13 patient examined bedside continues to have 8-10 bowel movements a day. She is using Anusol for hemorrhoidal bleed. Patient has short gut from previous surgeries and has 4-5 loose stools at her baseline. We'll initiate Imodium to help with diarrhea and improve hemorrhoidal bleed. Patient is unable to tolerate regular heart healthy diet will switch to soft mechanical diet. On evaluation of patient's blood work patient has a WBC of 12.2 improved from 15 patient was once prednisone prior. Hemoglobin is stable at 7.9. Potassium 3.4 status full support he milliequivalent potassium. BUN has improved to 1:15 creatinine stable at 2.32. Repeat CBC and a pro-calcitonin ordered. 03/14 patient examined bedside continued to have bowel movements which has improve in consistency since yesterday. Hemoglobin today is 7.2 patient otherwise is feeling well tolerating diet. She denies any chest pain or shortness of breath or abdominal pain. Plan for colonoscopy tomorrow. 2. 03/15: Patient again had hypothermia mass night down to 92 requiring Boogie hugger. Patient states that she was feeling very weak and cold last evening. She is feeling better this morning. She is scheduled to undergo EGD and colonoscopy today with Dr. Howard. Patient has had no nausea or vomiting. No diarrhea. No blood in her stools. Iron studies were low and she is scheduled for 3 doses of IV iron starting today and Aranesp was added to Dr. Chatterjee. Currently temperature is 97.7, heart rate 70, blood pressure 120/61 and pulse ox 95% on room air. Lactic acid was negative. 03/16: Yesterday, patient underwent EGD and colonoscopy with Dr. Howard that revealed small internal hemorrhoids with no active bleeding and scattered sigmoidal diverticulosis. She cleared patient for regular diet and anticoagulation can be resumed. Discussed case with Dr. SHANICE Tapia today and he would like to hold eliquis until next Friday. Patient states that this morning she was feeling weak, dizzy and has some shortness of breath when she got up to bathroom. She has not had any hypothermia documented. She is completing her course of antibiotics and was to be discontinued. Repeat hemoglobin is at 8.1. She does not wish to go to rehab at discharge plans return home. We are anticipating discharge home tomorrow. Patient will be receiving one more dose of Ferrlecit tomorrow Objective - Vital Signs Vital signs: Vital Signs Temp 98 F 03/16/19 11:25 Pulse 68 03/16/19 11:25 Resp 20 03/16/19 11:28 BP 130/60 03/16/19 11:25 Pulse Ox 95 03/16/19 11:25 Intake & Output 03/15/19 03/16/19 03/16/19 18:59 06:59 18:59 Intake Total 170 240 Output Total 200 Balance 170 -200 240 Weight 57.9 kg Intake: IV 50 Oral 120 240 Output: Urine 200 Other: Voiding Method Toilet # Voids 400 1 - Exam Review of Systems Constitutional: Reports anorexia, report chills Reports daytime sleepiness, Reports fatigue, denies lethargy, Reports malaise, Reports poor appetite, Reports weakness, reports dizziness Eyes: denies blurred vision, denies pain Ears, nose, mouth and throat: Reports dysphagia, Denies headache, Denies nasal congestion, Denies nasal discharge, Denies sore throat Cardiovascular: Reports dyspnea on exertion, denies edema, denies leg edema, denies shortness of breath, Denies chest pain, Denies syncope Respiratory: Reports cough, denies dyspnea, Denies cough with sputum, Denies excessive sputum, Denies hemoptysis, Denies home oxygen, Denies sleep apnea, Denies wheezing Gastrointestinal: Denies abdominal pain, reports diarrhea, Denies nausea, Denies vomiting, reports black stools Genitourinary: Denies dysuria, Denies hematuria, Denies urgency, Denies urinary frequency Musculoskeletal: Reports muscle weakness, Denies myalgias Integumentary: Denies pruritus, Denies rash, Denies wounds Neurological: Denies change in mentation, Denies change in speech, Denies numbness, Denies seizures, Denies weakness Psychiatric: Denies anxiety, Denies depression Endocrine: Denies fatigue, Denies weight change - Constitutional General appearance: no distress, patient sitting up in bed. - EENT Eyes: anicteric sclerae, EOMI, PERRLA, no ptosis, no scleral icterus, normal appearance ENT: hard of hearing, NA/AT, normal oropharynx, no thrush Ears: bilateral: normal - Neck Neck: no lymphadenopathy, normal ROM, no rigidity, no stridor, no thyromegaly Carotids: bilateral: upstroke normal - Respiratory Respiratory: bilateral: diminished, negative: dullness, rales, rhonchi, wheezing, prolonged expiration, prolonged inspiration - Cardiovascular Rhythm: regular Heart sounds: normal: S1, S2 Abnormal Heart Sounds: systolic murmur, no S3 Gallop, no S4 Gallop, no click guest room inspector is atrial paced No pedal edema - Gastrointestinal General gastrointestinal: normal bowel sounds, soft, no splenomegaly, no tenderness, no umbilical hernia, no ventral hernia - Integumentary Integumentary: normal, normal turgor - Neurologic Neurologic: CNII-XII intact - Musculoskeletal Musculoskeletal: gait normal, generalized weakness, strength equal bilaterally - Psychiatric Psychiatric: A&O x's 3, appropriate affect, intact judgment & insight - Labs CBC & Chem 7: 03/16/19 10:53 03/16/19 10:53 Labs: Abnormal Lab Results - Last 24 Hours (Table) 03/16/19 03/16/19 Range/Units 10:53 10:53 RBC 2.80 L (3.80-5.40) m/uL Hgb 8.1 L (11.4-16.0) gm/dL Hct 24.6 L (34.0-46.0) % RDW 17.2 H (11.5-15.5) % BUN 59 H (7-17) mg/dL Creatinine 1.99 H (0.52-1.04) mg/dL Glucose 117 H (74-99) mg/dL Microbiology - Last 24 Hours (Table) 03/09/19 10:13 Blood Culture - Final Blood No Growth after 144 hours Assessment and Plan Plan: 1. Acute diastolic heart failure and bilateral pleural effusion. Consult with Dr. Gutiérrez appreciated. Continue Lasix transitioned to oral and decreased to 20 mg daily discontinue prednisone. 2. History of cardiac pauses status post pacemaker placement. 3. Acute kidney injury with chronic kidney disease stage III. Consult with nephrolog appreciated. 4. Possible urinary tract infection with sepsis, hypothermia. Deisi hugger discontinued. Rocephin completed. 5. Elevated liver function tests, improved. Continue to monitor. 6. Acute GI bleed with black stools. Stool specimen will be sent for C. difficile toxin. Reconsult Dr. Rendon, discontinue eliquis, discontinue prednisone. Status post EGD and colonoscopy. 7. Hypertension and hypertensive cardiovascular disease. Continue Coreg 25 mg orally twice every day, amlodipine and hydralazine discontinued. Labetalol on hold. 7. Hyperlipidemia. Continue patient on fenofibrate 160 minute gram orally once every day. 8. Anemia of chronic kidney disease monitor the patient's CBC. Ferrlecit 3 doses, Aranesp started by Dr. Chatterjee. 9. Dysphagia with known esophageal stricture. Consult with GI appreciated. Plan for outpatient evaluation for possible EGD. 10. Paroxysmal atrial fibrillation, patient is status post pacemaker. Coreg 25 mg orally twice every day, Eliquis --continue to hold until Friday. 11. Right-sided pyelonephritis and sepsis requiring admission October 2018. 12. History of breast cancer status post bilateral mastectomy. In remission. 13. History of ovarian cancer status post resection. 14. Peripheral neuropathy. Currently on gabapentin 300 mg orally twice every day. 15. Chronic low back pain secondary to degenerative disc disease with spon dylolisthesis status post epidural injections. Continue current Chappell 7.5/325 one tablet twice daily as needed. 16. GERD. Continue patient on Protonix 40 mg orally once every day. Patient is full code. Discharge plan: Return home on Friday. PT and OT. Impression and plan of care have been directed as dictated by the signing physician. Domi Fairchild nurse practitioner acting as scribe for signing physician.
[2019-03-16 14:05] VITALS: BMI 24.1
[2019-03-16] MEDS ORDERED: ACETAMINOPHEN TAB 325 MG TAB PO PRN (14:07)
--- NOTE | 2019-03-16 15:45 | P.PN ---
Subjective Progress Note Date: 03/16/19 This is an 83-year-old female who follows with Dr. Kendrick in the office, she has a previous medical history significant for hypertension and hypertensive cardiovascular disease, hyperlipidemia, GERD, history of breast cancer status post mastectomy, history of paroxysmal atrial fibrillation status post pacemaker, chronic kidney disease stage III, anemia of chronic kidney disease, GERD, osteoarthritis, varicose veins. She initially presented to the hospital with symptoms of weakness with associated shortness of breath and cough. On presentation here the patient was found to be hypothermic, chest x- ray showed congestive heart failure with pulmonary edema and she was diuresed with IV diuretics. Because of anemia the patient was seen in consultation by Dr. Cheryl eden who recommended the patient undergo a colonoscopy which was performed yesterday and revealed small internal hemorrhoids with no active bleeding, scattered sigmoid diverticulosis. The patient was seen and examined today, overall doing well. She was cleared from GI perspective to be reinitiated on her Eliquis. Her hemoglobin today is 8.1. Dr. Rosa Elena Tapia's recommendation was to continue to hold the Eliquis for one week and then resume at next Friday. She may be able to be discharged home from our perspective to follow-up with Dr. Mathis in the office post discharge. Objective - Vital Signs Vital signs: Vital Signs Temp 98 F 03/16/19 11:25 Pulse 68 03/16/19 11:25 Resp 20 03/16/19 11:28 BP 130/60 03/16/19 11:25 Pulse Ox 95 03/16/19 11:25 Intake & Output 03/15/19 03/16/19 03/16/19 18:59 06:59 18:59 Intake Total 170 480 Output Total 200 Balance 170 -200 480 Weight 57.9 kg 57.9 kg Intake: IV 50 Oral 120 480 Output: Urine 200 Other: Voiding Method Toilet # Voids 400 1 2 # Bowel Movements 0 - Exam PHYSICAL EXAMINATION: HEENT: [Head is atraumatic, normocephalic. Pupils equal, round. Neck is supple. There is no elevated jugular venous pressure.] HEART EXAMINATION: [Heart sounds regular, S1 and S2 with a systolic murmur at the apex.] CHEST EXAMINATION:[ Lungs are clear to auscultation. No chest wall tenderness is noted on palpation or with deep breathing.] ABDOMEN: [ Soft, nontender. Bowel sounds are heard. No organomegaly noted]. EXTREMITIES:[ 2+ peripheral pulses with no evidence of peripheral edema and no calf tenderness noted]. NEUROLOGIC [patient is awake, alert and oriented x3.] . - Labs CBC & Chem 7: 03/16/19 10:53 03/16/19 10:53 Labs: Abnormal Lab Results - Last 24 Hours (Table) 03/16/19 03/16/19 Range/Units 10:53 10:53 RBC 2.80 L (3.80-5.40) m/uL Hgb 8.1 L (11.4-16.0) gm/dL Hct 24.6 L (34.0-46.0) % RDW 17.2 H (11.5-15.5) % BUN 59 H (7-17) mg/dL Creatinine 1.99 H (0.52-1.04) mg/dL Glucose 117 H (74-99) mg/dL Microbiology - Last 24 Hours (Table) 03/09/19 10:13 Blood Culture - Final Blood No Growth after 144 hours Assessment and Plan Plan: Assessment and Plan Plan: 1. Acute diastolic heart failure and bilateral pleural effusion. 2. History of cardiac pauses status post pacemaker placement. 3. Acute kidney injury with chronic kidney disease stage III. 4. Possible urinary tract infection with sepsis, hypothermia. 5. Elevated liver function tests, improved. 6. Acute GI bleed with black stools. Status post colonoscopy of yesterday which revealed small internal hemorrhoids with no active bleeding, scattered s igmoid diverticulosis 7. Hypertension and hypertensive cardiovascular disease. 7. Hyperlipidemia. 8. Anemia of chronic kidney disease 9. Dysphagia 10. Paroxysmal atrial fibrillation, patient is status post pacemaker. 11. Right-sided pyelonephritis and sepsis requiring admission October 2018. 12. History of breast cancer status post bilateral mastectomy. In remission. 13. History of ovarian cancer status post resection. 14. Peripheral neuropathy. 15. 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 16. GERD. Plan From cardiology's perspective, the patient may be able to be discharged home today, Dr. SHANICE Tapia's recommendation is to hold the Eliquis for one week and resume it Friday, follow-up appointment with her encoding machine operator, Dr. Mathis in one week. DNP note has been reviewed, I agree with a documented findings and plan of care. Patient was seen and examined.
--- NOTE | 2019-03-16 18:20 | PN ---
PROGRESS NOTE DATE OF DICTATION: 03/16/2019 Patient is an 83-year-old pleasant white female admitted to the hospital with some congestive heart failure. While in the hospital, she developed rectal bleeding. Eliquis was on hold. She still continued to have bleeding; hence a colonoscopy was done yesterday that showed diverticulosis and small internal hemorrhoids. The patient is doing better today. No further bleeding. No abdominal pain. PHYSICAL EXAMINATION: She appears comfortable. No apparent distress. VITAL SIGNS: Stable. Blood pressure is 127/61, pulse rate 70, temperature 98.3. HEENT examination unremarkable. Conjunctivae pink. Sclerae anicteric. Oral cavity no lesions. NECK: No JVD or lymph node enlargement. CHEST: Clear to auscultation. HEART: Regular rate and rhythm. ABDOMEN: Soft. Bowel sounds are positive. No organomegaly. EXTREMITIES: No pedal edema. SKIN: No rashes. NEUROLOGIC: Alert and oriented x3. No focal deficits. LABS: WBC 6.7, hemoglobin 8.1, platelets 195. BUN 59, creatinine 1.99. IMPRESSION: 1. Rectal bleeding related to internal hemorrhoids. She had a colonoscopy yesterday that showed small internal hemorrhoids and sigmoid diverticulosis. 2. Congestive heart failure. 3. Atrial fibrillation, on Eliquis, which has been on hold. RECOMMENDATIONS: 1. Resume Eliquis as per Cardiology. 2. Advance diet as tolerated. 3. She can be discharged home and was advised to follow up in office if she has recurrent bleeding. MMODL / IJN: [id number] /
--- NOTE | 2019-03-16 19:34 | PN ---
PROGRESS NOTE Patient is seen for followup for chronic kidney disease and acute kidney injury. Her renal function has improved. Creatinine is down to 1.9. Overall, patient states she is feeling better. Hemoglobin is at 8.1. However, she did feel lightheaded and dizzy on trying to go to the bathroom this morning. Patient had a colonoscopy yesterday by Dr. Howard which showed small internal hemorrhoids and scattered sigmoid diverticulosis. No active bleeding was noted. On examination today, blood pressure was 130/60, heart rate 68 per minute. She is afebrile. EXAMINATION OF THE HEART: S1 and S2. EXAMINATION OF LUNGS: Bilateral breath sounds are heard. ABDOMEN: Soft, non-tender. Examination of lower extremities shows no evidence of edema. BLIND LACER exam is grossly intact. Labs show sodium 143, potassium 3.6, BUN 59, serum creatinine 1.9. ASSESSMENT: 1. Acute kidney injury, prerenal, currently improved. 2. Disproportionately elevated BUN secondary to steroids, now improving. 3. Anemia with severe iron deficiency, maintained on IV iron, status post colonoscopy yesterday which showed no evidence of bleeding. 4. Chronic kidney disease, NKF stage IV. 5. Esophageal dysphagia. 6. Diastolic heart failure, currently improved. PLAN: Continue current dose of diuretics. Continue Aranesp. Patient can be discharged. She will follow up as outpatient. MMODL / IJN: [id number] /
[2019-03-16] MEDS: FENOFIBRATE 160 MG TAB PO SCH (20:17)
[2019-03-16] MEDS: HYDROCORTISONE SUPPOSITORY 25 MG SUPP RECTAL SCH (20:17)
[2019-03-16] MEDS ORDERED: APIXABAN 2.5 MG TABLET PO SCH (21:00)
[2019-03-17] MEDS: PANTOPRAZOLE 40 MG TABLET PO SCH (05:53)
[2019-03-17] MEDS: CARVEDILOL 12.5 MG TAB PO SCH (05:53)
[2019-03-17 05:59] VITALS: TEMP 98.3
[2019-03-17 07:07] LABS: Anisocytosis Slight; HCT 26.3 % (34.0-46.0); HGB 8.1 gm/dL (11.4-16.0); Hypochromasia Slight; MCV 90.4 fL (80.0-100.0); Mean Platelet Volume 7.3; Platelet Count 193 k/uL (150-450); RBC 2.91 m/uL (3.80-5.40); RDW 17.3 % (11.5-15.5); WBC 6.6 k/uL (3.8-10.6)
[2019-03-17 07:25] LABS: Calcium 9.3 mg/dL (8.4-10.2); Potassium 3.6 mmol/L (3.5-5.1)
[2019-03-17] MEDS: BUDESONIDE 0.5 MG/2 ML NEBU INHALATION SCH (08:53)
[2019-03-17] MEDS: GABAPENTIN 300 MG CAP PO SCH (09:06)
[2019-03-17] MEDS: HYDROcodone/APAP 7.5-325MG 1 EACH TAB PO SCH (09:06)
[2019-03-17] MEDS: FUROSEMIDE 20 MG TAB PO SCH (09:06)
[2019-03-17] MEDS: CHOLECALCIFEROL 1,000 UNIT TAB PO SCH (09:07)
[2019-03-17] MEDS: AZITHROMYCIN 500 MG TAB PO SCH (09:07)
[2019-03-17] MEDS: MULTIVITAMINS, THERA 1 EACH TAB PO SCH (09:07)
[2019-03-17] MEDS: SODIUM FERRIC GLUCONAT-SUCROSE 125 MG in SODIUM CHLORIDE 0.9% 100 ML IVPB SCH (10:00)
[2019-03-17 12:33] VITALS: BP 104/60; PULSE 68; RESP 18
--- NOTE | 2019-03-18 10:16 | P.DS ---
Providers Date of admission: 03/09/19 03:27 Expected date of discharge: 03/17/19 Attending physician: Yessica Moreno Consults: 03/09/19 03:27 Consult Physician Routine Consulting Provider: Alexis Gutiérrez Consult Reason/Comments: Dr moreno request Do you want consulting provider notified?: Yes, Notify in am Consult Physician Stat Consulting Provider: Kel Chatterjee Consult Reason/Comments: established patient Do you want consulting provider notified?: Yes, Notify in am 03/09/19 12:51 Consult Physician Routine Consulting Provider: 03/09/19 15:16 Consult Physician Routine Consulting Provider: Aide Elizabeth Consult Reason/Comments: CHF Do you want consulting provider notified?: Yes 03/12/19 12:28 Consult Physician Routine Consulting Provider: Oumar Rendon Consult Reason/Comments: GIBleed Do you want consulting provider notified?: Yes Primary care physician: [facility] Course: This is an 83-year-old female one of Dr. Rice, Dr. Kendrick and Dr. Gutiérrez with a previous medical history significant for hypertension and hypertensive cardiovascular disease, hyperlipidemia, GERD, history of breast cancer status post mastectomy, history of paroxysmal atrial fibrillation status post pacemaker, chronic kidney disease stage III, anemia of chronic kidney disease, GERD, osteoarthritis, varicose veins. Patient states that she just Dr. Rice on March 01. The week before she had received her flu immunization and did not feel well but by the time she saw Dr. tyler on Friday she felt like she was back to normal. She did not have any cough at the time. By Friday she was feeling suddenly very sick with weakness, shortness of breath, cough. She states she was so weak she had trouble standing up. Cough was loose and nonproductive. She denies having any fever or chills. She obtain an antibiotic for UTI but only took one pill. She denies any difficulty with urination, no blood in her urine. She denies any sick contacts. She has chronically loose stools that were unchanged. She does not use oxygen or nebulizer at home. Patient complains of difficulty swallowing food and she has had an EGD done [place] [address] Young the digits show an esophageal stricture. She has had no follow-up since that time. Patient came into [facility] emergency center for evaluation by EMS. Pulse ox 82% enroute and patient was started on Solu-Medrol and oxygen. Patient was also found to be hypothermic with a rectal temperature of 93. WBC 5.5, hemoglobin 9.3, platelet count 163. Sodium 142, potassium 5.0, chloride 110, CO2 23, BUN 82, creatinine 2.30, blood sugar 160. ProBNP 1540. Total bilirubin 0.3, AST 176, ALT 113, alkaline phosphatase 66, albumin 3.8. INR 1.3, troponin 0.012. EKG was atrial paced rhythm. Chest x-ray reveals congestive heart failure pulmonary edema new compared to last exam on 10/21/2018. There is increasing pleural fluid on the right side and no change on the left. Patient was started on IV Lasix 40 mg every 8 hours, IV Solu-Medrol and admitted to the [facility] floor. Patient was currently waiting in the ER for room assignment. Oral temperatures up to 98 and Boogie hugger will be discontinued. 03/10: Esophagram reveals moderate dysmotility with blunted secondary stripping waves and prolonged pooling of contrast in the esophagus with patient prone or supine. Mild hypertrophy of the cricopharyngeus. Persistent superficial penetration during swallows. No aspiration seen. Mild generalized bowl thickening along the gastric fundus and body suggesting some underlying hyperplastic polyps. Correlate for chronic gastritis. Tiny sliding hiatal hernia. No stricture or obstruction. Consult with is pending. Patient has been seen by pairer odds with recommendations to continue current medical therapy. Echocardiogram has been ordered. She has been afebrile, heart rate 70, blood pressure 108/42, pulse ox 96% on 2 L nasal cannula. Patient is currently on Lasix 40 mg every 8 hours IV & Medrol 40 mg every 8 hours. Patient has been seen by nephrology with recommendations to decrease Lasix to oral which will be done, assignment to decrease to 40 mg IV every 8 hours. Patient states that she is a little short of breath but not bad. No pedal edema. Echocardiogram reveals an EF of 55-60% with mild concentric left nuclear hypertrophy, trace aortic regurgitation, moderate mitral regurgitation, wzqw-[id number] tricuspid regurgitation, mild pulmonary hypertension, no pericardial effusion. Anticipate discharge home tomorrow. We will add PT OT evaluations to ensure patient is safe to return home. 03/11: Patient was seen by Dr. Rendon with recommendations for possible EGD and possible manometry as an outpatient. Patient has been afebrile, heart rate 76, blood pressure 107/57 and pulse ox 93% on room air. Pulse ox after ambulation is 94%. Patient states she continues to have some shortness of breath. She occasionally has lightheadedness. Hydralazine will be discontinued due to lower blood pressure and worsening renal failure. Lasix decreased to 20 mg oral daily and Solu-Medrol changed to oral prednisone. Patient does state she has a productive cough. She denies any choking. She is on modified diet. Repeat lab work reveals potassium 3.4, BUN 120 and creatinine 2.3. WBC 15.2, hemoglobin 8.1. Chest x-ray reveals improvement in aeration and blind status. Persistent pleural effusions right greater than left probably associated atelectasis. Pneumonia not excluded. Plan to monitor overnight and plan for discharge t omorrow. 03/12: Patient has been evaluated by Dr. Coulter this morning and cleared for discharge with plan for follow-up in one week. She has been afebrile, blood pressure 118/56, pulse ox 91% on room air. Heart rate 72. Repeat lab work reveals potassium 3.1 and patient has been replaced with 80 mEq of potassium. BUN 126 and creatinine 2.65. Vitamin D 25-hydroxy 28.7 and parathyroid hormone intact 125.6. This morning, patient complains of diarrhea which is not unusual for her but she noticed black stools. We will discontinue eliquis and prednisone and start Pulmicort. Dr. Rendon will be reconsulted. The patient gives history of having 2 bowel resections 1 for large tumor and one secondary to an ovarian tumor. She has had a colonoscopy done in [address] Young. 03/13 patient examined bedside continues to have 8-10 bowel movements a day. She is using Anusol for hemorrhoidal bleed. Patient has short gut from previous surgeries and has 4-5 loose stools at her baseline. We'll initiate Imodium to help with diarrhea and improve hemorrhoidal bleed. Patient is unable to tolerate regular heart healthy diet will switch to soft mechanical diet. On evaluation of patient's blood work patient has a WBC of 12.2 improved from 15 patient was once prednisone prior. Hemoglobin is stable at 7.9. Potassium 3.4 status full support he milliequivalent potassium. BUN has improved to 1:15 creatinine stable at 2.32. Repeat CBC and a pro-calcitonin ordered. 03/14 patient examined bedside continued to have bowel movements which has improve in consistency since yesterday. Hemoglobin today is 7.2 patient otherwise is feeling well tolerating diet. She denies any chest pain or shortness of breath or abdominal pain. Plan for colonoscopy tomorrow. 2. 03/15: Patient again had hypothermia mass night down to 92 requiring Boogie hugger. Patient states that she was feeling very weak and cold last evening. She is feeling better this morning. She is scheduled to undergo EGD and c olonoscopy today with Dr. Howard. Patient has had no nausea or vomiting. No diarrhea. No blood in her stools. Iron studies were low and she is scheduled for 3 doses of IV iron starting today and Aranesp was added to Dr. Chatterjee. Currently temperature is 97.7, heart rate 70, blood pressure 120/61 and pulse ox 95% on room air. Lactic acid was negative. 03/16: Yesterday, patient underwent EGD and colonoscopy with Dr. Howard that revealed small internal hemorrhoids with no active bleeding and scattered sigmoidal diverticulosis. She cleared patient for regular diet and anticoagulation can be resumed. Discussed case with Dr. SHANICE Tapia today and he would like to hold eliquis until next Friday. Patient states that this morning she was feeling weak, dizzy and has some shortness of breath when she got up to bathroom. She has not had any hypothermia documented. She is completing her course of antibiotics and was to be discontinued. Repeat hemoglobin is at 8.1. She does not wish to go to rehab at discharge plans return home. We are anticipating discharge home tomorrow. Patient will be receiving one more dose of Ferrlecit tomorrow 03/17: Patient has been afebrile, heart rate 69, blood pressure 116/55, pulse ox 95% on room air. Patient has not had any episodes of hypothermia. WBC 6.6, hemoglobin 8.1, platelet count 193. Electro-lytes within normal limits, BUN 15 creatinine 2.11, blood sugar 69. Patient is found ambulating in her room. She is anxious for discharge home. is at bedside. Patient denies any new complaints. Patient will be discharged home today in stable condition. Discharge diagnoses: 1. Acute diastolic heart failure and bilateral pleural effusion. 2. History of cardiac pauses status post pacemaker placement. 3. Acute kidney injury with chronic kidney disease stage III. 4. Possible urinary tract infection with sepsis, hypothermia. 5. Elevated liver function tests, improved. 6. Acute GI bleed with black stools. Status post EGD and colonoscopy. 7. Hypertension and hypertensive cardiovascular disease. 8. Hyperlipidemia. 9. Anemia of chronic kidney disease 10. Dysphagia with known esophageal stricture. Plan for outpatient evaluation for possible EGD. 11. Paroxysmal atrial fibrillation, patient is status post pacemaker. 12. Right-sided pyelonephritis and sepsis requiring admission October 2018. 13. History of breast cancer status post bilateral mastectomy. In remission. 14. History of ovarian cancer status post resection. 15. Peripheral neuropathy. 16. 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 17. GERD. Discharge plan: home Impression and plan of care have been directed as dictated by the signing physician. Domi Fairchild nurse practitioner acting as scribe for signing physician. Patient Condition at Discharge: Good Plan - Discharge Summary Discharge Rx Participant: No New Discharge Prescriptions: New Hydrocortisone Suppository [Anusol-Hc] 25 mg RECTAL HS #30 supp Continue Omeprazole [PriLOSEC] 20 mg PO DAILY@0600 Nitroglycerin Sl Tabs [Nitrostat] 0.4 mg PO Q5M PRN PRN Reason: Chest Pain Vits A,C,E/Lutein/Minerals [Ocuvite with Lutein Tablet] 1 tab PO MOWEFRSA@0900 Multivit-Min/FA/Lycopene/Lut [Centrum Silver Tablet] 1 tab PO DAILY@0900 Fenofibrate Nanocrystallized [Fenofibrate] 145 mg PO HS@2100 ALPRAZolam [Xanax] 0.25 mg PO BID PRN #6 tab PRN Reason: Anxiety Gabapentin [Neurontin] 300 mg PO BID #6 cap HYDROcodone/APAP 7.5-325MG [[place] 7.5-325] 1 tab PO BID Biotin 5 mg PO DAILY@0900 L.acidoph,Paracasei, B.lactis [Probiotic] 1 cap PO DAILY Cholecalciferol (Vitamin D3) [Vitamin D3] 2,000 unit PO DAILY Ascorbic Acid [Vitamin C] 500 mg PO DAILY Torsemide [Demadex] 5 mg PO Q48H Carvedilol 25 mg PO BID Fish Oil/Dha/Epa [Fish Oil 1,200 mg Fish Oil] 1 cap PO DAILY Apixaban [Eliquis] 2.5 mg PO BID #0 tablet Changed amLODIPine [Norvasc] 5 mg PO DAILY@0900 #0 Discontinued hydrALAZINE HCL [Apresoline] 25 mg PO BID tab Labetalol [Trandate] 200 mg PO Q8H PRN PRN Reason: Blood Pressure - High Discharge Medication List Multivit-Min/FA/Lycopene/Lut [Centrum Silver Tablet] 1 tab PO DAILY@0911/28/14 [History] Nitroglycerin Sl Tabs [Nitrostat] 0.4 mg PO Q5M PRN 11/28/14 [History] Omeprazole [PriLOSEC] 20 mg PO DAILY@0611/28/14 [History] Vits A,C,E/Lutein/Minerals [Ocuvite with Lutein Tablet] 1 tab PO MOWEFRSA@0900 11/28/14 [History] Fenofibrate Nanocrystallized [Fenofibrate] 145 mg PO HS@2100 10/15/18 [History] ALPRAZolam [Xanax] 0.25 mg PO BID PRN #6 tab 10/21/18 [Rx] Gabapentin [Neurontin] 300 mg PO BID #6 cap 10/21/18 [Rx] Biotin 5 mg PO DAILY@0900 10/26/18 [History] HYDROcodone/APAP 7.5-325MG [[place] 7.5-325] 1 tab PO BID 10/26/18 [History] Ascorbic Acid [Vitamin C] 500 mg PO DAILY 03/09/19 [History] Carvedilol 25 mg PO BID 03/09/19 [History] Cholecalciferol (Vitamin D3) [Vitamin D3] 2,000 unit PO DAILY 03/09/19 [History] Fish Oil/Dha/Epa [Fish Oil 1,200 mg Fish Oil] 1 cap PO DAILY 03/09/19 [History] L.acidoph,Paracasei, B.lactis [Probiotic] 1 cap PO DAILY 03/09/19 [History] Torsemide [Demadex] 5 mg PO Q48H 03/09/19 [History] Apixaban [Eliquis] 2.5 mg PO BID #0 tablet 03/17/19 [Rx] Hydrocortisone Suppository [Anusol-Hc] 25 mg RECTAL HS #30 supp 03/17/19 [Rx] amLODIPine [Norvasc] 5 mg PO DAILY@0900 #0 03/17/19 [Rx] Follow up Appointment(s)/Referral(s): Zuri Coulter MD [STAFF PHYSICIAN] - 04/20/19 2:00 pm (Friday with Che MEDINA.) Lucio Rice MD [Primary Care Provider] - 1 Week (Office will call with follow up appointment. ) Cosme Adams MD [REFERRING] - 03/23/19 1:00 pm (Friday Please keep previous follow up appointment, arrive at 12:30 PM for pacemaker check.) Alexis Gutiérrez MD [STAFF PHYSICIAN] - 1 Week (Pulmonary.) Oumar Rendon MD [STAFF PHYSICIAN] - 04/06/19 9:00 am (Friday Please call office with new Medicare number after you are discharged from hospital. Your follow up appointment is with Shameka Zelaya NP. Please arrive at 8:30 AM for new patient paperwork.) Patient Instructions/Handouts: Heart Failure (DC), Chronic Dysphagia (DC), Low- Sodium Diet (DC), Barium Swallow (DC) Activity/Diet/Wound Care/Special Instructions: Resume Eliquis on Friday, 03/23. Discharge Disposition: HOME SELF-CARE
== END 2019-03-17 13:49 | disposition home or self-care (01) | DRG 291 ==
LOC: EC 00:12 → 3SCARD 03:27
PROVIDERS: ADMIT Family Medicine; ATTEND Family Medicine
PROC: 0DJD8ZZ Inspection of Lower Intestinal Tract, Via Natural or Artificial Opening Endoscopic (ICD-10-PCS; principal; 2019-03-15 08:55)
DX: I13.0 Hypertensive heart and chronic kidney disease with heart failure and stage 1 through stage 4 chronic kidney disease, or unspecified chronic kidney disease (principal); I50.33 Acute on chronic diastolic (congestive) heart failure; J96.00 Acute respiratory failure, unspecified whether with hypoxia or hypercapnia; N17.9 Acute kidney failure, unspecified; J44.1 Chronic obstructive pulmonary disease with (acute) exacerbation; K62.5 Hemorrhage of anus and rectum; N18.4 Chronic kidney disease, stage 4 (severe); J98.11 Atelectasis; G62.9 Polyneuropathy, unspecified; I27.20 Pulmonary hypertension, unspecified; I49.5 Sick sinus syndrome; I08.1 Rheumatic disorders of both mitral and tricuspid valves; E83.52 Hypercalcemia; I42.9 Cardiomyopathy, unspecified; I48.0 Paroxysmal atrial fibrillation; D63.1 Anemia in chronic kidney disease; K22.2 Esophageal obstruction; R13.14 Dysphagia, pharyngoesophageal phase; I73.9 Peripheral vascular disease, unspecified; K29.70 Gastritis, unspecified, without bleeding; K64.8 Other hemorrhoids; E78.5 Hyperlipidemia, unspecified; I83.90 Asymptomatic varicose veins of unspecified lower extremity; N27.1 Small kidney, bilateral; M79.7 Fibromyalgia; M48.061 Spinal stenosis, lumbar region without neurogenic claudication; M51.16 Intervertebral disc disorders with radiculopathy, lumbar region; M51.17 Intervertebral disc disorders with radiculopathy, lumbosacral region; M43.16 Spondylolisthesis, lumbar region; K44.9 Diaphragmatic hernia without obstruction or gangrene; I25.10 Atherosclerotic heart disease of native coronary artery without angina pectoris; E87.6 Hypokalemia; K57.30 Diverticulosis of large intestine without perforation or abscess without bleeding; K22.70 Barrett's esophagus without dysplasia; K21.9 Gastro-esophageal reflux disease without esophagitis; M19.90 Unspecified osteoarthritis, unspecified site; T50.2X5A Adverse effect of carbonic-anhydrase inhibitors, benzothiadiazides and other diuretics, initial encounter; T38.0X5A Adverse effect of glucocorticoids and synthetic analogues, initial encounter; D50.9 Iron deficiency anemia, unspecified; K22.4 Dyskinesia of esophagus; K52.9 Noninfective gastroenteritis and colitis, unspecified; K59.00 Constipation, unspecified; G89.29 Other chronic pain; H91.90 Unspecified hearing loss, unspecified ear; Z79.01 Long term (current) use of anticoagulants; Z79.82 Long term (current) use of aspirin; Z79.899 Other long term (current) drug therapy; Z95.0 Presence of cardiac pacemaker; Z90.710 Acquired absence of both cervix and uterus; Z90.13 Acquired absence of bilateral breasts and nipples; Z85.3 Personal history of malignant neoplasm of breast; Z85.43 Personal history of malignant neoplasm of ovary; Z85.828 Personal history of other malignant neoplasm of skin; Z87.440 Personal history of urinary (tract) infections; Z90.49 Acquired absence of other specified parts of digestive tract; Z86.010 Personal history of colon polyps; Z92.21 Personal history of antineoplastic chemotherapy; Z87.891 Personal history of nicotine dependence; Z98.890 Other specified postprocedural states; Z98.42 Cataract extraction status, left eye; Z98.41 Cataract extraction status, right eye; Z96.1 Presence of intraocular lens; Z88.0 Allergy status to penicillin; Z88.2 Allergy status to sulfonamides; Z88.8 Allergy status to other drugs, medicaments and biological substances; Z80.1 Family history of malignant neoplasm of trachea, bronchus and lung; Z82.49 Family history of ischemic heart disease and other diseases of the circulatory system; Z83.3 Family history of diabetes mellitus; Z82.3 Family history of stroke
CPT/HCPCS: 36415; 45378; 71046; 74240; 80048; 80053; 81001; 82306; 82533; 82728; 83540; 83550; 83605; 83735; 83880; 83970; 84132; 84145; 84439; 84443; 84484; 85025; 85027; 85610; 85730; 87040; 93005; 93306; 94640; 94760; 96365; 96366; 96375; 96376; 99285

== ENCOUNTER 2019-04-21 10:32 | Day surgery (SDC) | payer MEDICARE, BC ==
[2019-04-19 18:27] VITALS: BMI 24.5
[~2019-04-21 10:32] MED LIST: LACTATED RINGERS 1,000 ML IV SCH; LIDOCAINE 1% 20 ML VIAL (10MG/ML) FOR IV START INTRADERMA PRN
[2019-04-21 11:08] VITALS: TEMP 98
[2019-04-21] MEDS ORDERED: LIDOCAINE 1% 20 ML VIAL (10MG/ML) FOR IV START INTRADERMA ONE (11:09)
[2019-04-21] MEDS ORDERED: LACTATED RINGERS 1,000 ML IV ONE (11:09)
[2019-04-21] MEDS ORDERED: PROPOFOL 10 MG/ML 20 ML VIAL IV ONE (12:07)
--- NOTE | 2019-04-21 12:20 | P.PCN ---
Date of Procedure: 04/21/19 Procedure(s) Performed: BRIEF HISTORY: Patient is a 83-year-old, pleasant, white female, scheduled for an upper endoscopy as a part of evaluation of intermittent dysphagia to solids for the last 5 years duration. She did have an upper GI done in February 2019 that showed moderate esophageal dysmotility. She is hence scheduled for an upper endoscopy with possible dilation today. PROCEDURE PERFORMED: Esophagogastroduodenoscopy with biopsy. PREOPERATIVE DIAGNOSIS: Admitted dysphagia to solids for the last 5 years duration. IV sedation per anesthesia. PROCEDURE: After informed consent was obtained, the patient was brought into the endoscopy unit. IV sedation was administered by Anesthesia under continuous monitoring. Initially the Olympus GIF-140 video endoscope was inserted into the mouth. Esophagus intubated with some difficulty suspicious for recurrent of fentanyl dysfunction. It was gradually advanced into the stomach and duodenum and carefully examined. In the bulb of the duodenum there was a 1 cm polyp that was biopsied. The second part of the duodenum appeared normal. The scope at this time was withdrawn to the stomach, adequately insufflated with air, and upon careful examination, mucosa of the antrum, had mild gastritis and biopsies were done from this area. The body, cardia and the fundus appeared normal. The scope was then withdrawn into the esophagus. The GE junction was located at 39 cm from the incisors. It was 5 mm a Cardenas's appearing mucosa just proximal to the GE junction which was biopsied. The rest of the esophagus appeared normal. There were no erosions or ulcerations seen . The proximal cervical esophagus was carefully examined and appeared normal. Biopsies were done from the distal esophagus and the patient tolerated the procedure well. IMPRESSION: 1. Hesitancy to the passage of the scope in the upper esophageal sphincter suggestive of A pharyngeal dysfunction Is to be the cause of dysphagia. 2. No evidence of esophageal stricture 3. Short segment Cardenas's esophagus 4. mild antral gastritis. 5. 1 cm duodenal polyp in the duodenal bulb status post multiple biopsies. RECOMMENDATIONS: The findings of this examination were discussed with the patient as well as a family. She was advised to follow with the biopsy results. She will continue with her current medications. Advised on soft diet..
[2019-04-21 12:31] VITALS: PULSE 60; RESP 16
[2019-04-21 12:56] VITALS: BP 119/68
== END 2019-04-21 13:37 | disposition home or self-care (01) ==
LOC: ORWHC2ENDO 10:32
PROVIDERS: ATTEND Internal Medicine Gastroenterology
DX: K29.80 Duodenitis without bleeding (principal); K29.50 Unspecified chronic gastritis without bleeding; K31.7 Polyp of stomach and duodenum; K22.70 Barrett's esophagus without dysplasia; I25.10 Atherosclerotic heart disease of native coronary artery without angina pectoris; I11.0 Hypertensive heart disease with heart failure; I50.9 Heart failure, unspecified; E78.5 Hyperlipidemia, unspecified; I48.91 Unspecified atrial fibrillation; I34.1 Nonrheumatic mitral (valve) prolapse; I73.9 Peripheral vascular disease, unspecified; J44.9 Chronic obstructive pulmonary disease, unspecified; N28.9 Disorder of kidney and ureter, unspecified; K21.9 Gastro-esophageal reflux disease without esophagitis; D64.9 Anemia, unspecified; Z85.3 Personal history of malignant neoplasm of breast; Z85.43 Personal history of malignant neoplasm of ovary; Z79.01 Long term (current) use of anticoagulants; Z79.891 Long term (current) use of opiate analgesic; Z79.899 Other long term (current) drug therapy; Z79.2 Long term (current) use of antibiotics; Z88.0 Allergy status to penicillin; Z88.2 Allergy status to sulfonamides
CPT/HCPCS: 88305; 43239; J2704

== ENCOUNTER → 2019-12-13 | Outpatient (CLI) | payer MEDICARE, BC ==
--- NOTE | 2019-12-13 15:20 | US ---
EXAMINATION TYPE: US kidneys/renal and bladder DATE OF EXAM: 12/13/2019 COMPARISON: CT 2018, US 2018 CLINICAL HISTORY: 84-year-old female R30.0 DYSURIA,N39.0 RECURRENT UTI. Recurrent UTI TECHNIQUE: Multiple sonographic images of the kidneys and bladder are obtained. FINDINGS: EXAM MEASUREMENTS: Right Kidney: 7.2 x 4.2 x 4.0 cm Left Kidney: 7.8 x 4.6 x 4.2 cm Right Kidney: small in size, cortical thinning, small cortical cysts measuring 0.6cm Left Kidney: limited visualization, small in size, thin and echogenic cortex, small cortical cyst bear suring 0.7cm, No evident hydronephrosis. Bladder: wnl Bilateral Jets seen: yes IMPRESSION: Changes of chronic medical renal disease, left more so than the right. No hydronephrosis.
== END | disposition home or self-care (01) ==
LOC: RADUSWWP 14:24
PROVIDERS: ATTEND Internal Medicine Geriatric Medicine
DX: N18.9 Chronic kidney disease, unspecified (principal)
CPT/HCPCS: 76770

== ENCOUNTER → 2020-10-05 | Outpatient (CLI) | payer MEDICARE, BC ==
--- NOTE | 2020-10-05 12:36 | CT ---
EXAMINATION TYPE: CT lumbar spine wo con DATE OF EXAM: 10/05/2020 12:27 PM COMPARISON: None HISTORY: low back pain, more so on right, right leg weakness CT DLP: 543.9 mGycm Automated exposure control for dose reduction was used. Unenhanced CT of the lumbar spine was performed. Bone and soft tissue window settings are submitted as well as coronal and sagittal reconstructions. L1-L2: Normal disc space height. No disc herniation protrusion or central stenosis. No facet joint arthropathy. No evidence for foraminal encroachment. L2-L3: Normal disc space height. No disc herniation protrusion or central stenosis. No facet joint arthropathy. No evidence for foraminal encroachment. L3-L4: Vacuum disc changes. Posterior disc bulge. Effacement ventral thecal sac. Facet joint arthropa thy resulting in mild central stenosis. Grade 1 anterolisthesis measuring 4 mm. L4-L5: Vacuum disc changes. Posterior disc bulge. Effacement ventral thecal sac. Facet joint arthropa thy resulting in mild central stenosis. L5-S1: Normal disc space height. No disc herniation protrusion or central stenosis. No facet joint arthropathy. No evidence for foraminal encroachment. IMPRESSION: Degenerative disc disease and mild central stenosis at L4-5 and L3-4.
== END | disposition home or self-care (01) ==
LOC: RADCTMAIN 12:03
DX: M48.061 Spinal stenosis, lumbar region without neurogenic claudication (principal); M51.36 Other intervertebral disc degeneration, lumbar region
CPT/HCPCS: 72131

== ENCOUNTER → 2020-11-15 | Outpatient (CLI) | payer MEDICARE, BC ==
--- NOTE | 2020-11-15 17:25 | ECHOF ---
Referral Reason:I25.10 Atherosclerotic heart disease of [place] MEASUREMENTS -------- HEIGHT: 157.5 cm WEIGHT: 57.2 kg BP: RVIDd: 2.7 cm (< 3.3) IVSd: 1.1 cm (0.6 - 1.1) LVIDd: 4.4 cm (3.9 - 5.3) LVPWd: 1.3 cm (0.6 - 1.1) IVSs: 1.3 cm LVIDs: 3.6 cm LVPWs: 1.2 cm LA Diam: 4.2 cm (2.7 - 3.8) LAESV Index (A-L): 30.24 ml/m Ao Diam: 2.5 cm (2.0 - 3.7) AV Cusp: 1.4 cm (1.5 - 2.6) LA Diam: 3.8 cm (2.7 - 3.8) MV EXCURSION: 15.488 mm (> 18.000) MV EF SLOPE: 32 mm/s (70 - 150) EPSS: 0.7 cm RAP: 5.00 mmHg RVSP: 60.88 mmHg FINDINGS -------- Sinus rhythm. This was a technically good study. The left ventricular size is normal. Left ventricular wall thickness is normal. Overall left vent ricular systolic function is low-normal with, an EF between 50 - 55 %. The right ventricle is normal in size. LA is midly dilated 29-33ml/m2. The right atrial size is normal. There is mild aortic valve sclerosis. Trace to mild aortic regurgitation. Mild mitral annular calcification present. Jqjb-[id number] mitral regurgitation is present. Moderate tricuspid regurgitation present. There is moderate pulmonary hypertension. The right britany tricular systolic pressure, as measured by Doppler, is 60.88mmHg. Trace/mild (physiologic) pulmonic regurgitation. The aortic root size is normal. There is no pericardial effusion. CONCLUSIONS -------- 1. The left ventricular size is normal. 2. Overall left ventricular systolic function is low-normal with, an EF between 50 - 55 %. 3. The right ventricle is normal in size. 4. LA is midly dilated 29-33ml/m2. 5. The right atrial size is normal. 6. There is mild aortic valve sclerosis. 7. Trace to mild aortic regurgitation. 8. Mild mitral annular calcification present. 9. Gazz-ls-vvcqqurj mitral regurgitation is present. 10. Moderate tricuspid regurgitation present. 11. There is moderate pulmonary hypertension. 12. The right ventricular systolic pressure, as measured by Doppler, is 60.88mmHg. 13. Trace/mild (physiologic) pulmonic regurgitation. 14. The aortic root size is normal. 15. There is no pericardial effusion. CANDLEMAKER: Lizabeth Soler RDCS
== END | disposition home or self-care (01) ==
LOC: RADECHMAIN 12:01
PROVIDERS: ATTEND Internal Medicine Cardiovascular Disease
DX: I08.8 Other rheumatic multiple valve diseases (principal); I27.20 Pulmonary hypertension, unspecified
CPT/HCPCS: 93306

== ENCOUNTER → 2022-11-15 | Outpatient (CLI) | payer MEDICARE ==
--- NOTE | 2022-11-15 14:56 | BD ---
EXAMINATION TYPE: Axial Bone Density DATE OF EXAM: 11/15/2022 CLINICAL HISTORY: 87 years old Female. ICD-10 CODE: M81.0 Known osteoporosis Height: 59in Weight: 115lb FRAX RISK QUESTIONS: Secondary Osteoporosis: 3. Menopause before 45: yes 4. Malnutrition: RISK FACTORS HISTORY OF: Surgery to Spine/Hip(right/left)/Wrist (right/left): lumbar spine surgery When: 2019 Family History of Osteoporosis: yes Active: yes Postmenopausal woman: yes Take estrogen and/or progesterone medications: yes, none current How long: a few years Lost more than 2 inches in height since high school: yes MEDICATIONS: Additional Medications: cholesterol med, bp meds, cardiac meds, vitamin d Additional History: ovarian cancer with chemo, breast cancer, stage 4 kidney disease EXAM MEASUREMENTS: Bone mineral densitometry was performed using the [employer] System. Bone mineral density about the R hip (g/cm2): 0.739 Bone mineral density about the L hip (g/cm2): 0.795 T Score values are as follows: -----R Neck: -2.3 -----L Neck: -1.8 -----R Total: -2.1 -----L Total: -1.7 Z Score values are as follows: -----R Neck: 0.4 -----L Neck: 0.9 -----R Total: 0.5 -----L Total: 1.0 Bone mineral density has: Decreased -8.1% since study of: 10-29-2017 Bone mineral density about the L Wrist (g/cm2): 0.437 T Score values are as follows: -----Dist. R+U: -3.0 -----Prox. R+U: -3.2 -----Radius total: -3.9 Z Score values are as follows: -----Dist. R+U: 0.3 -----Prox. R+U: 0.1 -----Radius total: -0.6 No comaparison since study of: 10-29-17 FRAX%s: The graph provided illustrates a 22.7% chance for a major osteoporotic fx and a 7.6% chance f or the hips probability for fx in 10 years time. IMPRESSION: Osteoporosis (T Score less than -2.5). There is increased fracture risk and therapy is usually indicated based on age. Re-Screen 1-2 years. NOTE: T-SCORE=SD OF THE YOUNG ADULT MEAN.
== END | disposition home or self-care (01) ==
LOC: RADBDWWP 13:12
PROVIDERS: ATTEND Internal Medicine Geriatric Medicine
DX: M81.0 Age-related osteoporosis without current pathological fracture (principal); M85.89 Other specified disorders of bone density and structure, multiple sites
CPT/HCPCS: 77080

== ENCOUNTER 2023-02-22 00:10 | Inpatient (IN) | payer MEDICARE ==
[2023-02-22 02:23] LABS: Anisocytosis Slight; Basophils # (A) 0.1 k/uL (0-0.2); Basophils % (A) 0 %; Eosinophils # (A) 0.1 k/uL (0-0.7); Eosinophils % (A) 0 %; HCT 32.7 % (34.0-46.0); HGB 10.3 gm/dL (11.4-16.0); Hypochromasia Slight; Lymphocytes # (A) 0.9 k/uL (1.0-4.8); Lymphocytes % (A) 3 %; MCH 30.4 pg (25.0-35.0); MCHC 31.6 g/dL (31.0-37.0); MCV 96.1 fL (80.0-100.0); Macrocytosis Slight; Mean Platelet Volume 7.7; Monocytes # (A) 0.9 k/uL (0-1.0); Monocytes % (A) 4 %; Neutrophils # (A) 23.1 k/uL (1.3-7.7); Neutrophils % (A) 92 %; Platelet Count 235 k/uL (150-450); RDW 17.1 % (11.5-15.5); WBC 25.2 k/uL (3.8-10.6)
[2023-02-22 02:26] LABS: ALT 28 U/L (4-34); AST 50 U/L (14-36); African American GFR (CKD) 18 (>60 ml/min/1.73 sqM); Albumin 3.3 g/dL (3.5-5.0); Alkaline Phosphatase 62 U/L (38-126); Anion Gap 9 mmol/L; Blood Urea Nitrogen 67 mg/dL (7-17); Calcium 9.6 mg/dL (8.4-10.2); Carbon Dioxide 20 mmol/L (22-30); Chloride 110 mmol/L (98-107); Glucose 119 mg/dL (74-99); Magnesium 1.6 mg/dL (1.6-2.3); Non-African American GFR(CKD) 16 (>60 ml/min/1.73 sqM); Potassium 4.8 mmol/L (3.5-5.1); Sodium 139 mmol/L (137-145); Total Bilirubin 0.4 mg/dL (0.2-1.3); Total Protein 6.5 g/dL (6.3-8.2)
[2023-02-22 02:28] LABS: INR 1.2 (<1.2); Partial Thromboplastin Time 27.8 sec (22.0-30.0); Prothrombin Time 12.4 sec (9.0-12.0)
[2023-02-22] MEDS ORDERED: SODIUM CHLORIDE 0.9% 1,000 ML IV ONE (02:57)
--- NOTE | 2023-02-22 03:07 | ED ---
General Adult HPI - General Chief complaint: Recheck/Abnormal Lab/Rx Stated complaint: Shaking, dizziness, loss of appetite Time Seen by Provider: 02/22/23 00:30 Source: family Mode of arrival: wheelchair Limitations: no limitations - History of Present Illness Initial comments: 87-year-old female with past medical history of A. fib on Eliquis, hypertension, hyperlipidemia who presents to the emergency department stating that for the past 2 days she has not felt well. Today the patient was extremely tremulous. States that she has no appetite to eat. She denies any abdominal pain. No chest pain or shortness of breath. No fevers. [place] very fatigued. was concerned about her lack of energy and therefore brought her into the emergency room for evaluation. Denies any sick contacts with similar symptoms. No recent medication changes. His any unilateral numbness or weakness. No headaches or visual changes. No other alleviating, precipitating or modifying factors - Related Data Home Medications Medication Instructions Recorded Confirmed Multivit-Min/FA/Lycopene/Lut 1 tab PO DAILY@89911/28/14 04/27/20 [Centrum Silver Tablet] Nitroglycerin Sl Tabs [Nitrostat] 0.4 mg PO Q5M PRN 11/28/14 04/27/20 Vits A,C,E/Lutein/Minerals 1 tab PO MOWEFRSA@89911/28/14 04/27/20 [Ocuvite with Lutein Tablet] Biotin 5 mg PO DAILY@0900 10/26/18 04/27/20 HYDROcodone/APAP 7.5-325MG [Britton 1 tab PO BID 10/26/18 04/27/20 7.5-325] Ascorbic Acid [Vitamin C] 500 mg PO DAILY 03/09/19 04/27/20 Cholecalciferol (Vitamin D3) 2,000 unit PO DAILY 03/09/19 04/27/20 [Vitamin D3] Fish Oil/Dha/Epa [Fish Oil 1,200 1 cap PO DAILY 03/09/19 04/27/20 mg Fish Oil] L.acidoph,Paracasei, B.lactis 1 cap PO DAILY 03/09/19 04/27/20 [Probiotic] Torsemide [Demadex] 5 mg PO Q48H 03/09/19 04/27/20 carvediloL 25 mg PO BID 03/09/19 04/27/20 Labetalol [Trandate] 200 mg PO ONCE 04/19/19 04/27/20 amLODIPine [Norvasc] 5 mg PO HS 04/19/19 04/27/20 Ciprofloxacin [Ciprofloxacin Oral 1 tab PO BID 04/24/20 04/27/20 Susp] Fenofibrate Nanocrystallized 1 tab PO DAILY 04/24/20 04/27/20 [Tricor] Hydrocodone/Acetaminophen [Britton 1 tab PO BID PRN 04/24/20 04/27/20 7.5-325] Labetalol [Trandate] 200 mg PO Q8HR PRN 04/24/20 04/27/20 Nitroglycerin Sl Tabs [Nitrostat] 1 tab PO DAILY PRN 04/24/20 04/27/20 Omeprazole 1 tab PO DAILY 04/24/20 04/27/20 Previous Rx's Medication Instructions Recorded ALPRAZolam [Xanax] 0.25 mg PO BID PRN #6 tab 10/21/18 Gabapentin [Neurontin] 300 mg PO BID #6 cap 10/21/18 Apixaban [Eliquis] 2.5 mg PO BID #0 tablet 03/17/19 Allergies Allergy/AdvReac Type Severity Reaction Status Date / Time Penicillins Allergy Dyspnea Verified 02/22/23 00:21 Sulfa (Sulfonamide Allergy Dyspnea Verified 02/22/23 00:21 Antibiotics) triamcinolone acetonide AdvReac unsure if Verified 02/22/23 00:21 [From Kenalog] the kenalog was the cause, RASH/HIVES Review of Systems ROS Statement: Those systems with pertinent positive or pertinent negative responses have been documented in the HPI. ROS Other: All systems not noted in ROS Statement are negative. Past Medical History Past Medical History: Atrial Fibrillation, Cancer, Chest Pain / Angina, Fibromyalgia, GERD/Reflux, Hyperlipidemia, Hypertension, Mitral Valve Prolapse (MVP), Neurologic Disorder, Osteoarthritis (OA), Renal Disease, Vascular Disorder Additional Past Medical History / Comment(s): NEUROPATHY ASHER. LEGS & FEET, VARICOSE VEINS, KIDNEYS(small kidneys) FUNCTIONING @ 50%-URINE LEAKAGE- WEARS A PAD, HX skin, BREAST & OVARIAN CA-CHEMO 1986 & 1987, LUMBAR DDD-HERNIATION L3- L4, constipation History of Any Multi-Drug Resistant Organisms: None Reported Date of last positivie culture/infection: 02/10/21 MDRO Source:: Urine Past Surgical History: Bowel Resection, Breast Surgery, Heart Catheterization, Hysterectomy, Orthopedic Surgery Additional Past Surgical History / Comment(s): COLOSTOMY & THEN REVERSAL OF COLOSTOMY,ASHER. MASTECTOMY, EXC.CATARACT ASHER, ASHER. THUMB SURGERY, skin cancer removed from nose, bowel resection 01/12/16 Past Anesthesia/Blood Transfusion Reactions: Previous Problems w/ Anesthesia Additional Past Anesthesia/Blood Transfusion Reaction / Comment(s): AFTER LAST PAIN CLINIC PROCEDURE 01/12/15 HAD ALLEGIC REACTION- broke out in hives and itchi ng all over that lasted over 1 week, also had ELEVATED PULSE & BP. Type of Cardiac Device: Permanent Pacemaker Device Placement Date:: 12/11/18 Past Psychological History: No Psychological Hx Reported Smoking Status: Former smoker - Past Family History Daughter(s) Family Medical History: Cancer Additional Family Medical History / Comment(s): lung CA Father Additional Family Medical History / Comment(s): Father of lung CA at the age of 80yrs. He was a smoker. Mother Additional Family Medical History / Comment(s): CABG. Mother at the age of 94 yrs. General Exam Limitations: no limitations General appearance: alert, in no apparent distress Head exam: Present: atraumatic, normocephalic, normal inspection Eye exam: Present: normal appearance, PERRL, EOMI. Absent: scleral icterus, conjunctival injection, periorbital swelling ENT exam: Present: normal exam, mucous membranes moist Neck exam: Present: normal inspection. Absent: tenderness, meningismus, lymphadenopathy Respiratory exam: Present: normal lung sounds bilaterally. Absent: respiratory distress, wheezes, rales, rhonchi, stridor Cardiovascular Exam: Present: regular rate, normal rhythm, normal heart sounds. Absent: systolic murmur, diastolic murmur, rubs, gallop, clicks GI/Abdominal exam: Present: soft, normal bowel sounds. Absent: distended, tenderness, guarding, rebound, rigid Extremities exam: Present: normal inspection, full ROM, normal capillary refill. Absent: tenderness, pedal edema, joint swelling, calf tenderness Back exam: Present: normal inspection Neurological exam: Present: alert, oriented X3, CN II-XII intact Psychiatric exam: Present: normal affect, normal mood Skin exam: Present: warm, dry, intact, normal color. Absent: rash Course Vital Signs 02/22/23 02/22/23 02/22/23 00:19 01:21 02:00 Temperature 98.9 F Pulse Rate 42 L 77 75 Respiratory 20 16 16 Rate Blood Pressure 138/60 150/61 143/61 O2 Sat by Pulse 92 L 95 94 L Oximetry 02/22/23 02/22/23 02/22/23 03:00 04:00 05:10 Temperature Pulse Rate 73 69 80 Respiratory 18 18 14 Rate Blood Pressure 127/53 124/52 129/50 O2 Sat by Pulse 94 L 94 L 94 L Oximetry Medical Decision Making - Medical Decision Making Was pt. sent in by a medical professional or institution (, PA, SKILLS TRAINER, urgent care, hospital, or longterm...) When possible be specific @ -No Did you speak to anyone other than the patient for history (EMS, parent, family, police, friend...)? What history was obtained from this source @ -Spoke with the patient's who provides history Did you review nursing and triage notes (agree or disagree)? Why? @ -I reviewed and agree with nursing and triage notes Were old charts reviewed (outside hosp., previous admission, EMS record, old EKG, old radiological studies, urgent care reports/EKG's, longterm records)? Report findings @ -No old charts were reviewed Differential Diagnosis (chest pain, altered mental status, abdominal pain women, abdominal pain men, vaginal bleeding, weakness, fever, dyspnea, syncope, headache, dizziness, GI bleed, back pain, seizure, CVA, palpatations, mental health, musculoskeletal)? @ -Differential Weakness: Hypoglycemia, shock, sepsis, hyponatremia, anemia, infection, PR, ETOH, adverse medicine reaction, overdose, stroke, this is not meant to be an all-inclusive list. EKG interpreted by me (3pts min.). @ -Yes and demonstrates sinus rhythm with a rate of 80. TN interval 256. QRS 122. QTC of 382. Left anterior fascicular block. No acute ST segment elevation or depression X-rays interpreted by me (1pt min.). @ -Yes and demonstrates pneumonia CT interpreted by me (1pt min.). @ -Yes and demonstrates no acute intra-abdominal process U/S interpreted by me (1pt. min.). @ -None done What testing was considered but not performed or refused? (CT, X-rays, U/S, labs)? Why? @ -None What meds were considered but not given or refused? Why? @ -None Did you discuss the management of the patient with other professionals (professionals i.e. , PA, SKILLS TRAINER, lab, RT, psych nurse, social media content manager, pin sorter and bagger, teacher, loan review officer, pillowcase folder)? Give summary @ -Spoke with Kimberlee from [facility] who will admit the patient Was smoking cessation discussed for >3mins.? @ -No Was critical care preformed (if so, how long)? @ -No Were there social determinants of health that impacted care today? How? (Homelessness, low income, unemployed, alcoholism, drug addiction, transportation, low edu. Level, literacy, decrease access to med. care, mcc, rehab)? @ -No Was there de-escalation of care discussed even if they declined (Discuss DNR or withdrawal of care, Hospice)? DNR status @ -No What co-morbidities impacted this encounter? (DM, HTN, Smoking, COPD, CAD, Cancer, CVA, ARF, Chemo, Hep., AIDS, mental health diagnosis, sleep apnea, morbid obesity)? @ -A. fib Was patient admitted / discharged? Hospital course, mention meds given and route, prescriptions, significant lab abnormalities, going to OR and other pertinent info. @ -Upon arrival patient was placed into room 7. A thorough history and physical exam was performed. IV access is established and laboratory studies are conducted. Laboratory studies do reveal a leukocytosis. She is sent for a chest x-ray and CT of her abdomen. Because of the abnormal CT of the abdomen, a CT of the chest was performed. Imaging demonstrates possible pneumonia. Discussed these results with the patient. She was given antibiotics. She is will be admitted to Kimberlee from [facility] who will admit patient Possible infectious source - 4:06 by my interpretation - pneumonia Undiagnosed new problem with uncertain prognosis? @ -yes Drug Therapy requiring intensive monitoring for toxicity (Heparin, Nitro, Insulin, Cardizem)? @ -No Were any procedures done? @ -No Diagnosis/symptom? @ -Acute tremors, acute leukocytosis, continue acquired pneumonia Acute, or Chronic, or Acute on Chronic? @ -acute Uncomplicated (without systemic symptoms) or Complicated (systemic symptoms)? @ -complicated Side effects of treatment? @ -No Exacerbation, Progression, or Severe Exacerbation? @ -No Poses a threat to life or bodily function? How? (Chest pain, USA, PR, pneumonia, PE, COPD, DKA, ARF, appy, cholecystitis, CVA, Diverticulitis, Homicidal, Suicidal, threat to staff... and all critical care pts) @ -No - Lab Data Result diagrams: 02/22/23 01:52 02/22/23 01:52 Lab Results 02/22/23 02/22/23 02/22/23 Range/Units 01:52 01:52 01:52 WBC 25.2 H (3.8-10.6) k/uL RBC 3.40 L (3.80-5.40) m/uL Hgb 10.3 L (11.4-16.0) gm/dL Hct 32.7 L (34.0-46.0) % MCV 96.1 (80.0-100.0) fL MCH 30.4 (25.0-35.0) pg MCHC 31.6 (31.0-37.0) g/dL RDW 17.1 H (11.5-15.5) % Plt Count 235 (150-450) k/uL MPV 7.7 Neutrophils % 92 % Lymphocytes % 3 % Monocytes % 4 % Eosinophils % 0 % Basophils % 0 % Neutrophils # 23.1 H (1.3-7.7) k/uL Lymphocytes # 0.9 L (1.0-4.8) k/uL Monocytes # 0.9 (0-1.0) k/uL Eosinophils # 0.1 (0-0.7) k/uL Basophils # 0.1 (0-0.2) k/uL Hypochromasia Slight Anisocytosis Slight Macrocytosis Slight PT 12.4 H (9.0-12.0) sec INR 1.2 H (<1.2) APTT 27.8 (22.0-30.0) sec Sodium 139 (137-145) mmol/L Potassium 4.8 (3.5-5.1) mmol/L Chloride 110 H (98-107) mmol/L Carbon Dioxide 20 L (22-30) mmol/L Anion Gap 9 mmol/L BUN 67 H (7-17) mg/dL Creatinine 2.68 H (0.52-1.04) mg/dL Est GFR (CKD-EPI)AfAm 18 (>60 ml/min/1.73 sqM) Est GFR (CKD-EPI)NonAf 16 (>60 ml/min/1.73 sqM) Glucose 119 H (74-99) mg/dL Plasma Lactic Acid Jerel (0.7-2.0) mmol/L Calcium 9.6 (8.4-10.2) mg/dL Magnesium 1.6 (1.6-2.3) mg/dL Total Bilirubin 0.4 (0.2-1.3) mg/dL AST 50 H (14-36) U/L ALT 28 (4-34) U/L Alkaline Phosphatase 62 (38-126) U/L Troponin I (0.000-0.034) ng/mL Total Protein 6.5 (6.3-8.2) g/dL Albumin 3.3 L (3.5-5.0) g/dL TSH 0.177 L (0.465-4.680) mIU/L Free T4 1.04 (0.78-2.19) ng/dL Urine Color Urine Appearance (Clear) Urine pH (5.0-8.0) Ur Specific Barnhart (1.001-1.035) Urine Protein (Negative) Urine Glucose (UA) (Negative) Urine Ketones (Negative) Urine Blood (Negative) Urine Nitrite (Negative) Urine Bilirubin (Negative) Urine Urobilinogen (<2.0) mg/dL Ur Leukocyte Esterase (Negative) Urine RBC (0-5) /hpf Urine WBC (0-5) /hpf Ur Squamous Epith Cells (0-4) /hpf Amorphous Sediment (None) /hpf Urine Bacteria (None) /hpf Hyaline Casts (0-2) /lpf Urine Mucus (None) /hpf 02/22/23 02/22/23 02/22/23 Range/Units 01:52 01:52 04:20 WBC (3.8-10.6) k/uL RBC (3.80-5.40) m/uL Hgb (11.4-16.0) gm/dL Hct (34.0-46.0) % MCV (80.0-100.0) fL MCH (25.0-35.0) pg MCHC (31.0-37.0) g/dL RDW (11.5-15.5) % Plt Count (150-450) k/uL MPV Neutrophils % % Lymphocytes % % Monocytes % % Eosinophils % % Basophils % % Neutrophils # (1.3-7.7) k/uL Lymphocytes # (1.0-4.8) k/uL Monocytes # (0-1.0) k/uL Eosinophils # (0-0.7) k/uL Basophils # (0-0.2) k/uL Hypochromasia Anisocytosis Macrocytosis PT (9.0-12.0) sec INR (<1.2) APTT (22.0-30.0) sec Sodium (137-145) mmol/L Potassium (3.5-5.1) mmol/L Chloride (98-107) mmol/L Carbon Dioxide (22-30) mmol/L Anion Gap mmol/L BUN (7-17) mg/dL Creatinine (0.52-1.04) mg/dL Est GFR (CKD-EPI)AfAm (>60 ml/min/1.73 sqM) Est GFR (CKD-EPI)NonAf (>60 ml/min/1.73 sqM) Glucose (74-99) mg/dL Plasma Lactic Acid Jerel 0.7 (0.7-2.0) mmol/L Calcium (8.4-10.2) mg/dL Magnesium (1.6-2.3) mg/dL Total Bilirubin (0.2-1.3) mg/dL AST (14-36) U/L ALT (4-34) U/L Alkaline Phosphatase (38-126) U/L Troponin I <0.012 (0.000-0.034) ng/mL Total Protein (6.3-8.2) g/dL Albumin (3.5-5.0) g/dL TSH (0.465-4.680) mIU/L Free T4 (0.78-2.19) ng/dL Urine Color Colorless Urine Appearance Cloudy H (Clear) Urine pH 5.5 (5.0-8.0) Ur Specific Barnhart 1.012 (1.001-1.035) Urine Protein 2+ H (Negative) Urine Glucose (UA) Negative (Negative) Urine Ketones Negative (Negative) Urine Blood Negative (Negative) Urine Nitrite Negative (Negative) Urine Bilirubin Negative (Negative) Urine Urobilinogen <2.0 (<2.0) mg/dL Ur Leukocyte Esterase Large H (Negative) Urine RBC 2 (0-5) /hpf Urine WBC 31 H (0-5) /hpf Ur Squamous Epith Cells 1 (0-4) /hpf Amorphous Sediment Few H (None) /hpf Urine Bacteria Few H (None) /hpf Hyaline Casts 6 H (0-2) /lpf Urine Mucus Rare H (None) /hpf Disposition Clinical Impression: CAP (community acquired pneumonia), Leukocytosis, SHARIF (acute kidney injury), CKD (chronic kidney disease) Disposition: ADMITTED IP TO THIS [facility] Condition: Stable Is patient prescribed a controlled substance at d/c from ED?: No Time of Disposition: 05:51 Decision to Admit Reason: Admit from EC Decision Date: 02/22/23 Decision Time: 05:51
[2023-02-22 03:34] LABS: T4, Free (Free Thyroxine) 1.04 ng/dL (0.78-2.19)
[2023-02-22] MEDS ORDERED: AZITHROMYCIN 500 MG in SODIUM CHLORIDE 0.9% 250 ML IVPB STA (04:08)
[2023-02-22] MEDS ORDERED: PNEUMONIA PROTOCOL UTILIZED 1 EACH MISC PO PRN (04:08)
[2023-02-22 05:25] LABS: Amorphous Sediment,Urine Few /hpf; Appearance,Urine Cloudy (Clear); Bacteria,Urine Few /hpf; Bilirubin,Urine Negative (Negative); Blood,Urine Negative (Negative); Color,Urine Colorless; Glucose,Urine (UA) Negative (Negative); Hyaline Casts,Urine 6 /lpf (0-2); Ketones,Urine Negative (Negative); Leukocyte Esterase,Urine Large (Negative); Mucus,Urine Rare /hpf; Nitrite,Urine Negative (Negative); PH, Urine 5.5 (5.0-8.0); Protein,Urine 2+ (Negative); RBC,Urine 2 /hpf (0-5); Specific Gravity,Urine 1.012 (1.001-1.035); Squamous Epithelial Cell,Urine 1 /hpf (0-4); Urobilinogen,Urine <2.0 mg/dL (<2.0); WBC,Urine 31 /hpf (0-5)
[2023-02-22] MEDS ORDERED: MORPHINE SULFATE 4 MG/ML SYRINGE IVP STA (05:45)
[2023-02-22] MEDS ORDERED: NALOXONE 0.4 MG/ML 1 ML VIAL IV PRN (05:52)
[2023-02-22] MEDS ORDERED: IBUPROFEN 400 MG TAB PO PRN (06:02)
--- NOTE | 2023-02-22 07:55 | CT ---
EXAMINATION TYPE: CT chest wo con DATE OF EXAM: 02/22/2023 COMPARISON: None HISTORY: Difficulty breathing, elevated white count CT DLP: 348.5 mGycm, Automated exposure control for dose reduction was used. CONTRAST: Performed injected with 0 mL of Isovue 300. TECHNIQUE: Axial images were obtained at 5 mm thick sections. Reconstructed images are reviewed on [employer] computer in the coronal plane. FINDINGS: Portion of the thyroid visualized is normal. There is a small left pleural effusion. There is a posterior right lower lobe consolidation. Correlat e for pneumonia. Follow-up is recommended to clearing. May be some mild infiltrate at the left base. Consider atelectasis or pneumonia. Explained No enlarged mediastinal or hilar adenopathy is evident. The ascending aorta diameter at the level o f the main pulmonary artery is 3.0 cm. The main pulmonary artery diameter at the bifurcation is 2.[address] sections are obtained through the upper abdomen. Abdomen is essentially unremarkable. IMPRESSION: 1. Right lower lobe consolidation likely on the basis of pneumonia. Follow-up to clearing is recommen ded. 2. Some mild infiltrates at the left base. Correlate for atelectasis or early pneumonia.
[2023-02-22] MEDS ORDERED: ALBUTEROL NEBULIZED 2.5 MG/3 ML INHALATION SCH (08:00)
--- NOTE | 2023-02-22 08:01 | CT ---
EXAMINATION TYPE: CT abdomen pelvis wo con DATE OF EXAM: 02/22/2023 COMPARISON: 10/15/2018 INDICATION: Abdominal pain nausea vomiting and elevated white count DLP: 408.1 mGycm, Automated exposure control for dose reduction was used. CONTRAST: 0 mL of Isovue 300. Study performed without Oral Contrast TECHNIQUE: Axial images were obtained from above the diaphragm to the pubic rami in the axial plane a t 5 mm thick sections. Reconstructed images are reviewed on the computer in the coronal plane. FINDINGS: Limited CT sections are obtained the lung bases. Right lower lobe consolidation is present. Correlat e for pneumonia. Mild infiltrate medially at the left base. Please also see CT chest report same date . CT ABDOMEN: Liver: Normal Spleen: Normal Pancreas: Normal Adrenal glands: The adrenal glands are normal. Gallbladder: Likely normal. Some very subtle sludge is not excluded. Kidneys: No masses are evident. No hydronephrosis is present. No cysts are present. No renal stone s are evident. Aorta: Vascular calcification is within the aorta. Inferior vena cava: Normal. CT PELVIS: There is been prior bowel surgery with anastomosis in the right mid abdomen. No suspicious dilated lo ops of bowel are evident. There is residual descending colon appears normal. The rectosigmoid junctio n may have some wall thickening. Studies without oral contrast limiting evaluation. Appendix: Not identified. Urinary bladder: Normal. Genitourinary structures: Uterus and ovaries are not identified Osseous structures: No suspicious lytic or sclerotic lesions are evident. Postsurgical changes are wi thin the scoliotic lumbar spine. IMPRESSION: 1. Right lower lobe consolidation. Correlate for pneumonia. Follow-up is recommended. 2. Postsurgical changes within the right lower quadrant with anastomosis. 3. Some lobular rectosigmoid junction wall thickening may be present. Consider additional workup
--- NOTE | 2023-02-22 10:17 | XR ---
EXAMINATION TYPE: XR chest 1V portable DATE OF EXAM: 02/22/2023 COMPARISON: CT chest same date INDICATION: Pneumonia TECHNIQUE: Single frontal view of the chest is obtained. FINDINGS: The heart size is normal. The pulmonary vasculature is normal. Bibasilar infiltrates are present. Correlate for atelectasis or pneumonia. This is greater at the rig ht base. IMPRESSION: 1. Clinical consideration for right lower lobe pneumonia. Bibasilar atelectasis may be present. Follo w-up is recommended.
[2023-02-22] MEDS ORDERED: IPRATROPIUM-ALBUTEROL 3 ML NEB INHALATION PRN (11:13)
[2023-02-22] MEDS: IPRATROPIUM-ALBUTEROL 3 ML NEB INHALATION SCH ×2 (12:07→20:04)
--- NOTE | 2023-02-22 12:38 | P.CNPUL ---
History of Present Illness Consult date: 02/22/23 Requesting physician: Oscar Abdi Reason for consult: dyspnea, abnormal CXR/CT Chief complaint: Shortness of breath, cough and congestion History of present illness: This is a very pleasant 87-year-old female patient with a known history of hypertension, gastroesophageal reflux disease, hyperlipidemia,atrial fibrillation anticoagulated with Eliquis, status post permanent pacemaker implantation, breast and ovarian cancer back in the 1980s. She presented here with a three-day history of shaking, dizziness, shortness of breath, cough and congestion. Computed tomography scan of the chest reveals a right lower lobe consolidation mild infiltrates in the left base. White count 25.2. Hemoglobin 10.3. Platelets 235. Sodium 139. Potassium 4.8. Bicarb 20. BUN 67. Creatinine 2.68. Lactic acid 0.7. Monge virus negative. She is seen today in consultation in the emergency department. She is currently sitting up in a chair. Awake and alert in no acute distress. On room air. Afebrile. Hemodynamically stable. Receiving DuoNeb inhalations. She's been initiated on ceftriaxone and azithromycin. Heparin for DVT prophy Review of Systems REVIEW OF SYSTEMS: CONSTITUTIONAL: Denies any recent significant weight loss or weight gain. EYES: Denies change in vision. EARS, NOSE, MOUTH, THROAT: Denies headaches, denies sore throat. CARDIOVASCULAR: Denies chest pain, palpitations or syncopal episodes. RESPIRATORY: Positive for shortness of breath, cough, congestion no hemoptysis. GASTROINTESTINAL: Denies change in appetite, denies abdominal pain GENITOURINARY: Denies hematuria, denies infections. MUSKULOSKELETAL: Denies pain, denies swelling. INTEGUMENTARY: Denies rash, denies eczema. NEUROLOGICAL: Denies recent memory loss, no recent seizure activity. PSYCHIATRIC: Denies anxiety, denies depression. HEMATOLOGIC/LYMPHATIC: Denies anemia, denies enlarged lymph nodes. Past Medical History Past Medical History: Atrial Fibrillation, Cancer, Chest Pain / Angina, Fibromyalgia, GERD/Reflux, Hyperlipidemia, Hypertension, Mitral Valve Prolapse (MVP), Neurologic Disorder, Osteoarthritis (OA), Renal Disease, Vascular Disorder Additional Past Medical History / Comment(s): NEUROPATHY ASHER. LEGS & FEET, VARICOSE VEINS, KIDNEYS(small kidneys) FUNCTIONING @ 50%-URINE LEAKAGE- WEARS A PAD, HX skin, BREAST & OVARIAN CA-CHEMO 1986 & 1987, LUMBAR DDD-HERNIATION L3- L4, constipation History of Any Multi-Drug Resistant Organisms: None Reported Date of last positivie culture/infection: 02/10/21 MDRO Source:: Urine Past Surgical History: Bowel Resection, Breast Surgery, Heart Catheterization, Hysterectomy, Orthopedic Surgery Additional Past Surgical History / Comment(s): COLOSTOMY & THEN REVERSAL OF COLOSTOMY,ASHER. MASTECTOMY, EXC.CATARACT ASHER, ASHER. THUMB SURGERY, skin cancer removed from nose, bowel resection 01/12/16 Past Anesthesia/Blood Transfusion Reactions: Previous Problems w/ Anesthesia Additional Past Anesthesia/Blood Transfusion Reaction / Comment(s): AFTER LAST PAIN CLINIC PROCEDURE 01/12/15 HAD ALLEGIC REACTION- broke out in hives and itching all over that lasted over 1 week, also had ELEVATED PULSE & BP. Type of Cardiac Device: Permanent Pacemaker Device Placement Date:: 12/11/18 Past Psychological History: No Psychological Hx Reported Smoking Status: Former smoker - Past Family History Daughter(s) Family Medical History: Cancer Additional Family Medical History / Comment(s): lung CA Father Additional Family Medical History / Comment(s): Father of lung CA at the age of 80yrs. He was a smoker. Mother Additional Family Medical History / Comment(s): CABG. Mother at the age of 94 yrs. Medications and Allergies Home Medications Medication Instructions Recorded Confirmed Type Multivit-Min/FA/Lycopene/Lut 1 tab PO DAILY 11/28/14 02/22/23 History [Centrum Silver Tablet] Nitroglycerin Sl Tabs [Nitrostat] 0.4 mg SL Q5M PRN 11/28/14 02/22/23 History Vits A,C,E/Lutein/Minerals 1 tab PO MOWEFRSA 11/28/14 02/22/23 History [Ocuvite with Lutein Tablet] ALPRAZolam [Xanax] 0.25 mg PO BID PRN #6 tab 10/21/18 02/22/23 Rx Ascorbic Acid [Vitamin C] 500 mg PO DAILY 03/09/19 02/22/23 History carvediloL 25 mg PO BID 03/09/19 02/22/23 History Apixaban [Eliquis] 2.5 mg PO BID #0 tablet 03/17/19 02/22/23 Rx Fenofibrate Nanocrystallized 145 mg PO DAILY 04/24/20 02/22/23 History [Tricor] Hydrocodone/Acetaminophen [[place] 1 tab PO TID 04/24/20 02/22/23 History 7.5-325] Labetalol [Trandate] 200 mg PO Q8HR PRN 04/24/20 02/22/23 History Omeprazole 20 mg PO AC-BRKFST PRN 04/24/20 02/22/23 History Bevacizumab [Avastin] 1 dose BOTH EYES QMONTHLY 02/22/23 02/22/23 History Biotin [Biotin Disolve] 2,500 mcg PO DAILY 02/22/23 02/22/23 History Collagen/Biotin/Ascorbic Acid 1 cap PO DAILY 02/22/23 02/22/23 History [Collagen 1500 Plus C Capsule] Cranberry Fruit [Cranberry] 465 mg PO DAILY 02/22/23 02/22/23 History Elderberry Fruit [Elderberry] 350 mg PO DAILY 02/22/23 02/22/23 History Gabapentin [Neurontin] 600 mg PO TID 02/22/23 02/22/23 History Loperamide HCl [Imodium A-D] 2 - 4 mg PO QID PRN 02/22/23 02/22/23 History Prevagen 1 cap PO DAILY 02/22/23 02/22/23 History Vitamin D3(Unknown Dose) 1 tab PO DAILY 02/22/23 02/22/23 History allopurinoL 100 mg PO DAILY 02/22/23 02/22/23 History amLODIPine [Norvasc] 2.5 mg PO BID 02/22/23 02/22/23 History Allergies Allergy/AdvReac Type Severity Reaction Status Date / Time Corticosteroids Allergy Unknown Verified 02/22/23 12:01 (Glucocorticoids) nitrofurantoin Allergy Unknown Verified 02/22/23 12:01 [From Macrobid] Penicillins Allergy Dyspnea Verified 02/22/23 12:00 Sulfa (Sulfonamide Allergy Dyspnea Verified 02/22/23 12:00 Antibiotics) triamcinolone acetonide AdvReac unsure if Verified 02/22/23 12:00 [From Kenalog] the kenalog was the cause, RASH/HIVES Physical Exam Vitals: Vital Signs Temp Pulse Resp BP Pulse Ox 02/22/23 12:20 70 02/22/23 12:07 70 02/22/23 11:28 97.8 F 70 16 131/56 94 L 02/22/23 10:18 65 18 135/64 98 02/22/23 10:17 74 18 124/59 97 02/22/23 08:33 60 02/22/23 08:22 60 02/22/23 08:15 20 02/22/23 08:00 64 18 131/56 98 02/22/23 05:10 80 14 129/50 94 L 02/22/23 04:00 69 18 124/52 94 L 02/22/23 03:00 73 18 127/53 94 L 02/22/23 02:00 75 16 143/61 94 L 02/22/23 01:21 77 16 150/61 95 02/22/23 00:19 98.9 F 42 L 20 138/60 92 L Intake and Output 02/21/23 02/22/23 02/22/23 22:59 06:59 14:59 Other: Weight 53.524 kg GENERAL EXAM: Alert, very pleasant 87-year-old female, on room air, comfortable in no apparent distress. HEAD: Normocephalic. EYES: Normal reaction of pupils, equal size. NOSE: Clear with pink turbinates. THROAT: No erythema or exudates. NECK: No masses, no JVD. CHEST: No chest wall deformity. LUNGS: Equal air entry with few scattered rhonchi. CVS: S1 and S2 normal with no audible murmur, regular rhythm. ABDOMEN: No hepatosplenomegaly, normal bowel sounds, no guarding or rigidity. SPINE: No scoliosis or deformity SKIN: No rashes CENTRAL NERVOUS SYSTEM: No focal deficits, tone is normal in all 4 extremities. EXTREMITIES: There is no peripheral edema. No clubbing, no cyanosis. Peripheral pulses are intact. Results - Laboratory Findings CBC and BMP: 02/22/23 01:52 02/22/23 01:52 PT/INR, D-dimer PT 12.4 sec (9.0-12.0) H 02/22/23 01:52 INR 1.2 (<1.2) H 02/22/23 01:52 Abnormal lab findings: Abnormal Labs 02/22/23 02/22/23 02/22/23 01:52 01:52 01:52 WBC 25.2 H RBC 3.40 L Hgb 10.3 L Hct 32.7 L RDW 17.1 H Neutrophils # 23.1 H Lymphocytes # 0.9 L PT 12.4 H INR 1.2 H Chloride 110 H Carbon Dioxide 20 L BUN 67 H Creatinine 2.68 H Glucose 119 H AST 50 H Albumin 3.3 L TSH 0.177 L Urine Appearance Urine Protein Ur Leukocyte Esterase Urine WBC Amorphous Sediment Urine Bacteria Hyaline Casts Urine Mucus 02/22/23 04:20 WBC RBC Hgb Hct RDW Neutrophils # Lymphocytes # PT INR Chloride Carbon Dioxide BUN Creatinine Glucose AST Albumin TSH Urine Appearance Cloudy H Urine Protein 2+ H Ur Leukocyte Esterase Large H Urine WBC 31 H Amorphous Sediment Few H Urine Bacteria Few H Hyaline Casts 6 H Urine Mucus Rare H - Diagnostic Findings Chest x-ray: image reviewed CT scan - chest: image reviewed Assessment and Plan Assessment: Acute community-acquired pneumonia Leukocytosis secondary to above Acute kidney injury secondary to dehydration History of atrial fibrillation adequately regulated with Eliquis Permanent pacemaker implantation Hypertension Hyperlipidemia Peripheral neuropathy History of breast status post bilateral mastectomies History of ovarian cancer status post chemotherapy back in the 1980s History of bowel resection Former smoker Plan: The patient was seen and evaluated Chest x-ray, CAT scan, labs and medications reviewed Continue ceftriaxone and azithromycin continue bronchodilators Heparin for DVT prophylaxis Currently stable and on room air We will continue to follow and make further recommendations based on her clinica l status I have personally seen and examined the patient, performed the documentation and the assessment and plan as written. Number of minutes spent on the visit: 20.
--- NOTE | 2023-02-22 13:25 | HP ---
HISTORY AND PHYSICAL CHIEF COMPLAINT: Dizziness, loss of appetite, weakness. HISTORY OF PRESENT ILLNESS: This is an 87-year-old woman with a past medical history of multiple medical problems, atrial fibrillation, hypertension, hyperlipidemia, was complaining of generalized weakness, shakiness, and the patient was fatigued and evaluation showed possible pneumonia bilateral, right more than left. The patient was admitted for further evaluation and treatment. There is no history of any fever, rigors, or chills. PAST MEDICAL HISTORY: Reviewed and include atrial fibrillation, history of fibromyalgia, GERD. Rest of history and rest of chart are also reviewed. HOME MEDICATIONS: Reviewed, include Coreg, dose and rest of medications noted. ALLERGIES: Penicillin. Rest of allergies noted. FAMILY HISTORY: History of lung cancer. SOCIAL HISTORY: Previous smoker. REVIEW OF SYSTEMS: Fourteen-point review of systems negative except as mentioned earlier. PHYSICAL EXAMINATION: VITAL SIGNS: Pulse is 74, blood pressure n respirations 18. HEENT: Conjunctivae normal. NECK: No jugular venous distention. CARDIOVASCULAR: S1, S2. LUNGS: n a few scattered rhonchi. ABDOMEN: Soft, nontender. LEGS: n NERVOUS SYSTEM: Diffusely weak. SKIN: n LABORATORY DATA: Reviewed. ASSESSMENT: 1. Acute bilateral pneumonia with possible sepsis, present on admission. 2. Acute renal failure. 4. Atrial fibrillation. 5. Hypertension. 6. Hyperlipidemia. 7. Multiple complex medical issues. RECOMMENDATIONS: This 87-year-old woman presented with multiple complex medical issues. We will monitor the patient closely. I will initiate broad-spectrum IV antibiotics. The exact etiology of pneumonia is unknown at this time. I recommend Zosyn to cover the anaerobes and gram negatives. Otherwise, closely follow. Pulmonary and Infectious Disease evaluations. The radiology investigations are reviewed. Prognosis is extremely guarded because of multiple complex medical issues. I would recommend PT/OT evaluation also. Further recommendations to follow. MMODL / IJN: [id number] / MTDD
[2023-02-22] MEDS: ACETAMINOPHEN TAB 325 MG TAB PO PRN (14:36)
[2023-02-22] MEDS: HYDROcodone/APAP 7.5-325MG 1 EACH TAB PO SCH (19:51)
[2023-02-22] MEDS: GABAPENTIN 300 MG CAP PO SCH (19:51)
[2023-02-22] MEDS: APIXABAN 2.5 MG TABLET PO SCH (19:51)
[2023-02-22] MEDS: carvediloL 12.5 MG TAB PO SCH (19:59)
[2023-02-22] MEDS: amLODIPine 2.5 MG TAB PO SCH (19:59)
[2023-02-22] MEDS: allopurinoL 100 MG TAB PO SCH (19:59)
[2023-02-22] MEDS ORDERED: HEPARIN SODIUM,PORCINE 5,000 UNIT/ML 1 ML VIAL SQ SCH (21:00)
--- NOTE | 2023-02-22 23:52 | P.CONS ---
History of Present Illness - Reason for Consult Consult date: 02/22/23 - History of Present Illness Patient is a 87-year-old female with a past medical history significant for atrial fibrillation fibromyalgia hypertension hyperlipidemia mitral valve prolapse presenting to the ER for evaluation of not feeling well feeling very weak and tremulous decreased appetite denies any URI symptoms no headache no chest pain shortness of breath cough no fever did have significant fatigue with the symptoms the patient was evaluated on presentation to the hospital the patient was afebrile and no fever has been recorded subsequently patient was not tachycardic hypotensive or hypoxic and no need for supplemental oxygen patient did have a white count of 5.2 Creatinine has been elevated liver exams are normal urine has been positive with large leukocyte esterase 31 WBC COVID testing was negative patient did have a CT of the chest right lower lobe consolidation likely on the basis of pneumonia also have a abdominal pelvis CT postsurgical changes within the right lower quadrant with anastomosis some rectosigmoid junction wall thickening may be present with concern for pneumonia the patient has been started on Rocephin and Zithromax infectious disease was consulted for further management of antibiotic therapy Past Medical History Past Medical History: Atrial Fibrillation, Cancer, Chest Pain / Angina, Fibromyalgia, GERD/Reflux, Hyperlipidemia, Hypertension, Mitral Valve Prolapse (MVP), Neurologic Disorder, Osteoarthritis (OA), Renal Disease, Vascular Disorder Additional Past Medical History / Comment(s): NEUROPATHY ASHER. LEGS & FEET, VARICOSE VEINS, KIDNEYS(small kidneys) FUNCTIONING @ 50%-URINE LEAKAGE- WEARS A PAD, HX skin, BREAST & OVARIAN CA-CHEMO 1986 & 1987, LUMBAR DDD-HERNIATION L3- L4, constipation History of Any Multi-Drug Resistant Organisms: None Reported Year Discovered:: 02/10/21 MDRO Source:: Urine Past Surgical History: Bowel Resection, Breast Surgery, Heart Catheterization, Hysterectomy, Orthopedic Surgery Additional Past Surgical History / Comment(s): COLOSTOMY & THEN REVERSAL OF COLOSTOMY,ASHER. MASTECTOMY, EXC.CATARACT ASHER, ASHER. THUMB SURGERY, skin cancer removed from nose, bowel resection 01/12/16 Past Anesthesia/Blood Transfusion Reactions: Previous Problems w/ Anesthesia Additional Past Anesthesia/Blood Transfusion Reaction / Comm: AFTER LAST PAIN CLINIC PROCEDURE 01/12/15 HAD ALLEGIC REACTION- broke out in hives and itching all over that lasted over 1 week, also had ELEVATED PULSE & BP. Type of Cardiac Device: Permanent Pacemaker Device Placement Date:: 12/11/18 Past Psychological History: No Psychological Hx Reported Smoking Status: Former smoker - Past Family History Daughter(s) Family Medical History: Cancer Additional Family Medical History / Comment(s): lung CA Father Additional Family Medical History / Comment(s): Father of lung CA at the age of 80yrs. He was a smoker. Mother Additional Family Medical History / Comment(s): CABG. Mother at the age of 94 yrs. Medications and Allergies Home Medications Medication Instructions Recorded Confirmed Type Multivit-Min/FA/Lycopene/Lut 1 tab PO DAILY 11/28/14 02/22/23 History [Centrum Silver Tablet] Nitroglycerin Sl Tabs [Nitrostat] 0.4 mg SL Q5M PRN 11/28/14 02/22/23 History Vits A,C,E/Lutein/Minerals 1 tab PO MOWEFRSA 11/28/14 02/22/23 History [Ocuvite with Lutein Tablet] ALPRAZolam [Xanax] 0.25 mg PO BID PRN #6 tab 10/21/18 02/22/23 Rx Ascorbic Acid [Vitamin C] 500 mg PO DAILY 03/09/19 02/22/23 History carvediloL 25 mg PO BID 03/09/19 02/22/23 History Apixaban [Eliquis] 2.5 mg PO BID #0 tablet 03/17/19 02/22/23 Rx Fenofibrate Nanocrystallized 145 mg PO DAILY 04/24/20 02/22/23 History [Tricor] Hydrocodone/Acetaminophen [[place] 1 tab PO TID 04/24/20 02/22/23 History 7.5-325] Labetalol [Trandate] 200 mg PO Q8HR PRN 04/24/20 02/22/23 History Omeprazole 20 mg PO AC-BRKFST PRN 04/24/20 02/22/23 History Bevacizumab [Avastin] 1 dose BOTH EYES QMONTHLY 02/22/23 02/22/23 History Biotin [Biotin Disolve] 2,500 mcg PO DAILY 02/22/23 02/22/23 History Collagen/Biotin/Ascorbic Acid 1 cap PO DAILY 02/22/23 02/22/23 History [Collagen 1500 Plus C Capsule] Cranberry Fruit [Cranberry] 465 mg PO DAILY 02/22/23 02/22/23 History Elderberry Fruit [Elderberry] 350 mg PO DAILY 02/22/23 02/22/23 History Gabapentin [Neurontin] 600 mg PO TID 02/22/23 02/22/23 History Loperamide HCl [Imodium A-D] 2 - 4 mg PO QID PRN 02/22/23 02/22/23 History Prevagen 1 cap PO DAILY 02/22/23 02/22/23 History Vitamin D3(Unknown Dose) 1 tab PO DAILY 02/22/23 02/22/23 History allopurinoL 100 mg PO DAILY 02/22/23 02/22/23 History amLODIPine [Norvasc] 2.5 mg PO BID 02/22/23 02/22/23 History Allergies Allergy/AdvReac Type Severity Reaction Status Date / Time Corticosteroids Allergy Unknown Verified 02/22/23 12:01 (Glucocorticoids) nitrofurantoin Allergy Unknown Verified 02/22/23 12:01 [From Macrobid] Penicillins Allergy Dyspnea Verified 02/22/23 12:00 Sulfa (Sulfonamide Allergy Dyspnea Verified 02/22/23 12:00 Antibiotics) triamcinolone acetonide AdvReac unsure if Verified 02/22/23 12:00 [From Kenalog] the kenalog was the cause, RASH/HIVES Physical Exam Vitals: Vital Signs Temp Pulse Resp BP Pulse Ox 02/22/23 14:01 97.6 F 70 17 123/48 95 02/22/23 13:03 70 17 125/55 97 02/22/23 12:20 70 02/22/23 12:07 70 02/22/23 11:28 97.8 F 70 16 131/56 94 L 02/22/23 10:18 65 18 135/64 98 02/22/23 10:17 74 18 124/59 97 02/22/23 08:33 60 02/22/23 08:22 60 02/22/23 08:15 20 02/22/23 08:00 64 18 131/56 98 02/22/23 05:10 80 14 129/50 94 L 02/22/23 04:00 69 18 124/52 94 L 02/22/23 03:00 73 18 127/53 94 L 02/22/23 02:00 75 16 143/61 94 L 02/22/23 01:21 77 16 150/61 95 02/22/23 00:19 98.9 F 42 L 20 138/60 92 L Intake and Output 02/22/23 02/22/23 02/22/23 06:59 14:59 22:59 Other: Weight 53.524 kg Results CBC & Chem 7: 02/22/23 01:52 02/22/23 01:52 Labs: Abnormal Lab Results - Last 24 Hours (Table) 02/22/23 02/22/23 02/22/23 Range/Units 01:52 01:52 01:52 WBC 25.2 H (3.8-10.6) k/uL RBC 3.40 L (3.80-5.40) m/uL Hgb 10.3 L (11.4-16.0) gm/dL Hct 32.7 L (34.0-46.0) % RDW 17.1 H (11.5-15.5) % Neutrophils # 23.1 H (1.3-7.7) k/uL Lymphocytes # 0.9 L (1.0-4.8) k/uL PT 12.4 H (9.0-12.0) sec INR 1.2 H (<1.2) Chloride 110 H (98-107) mmol/L Carbon Dioxide 20 L (22-30) mmol/L BUN 67 H (7-17) mg/dL Creatinine 2.68 H (0.52-1.04) mg/dL Glucose 119 H (74-99) mg/dL AST 50 H (14-36) U/L Albumin 3.3 L (3.5-5.0) g/dL TSH 0.177 L (0.465-4.680) mIU/L Urine Appearance (Clear) Urine Protein (Negative) Ur Leukocyte Esterase (Negative) Urine WBC (0-5) /hpf Amorphous Sediment (None) /hpf Urine Bacteria (None) /hpf Hyaline Casts (0-2) /lpf Urine Mucus (None) /hpf 02/22/23 Range/Units 04:20 WBC (3.8-10.6) k/uL RBC (3.80-5.40) m/uL Hgb (11.4-16.0) gm/dL Hct (34.0-46.0) % RDW (11.5-15.5) % Neutrophils # (1.3-7.7) k/uL Lymphocytes # (1.0-4.8) k/uL PT (9.0-12.0) sec INR (<1.2) Chloride (98-107) mmol/L Carbon Dioxide (22-30) mmol/L BUN (7-17) mg/dL Creatinine (0.52-1.04) mg/dL Glucose (74-99) mg/dL AST (14-36) U/L Albumin (3.5-5.0) g/dL TSH (0.465-4.680) mIU/L Urine Appearance Cloudy H (Clear) Urine Protein 2+ H (Negative) Ur Leukocyte Esterase Large H (Negative) Urine WBC 31 H (0-5) /hpf Amorphous Sediment Few H (None) /hpf Urine Bacteria Few H (None) /hpf Hyaline Casts 6 H (0-2) /lpf Urine Mucus Rare H (None) /hpf Assessment and Plan Plan: 1patient presented to hospital with extreme weakness fatigue decreased oral intake in this patient with evidence of right lower lobe pneumonia both on the CT of the chest as well as CT abdominal pelvis possible community-acquired pneumonia patient did not get any history of vomiting or choking on the food with concern for aspiration pneumonia there was no evidence of any abscess on CT abdominal pelvis urine is also mildly positive could be contributing to some of her symptoms. 2we will try to obtain a sputum for Gram stain culture and check a CRP and a procalcitonin level. 3patient to continue with Rocephin and Zithromax while waiting for the cultures to be finalized. We will follow on clinical condition and cultures to further adjust medication if needed Thank you for this consultation we will follow the patient along with you Dictation was produced using [employer] dictation software. please excuse any grammatical, word or spelling errors. Time with Patient: Greater than 30
[2023-02-23] MEDS: ACETAMINOPHEN TAB 325 MG TAB PO PRN (00:19)
[2023-02-23] MEDS: HYDROcodone/APAP 7.5-325MG 1 EACH TAB PO SCH ×3 (04:09→22:10)
[2023-02-23] MEDS: IPRATROPIUM-ALBUTEROL 3 ML NEB INHALATION SCH ×3 (07:42→19:42)
[2023-02-23] MEDS: APIXABAN 2.5 MG TABLET PO SCH ×2 (08:43→20:17)
[2023-02-23] MEDS: GABAPENTIN 300 MG CAP PO SCH ×3 (08:43→20:17)
[2023-02-23] MEDS: carvediloL 12.5 MG TAB PO SCH ×2 (08:43→16:47)
[2023-02-23] MEDS: AZITHROMYCIN 500 MG TAB PO SCH (08:43)
[2023-02-23] MEDS: allopurinoL 100 MG TAB PO SCH (08:43)
[2023-02-23] MEDS: amLODIPine 2.5 MG TAB PO SCH ×2 (08:44→20:17)
[2023-02-23 08:46] LABS: Anisocytosis Slight; Basophils % (A) 0 %; Eosinophils # (A) 0.2 k/uL (0-0.7); Eosinophils % (A) 1 %; HCT 28.5 % (34.0-46.0); Hypochromasia Slight; Lymphocytes % (A) 8 %; MCH 30.6 pg (25.0-35.0); MCHC 31.5 g/dL (31.0-37.0); MCV 97.3 fL (80.0-100.0); Macrocytosis Slight; Mean Platelet Volume 8.2; Monocytes # (A) 0.7 k/uL (0-1.0); Monocytes % (A) 5 %; Neutrophils % (A) 84 %; Platelet Count 212 k/uL (150-450); RBC 2.93 m/uL (3.80-5.40); RDW 17.3 % (11.5-15.5); WBC 13.1 k/uL (3.8-10.6)
[2023-02-23 09:02] LABS: African American GFR (CKD) 20 (>60 ml/min/1.73 sqM); Anion Gap 9 mmol/L; Blood Urea Nitrogen 58 mg/dL (7-17); Carbon Dioxide 18 mmol/L (22-30); Chloride 114 mmol/L (98-107); Glucose 125 mg/dL (74-99); Potassium 4.5 mmol/L (3.5-5.1); Sodium 141 mmol/L (137-145)
[2023-02-23 09:03] LABS: Calcium 8.8 mg/dL (8.4-10.2); Non-African American GFR(CKD) 17 (>60 ml/min/1.73 sqM)
--- NOTE | 2023-02-23 11:04 | P.PN ---
Subjective Progress Note Date: 02/23/23 This is a very pleasant 87-year-old female patient with a known history of hypertension, gastroesophageal reflux disease, hyperlipidemia,atrial fibrillation anticoagulated with Eliquis, status post permanent pacemaker implantation, breast and ovarian cancer back in the 1980s. She presented here with a three-day history of shaking, dizziness, shortness of breath, cough and congestion. Computed tomography scan of the chest reveals a right lower lobe consolidation mild infiltrates in the left base. White count 25.2. Hemoglobin 10.3. Platelets 235. Sodium 139. Potassium 4.8. Bicarb 20. BUN 67. C reatinine 2.68. Lactic acid 0.7. Monge virus negative. She is seen today in consultation in the emergency department. She is currently sitting up in a chair. Awake and alert in no acute distress. On room air. Afebrile. Hemodynamically stable. Receiving DuoNeb inhalations. She's been initiated on ceftriaxone and azithromycin. Heparin for DVT prophy The patient is seen today 02/23/2023 in follow-up on the regular medical floor. She is currently sitting up in bed having breakfast. Awake and alert in no acute distress. Denies any worsening shortness of breath, cough or congestion. She is maintaining good O2 saturations in the 90s on room air. White count 13.1. Hemoglobin 9.0. Platelets 212. Sodium 141. Potassium 4.5. Bicarb 18. BUN 58. Creatinine 2.43. Glucose 125. Urine legionella antigen not detected. Monge virus not detected. She is currently on DuoNeb inhalations, ceftriaxone and azithromycin. Anticoagulated with Eliquis. Objective - Vital Signs Vital signs: Vital Signs Temp 98.2 F 02/23/23 07:13 Pulse 66 02/23/23 07:57 Resp 18 02/23/23 07:13 BP 147/68 02/23/23 07:13 Pulse Ox 91 L 02/23/23 07:13 FiO2 Intake & Output 02/22/23 02/23/23 02/23/23 18:59 06:59 18:59 Intake Total 240 170 Balance 240 170 Weight 53.524 kg Intake: Intake, IV Titration 50 Amount cefTRIAXone 2 gm In 50 Sodium Chloride 0.9% 50 ml @ 100 mls/hr IVPB Q24H [facility] Rx#:[id number] Oral 240 120 Other: Voiding Method Toilet # Voids 1 2 - Exam GENERAL EXAM: Alert, active, pleasant 87-year-old female, on room air, comfortable in no apparent distress. HEAD: Normocephalic. EYES: Normal reaction of pupils, equal size. NOSE: Clear with pink turbinates. THROAT: No erythema or exudates. NECK: No masses, no JVD. CHEST: No chest wall deformity. LUNGS: Equal air entry with faint crackles in the right lung base. CVS: S1 and S2 normal with no audible murmur, regular rhythm. ABDOMEN: No hepatosplenomegaly, normal bowel sounds, no guarding or rigidity. SPINE: No scoliosis or deformity SKIN: No rashes CENTRAL NERVOUS SYSTEM: No focal deficits, tone is normal in all 4 extremities. EXTREMITIES: There is no peripheral edema. No clubbing, no cyanosis. Peripheral pulses are intact. - Labs CBC & Chem 7: 02/23/23 07:40 02/23/23 07:40 Labs: Abnormal Lab Results - Last 24 Hours (Table) 02/23/23 02/23/23 Range/Units 07:40 07:40 WBC 13.1 H (3.8-10.6) k/uL RBC 2.93 L (3.80-5.40) m/uL Hgb 9.0 L (11.4-16.0) gm/dL Hct 28.5 L (34.0-46.0) % RDW 17.3 H (11.5-15.5) % Neutrophils # 11.0 H (1.3-7.7) k/uL Chloride 114 H (98-107) mmol/L Carbon Dioxide 18 L (22-30) mmol/L BUN 58 H (7-17) mg/dL Creatinine 2.43 H (0.52-1.04) mg/dL Glucose 125 H (74-99) mg/dL Assessment and Plan Assessment: Acute community-acquired pneumonia Leukocytosis secondary to above Acute kidney injury secondary to dehydration History of atrial fibrillation adequately regulated with Eliquis Permanent pacemaker implantation Hypertension Hyperlipidemia Peripheral neuropathy History of breast status post bilateral mastectomies History of ovarian cancer status post chemotherapy back in the 1980s History of bowel resection Former smoker Plan: The patient was seen and evaluated Labs and medications reviewed Currently stable and on room air Cleared for discharge from the pulmonary standpoint Antibiotics per ID services I have personally seen and examined the patient, performed the documentation and the assessment and plan as written. Number of minutes spent on the visit: 10.
--- NOTE | 2023-02-23 18:13 | P.PN ---
Subjective Progress Note Date: 02/23/23 Principal diagnosis: Pneumonia Patient is a 87-year-old female with a past medical history significant for atrial fibrillation fibromyalgia hypertension hyperlipidemia mi tral valve prolapse presenting to the ER for evaluation of not feeling well feeling very weak and tremulous decreased appetite , patient did have a CT of the chest abdomen pelvis with evidence of right lower lobe pneumonia. On today's evaluation that is 02/23/2023, the patient continues to be afebrile, the patient is breathing comfortably and denies any shortness of breath no chest pain or cough, the patient denies having any nausea and vomiting no abdominal pain and no diarrhea. Patient white count is down to 13.1, creatinine is 2.43 Objective - Vital Signs Vital signs: Vital Signs Temp 97.5 F L 02/23/23 14:51 Pulse 76 02/23/23 15:15 Resp 18 02/23/23 14:51 BP 153/64 02/23/23 14:51 Pulse Ox 94 L 02/23/23 14:51 FiO2 Intake & Output 02/22/23 02/23/23 02/23/23 18:59 06:59 18:59 Intake Total 240 170 Balance 240 170 Weight 53.524 kg Intake: Intake, IV Titration 50 Amount cefTRIAXone 2 gm In 50 Sodium Chloride 0.9% 50 ml @ 100 mls/hr IVPB Q24H [facility] Rx#:[id number] Oral 240 120 Other: Voiding Method Toilet # Voids 1 2 - Exam GENERAL DESCRIPTION: An elderly female lying in bed in no distress RESPIRATORY SYSTEM: Unlabored breathing , decreased breath sounds at bases HEART: S1 S2 regular rate and rhythm , ABDOMEN: Soft , no tenderness EXTREMITIES: No edema feet - Labs CBC & Chem 7: 02/23/23 07:40 02/23/23 07:40 Labs: Abnormal Lab Results - Last 24 Hours (Table) 02/23/23 02/23/23 Range/Units 07:40 07:40 WBC 13.1 H (3.8-10.6) k/uL RBC 2.93 L (3.80-5.40) m/uL Hgb 9.0 L (11.4-16.0) gm/dL Hct 28.5 L (34.0-46.0) % RDW 17.3 H (11.5-15.5) % Neutrophils # 11.0 H (1.3-7.7) k/uL Chloride 114 H (98-107) mmol/L Carbon Dioxide 18 L (22-30) mmol/L BUN 58 H (7-17) mg/dL Creatinine 2.43 H (0.52-1.04) mg/dL Glucose 125 H (74-99) mg/dL Assessment and Plan (1) CAP (community acquired pneumonia) Current Visit: Yes Status: Acute Code(s): J18.9 - PNEUMONIA, UNSPECIFIED ORGANISM SNOMED Code(s): 657593472 (2) Leukocytosis Current Visit: Yes Status: Acute Code(s): D72.829 - ELEVATED WHITE BLOOD CELL COUNT, UNSPECIFIED SNOMED Code(s): 497667452 (3) Allergy to multiple antibiotics Current Visit: Yes Status: Acute Code(s): Z88.1 - ALLERGY STATUS TO OTHER ANTIBIOTIC AGENTS SNOMED Code(s): 127831904 Plan: 1patient presented to hospital with extreme weakness fatigue decreased oral intake in this patient with evidence of right lower lobe pneumonia both on the CT of the chest as well as CT abdominal pelvis possible community-acquired pneumonia patient did not get any history of vomiting or choking on the food with concern for aspiration pneumonia there was no evidence of any abscess on CT abdominal pelvis urine is also mildly positive could be contributing to some of her symptoms. 2we will try to obtain a sputum for Gram stain culture 3patient to continue with Rocephin and Zithromax while waiting for the cultures to be finalized and monitor clinical course closely. Dictation was produced using [employer] dictation software. please excuse any grammatical, word or spelling errors. Time with Patient: Less than 30
--- NOTE | 2023-02-24 02:22 | PN ---
PROGRESS NOTE DATE OF SERVICE: 02/23/2023 SUBJECTIVE: This is an 87-year-old woman, who was admitted with acute bilateral pneumonia, is being closely monitored. The patient is on antibiotics. OBJECTIVE: VITAL SIGNS: Pulse is 70, blood pressure 147/63, respirations 18. CHEST: Scattered rhonchi and wheeze. ABDOMEN: Soft. NERVOUS SYSTEM: Nonfocal. LABORATORY DATA: Reviewed. ASSESSMENT: 1. Acute bilateral pneumonia with possible sepsis, present on admission. 2. Acute renal failure. 3. Atrial fibrillation. 4. Hypertension. 5. Hyperlipidemia. 6. Multiple medical issues. RECOMMENDATIONS: Recommend to continue current management and continue symptomatic treatment. Otherwise, at this time continue the bronchodilators. Continue the antibiotics. Closely follow with ID and Pulmonary. Further recommendations to follow. MMODL / IJN: [id number] /
[2023-02-24] MEDS: IPRATROPIUM-ALBUTEROL 3 ML NEB INHALATION SCH ×3 (07:16→19:09)
[2023-02-24] MEDS: carvediloL 12.5 MG TAB PO SCH ×2 (09:02→17:15)
[2023-02-24] MEDS: AZITHROMYCIN 500 MG TAB PO SCH (09:02)
[2023-02-24] MEDS: allopurinoL 100 MG TAB PO SCH (09:02)
[2023-02-24] MEDS: amLODIPine 2.5 MG TAB PO SCH ×2 (09:02→21:01)
[2023-02-24] MEDS: APIXABAN 2.5 MG TABLET PO SCH ×2 (09:03→21:01)
[2023-02-24] MEDS: GABAPENTIN 300 MG CAP PO SCH ×3 (09:03→21:01)
[2023-02-24] MEDS: HYDROcodone/APAP 7.5-325MG 1 EACH TAB PO SCH ×3 (09:03→21:01)
[2023-02-24 11:34] LABS: Anisocytosis Slight; Basophils % (A) 0 %; Eosinophils # (A) 0.3 k/uL (0-0.7); Eosinophils % (A) 4 %; HCT 30.3 % (34.0-46.0); HGB 9.6 gm/dL (11.4-16.0); Hypochromasia Slight; Lymphocytes # (A) 0.7 k/uL (1.0-4.8); Lymphocytes % (A) 8 %; MCH 30.7 pg (25.0-35.0); MCHC 31.6 g/dL (31.0-37.0); MCV 96.9 fL (80.0-100.0); Macrocytosis Slight; Mean Platelet Volume 8.7; Monocytes # (A) 0.6 k/uL (0-1.0); Monocytes % (A) 7 %; Neutrophils # (A) 6.9 k/uL (1.3-7.7); Neutrophils % (A) 78 %; Platelet Count 221 k/uL (150-450); RBC 3.12 m/uL (3.80-5.40); RDW 17.8 % (11.5-15.5); WBC 8.8 k/uL (3.8-10.6)
[2023-02-24 11:51] LABS: African American GFR (CKD) 24 (>60 ml/min/1.73 sqM); Anion Gap 9 mmol/L; Blood Urea Nitrogen 52 mg/dL (7-17); Calcium 9.3 mg/dL (8.4-10.2); Carbon Dioxide 20 mmol/L (22-30); Chloride 112 mmol/L (98-107); Glucose 175 mg/dL (74-99); Non-African American GFR(CKD) 20 (>60 ml/min/1.73 sqM); Potassium 4.2 mmol/L (3.5-5.1); Sodium 141 mmol/L (137-145)
--- NOTE | 2023-02-24 12:40 | P.PN ---
Subjective Progress Note Date: 02/24/23 Principal diagnosis: Pneumonia Patient is a 87-year-old female with a past medical history significant for atrial fibrillation fibromyalgia hypertension hyperlipidemia mi tral valve prolapse presenting to the ER for evaluation of not feeling well feeling very weak and tremulous decreased appetite , patient did have a CT of the chest abdomen pelvis with evidence of right lower lobe pneumonia. On today's evaluation that is 02/24/2023, the patient remains to be afebrile, the patient is breathing comfortably on room air, the patient denies having any chest pain, the patient denies significant cough, the patient denies nausea and vomiting no abdominal pain and no diarrhea Patient white count is down to 8.8, creatinine is 2.14, no cultures Objective - Vital Signs Vital signs: Vital Signs Temp 97.5 F L 02/24/23 06:58 Pulse 68 02/24/23 07:30 Resp 16 02/24/23 06:58 BP 132/60 02/24/23 06:58 Pulse Ox 92 L 02/24/23 06:58 FiO2 Intake & Output 02/23/23 02/24/23 02/24/23 18:59 06:59 18:59 Other: Voiding Method Toilet Toilet Toilet # Voids 3 1 - Exam GENERAL DESCRIPTION: An elderly female lying in bed in no distress RESPIRATORY SYSTEM: Unlabored breathing , decreased breath sounds at bases HEART: S1 S2 regular rate and rhythm , ABDOMEN: Soft , no tenderness EXTREMITIES: No edema feet - Labs CBC & Chem 7: 02/24/23 10:49 02/24/23 10:45 Labs: Abnormal Lab Results - Last 24 Hours (Table) 02/24/23 02/24/23 Range/Units 10:45 10:49 RBC 3.12 L (3.80-5.40) m/uL Hgb 9.6 L (11.4-16.0) gm/dL Hct 30.3 L (34.0-46.0) % RDW 17.8 H (11.5-15.5) % Lymphocytes # 0.7 L (1.0-4.8) k/uL Chloride 112 H (98-107) mmol/L Carbon Dioxide 20 L (22-30) mmol/L BUN 52 H (7-17) mg/dL Creatinine 2.14 H (0.52-1.04) mg/dL Glucose 175 H (74-99) mg/dL Assessment and Plan (1) CAP (community acquired pneumonia) Current Visit: Yes Status: Acute Code(s): J18.9 - PNEUMONIA, UNSPECIFIED ORGANISM SNOMED Code(s): 723126607 (2) Leukocytosis Current Visit: Yes Status: Acute Code(s): D72.829 - ELEVATED WHITE BLOOD CELL COUNT, UNSPECIFIED SNOMED Code(s): 859560177 (3) Allergy to multiple antibiotics Current Visit: Yes Status: Acute Code(s): Z88.1 - ALLERGY STATUS TO OTHER ANTIBIOTIC AGENTS SNOMED Code(s): 516244917 Plan: 1patient presented to hospital with extreme weakness fatigue decreased oral intake in this patient with evidence of right lower lobe pneumonia both on the CT of the chest as well as CT abdominal pelvis possible community-acquired pneumonia patient did not get any history of vomiting or choking on the food with concern for aspiration pneumonia there was no evidence of any abscess on CT abdominal pelvis urine is also mildly positive could be contributing to some of her symptoms. 2patient seemed to have shown clinical improvement and patient white count has normalized she'll be able to finish therapy with a short course of oral Ceftin, discuss with the [employer]ESS [employer] for admitting team working on discharge Dictation was produced using [employer] ([email or web address]) dictation software. please excuse any grammatical, word or spelling errors. Time with Patient: Less than 30
--- NOTE | 2023-02-24 13:16 | XR ---
EXAMINATION TYPE: XR chest 1V DATE OF EXAM: 02/24/2023 HISTORY: Shortness of breath. COMPARISON: 02/22/23 TECHNIQUE: Single view of the chest is submitted. FINDINGS: Demonstrated are scattered senescent parenchymal change. Patchy infiltrate right perihilar right lower lobe persists without significant change. Small right-s ided effusion. Mild strandy density left lower lobe is unchanged. The heart is stable. Hilar and mediastinal structures are within normal limits. Degenerative changes are seen of the dorsal spine. IMPRESSION: 1. Stable features of pneumonia. Correlate clinically and progress studies are recommended.
--- NOTE | 2023-02-24 15:44 | P.PN ---
Subjective Progress Note Date: 02/24/23 This is a very pleasant 87-year-old female patient with a known history of hypertension, gastroesophageal reflux disease, hyperlipidemia,atrial fibrillation anticoagulated with Eliquis, status post permanent pacemaker implantation, breast and ovarian cancer back in the 1980s. She presented here with a three-day history of shaking, dizziness, shortness of breath, cough and congestion. Computed tomography scan of the chest reveals a right lower lobe consolidation mild infiltrates in the left base. White count 25.2. Hemoglobin 10.3. Platelets 235. Sodium 139. Potassium 4.8. Bicarb 20. BUN 67. Creatinine 2.68. Lactic acid 0.7. Monge virus negative. She is seen today in consultation in the emergency department. She is currently sitting up in a chair. Awake and alert in no acute distress. On room air. Afebrile. Hemodynamically stable. Receiving DuoNeb inhalations. She's been initiated on ceftriaxone and azithromycin. Heparin for DVT prophy The patient is seen today 02/23/2023 in follow-up on the regular medical floor. She is currently sitting up in bed having breakfast. Awake and alert in no acute distress. Denies any worsening shortness of breath, cough or congestion. She is maintaining good O2 saturations in the 90s on room air. White count 13.1. Hemoglobin 9.0. Platelets 212. Sodium 141. Potassium 4.5. Bicarb 18. BUN 58. Creatinine 2.43. Glucose 125. Urine legionella antigen not detected. Monge virus not detected. She is currently on DuoNeb inhalations, ceftriaxone and azithromycin. Anticoagulated with Eliquis. On 02/24/2023, the patient is being seen for a follow-up. She is on room air oxygen. No significant complaints. She remains on Rocephin. On examination, she continues to have crackles in the right lung base and THE CHEST REVEALED A RIGHT LOWER LOBE CONSOLIDATION/AIRSPACE DISEASE CONSISTENT WITH PNEUMONIA. BROTHER THE MEDICATIONS REMAIN UNCHANGED. THE PATIENT'S WHITE CELL COUNT IS AT 8.8 WITH A HEMOGLOBIN 9.6. BUN IS AT 52 A CREATININE OF 2.4 AND THERE IS IMPROVEMENT IN THE RENAL FUNCTION COMPARED TO YESTERDAY. SHE HAS CHRONIC STAGE iv.She also has history of A. fib, maintained on anticoagulations, she has hypertension, and she has a permanent pacemaker in place. She has previous history of breast and ovarian cancer back in the 80s. Objective - Vital Signs Vital signs: Vital Signs Temp 97.9 F 02/24/23 11:45 Pulse 68 02/24/23 12:13 Resp 16 02/24/23 11:45 BP 135/56 02/24/23 11:45 Pulse Ox 93 L 02/24/23 11:45 FiO2 Intake & Output 02/23/23 02/24/23 02/24/23 18:59 06:59 18:59 Other: Voiding Method Toilet Toilet Toilet # Voids 3 1 - Exam GENERAL EXAM: Alert, active, pleasant 87-year-old female, on room air, comfortable in no apparent distress. HEAD: Normocephalic. EYES: Normal reaction of pupils, equal size. NOSE: Clear with pink turbinates. THROAT: No erythema or exudates. NECK: No masses, no JVD. CHEST: No chest wall deformity. LUNGS: Equal air entry with faint crackles in the right lung base. CVS: S1 and S2 normal with no audible murmur, regular rhythm. ABDOMEN: No hepatosplenomegaly, normal bowel sounds, no guarding or rigidity. SPINE: No scoliosis or deformity SKIN: No rashes CENTRAL NERVOUS SYSTEM: No focal deficits, tone is normal in all 4 extremities. EXTREMITIES: There is no peripheral edema. No clubbing, no cyanosis. Peripheral pulses are intact. - Labs CBC & Chem 7: 02/24/23 10:49 02/24/23 10:45 Labs: Abnormal Lab Results - Last 24 Hours (Table) 02/24/23 02/24/23 Range/Units 10:45 10:49 RBC 3.12 L (3.80-5.40) m/uL Hgb 9.6 L (11.4-16.0) gm/dL Hct 30.3 L (34.0-46.0) % RDW 17.8 H (11.5-15.5) % Lymphocytes # 0.7 L (1.0-4.8) k/uL Chloride 112 H (98-107) mmol/L Carbon Dioxide 20 L (22-30) mmol/L BUN 52 H (7-17) mg/dL Creatinine 2.14 H (0.52-1.04) mg/dL Glucose 175 H (74-99) mg/dL Assessment and Plan Plan: Acute community-acquired pneumonia, essentially involving the right lower lobe Leukocytosis secondary to above, improved and the white cell count is up from 25 down to 8.8 Acute kidney injury secondary to dehydration, improving History of atrial fibrillation adequately regulated with Eliquis Permanent pacemaker implantation Hypertension Hyperlipidemia Peripheral neuropathy History of breast status post bilateral mastectomies History of ovarian cancer status post chemotherapy back in the 1980s History of bowel resection Former smoker Plan: continue antibiotics and repeat a chest x-ray in the morning renal function continues to improve Currently stable and on room air
--- NOTE | 2023-02-24 16:39 | P.PN ---
Subjective Progress Note Date: 02/24/23 This is a pleasant 87-year-old female who was recently admitted with acute bilateral pneumonia being closely monitored with infectious disease and pulmonary following. Patient is currently on room air and continues to report shortness of breath with minimal exertion. Patient does not normally wear oxyg en in the outpatient setting and encourage the patient to continue with walking in the halls frequently and increased activity. Patient is maintained on IV antibiotics and we'll transition to oral Ceftin on discharge. Recommend monitoring overnight with increased activity with possible discharge planning and follow-up chest x-ray in 24 hours. Review of systems: Constitutional: No reports of fatigue, fever, or chills Cardiovascular: No reports of chest pain or palpitations Respiratory: reports of shortness of breath with exertion, dry cough GI: No reports of nausea, no reports of vomiting, no diarrhea : No reports of dysuria or retention Neurovascular: reports of generalized weakness All medications have been reviewed PHYSICAL EXAMINATION: GENERAL: The patient is alert and oriented x4, Well developed, well nourished. HEENT: Pupils are round and equally reacting to light. EOMI. no scleral icterus. No conjunctival pallor. Normocephalic, atraumatic. No pharyngeal erythema. No thyromegaly. CARDIOVASCULAR: S1 and S2 muffled PULMONARY: diminished breath sounds bilaterally with some coarse scattered rhonchi noted and faint crackles at the bases. ABDOMEN: soft. Nontender on exam. non-distended, normoactive bowel sounds. No palpable organomegaly. MUSCULOSKELETAL: No joint swelling or deformity. EXTREMITIES: No cyanosis, clubbing, or pedal edema. NEUROLOGICAL: Gross neurological examination did not reveal any focal deficits. SKIN: No rashes. Assessment: Acute bilateral pneumonia with sepsis, present on admission, community-acquired pneumonia Leukocytosis secondary to above, trending down Acute kidney injury, likely secondary to dehydration, improving History of atrial fibrillation maintained on oral anticoagulant Hypertension history Hyperlipidemia history Former smoker GERD GI prophylaxis DVT prophylaxis Full code Plan: Patient is continued on IV antibiotics and has completed Zithromax continue with ceftriaxone with infectious disease and pulmonary following. Patient will transition to oral Ceftin to complete a course on discharge Chest x-ray continues to show stable features of pneumonia with continued patchy infiltrate in the right perihilar right lower lobe persisting Will follow-up with repeat chest x-ray and encouraged increased activity as tolerated. Patient reports has been up and walking the halls although does feel quite fatigued Will follow-up on repeat labs to monitor kidney functions. Replace electrolytes per protocol as needed Possible discharge planning in the next 24-48 hours The impression and plan of care has been dictated by Kimberlee Adam, nurse practitioner as directed. Dr. Shonna MD I have performed a history and examination and MDM of this patient, discussed the same with the dictator, and agree with the dictator's assessment and plan as written ,documented as a scribe. Based on total visit time, I have performed more than 50% of the visit. Any additional findings or plans will be noted. Objective - Vital Signs Vital signs: Vital Signs Temp 97.9 F 02/24/23 11:45 Pulse 68 02/24/23 12:13 Resp 16 02/24/23 11:45 BP 135/56 02/24/23 11:45 Pulse Ox 93 L 02/24/23 11:45 FiO2 Intake & Output 02/23/23 02/24/23 02/24/23 18:59 06:59 18:59 Other: Voiding Method Toilet Toilet Toilet # Voids 3 1 2 - Labs CBC & Chem 7: 02/24/23 10:49 02/24/23 10:45 Labs: Abnormal Lab Results - Last 24 Hours (Table) 02/24/23 02/24/23 Range/Units 10:45 10:49 RBC 3.12 L (3.80-5.40) m/uL Hgb 9.6 L (11.4-16.0) gm/dL Hct 30.3 L (34.0-46.0) % RDW 17.8 H (11.5-15.5) % Lymphocytes # 0.7 L (1.0-4.8) k/uL Chloride 112 H (98-107) mmol/L Carbon Dioxide 20 L (22-30) mmol/L BUN 52 H (7-17) mg/dL Creatinine 2.14 H (0.52-1.04) mg/dL Glucose 175 H (74-99) mg/dL
[2023-02-25] MEDS: HYDROcodone/APAP 7.5-325MG 1 EACH TAB PO SCH ×3 (06:39→21:08)
[2023-02-25] MEDS: IPRATROPIUM-ALBUTEROL 3 ML NEB INHALATION SCH ×3 (08:22→20:50)
[2023-02-25 09:16] LABS: BUN/Creat Ratio 23.15 Ratio (12.00-20.00); Blood Urea Nitrogen 46.3 mg/dL (9.0-27.0); Calcium 9.2 mg/dL (8.7-10.3); Carbon Dioxide 19.6 mmol/L (21.6-31.8); Chloride 111 mmol/L (96-109); Glucose 72 mg/dL (70-110); Potassium 4.3 mmol/L (3.5-5.5); Sodium 142 mmol/L (135-145)
[2023-02-25] MEDS: allopurinoL 100 MG TAB PO SCH (09:28)
[2023-02-25] MEDS: APIXABAN 2.5 MG TABLET PO SCH ×2 (09:28→21:08)
[2023-02-25] MEDS: carvediloL 12.5 MG TAB PO SCH ×2 (09:29→18:19)
[2023-02-25] MEDS: GABAPENTIN 300 MG CAP PO SCH ×3 (09:29→21:08)
[2023-02-25] MEDS: amLODIPine 2.5 MG TAB PO SCH ×2 (09:30→21:08)
[2023-02-25 09:46] LABS: Basophils # (A) 0.09 X 10*3/uL (0.00-0.10); Basophils % (A) 1.1 %; Eosinophils # (A) 0.39 X 10*3/uL (0.04-0.35); Eosinophils % (A) 4.8 %; HCT 27.3 % (37.2-46.3); HGB 9.3 d/dL (12.0-15.0); Lymphocytes # (A) 0.85 X 10*3/uL (0.90-5.00); Lymphocytes % (A) 10.6 %; MCH 30.2 pg (27.0-32.0); MCHC 34.1 d/dL (32.0-37.0); MCV 88.6 FL (80.0-97.0); Mean Platelet Volume 10.7 FL (9.5-12.2); Monocytes # (A) 0.73 X 10*3/uL (0.20-1.00); Monocytes % (A) 9.1 %; NRBC Per 100 WBC 0 X 10*3/uL (0.00-0.01); Neutrophils # (A) 5.94 X 10*3/uL (1.80-7.70); Neutrophils % (A) 73.8 %; Platelet Count 234 X 10*3/uL (140-440); RBC 3.08 X 10*6/uL (4.10-5.20); RDW 17.4 % (11.5-14.5); WBC 8.05 X 10*3/uL (4.50-10.00)
--- NOTE | 2023-02-25 10:42 | XR ---
EXAMINATION TYPE: XR chest 1V portable DATE OF EXAM: 02/25/2023 COMPARISON: 02/24/2023 HISTORY: Shortness of breath TECHNIQUE: Single frontal view of the chest is obtained. FINDINGS: Bilateral consolidation and small effusion. Heart is enlarged and there is underlying COPD . Spiculated mass right upper lobe. Cardiac device stable. No pneumothorax. Diffuse osteopenia. IMPRESSION: 1. Bilateral infiltrate and small effusion are stable superimposed on a background of COPD. 2. Findings suspicious for spiculated mass\consolidation right upper lobe.
--- NOTE | 2023-02-25 12:16 | P.PN ---
Subjective Progress Note Date: 02/25/23 This is a very pleasant 87-year-old female patient with a known history of hypertension, gastroesophageal reflux disease, hyperlipidemia,atrial fibrillation anticoagulated with Eliquis, status post permanent pacemaker implantation, breast and ovarian cancer back in the 1980s. She presented here with a three-day history of shaking, dizziness, shortness of breath, cough and congestion. Computed tomography scan of the chest reveals a right lower lobe consolidation mild infiltrates in the left base. White count 25.2. Hemoglobin 10.3. Platelets 235. Sodium 139. Potassium 4.8. Bicarb 20. BUN 67. Creatinine 2.68. Lactic acid 0.7. Monge virus negative. She is seen today in consultation in the emergency department. She is currently sitting up in a chair. Awake and alert in no acute distress. On room air. Afebrile. Hemodynamically stable. Receiving DuoNeb inhalations. She's been initiated on ceftriaxone and azithromycin. Heparin for DVT prophy The patient is seen today 02/23/2023 in follow-up on the regular medical floor. She is currently sitting up in bed having breakfast. Awake and alert in no acute distress. Denies any worsening shortness of breath, cough or congestion. She is maintaining good O2 saturations in the 90s on room air. White count 13.1. Hemoglobin 9.0. Platelets 212. Sodium 141. Potassium 4.5. Bicarb 18. BUN 58. Creatinine 2.43. Glucose 125. Urine legionella antigen not detected. Monge virus not detected. She is currently on DuoNeb inhalations, ceftriaxone and azithromycin. Anticoagulated with Eliquis. On 02/24/2023, the patient is being seen for a follow-up. She is on room air oxygen. No significant complaints. She remains on Rocephin. On examination, she continues to have crackles in the right lung base and THE CHEST REVEALED A RIGHT LOWER LOBE CONSOLIDATION/AIRSPACE DISEASE CONSISTENT WITH PNEUMONIA. BROTHER THE MEDICATIONS REMAIN UNCHANGED. THE PATIENT'S WHITE CELL COUNT IS AT 8.8 WITH A HEMOGLOBIN 9.6. BUN IS AT 52 A CREATININE OF 2.4 AND THERE IS IMPROVEMENT IN THE RENAL FUNCTION COMPARED TO YESTERDAY. SHE HAS CHRONIC STAGE iv.She also has history of A. fib, maintained on anticoagulations, she has hypertension, and she has a permanent pacemaker in place. She has previous history of breast and ovarian cancer back in the 80s. On 02/25/2023, the patient is feeling weak. She has a dry cough. Limited amount of sputum production. She remains on IV Rocephin. A repeat chest x-ray was done and the patient continues to have persistent infiltration of the right lung. Infiltrates of bilateral most of the right lower lobe. no evidence of any solid mass based on the CAT scan of the chest that was done at time of admission. The patient's labs show a white cell count of 8 with a hemoglobin 9.3, BUN is at 46 with a creatinine of 2.0 and the creatinine is improved over the past 48 hours. Sodium level is at 142. Covid 19 testing was negative. Legionella urine antigen was also negative. She has chronic stage IV kidney disease along with A. fib, hypertension and the patient has a permanent pacemaker in place. Objective - Vital Signs Vital signs: Vital Signs Temp 97.9 F 02/25/23 06:54 Pulse 69 02/25/23 06:54 Resp 16 02/25/23 06:54 BP 147/71 02/25/23 06:54 Pulse Ox 92 L 02/25/23 06:54 FiO2 Intake & Output 02/24/23 02/25/23 02/25/23 18:59 06:59 18:59 Intake Total 120 Balance 120 Intake: Oral 120 Other: Voiding Method Toilet Toilet # Voids 2 - Exam GENERAL EXAM: Alert, active, pleasant 87-year-old female, on room air, comfortable in no apparent distress. HEAD: Normocephalic. EYES: Normal reaction of pupils, equal size. NOSE: Clear with pink turbinates. THROAT: No erythema or exudates. NECK: No masses, no JVD. CHEST: No chest wall deformity. LUNGS: Equal air entry with faint crackles in the right lung base. CVS: S1 and S2 normal with no audible murmur, regular rhythm. ABDOMEN: No hepatosplenomegaly, normal bowel sounds, no guarding or rigidity. SPINE: No scoliosis or deformity SKIN: No rashes CENTRAL NERVOUS SYSTEM: No focal deficits, tone is normal in all 4 extremities. EXTREMITIES: There is no peripheral edema. No clubbing, no cyanosis. Peripheral pulses are intact. - Labs CBC & Chem 7: 02/25/23 05:45 09/12/23 05:45 Labs: Abnormal Lab Results - Last 24 Hours (Table) 02/24/23 02/24/23 02/25/23 Range/Units 10:45 10:49 05:45 RBC 3.12 L 3.08 L (3.80-5.40) m/uL Hgb 9.6 L 9.3 L (11.4-16.0) gm/dL Hct 30.3 L 27.3 L (34.0-46.0) % RDW 17.8 H 17.4 H (11.5-15.5) % Lymphocytes # 0.7 L 0.85 L (1.0-4.8) k/uL Eosinophils # 0.39 H (0.04-0.35) X 10*3/uL Chloride 112 H (98-107) mmol/L Carbon Dioxide 20 L (22-30) mmol/L BUN 52 H (7-17) mg/dL Creatinine 2.14 H (0.52-1.04) mg/dL Est GFR (CKD-EPI) (>=60) BUN/Creatinine Ratio (12.00-20.00) Ratio Glucose 175 H (74-99) mg/dL 02/25/23 Range/Units 05:45 RBC (3.80-5.40) m/uL Hgb (11.4-16.0) gm/dL Hct (34.0-46.0) % RDW (11.5-15.5) % Lymphocytes # (1.0-4.8) k/uL Eosinophils # (0.04-0.35) X 10*3/uL Chloride 111 H (98-107) mmol/L Carbon Dioxide 19.6 L (22-30) mmol/L BUN 46.3 H (7-17) mg/dL Creatinine 2.0 H (0.52-1.04) mg/dL Est GFR (CKD-EPI) 24 L (>=60) BUN/Creatinine Ratio 23.15 H (12.00-20.00) Ratio Glucose (74-99) mg/dL Assessment and Plan Plan: Acute community-acquired pneumonia, essentially involving the right lower lobe Leukocytosis secondary to above, improved and the white cell count is up from 25 down to 8 Acute kidney injury secondary to dehydration, improving History of atrial fibrillation adequately regulated with Eliquis Permanent pacemaker implantation Hypertension Hyperlipidemia Peripheral neuropathy History of breast status post bilateral mastectomies History of ovarian cancer status post chemotherapy back in the 1980s History of bowel resection Former smoker Plan: I reviewed the follow-up chest x-ray from today and the patient continues to have infiltration of the right lung Oxygenation is stable and the patient remains on room air oxygen No significant leukocytosis Still having difficulties with breathing renal function continues to improve Currently stable and on room air We'll continue IV Rocephin. We'll continue to follow and monitor progress. On examination, the patient continues to have crackles in the right lung which is essentially unchanged compared to yesterday.
[2023-02-25] MEDS: ACETAMINOPHEN TAB 325 MG TAB PO PRN (13:19)
--- NOTE | 2023-02-25 17:23 | P.PN ---
Subjective Progress Note Date: 02/25/23 Principal diagnosis: Pneumonia Patient is a 87-year-old female with a past medical history significant for atrial fibrillation fibromyalgia hypertension hyperlipidemia mi tral valve prolapse presenting to the ER for evaluation of not feeling well feeling very weak and tremulous decreased appetite , patient did have a CT of the chest abdomen pelvis with evidence of right lower lobe pneumonia. On today's evaluation that is 02/25/2023, the patient denies any fever or any chills, the patient is breathing comfortably on room air however is complaining of some shortness of breath today, the patient denies chest pain or cough, the patient denies nausea and vomiting no abdominal pain and no diarrhea has been reported Patient white count is is normal at 8.05, creatinine is 2.0, no cultures Objective - Vital Signs Vital signs: Vital Signs Temp 97.7 F 02/25/23 12:05 Pulse 68 02/25/23 12:58 Resp 16 02/25/23 12:05 BP 124/66 02/25/23 12:05 Pulse Ox 95 02/25/23 12:05 FiO2 Intake & Output 02/24/23 02/25/23 02/25/23 18:59 06:59 18:59 Intake Total 120 Balance 120 Intake: Oral 120 Other: Voiding Method Toilet Toilet Toilet # Voids 2 - Exam GENERAL DESCRIPTION: An elderly female lying in bed in no distress RESPIRATORY SYSTEM: Unlabored breathing , decreased breath sounds at bases HEART: S1 S2 regular rate and rhythm , ABDOMEN: Soft , no tenderness EXTREMITIES: No edema feet - Labs CBC & Chem 7: 02/25/23 05:45 02/25/23 05:45 Labs: Abnormal Lab Results - Last 24 Hours (Table) 02/25/23 02/25/23 Range/Units 05:45 05:45 RBC 3.08 L (4.10-5.20) X 10*6/uL Hgb 9.3 L (12.0-15.0) d/dL Hct 27.3 L (37.2-46.3) % RDW 17.4 H (11.5-14.5) % Lymphocytes # 0.85 L (0.90-5.00) X 10*3/uL Eosinophils # 0.39 H (0.04-0.35) X 10*3/uL Chloride 111 H (96-109) mmol/L Carbon Dioxide 19.6 L (21.6-31.8) mmol/L BUN 46.3 H (9.0-27.0) mg/dL Creatinine 2.0 H (0.6-1.5) mg/dL Est GFR (CKD-EPI) 24 L (>=60) BUN/Creatinine Ratio 23.15 H (12.00-20.00) Ratio Assessment and Plan (1) CAP (community acquired pneumonia) Current Visit: Yes Status: Acute Code(s): J18.9 - PNEUMONIA, UNSPECIFIED ORGANISM SNOMED Code(s): 184760229 (2) Leukocytosis Current Visit: Yes Status: Acute Code(s): D72.829 - ELEVATED WHITE BLOOD CELL COUNT, UNSPECIFIED SNOMED Code(s): 638261498 (3) Allergy to multiple antibiotics Current Visit: Yes Status: Acute Code(s): Z88.1 - ALLERGY STATUS TO OTHER ANTIBIOTIC AGENTS SNOMED Code(s): 668876525 Plan: 1patient presented to hospital with extreme weakness fatigue decreased oral intake in this patient with evidence of right lower lobe pneumonia both on the CT of the chest as well as CT abdominal pelvis possible community-acquired pneumonia patient did not get any history of vomiting or choking on the food with concern for aspiration pneumonia there was no evidence of any abscess on CT abdominal pelvis urine is also mildly positive could be contributing to some of her symptoms. 2patient has shown clinical improvement and patient white count has normalized patient to continue with Rocephin while the patient and she'll be able to finish therapy with a short course of oral Ceftin on discharge Dictation was produced using [employer] dictation software. please excuse any grammatical, word or spelling errors. Time with Patient: Less than 30
[2023-02-26] MEDS: ACETAMINOPHEN TAB 325 MG TAB PO PRN (01:10)
--- NOTE | 2023-02-26 06:25 | P.PN ---
Subjective Progress Note Date: 02/25/23 This is a pleasant 87-year-old female who was recently admitted with acute bilateral pneumonia being closely monitored with infectious disease and pulmonary following. Patient is currently on room air and continues to report shortness of breath with minimal exertion. Patient does not normally wear oxyg en in the outpatient setting and encourage the patient to continue with walking in the halls frequently and increased activity. Patient is maintained on IV antibiotics and we'll transition to oral Ceftin on discharge. Recommend monitoring overnight with increased activity with possible discharge planning and follow-up chest x-ray in 24 hours. 02/25/2023 Patient is seen and examined this morning continues to report not feeling well and back to baseline. Patient reports shortness of breath with exertion. Patient being followed by pulmonary with infectious disease has been maintained on antibiotics in the form of ceftriaxone and will continue oral Ceftin on discharge. Repeat chest x-ray with no significant changes from yesterday. Encourage the patient to increase activity as tolerated with frequent walking. Patient is afebrile white count is normal reported chest pain or palpitations. Patient is on room air is also received breathing treatments. No reported nausea or vomiting. Patient tolerating diet. Kidney functions are trending down with a creatinine of 2 will follow-up with repeat BMP in the a.m. Review of systems: Constitutional: No reports of fatigue, fever, or chills Cardiovascular: No reports of chest pain or palpitations Respiratory: reports of shortness of breath with exertion, dry cough GI: No reports of nausea, no reports of vomiting, no diarrhea : No reports of dysuria or retention Neurovascular: reports of generalized weakness All medications have been reviewed PHYSICAL EXAMINATION: GENERAL: The patient is alert and oriented x4, Well developed, well nourished. HEENT: Pupils are round and equally reacting to light. EOMI. no scleral icterus. No conjunctival pallor. Normocephalic, atraumatic. No pharyngeal erythema. No thyromegaly. CARDIOVASCULAR: S1 and S2 muffled PULMONARY: diminished breath sounds bilaterally with some scattered rhonchi noted and faint crackles at the bases. ABDOMEN: soft. Nontender on exam. non-distended, normoactive bowel sounds. No palpable organomegaly. MUSCULOSKELETAL: No joint swelling or deformity. EXTREMITIES: No cyanosis, clubbing, or pedal edema. NEUROLOGICAL: Gross neurological examination did not reveal any focal deficits. SKIN: No rashes. Assessment: Acute bilateral pneumonia with sepsis, present on admission, community-acquired pneumonia Leukocytosis secondary to above, normalized Acute kidney injury, likely secondary to dehydration, improving History of atrial fibrillation maintained on oral anticoagulant Hypertension history Hyperlipidemia history Former smoker GERD GI prophylaxis DVT prophylaxis Full code Plan: Patient is continued on IV antibiotics and has completed Zithromax continue with ceftriaxone with infectious disease and pulmonary following. Patient will transition to oral Ceftin to complete a course on discharge Chest x-ray continues to show stable features of pneumonia with continued patchy infiltrate in the right perihilar right lower lobe and pulmonary following recommending monitoring overnight as patient still reports shortness of breath and is concerned about going home too soon Encouraged increased activity as tolerated. Patient reports has been up and walking the halls although does feel quite fatigued still Will follow-up on repeat labs to monitor kidney functions. Possible discharge planning in the next 24 hours The impression and plan of care has been dictated by Kimberlee Adam, nurse practitioner as directed. Dr. Shonna MD I have performed a history and examination and MDM of this patient, discussed the same with the dictator, and agree with the dictator's assessment and plan as written ,documented as a scribe. Based on total visit time, I have performed more than 50% of the visit. Any additional findings or plans will be noted. Objective - Vital Signs Vital signs: Vital Signs Temp 97.9 F 02/25/23 06:54 Pulse 69 02/25/23 06:54 Resp 16 02/25/23 06:54 BP 147/71 02/25/23 06:54 Pulse Ox 92 L 02/25/23 06:54 FiO2 Intake & Output 02/24/23 02/25/23 02/25/23 18:59 06:59 18:59 Intake Total 120 Balance 120 Intake: Oral 120 Other: Voiding Method Toilet Toilet # Voids 2 - Labs CBC & Chem 7: 02/25/23 05:45 02/25/23 05:45 Labs: Abnormal Lab Results - Last 24 Hours (Table) 02/24/23 02/24/23 02/25/23 Range/Units 10:45 10:49 05:45 RBC 3.12 L 3.08 L (3.80-5.40) m/uL Hgb 9.6 L 9.3 L (11.4-16.0) gm/dL Hct 30.3 L 27.3 L (34.0-46.0) % RDW 17.8 H 17.4 H (11.5-15.5) % Lymphocytes # 0.7 L 0.85 L (1.0-4.8) k/uL Eosinophils # 0.39 H (0.04-0.35) X 10*3/uL Chloride 112 H (98-107) mmol/L Carbon Dioxide 20 L (22-30) mmol/L BUN 52 H (7-17) mg/dL Creatinine 2.14 H (0.52-1.04) mg/dL Est GFR (CKD-EPI) (>=60) BUN/Creatinine Ratio (12.00-20.00) Ratio Glucose 175 H (74-99) mg/dL 02/25/23 Range/Units 05:45 RBC (3.80-5.40) m/uL Hgb (11.4-16.0) gm/dL Hct (34.0-46.0) % RDW (11.5-15.5) % Lymphocytes # (1.0-4.8) k/uL Eosinophils # (0.04-0.35) X 10*3/uL Chloride 111 H (98-107) mmol/L Carbon Dioxide 19.6 L (22-30) mmol/L BUN 46.3 H (7-17) mg/dL Creatinine 2.0 H (0.52-1.04) mg/dL Est GFR (CKD-EPI) 24 L (>=60) BUN/Creatinine Ratio 23.15 H (12.00-20.00) Ratio Glucose (74-99) mg/dL
[2023-02-26] MEDS: HYDROcodone/APAP 7.5-325MG 1 EACH TAB PO SCH ×3 (06:43→21:31)
[2023-02-26] MEDS: IPRATROPIUM-ALBUTEROL 3 ML NEB INHALATION SCH ×3 (07:25→21:25)
[2023-02-26 07:44] LABS: African American GFR (CKD) 19 (>60 ml/min/1.73 sqM); Anion Gap 8 mmol/L; Blood Urea Nitrogen 53 mg/dL (7-17); Calcium 9.2 mg/dL (8.4-10.2); Carbon Dioxide 20 mmol/L (22-30); Chloride 112 mmol/L (98-107); Glucose 73 mg/dL (74-99); Non-African American GFR(CKD) 16 (>60 ml/min/1.73 sqM); Potassium 4.4 mmol/L (3.5-5.1); Sodium 140 mmol/L (137-145)
[2023-02-26] MEDS: carvediloL 12.5 MG TAB PO SCH ×2 (08:38→17:34)
[2023-02-26] MEDS: APIXABAN 2.5 MG TABLET PO SCH ×2 (08:39→21:31)
[2023-02-26] MEDS: GABAPENTIN 300 MG CAP PO SCH ×3 (08:39→21:31)
[2023-02-26] MEDS: allopurinoL 100 MG TAB PO SCH (08:39)
[2023-02-26] MEDS: amLODIPine 2.5 MG TAB PO SCH ×2 (08:39→21:30)
[2023-02-26 11:54] VITALS: TEMP 97.6
[2023-02-26] MEDS: guaiFENesin 600 MG TABLET.ER PO SCH ×2 (12:25→21:30)
[2023-02-26] MEDS: LIDOCAINE 5% PATCH TOPICAL SCH (12:25)
--- NOTE | 2023-02-26 13:34 | P.PN ---
Subjective Progress Note Date: 02/26/23 This is a very pleasant 87-year-old female patient with a known history of hypertension, gastroesophageal reflux disease, hyperlipidemia,atrial fibrillation anticoagulated with Eliquis, status post permanent pacemaker implantation, breast and ovarian cancer back in the 1980s. She presented here with a three-day history of shaking, dizziness, shortness of breath, cough and congestion. Computed tomography scan of the chest reveals a right lower lobe consolidation mild infiltrates in the left base. White count 25.2. Hemoglobin 10.3. Platelets 235. Sodium 139. Potassium 4.8. Bicarb 20. BUN 67. Creatinine 2.68. Lactic acid 0.7. Monge virus negative. She is seen today in consultation in the emergency department. She is currently sitting up in a chair. Awake and alert in no acute distress. On room air. Afebrile. Hemodynamically stable. Receiving DuoNeb inhalations. She's been initiated on ceftriaxone and azithromycin. Heparin for DVT prophy The patient is seen today 02/23/2023 in follow-up on the regular medical floor. She is currently sitting up in bed having breakfast. Awake and alert in no acute distress. Denies any worsening shortness of breath, cough or congestion. She is maintaining good O2 saturations in the 90s on room air. White count 13.1. Hemoglobin 9.0. Platelets 212. Sodium 141. Potassium 4.5. Bicarb 18. BUN 58. Creatinine 2.43. Glucose 125. Urine legionella antigen not detected. Monge virus not detected. She is currently on DuoNeb inhalations, ceftriaxone and azithromycin. Anticoagulated with Eliquis. On 02/24/2023, the patient is being seen for a follow-up. She is on room air oxygen. No significant complaints. She remains on Rocephin. On examination, she continues to have crackles in the right lung base and THE CHEST REVEALED A RIGHT LOWER LOBE CONSOLIDATION/AIRSPACE DISEASE CONSISTENT WITH PNEUMONIA. BROTHER THE MEDICATIONS REMAIN UNCHANGED. THE PATIENT'S WHITE CELL COUNT IS AT 8.8 WITH A HEMOGLOBIN 9.6. BUN IS AT 52 A CREATININE OF 2.4 AND THERE IS IMPROVEMENT IN THE RENAL FUNCTION COMPARED TO YESTERDAY. SHE HAS CHRONIC STAGE iv.She also has history of A. fib, maintained on anticoagulations, she has hypertension, and she has a permanent pacemaker in place. She has previous history of breast and ovarian cancer back in the 80s. On 02/25/2023, the patient is feeling weak. She has a dry cough. Limited amount of sputum production. She remains on IV Rocephin. A repeat chest x-ray was done and the patient continues to have persistent infiltration of the right lung. Infiltrates of bilateral most of the right lower lobe. no evidence of any solid mass based on the CAT scan of the chest that was done at time of admission. The patient's labs show a white cell count of 8 with a hemoglobin 9.3, BUN is at 46 with a creatinine of 2.0 and the creatinine is improved over the past 48 hours. Sodium level is at 142. Covid 19 testing was negative. Legionella urine antigen was also negative. She has chronic stage IV kidney disease along with A. fib, hypertension and the patient has a permanent pacemaker in place. 02/26 2023, the patient is clinically stable. No new complaints. He received a dose of Rocephin today. She remains on room air oxygen. She is weak. No significant sputum production. The white cell count is down to 8 with a hemoglobin of 9.3. BUN is at 53 with a creatinine of 2.5. A follow-up chest x- ray was ordered for tomorrow. Objective - Vital Signs Vital signs: Vital Signs Temp 97.6 F 02/26/23 11:20 Pulse 82 02/26/23 11:33 Resp 17 02/26/23 11:20 BP 144/65 02/26/23 11:20 Pulse Ox 96 02/26/23 11:20 FiO2 Intake & Output 02/25/23 02/26/23 02/26/23 18:59 06:59 18:59 Other: Voiding Method Toilet Toilet Toilet # Voids 3 1 # Bowel Movements 1 - Exam GENERAL EXAM: Alert, active, pleasant 87-year-old female, on room air, comfortable in no apparent distress. HEAD: Normocephalic. EYES: Normal reaction of pupils, equal size. NOSE: Clear with pink turbinates. THROAT: No erythema or exudates. NECK: No masses, no JVD. CHEST: No chest wall deformity. LUNGS: Equal air entry with faint crackles in the right lung base. CVS: S1 and S2 normal with no audible murmur, regular rhythm. ABDOMEN: No hepatosplenomegaly, normal bowel sounds, no guarding or rigidity. SPINE: No scoliosis or deformity SKIN: No rashes CENTRAL NERVOUS SYSTEM: No focal deficits, tone is normal in all 4 extremities. EXTREMITIES: There is no peripheral edema. No clubbing, no cyanosis. Peripheral pulses are intact. - Labs CBC & Chem 7: 02/25/23 05:45 02/26/23 07:05 Labs: Abnormal Lab Results - Last 24 Hours (Table) 02/26/23 Range/Units 07:05 Chloride 112 H (98-107) mmol/L Carbon Dioxide 20 L (22-30) mmol/L BUN 53 H (7-17) mg/dL Creatinine 2.56 H (0.52-1.04) mg/dL Glucose 73 L (74-99) mg/dL Assessment and Plan Plan: Acute community-acquired pneumonia, essentially involving the right lower lobe, clinically stable and improving Leukocytosis secondary to above, improved and the white cell count is up from 25 down to 8 Acute kidney injury secondary to dehydration, improving History of atrial fibrillation adequately regulated with Eliquis Permanent pacemaker implantation Hypertension Hyperlipidemia Peripheral neuropathy History of breast status post bilateral mastectomies History of ovarian cancer status post chemotherapy back in the 1980s History of bowel resection Former smoker Plan: Repeat chest x-ray for tomorrow Continue IV Rocephin Oxygenation is stable and the patient remains on room air oxygen No significant leukocytosis, and the white cell count is improved Still having difficulties with breathing renal function is essentially stable Currently stable and on room air We'll continue IV Rocephin. We'll continue to follow and monitor progress. On examination, the patient continues to have crackles in the right lung which is essentially unchanged compared to yesterday. Will like to see some improvement in the right lower lobe pulmonary consolidation prior to switching this patient to oral antibiotics. As such, repeat chest x-ray was done tomorrow.
--- NOTE | 2023-02-26 16:35 | P.PN ---
Subjective Progress Note Date: 02/26/23 This is a pleasant 87-year-old female who was recently admitted with acute bilateral pneumonia being closely monitored with infectious disease and pulmonary following. Patient is currently on room air and continues to report shortness of breath with minimal exertion. Patient does not normally wear oxyg en in the outpatient setting and encourage the patient to continue with walking in the halls frequently and increased activity. Patient is maintained on IV antibiotics and we'll transition to oral Ceftin on discharge. Recommend monitoring overnight with increased activity with possible discharge planning and follow-up chest x-ray in 24 hours. 02/25/2023 Patient is seen and examined this morning continues to report not feeling well and back to baseline. Patient reports shortness of breath with exertion. Patient being followed by pulmonary with infectious disease has been maintained on antibiotics in the form of ceftriaxone and will continue oral Ceftin on discharge. Repeat chest x-ray with no significant changes from yesterday. Encourage the patient to increase activity as tolerated with frequent walking. Patient is afebrile white count is normal reported chest pain or palpitations. Patient is on room air is also received breathing treatments. No reported nausea or vomiting. Patient tolerating diet. Kidney functions are trending down with a creatinine of 2 will follow-up with repeat BMP in the a.m. 02/26/2023 Patient is seen and evaluated in follow-up today with pulmonary following closely. Patient is maintained on room air although continues to have shortness of breath with exertion. Patient reports not feeling well and not sleeping well having extreme back pain. Patient also reports her cough she is able to expectorate a little more and will add Mucinex as well as a lidocaine patch for the back pain. Patient takes Neurontin chronically and has for years although does take a relatively high-dose and will decrease the dose slightly as kidney functions have worsened. Patient does have chronic kidney disease and should not be on this much of a dose. Patient also takes Norvasc 2.5 mg twice daily. Patient is afebrile with no reports of chest pain or palpitations. Pulmonary following recommend continuing on antibiotics in the form of IV ceftriaxone prior to transitioning to oral and will follow-up with repeat chest x-ray in the a.m. Review of systems: Constitutional: No reports of fatigue, fever, or chills Cardiovascular: No reports of chest pain or palpitations Respiratory: reports of shortness of breath with exertion, dry cough but able to expectorate some today GI: No reports of nausea, no reports of vomiting, no diarrhea : No reports of dysuria or retention Neurovascular: reports of generalized weakness, reports of low back pain and lack of sleep All medications have been reviewed PHYSICAL EXAMINATION: GENERAL: The patient is alert and oriented x4, Well developed, well nourished. Thin built elderly female HEENT: Pupils are round and equally reacting to light. EOMI. no scleral icterus. No conjunctival pallor. Normocephalic, atraumatic. No pharyngeal erythema. No thyromegaly. CARDIOVASCULAR: S1 and S2 muffled PULMONARY: diminished breath sounds bilaterally with some scattered rhonchi noted and faint crackles at the bases. ABDOMEN: soft. Nontender on exam. non-distended, normoactive bowel sounds. No palpable organomegaly. MUSCULOSKELETAL: No joint swelling or deformity. EXTREMITIES: No cyanosis, clubbing, or pedal edema. NEUROLOGICAL: Gross neurological examination did not reveal any focal deficits. SKIN: No rashes. Assessment: Acute bilateral pneumonia with sepsis, present on admission, community-acquired pneumonia Leukocytosis secondary to above, normalized Acute kidney injury, likely secondary to dehydration, improving History of atrial fibrillation maintained on oral anticoagulant Hypertension history Hyperlipidemia history Former smoker GERD GI prophylaxis DVT prophylaxis Full code Plan: Patient is continued on IV antibiotics in the form of ceftriaxone with infectious disease and pulmonary following. Patient will transition to oral Ceftin to complete a course on discharge Chest x-ray ordered for tomorrow Will follow-up on repeat labs to monitor kidney functions his creatinine is slightly elevated today at 2.5. Patient chronically takes Neurontin although high-dose and will decrease the dose slightly. Patient reports she has been taking this dose for years and has chronic kidney disease. Encouraged increased activity as tolerated. Possible discharge planning in the next 24 hours The impression and plan of care has been dictated by Kimberlee Adam, nurse practitioner as directed. Dr. Shonna MD I have performed a history and examination and MDM of this patient, discussed the same with the dictator, and agree with the dictator's assessment and plan as written ,documented as a scribe. Based on total visit time, I have performed more than 50% of the visit. Any additional findings or plans will be noted. Objective - Vital Signs Vital signs: Vital Signs Temp 97.6 F 02/26/23 11:20 Pulse 82 02/26/23 11:33 Resp 17 02/26/23 11:20 BP 144/65 02/26/23 11:20 Pulse Ox 96 02/26/23 11:20 FiO2 Intake & Output 02/25/23 02/26/23 02/26/23 18:59 06:59 18:59 Other: Voiding Method Toilet Toilet Toilet # Voids 3 1 # Bowel Movements 1 - Labs CBC & Chem 7: 02/25/23 05:45 02/26/23 07:05 Labs: Abnormal Lab Results - Last 24 Hours (Table) 02/26/23 Range/Units 07:05 Chloride 112 H (98-107) mmol/L Carbon Dioxide 20 L (22-30) mmol/L BUN 53 H (7-17) mg/dL Creatinine 2.56 H (0.52-1.04) mg/dL Glucose 73 L (74-99) mg/dL
--- NOTE | 2023-02-27 07:33 | XR ---
EXAMINATION TYPE: XR chest 2V DATE OF EXAM: 02/27/2023 COMPARISON: 02/25/2023 HISTORY: 87-year-old female follow-up pneumonia TECHNIQUE: Frontal and lateral views FINDINGS: Left anterior chest wall pacemaker generator with right atrial and right ventricular leads. Heart nor mal size. Hyperinflation. Right greater than left bibasilar opacities are redemonstrated. IMPRESSION: COPD with ongoing bibasilar airspace disease, right greater than left.
[2023-02-27] MEDS: IPRATROPIUM-ALBUTEROL 3 ML NEB INHALATION SCH ×2 (07:36→11:41)
--- NOTE | 2023-02-27 08:13 | P.PN ---
Subjective Progress Note Date: 02/26/23 Principal diagnosis: Pneumonia Patient is a 87-year-old female with a past medical history significant for atrial fibrillation fibromyalgia hypertension hyperlipidemia mi tral valve prolapse presenting to the ER for evaluation of not feeling well feeling very weak and tremulous decreased appetite , patient did have a CT of the chest abdomen pelvis with evidence of right lower lobe pneumonia. On today's evaluation that is 02/26/2023, the patient denies having any fever or any chills, the patient is breathing comfortably, the patient denies having any chest pain shortness of breath or cough no nausea vomiting no abdominal pain or diarrhea, complaining of some weakness and no energy. Patient did have a creatinine 2.56 no CBC was done today Objective - Vital Signs Vital signs: Vital Signs Temp 97.8 F 02/26/23 07:00 Pulse 78 02/26/23 07:00 Resp 16 02/26/23 07:00 BP 159/67 02/26/23 07:00 Pulse Ox 93 L 02/26/23 07:00 FiO2 Intake & Output 02/25/23 02/26/23 02/26/23 18:59 06:59 18:59 Other: Voiding Method Toilet Toilet Toilet # Voids 3 1 # Bowel Movements 1 - Exam GENERAL DESCRIPTION: An elderly female lying in bed in no distress RESPIRATORY SYSTEM: Unlabored breathing , decreased breath sounds at bases HEART: S1 S2 regular rate and rhythm , ABDOMEN: Soft , no tenderness EXTREMITIES: No edema feet - Labs CBC & Chem 7: 02/25/23 05:45 02/26/23 07:05 Labs: Abnormal Lab Results - Last 24 Hours (Table) 02/26/23 Range/Units 07:05 Chloride 112 H (98-107) mmol/L Carbon Dioxide 20 L (22-30) mmol/L BUN 53 H (7-17) mg/dL Creatinine 2.56 H (0.52-1.04) mg/dL Glucose 73 L (74-99) mg/dL Assessment and Plan (1) CAP (community acquired pneumonia) Current Visit: Yes Status: Acute Code(s): J18.9 - PNEUMONIA, UNSPECIFIED ORGANISM SNOMED Code(s): 660573562 (2) Leukocytosis Current Visit: Yes Status: Acute Code(s): D72.829 - ELEVATED WHITE BLOOD CELL COUNT, UNSPECIFIED SNOMED Code(s): 981814354 (3) Allergy to multiple antibiotics Current Visit: Yes Status: Acute Code(s): Z88.1 - ALLERGY STATUS TO OTHER ANTIBIOTIC AGENTS SNOMED Code(s): 862266302 Plan: 1patient presented to hospital with extreme weakness fatigue decreased oral intake in this patient with evidence of right lower lobe pneumonia both on the CT of the chest as well as CT abdominal pelvis possible community-acquired pneumonia patient did not get any history of vomiting or choking on the food with concern for aspiration pneumonia there was no evidence of any abscess on CT abdominal pelvis urine is also mildly positive could be contributing to some of her symptoms. 2patient did have extensive right lower lobe pneumonia CT x-rays were reviewed with the pulmonary we will keep the patient on Rocephin and repeat a chest x-ray in the morning and monitor clinical course closely Dictation was produced using [employer] dictation software. please excuse any grammatical, word or spelling errors.
[2023-02-27] MEDS: APIXABAN 2.5 MG TABLET PO SCH (08:41)
[2023-02-27] MEDS: GABAPENTIN 300 MG CAP PO SCH ×2 (08:41→16:04)
[2023-02-27] MEDS: carvediloL 12.5 MG TAB PO SCH (08:44)
[2023-02-27] MEDS: amLODIPine 2.5 MG TAB PO SCH (08:44)
[2023-02-27] MEDS: guaiFENesin 600 MG TABLET.ER PO SCH (08:44)
[2023-02-27] MEDS: HYDROcodone/APAP 7.5-325MG 1 EACH TAB PO SCH ×2 (08:44→16:01)
[2023-02-27] MEDS: LIDOCAINE 5% PATCH TOPICAL SCH (08:52)
[2023-02-27] MEDS: allopurinoL 100 MG TAB PO SCH (08:57)
[2023-02-27 09:09] LABS: BUN/Creat Ratio 22.91 Ratio (12.00-20.00); Blood Urea Nitrogen 50.4 mg/dL (9.0-27.0); Calcium 9.2 mg/dL (8.7-10.3); Carbon Dioxide 19.7 mmol/L (21.6-31.8); Chloride 108 mmol/L (96-109); Glucose 92 mg/dL (70-110); Potassium 4.3 mmol/L (3.5-5.5); Sodium 140 mmol/L (135-145)
--- NOTE | 2023-02-27 12:43 | P.PN ---
Subjective Progress Note Date: 02/27/23 This is a very pleasant 87-year-old female patient with a known history of hypertension, gastroesophageal reflux disease, hyperlipidemia,atrial fibrillation anticoagulated with Eliquis, status post permanent pacemaker implantation, breast and ovarian cancer back in the 1980s. She presented here with a three-day history of shaking, dizziness, shortness of breath, cough and congestion. Computed tomography scan of the chest reveals a right lower lobe consolidation mild infiltrates in the left base. White count 25.2. Hemoglobin 10.3. Platelets 235. Sodium 139. Potassium 4.8. Bicarb 20. BUN 67. Creatinine 2.68. Lactic acid 0.7. Monge virus negative. She is seen today in consultation in the emergency department. She is currently sitting up in a chair. Awake and alert in no acute distress. On room air. Afebrile. Hemodynamically stable. Receiving DuoNeb inhalations. She's been initiated on ceftriaxone and azithromycin. Heparin for DVT prophy The patient is seen today 02/23/2023 in follow-up on the regular medical floor. She is currently sitting up in bed having breakfast. Awake and alert in no acute distress. Denies any worsening shortness of breath, cough or congestion. She is maintaining good O2 saturations in the 90s on room air. White count 13.1. Hemoglobin 9.0. Platelets 212. Sodium 141. Potassium 4.5. Bicarb 18. BUN 58. Creatinine 2.43. Glucose 125. Urine legionella antigen not detected. Monge virus not detected. She is currently on DuoNeb inhalations, ceftriaxone and azithromycin. Anticoagulated with Eliquis. On 02/24/2023, the patient is being seen for a follow-up. She is on room air oxygen. No significant complaints. She remains on Rocephin. On examination, she continues to have crackles in the right lung base and THE CHEST REVEALED A RIGHT LOWER LOBE CONSOLIDATION/AIRSPACE DISEASE CONSISTENT WITH PNEUMONIA. BROTHER THE MEDICATIONS REMAIN UNCHANGED. THE PATIENT'S WHITE CELL COUNT IS AT 8.8 WITH A HEMOGLOBIN 9.6. BUN IS AT 52 A CREATININE OF 2.4 AND THERE IS IMPROVEMENT IN THE RENAL FUNCTION COMPARED TO YESTERDAY. SHE HAS CHRONIC STAGE iv.She also has history of A. fib, maintained on anticoagulations, she has hypertension, and she has a permanent pacemaker in place. She has previous history of breast and ovarian cancer back in the 80s. On 02/25/2023, the patient is feeling weak. She has a dry cough. Limited amount of sputum production. She remains on IV Rocephin. A repeat chest x-ray was done and the patient continues to have persistent infiltration of the right lung. Infiltrates of bilateral most of the right lower lobe. no evidence of any solid mass based on the CAT scan of the chest that was done at time of admission. The patient's labs show a white cell count of 8 with a hemoglobin 9.3, BUN is at 46 with a creatinine of 2.0 and the creatinine is improved over the past 48 hours. Sodium level is at 142. Covid 19 testing was negative. Legionella urine antigen was also negative. She has chronic stage IV kidney disease along with A. fib, hypertension and the patient has a permanent pacemaker in place. 02/26 2023, the patient is clinically stable. No new complaints. He received a dose of Rocephin today. She remains on room air oxygen. She is weak. No significant sputum production. The white cell count is down to 8 with a hemoglobin of 9.3. BUN is at 53 with a creatinine of 2.5. A follow-up chest x- ray was ordered for tomorrow. On today's evaluation of 02/27/2023, the patient remains on room air oxygen. She is clinically stable. No significant sputum production. Chest x-ray was repeated and still showing persistent bilateral pulmonary infiltrates more so on the right. Nevertheless, the patient is clinically stable. I think should be able to complete her antibiotic course on outpatient basis pH is remains on IV Rocephin. Electrodes are all within normal limits. Cultures were negative. No fever. No nausea or vomiting. No emesis. No other complaints otherwise. She is ambulating. Objective - Vital Signs Vital signs: Vital Signs Temp 97.6 F 02/27/23 07:03 Pulse 65 02/27/23 11:56 Resp 14 02/27/23 07:03 BP 148/79 02/27/23 07:03 Pulse Ox 94 L 02/27/23 07:03 FiO2 Intake & Output 02/26/23 02/27/23 02/27/23 18:59 06:59 18:59 Other: Voiding Method Toilet Toilet Toilet # Voids 3 2 # Bowel Movements 1 - Labs CBC & Chem 7: 02/25/23 05:45 02/27/23 05:38 Labs: Abnormal Lab Results - Last 24 Hours (Table) 02/27/23 Range/Units 05:38 Carbon Dioxide 19.7 L (21.6-31.8) mmol/L Anion Gap 12.30 H (4.00-12.00) mmol/L BUN 50.4 H (9.0-27.0) mg/dL Creatinine 2.2 H (0.6-1.5) mg/dL Est GFR (CKD-EPI) 21 L (>=60) BUN/Creatinine Ratio 22.91 H (12.00-20.00) Ratio Assessment and Plan Plan: Acute community-acquired pneumonia, essentially involving the right lower lobe, clinically stable and improving Leukocytosis secondary to above, improved and the white cell count is up from 25 down to 8 Acute kidney injury secondary to dehydration, improving History of atrial fibrillation adequately regulated with Eliquis Permanent pacemaker implantation Hypertension Hyperlipidemia Peripheral neuropathy History of breast status post bilateral mastectomies History of ovarian cancer status post chemotherapy back in the 1980s History of bowel resection Former smoker Plan: Repeat chest x-ray from today shows stable bilateral pulmonary infiltrates. The patient remains on room air oxygen. I think the patient be able to take oral antibiotic stitches not completely cleared in terms of her pneumonia based on the chest x-ray findings. Clinically she is stable she can complete an outpatient course of antibiotics per ID and the patient can be discharged home to be followed up on outpatient basis. Oxygenation is stable and the patient remains on room air oxygen No significant leukocytosis, and the white cell count is improved Still having difficulties with breathing renal function is essentially stable Currently stable and on room air Consider discharge home today with outpatient follow-up in one week.
--- NOTE | 2023-02-27 15:10 | P.PN ---
Subjective Progress Note Date: 02/27/23 Principal diagnosis: Pneumonia Patient is a 87-year-old female with a past medical history significant for atrial fibrillation fibromyalgia hypertension hyperlipidemia mi tral valve prolapse presenting to the ER for evaluation of not feeling well feeling very weak and tremulous decreased appetite , patient did have a CT of the chest abdomen pelvis with evidence of right lower lobe pneumonia. On today's evaluation that is 02/27/2023, the patient is afebrile, the patient is breathing comfortably , the patient denies chest pain and no significant cough, the patient denies nausea and vomiting no abdominal pain and no diarrhea,, patient is feeling better today Patient did have a creatinine 2.2 no CBC was done today , chest x-ray this morning ongoing bibasilar airspace disease Objective - Vital Signs Vital signs: Vital Signs Temp 97.6 F 02/27/23 07:03 Pulse 65 02/27/23 11:56 Resp 14 02/27/23 07:03 BP 148/79 02/27/23 07:03 Pulse Ox 94 L 02/27/23 07:03 FiO2 Intake & Output 02/26/23 02/27/23 02/27/23 18:59 06:59 18:59 Other: Voiding Method Toilet Toilet Toilet # Voids 3 2 # Bowel Movements 1 - Exam GENERAL DESCRIPTION: An elderly female lying in bed in no distress RESPIRATORY SYSTEM: Unlabored breathing , decreased breath sounds at bases HEART: S1 S2 regular rate and rhythm , ABDOMEN: Soft , no tenderness EXTREMITIES: No edema feet - Labs CBC & Chem 7: 02/25/23 05:45 02/27/23 05:38 Labs: Abnormal Lab Results - Last 24 Hours (Table) 02/27/23 Range/Units 05:38 Carbon Dioxide 19.7 L (21.6-31.8) mmol/L Anion Gap 12.30 H (4.00-12.00) mmol/L BUN 50.4 H (9.0-27.0) mg/dL Creatinine 2.2 H (0.6-1.5) mg/dL Est GFR (CKD-EPI) 21 L (>=60) BUN/Creatinine Ratio 22.91 H (12.00-20.00) Ratio Assessment and Plan (1) CAP (community acquired pneumonia) Current Visit: Yes Status: Acute Code(s): J18.9 - PNEUMONIA, UNSPECIFIED ORGANISM SNOMED Code(s): 996493165 (2) Leukocytosis Current Visit: Yes Status: Acute Code(s): D72.829 - ELEVATED WHITE BLOOD CELL COUNT, UNSPECIFIED SNOMED Code(s): 289223200 (3) Allergy to multiple antibiotics Current Visit: Yes Status: Acute Code(s): Z88.1 - ALLERGY STATUS TO OTHER ANTIBIOTIC AGENTS SNOMED Code(s): 222623461 Plan: 1patient presented to hospital with extreme weakness fatigue decreased oral intake in this patient with evidence of right lower lobe pneumonia both on the CT of the chest as well as CT abdominal pelvis possible community-acquired pneumonia patient did not get any history of vomiting or choking on the food with concern for aspiration pneumonia there was no evidence of any abscess on CT abdominal pelvis urine is also mildly positive could be contributing to some of her symptoms. 2patient did have extensive right lower lobe pneumonia, repeat x-ray did not mention any worsening 3-we will keep the patient on Rocephin and monitor clinical course closely Dictation was produced using [employer] dictation software. please excuse any grammatical, word or spelling errors.
[2023-02-27 15:49] VITALS: BP 137/81; PULSE 66; RESP 16
--- NOTE | 2023-03-01 07:18 | P.DS ---
Providers Date of admission: 02/22/23 05:52 Expected date of discharge: 02/27/23 Attending physician: Cyndi Souza Consults: 02/22/23 11:12 Consult Physician Routine Consulting Provider: rAiel Sarkar Consult Reason/Comments: pneumonia Do you want consulting provider notified?: Yes Consult Physician Routine Consulting Provider: Dina Rodríguez Consult Reason/Comments: pneumonia Do you want consulting provider notified?: Yes Primary care physician: Lucio Rice [facility] Course: Final diagnosis Acute bilateral pneumonia with sepsis, present on admission, community-acquired pneumonia Leukocytosis secondary to above, normalized Acute kidney injury, likely secondary to dehydration, improving History of atrial fibrillation maintained on oral anticoagulant Hypertension history Hyperlipidemia history Former smoker GERD GI prophylaxis DVT prophylaxis Full code Discharge disposition Patient is being discharged in a stable condition with guarded prognosis to home . Patient will follow-up with Dr. Rice in the outpatient setting upon discharge. Patient is to continue with oral Ceftin twice daily for the next 1 week and outpatient follow-up with pulmonary as scheduled. Total time taken is greater than 35 minutes. Hospital course This is a 87-year-old female who was recently admitted with increasing shortness of breath with white count and generalized weakness found to have acute pneumonia with sepsis, present on admission community-acquired. Patient was started on IV antibiotics with infectious disease following and pulmonary in consultation. Patient continued to have shortness of breath with exertion and cough. Chest x-ray shows some improvement although continued infiltrate and pulmonary with like the patient to continue on antibiotics along with infectious disease and will continue Ceftin 500 mg twice daily for 1 week and close outpatient follow-up with primary care provider along with pulmonary. Patient reports to feeling improved and would like to go home. Currently no reports of chest pain, no worsening shortness of breath, or palpitations. Patient is afebrile. No reports of nausea or vomiting and patient is tolerating diet. Patient will be discharged home today. Guarded prognosis. Physical exam: Gen: This is a 87-year-old female who is awake, alert and oriented 3, well- developed, well-nourished HEENT: Head is atraumatic, normocephalic. Pupils equal, round. Sclerae is anicteric. NECK: Supple. No JVD. No lymphadenopathy. No thyromegaly. LUNGS: Diminished breath sounds bilaterally with some faint rhonchi noted at the bases. No intercostal retractions. HEART: Regular rate and rhythm. No murmur. ABDOMEN: Soft. Bowel sounds are present. No masses. No tenderness. EXTREMITIES: No pedal edema. No calf tenderness. NEUROLOGICAL: Patient is awake, alert and oriented x3. Cranial nerves 2 through 12 are grossly intact. Please refer to medication reconciliation sheet for a list of medications. The impression and plan of care has been dictated by Kimberlee Adam, Nurse Practitioner as directed. Dr. Shonna MD I have performed a history and examination and MDM of this patient, discussed the same with the dictator, and agree with the dictator's assessment and plan as written ,documented as a scribe. Based on total visit time, I have performed more than 50% of the visit. Patient Condition at Discharge: Stable Plan - Discharge Summary Discharge Rx Participant: No New Discharge Prescriptions: New cefUROXime axetiL [Ceftin] 500 mg PO BID 7 Days #14 tab Lidocaine 5% Patch [Lidoderm 5% Patch] 1 patch TOPICAL DAILY #30 patch Gabapentin [Neurontin] 300 mg PO TID cap guaiFENesin [Mucinex] 600 mg PO Q12HR 10 Days #20 tab Acetaminophen Tab [Tylenol] 650 mg PO Q6HR PRN tab PRN Reason: Mild Pain Or Fever > 100.5 Continue Nitroglycerin Sl Tabs [Nitrostat] 0.4 mg SL Q5M PRN PRN Reason: Chest Pain Vits A,C,E/Lutein/Minerals [Ocuvite with Lutein Tablet] 1 tab PO MOWEFRSA Multivit-Min/FA/Lycopene/Lut [Centrum Silver Tablet] 1 tab PO DAILY ALPRAZolam [Xanax] 0.25 mg PO BID PRN #6 tab PRN Reason: Anxiety Ascorbic Acid [Vitamin C] 500 mg PO DAILY carvediloL 25 mg PO BID Apixaban [Eliquis] 2.5 mg PO BID #0 tablet Hydrocodone/Acetaminophen [Roxana 7.5-325] 1 tab PO TID Labetalol [Trandate] 200 mg PO Q8HR PRN PRN Reason: Hypertension Fenofibrate Nanocrystallized [Tricor] 145 mg PO DAILY Omeprazole 20 mg PO AC-BRKFST PRN PRN Reason: gerd Collagen/Biotin/Ascorbic Acid [Collagen 1500 Plus C Capsule] 1 cap PO DAILY Cranberry Fruit [Cranberry] 465 mg PO DAILY Biotin [Biotin Disolve] 2,500 mcg PO DAILY amLODIPine [Norvasc] 2.5 mg PO BID allopurinoL 100 mg PO DAILY Vitamin D3(Unknown Dose) 1 tab PO DAILY Loperamide HCl [Imodium A-D] 2 - 4 mg PO QID PRN PRN Reason: Diarrhea Elderberry Fruit [Elderberry] 350 mg PO DAILY Bevacizumab [Avastin] 1 dose BOTH EYES QMONTHLY Prevagen 1 cap PO DAILY Discontinued Gabapentin [Neurontin] 600 mg PO TID Discharge Medication List Multivit-Min/FA/Lycopene/Lut [Centrum Silver Tablet] 1 tab PO DAILY 11/28/14 [History] Nitroglycerin Sl Tabs [Nitrostat] 0.4 mg SL Q5M PRN 11/28/14 [History] Vits A,C,E/Lutein/Minerals [Ocuvite with Lutein Tablet] 1 tab PO MOWEFRSA 11/28/14 [History] ALPRAZolam [Xanax] 0.25 mg PO BID PRN #6 tab 10/21/18 [Rx] Ascorbic Acid [Vitamin C] 500 mg PO DAILY 03/09/19 [History] carvediloL 25 mg PO BID 03/09/19 [History] Apixaban [Eliquis] 2.5 mg PO BID #0 tablet 03/17/19 [Rx] Fenofibrate Nanocrystallized [Tricor] 145 mg PO DAILY 04/24/20 [History] Hydrocodone/Acetaminophen [Roxana 7.5-325] 1 tab PO TID 04/24/20 [History] Labetalol [Trandate] 200 mg PO Q8HR PRN 04/24/20 [History] Omeprazole 20 mg PO AC-BRKFST PRN 04/24/20 [History] Bevacizumab [Avastin] 1 dose BOTH EYES QMONTHLY 02/22/23 [History] Biotin [Biotin Disolve] 2,500 mcg PO DAILY 02/22/23 [History] Collagen/Biotin/Ascorbic Acid [Collagen 1500 Plus C Capsule] 1 cap PO DAILY 02/22/23 [History] Cranberry Fruit [Cranberry] 465 mg PO DAILY 02/22/23 [History] Elderberry Fruit [Elderberry] 350 mg PO DAILY 02/22/23 [History] Loperamide HCl [Imodium A-D] 2 - 4 mg PO QID PRN 02/22/23 [History] Prevagen 1 cap PO DAILY 02/22/23 [History] Vitamin D3(Unknown Dose) 1 tab PO DAILY 02/22/23 [History] allopurinoL 100 mg PO DAILY 02/22/23 [History] amLODIPine [Norvasc] 2.5 mg PO BID 02/22/23 [History] Acetaminophen Tab [Tylenol] 650 mg PO Q6HR PRN tab 02/27/23 [Rx] Gabapentin [Neurontin] 300 mg PO TID cap 02/27/23 [Rx] Lidocaine 5% Patch [Lidoderm 5% Patch] 1 patch TOPICAL DAILY #30 patch 02/27/23 [Rx] cefUROXime axetiL [Ceftin] 500 mg PO BID 7 Days #14 tab 02/27/23 [Rx] guaiFENesin [Mucinex] 600 mg PO Q12HR 10 Days #20 tab 02/27/23 [Rx] Follow up Appointment(s)/Referral(s): Lucio Rice MD [Primary Care Provider] - 03/04/23 2:00 pm (appointment is with Nay PADILLA) Alexis Gutiérrez MD [STAFF PHYSICIAN] - 03/26/23 9:15 am (appointment with Dr. Sarkar) Patient Instructions/Handouts: Cefuroxime (By mouth), Guaifenesin (By mouth), Lidocaine Patch (On the skin), Urinary Tract Infection in Women (DC), Bacterial Pneumonia (DC) Discharge/Stand Alone Forms: Who Do I Call?, Help In The Home, Personal Tool Shaper Set Up Operator Discharge Disposition: HOME SELF-CARE
== END 2023-02-27 16:25 | disposition home or self-care (01) | DRG 871 ==
LOC: EC 00:10 → 4SSUR 05:52 → 5NMEDONC 14:23
PROVIDERS: ADMIT Hospitalist; ATTEND Hospitalist
DX: A41.9 Sepsis, unspecified organism (principal); J18.9 Pneumonia, unspecified organism; N17.9 Acute kidney failure, unspecified; N18.4 Chronic kidney disease, stage 4 (severe); J44.0 Chronic obstructive pulmonary disease with (acute) lower respiratory infection; I12.9 Hypertensive chronic kidney disease with stage 1 through stage 4 chronic kidney disease, or unspecified chronic kidney disease; I48.91 Unspecified atrial fibrillation; M79.7 Fibromyalgia; K21.9 Gastro-esophageal reflux disease without esophagitis; E78.5 Hyperlipidemia, unspecified; M19.90 Unspecified osteoarthritis, unspecified site; N27.1 Small kidney, bilateral; I44.4 Left anterior fascicular block; G62.9 Polyneuropathy, unspecified; E86.0 Dehydration; Z20.822 Contact with and (suspected) exposure to COVID-19; Z87.891 Personal history of nicotine dependence; Z95.0 Presence of cardiac pacemaker; Z92.21 Personal history of antineoplastic chemotherapy; Z90.13 Acquired absence of bilateral breasts and nipples; Z85.828 Personal history of other malignant neoplasm of skin; Z85.43 Personal history of malignant neoplasm of ovary; Z85.3 Personal history of malignant neoplasm of breast; Z79.899 Other long term (current) drug therapy; Z79.01 Long term (current) use of anticoagulants; Z88.0 Allergy status to penicillin; Z88.1 Allergy status to other antibiotic agents; Z88.8 Allergy status to other drugs, medicaments and biological substances; Z88.2 Allergy status to sulfonamides
CPT/HCPCS: 36415; 71045; 71046; 71250; 74176; 80048; 80053; 81001; 83605; 83735; 84439; 84443; 84484; 85025; 85610; 85730; 87449; 87635; 93005; 94640; 96361; 96365; 96366; 96367; 96375; 99285

== ENCOUNTER 2024-12-16 10:34 | Emergency (ER) | payer MEDICARE ==
--- NOTE | 2024-12-16 10:48 | ED ---
Upper Extremity HPI - General Chief Complaint: Extremity Injury, Upper Stated Complaint: L Arm Pain/Fall Time Seen by Provider: 12/16/24 10:39 Source: patient, RN notes reviewed Mode of arrival: ambulatory Limitations: no limitations - History of Present Illness Initial Comments: This is an 89-year-old female who presents to the emergency department for a fall. Patient tripped and fell on cement earlier this morning and landed on her left side. Denies hitting her head or any LOC. She is on Eliquis. She had some discomfort to the left hip, but states that she is still able to ambulate. The majority of her pain is all to the left wrist. She struggling to move the arm due to the pain. MD Complaint: Injury to:: left, wrist - Related Data Home Medications Medication Instructions Recorded Confirmed Multivit-Min/FA/Lycopene/Lut 1 tab PO DAILY 11/28/14 02/22/23 [Centrum Silver Tablet] Nitroglycerin Sl Tabs [Nitrostat] 0.4 mg SL Q5M PRN 11/28/14 02/22/23 Vits A,C,E/Lutein/Minerals 1 tab PO MOWEFRSA 11/28/14 02/22/23 [Ocuvite with Lutein Tablet] Ascorbic Acid [Vitamin C] 500 mg PO DAILY 03/09/19 02/22/23 carvediloL 25 mg PO BID 03/09/19 02/22/23 Fenofibrate Nanocrystallized 145 mg PO DAILY 04/24/20 02/22/23 [Tricor] Hydrocodone/Acetaminophen [[place] 1 tab PO TID 04/24/20 02/22/23 7.5-325] Labetalol [Trandate] 200 mg PO Q8HR PRN 04/24/20 02/22/23 Omeprazole 20 mg PO AC-BRKFST PRN 04/24/20 02/22/23 Bevacizumab [Avastin] 1 dose BOTH EYES QMONTHLY 02/22/23 02/22/23 Biotin [Biotin Disolve] 2,500 mcg PO DAILY 02/22/23 02/22/23 Collagen/Biotin/Ascorbic Acid 1 cap PO DAILY 02/22/23 02/22/23 [Collagen 1500 Plus C Capsule] Cranberry Fruit [Cranberry] 465 mg PO DAILY 02/22/23 02/22/23 Elderberry Fruit [Elderberry] 350 mg PO DAILY 02/22/23 02/22/23 Loperamide HCl [Imodium A-D] 2 - 4 mg PO QID PRN 02/22/23 02/22/23 Prevagen 1 cap PO DAILY 02/22/23 02/22/23 Vitamin D3(Unknown Dose) 1 tab PO DAILY 02/22/23 02/22/23 allopurinoL 100 mg PO DAILY 02/22/23 02/22/23 amLODIPine [Norvasc] 2.5 mg PO BID 02/22/23 02/22/23 Previous Rx's Medication Instructions Recorded ALPRAZolam [Xanax] 0.25 mg PO BID PRN #6 tab 10/21/18 Apixaban [Eliquis] 2.5 mg PO BID #0 tablet 03/17/19 Acetaminophen Tab [Tylenol] 650 mg PO Q6HR PRN tab 02/27/23 Gabapentin [Neurontin] 300 mg PO TID cap 02/27/23 Lidocaine 5% Patch [Lidoderm 5% 1 patch TOPICAL DAILY #30 patch 02/27/23 Patch] cefuroxime axetiL [Ceftin] 500 mg PO BID 7 Days #14 tab 02/27/23 guaiFENesin [Mucinex] 600 mg PO Q12HR 10 Days #20 tab 02/27/23 Allergies Allergy/AdvReac Type Severity Reaction Status Date / Time Corticosteroids Allergy Unknown Verified 12/16/24 10:39 (Glucocorticoids) nitrofurantoin Allergy Unknown Verified 12/16/24 10:39 [From Macrobid] Penicillins Allergy Dyspnea Verified 12/16/24 10:39 Sulfa (Sulfonamide Allergy Dyspnea Verified 12/16/24 10:39 Antibiotics) triamcinolone acetonide AdvReac unsure if Verified 12/16/24 10:39 [From Kenalog] the kenalog was the cause, RASH/HIVES Review of Systems ROS Statement: Those systems with pertinent positive or pertinent negative responses have been documented in the HPI. ROS Other: All systems not noted in ROS Statement are negative. Past Medical History Past Medical History: Atrial Fibrillation, Cancer, Chest Pain / Angina, Fibromyalgia, GERD/Reflux, Hyperlipidemia, Hypertension, Mitral Valve Prolapse (MVP), Neurologic Disorder, Osteoarthritis (OA), Renal Disease, Vascular Disorder Additional Past Medical History / Comment(s): NEUROPATHY ASHER. LEGS & FEET, VARICOSE VEINS, KIDNEYS(small kidneys) FUNCTIONING @ 50%-URINE LEAKAGE- WEARS A PAD, HX skin, BREAST & OVARIAN CA-CHEMO 1986 & 1987, LUMBAR DDD-HERNIATION L3- L4, constipation History of Any Multi-Drug Resistant Organisms: None Reported Date of last positivie culture/infection: 02/10/21 MDRO Source:: Urine Past Surgical History: Bowel Resection, Breast Surgery, Heart Catheterization, Hysterectomy, Orthopedic Surgery Additional Past Surgical History / Comment(s): COLOSTOMY & THEN REVERSAL OF COLOSTOMY,ASHER. MASTECTOMY, EXC.CATARACT ASHER, ASHER. THUMB SURGERY, skin cancer removed from nose, bowel resection 01/12/16 Past Anesthesia/Blood Transfusion Reactions: Previous Problems w/ Anesthesia Additional Past Anesthesia/Blood Transfusion Reaction / Comment(s): AFTER LAST PAIN CLINIC PROCEDURE 01/12/15 HAD ALLEGIC REACTION- broke out in hives and itching all over that lasted over 1 week, also had ELEVATED PULSE & BP. Type of Cardiac Device: Permanent Pacemaker Device Placement Date:: 12/11/18 Past Psychological History: No Psychological Hx Reported Smoking Status: Former smoker Past Alcohol Use History: None Reported Past Drug Use History: None Reported - Past Family History Daughter(s) Family Medical History: Cancer Additional Family Medical History / Comment(s): lung CA Father Additional Family Medical History / Comment(s): Father of lung CA at the age of 80yrs. He was a smoker. Mother Additional Family Medical History / Comment(s): CABG. Mother at the age of 94 yrs. General Exam Limitations: no limitations General appearance: alert, in no apparent distress Head exam: Present: atraumatic, normocephalic, normal inspection Respiratory exam: Present: normal lung sounds bilaterally. Absent: respiratory distress, wheezes, rales, rhonchi, stridor Cardiovascular Exam: Present: regular rate, normal rhythm Extremities exam: Present: other (Swelling, deformity, and ecchymosis to the left wrist. Range of motion limited by pain. 2+ radial pulses.) Neurological exam: Present: alert, oriented X3, CN II-XII intact Psychiatric exam: Present: normal affect, normal mood Skin exam: Present: warm, dry, intact, normal color. Absent: rash Course Vital Signs 12/16/24 12/16/24 10:37 12:04 Temperature 97.4 F L 97.8 F Pulse Rate 67 69 Respiratory 20 18 Rate Blood Pressure 144/70 137/72 O2 Sat by Pulse 97 98 Oximetry Procedures - Orthopedic Splinting/Casting Injury #1 Side: left Upper Extremity Injury Location: wrist Upper Extremity Immobilizer: volar splint, Shankar wrap, fiberglass cast Medical Decision Making - Medical Decision Making This is an 89-year-old female who presents to the emergency department for left wrist pain after a fall. Was pt. sent in by a medical professional or institution? @ -No Did you speak to anyone other than the patient for history? @ -No Did you review nursing and triage notes? @ -Yes, and I agree, it is accurate with regards to the patient's symptoms. Were old charts reviewed? @ -No Differential Diagnosis? @ -Differential Musculoskeletal Muscular strain, contusion, ligament sprain, fracture, arthritis, septic arthritis, bursitis, cellulitis, muscle spasm, nerve compression, DVT, arterial occlusion, herpes zoster, electrolyte abnormality, tumor.... This is not meant to be in all inclusive list EKG interpreted by me (3pts min.)? @ -Not obtained X-rays interpreted by me (1pt min.)? @ -X-ray of the left wrist obtained. My interpretation identifies a distal radius fracture. X-ray of the left forearm obtained. My interpretation identifies the distal radius fracture without other acute process. X-ray of the left hip/AP pelvis obtained. My interpretation identifies no acute fractures. CT interpreted by me (1pt min.)? @ -Not obtained U/S interpreted by me (1pt. min.)? @ -Not obtained What testing was considered but not performed? (CT, X-rays, U/S, labs)? Why? @ -None What meds were considered but not given? Why? @ -None Did you discuss the management of the patient with other professionals? @ -No Did you reconcile home meds? @ -No Was smoking cessation discussed for >3mins.? @ -No Was critical care preformed (if so, how long)? @ -No Were there social determinants of health that impacted care today? How? (Homelessness, low income, unemployed, alcoholism, drug addiction, transportation, low edu. Level, literacy, decrease access to med. care, [facility], rehab)? @ -No Was there de-escalation of care discussed even if they declined? (Discuss DNR or withdrawal of care, Hospice)? @ -No What co-morbidities impacted this encounter? (DM, HTN, Smoking, COPD, CAD, Cancer, CVA, Hep., AIDS, mental health diagnosis, sleep apnea, morbid obesity)? @ -Osteoarthritis Was patient admitted / discharged? @ -Discharged. X-ray of the left wrist and left forearm obtained demonstrating a distal radius fracture. X-ray of the left hip/AP pelvis obtained revealing no acute process. A volar splint was applied to the left wrist. She was also given an arm sling for support. She is on hydrocodone, but states that she needs her PCP to refill it. Advised she reach out to him to make sure it was refilled. Case management made the patient an appointment with orthopedics for 12/22 to follow-up on the fracture. Patient discharged home in stable condition. Case discussed with ED attending Dr. Lopez. Return precautions reviewed in depth, the patient is instructed to return to the emergency department with any new, worsening, or concerning symptoms. Patient verbalized understanding. Undiagnosed new problem with uncertain prognosis? @ -None Drug Therapy requiring intensive monitoring for toxicity (Heparin, Nitro, Insulin, Cardizem)? @ -None Were any procedures done? @ -Left volar splint application Diagnosis/symptom? @ -Fall, left distal radius fracture Acute, or Chronic, or Acute on Chronic? @ -Acute Uncomplicated (without systemic symptoms) or Complicated (systemic symptoms)? @ -Uncomplicated Side effects of treatment? @ -None Exacerbation, Progression, or Severe Exacerbation] @ -Not applicable Poses a threat to life or bodily function? @ -Will limit use of the left arm for the meantime - Radiology Data Radiology results: report reviewed, image reviewed Disposition Clinical Impression: Fall, Fracture of left distal radius Disposition: HOME SELF-CARE Instructions (If sedation given, give patient instructions): Wrist Fracture in Adults (ED), Splint Care (ED) Additional Instructions: Return to the emergency department with any new, worsening, or concerning symptoms. Make sure you contact your primary care provider to ensure that he sent in a refill of your hydrocodone. You have an appointment with orthopedics on 12/22 at 9:30 AM. Please review the appointment information below. Is patient prescribed a controlled substance at d/c from ED?: No Referrals: Lucio Rice MD [Primary Care Provider] - 1-2 days Bro Blue MD [STAFF PHYSICIAN] - 12/22/24 9:30 am Time of Disposition: 11:47
[2024-12-16] MEDS: KETOROLAC 15 MG/ML 1 ML VIAL IM STA (11:10)
[2024-12-16] MEDS: MORPHINE SULFATE 4 MG/ML SYRINGE IM STA (11:11)
--- NOTE | 2024-12-16 11:21 | XR ---
EXAMINATION TYPE: XR Hip LT and AP Pelvis DATE OF EXAM: 12/16/2024 11:13 AM INDICATION: Patient age:Female; 89 years old; Reason for study: Fall; PHH. pain COMPARISON: CT abdomen and pelvis 02/22/2023, pelvic radiograph 10/24/2015 TECHNIQUE: The left hip was examined in the frontal and lateral projections and a AP pelvis. FINDINGS: Postsurgical changes with left hip arthroplasty. Hardware appears intact with appropriate a lignment. No evidence of any acute osseous pathology, joint dislocation, or soft tissue swelling. Multilevel de generative disc disease of the visualized lumbar spine. Interspinous hardware of the lower lumbar spi ne. Levocurvature of the lumbar spine partially visualized. Periurethral calculi redemonstrated. IMPRESSION: 1. No acute osseous pathology. 2. Postsurgical changes from left hip arthroplasty. Hardware appears intact with appropriate alignme nt. [facility], , 12/16/2024 11:19 AM
--- NOTE | 2024-12-16 11:27 | XR ---
EXAMINATION TYPE: XR wrist complete LT, XR forearm LT DATE OF EXAM: 12/16/2024 11:19 AM INDICATION: Patient age:Female; 89 years old; Reason for study: Fall; PHH. pain COMPARISON: None TECHNIQUE: Frontal, lateral, and oblique views of the left wrist were obtained. Additional frontal an d lateral views of the left forearm were obtained. FINDINGS: Diffuse bone demineralization was limited evaluation. Acute mildly displaced distal radial metadiaphysis fracture with surrounding soft tissue swelling. There is mild volar apex angulation. No intra-articular extension. IMPRESSION: Acute mildly displaced distal radial fracture without intra-articular extension. Mild volar apex angu lation. [facility], , 12/16/2024 11:25 AM
[2024-12-16 12:05] VITALS: BP 137/72; PULSE 69; RESP 18; TEMP 97.8
== END 2024-12-16 12:06 | disposition home or self-care (01) ==
LOC: EC 10:34
DX: S52.502A Unspecified fracture of the lower end of left radius, initial encounter for closed fracture (principal); M19.90 Unspecified osteoarthritis, unspecified site; Z87.891 Personal history of nicotine dependence; Z79.01 Long term (current) use of anticoagulants; Z88.2 Allergy status to sulfonamides; Z88.0 Allergy status to penicillin; Z88.8 Allergy status to other drugs, medicaments and biological substances; W01.0XXA Fall on same level from slipping, tripping and stumbling without subsequent striking against object, initial encounter
CPT/HCPCS: 73502; 73090; 73110; 99283; 96372 ×2; 29125; J2270; J1885

== ENCOUNTER 2025-01-08 13:15 | Emergency (ER) | payer MEDICARE ==
--- NOTE | 2025-01-08 14:41 | ED ---
Extremity Problem HPI - General Chief complaint: Extremity Problem,Nontraumatic Stated complaint: Fall/R hip injured Time Seen by Provider: 01/08/25 13:31 Source: patient, RN notes reviewed Mode of arrival: ambulatory Limitations: no limitations - History of Present Illness Initial comments: This is an 89-year-old female with history including ovarian CA, A-fib, chest pain and renal disease presenting for chronic right hip pain. Patient states her PCP had given her an x-ray order and came to the ER to have the x-ray performed. Denies recent trauma or difficulty ambulating. MD Complaint: joint pain Onset/Timin -: month(s) Location: right History of Same: Yes -: Yes arthralgia Improves with: immobilization Worsens with: weight bearing, walking, palpation Associated Symptoms: denies other symptoms - Related Data Home Medications Medication Instructions Recorded Confirmed Multivit-Min/FA/Lycopene/Lut 1 tab PO DAILY 11/28/14 02/22/23 [Centrum Silver Tablet] Nitroglycerin Sl Tabs [Nitrostat] 0.4 mg SL Q5M PRN 11/28/14 02/22/23 Vits A,C,E/Lutein/Minerals 1 tab PO MOWEFRSA 11/28/14 02/22/23 [Ocuvite with Lutein Tablet] Ascorbic Acid [Vitamin C] 500 mg PO DAILY 03/09/19 02/22/23 carvediloL 25 mg PO BID 03/09/19 02/22/23 Fenofibrate Nanocrystallized 145 mg PO DAILY 04/24/20 02/22/23 [Tricor] Hydrocodone/Acetaminophen [[place] 1 tab PO TID 04/24/20 02/22/23 7.5-325] Labetalol [Trandate] 200 mg PO Q8HR PRN 04/24/20 02/22/23 Omeprazole 20 mg PO AC-BRKFST PRN 04/24/20 02/22/23 Bevacizumab [Avastin] 1 dose BOTH EYES QMONTHLY 02/22/23 02/22/23 Biotin [Biotin Disolve] 2,500 mcg PO DAILY 02/22/23 02/22/23 Collagen/Biotin/Ascorbic Acid 1 cap PO DAILY 02/22/23 02/22/23 [Collagen 1500 Plus C Capsule] Cranberry Fruit [Cranberry] 465 mg PO DAILY 02/22/23 02/22/23 Elderberry Fruit [Elderberry] 350 mg PO DAILY 02/22/23 02/22/23 Loperamide HCl [Imodium A-D] 2 - 4 mg PO QID PRN 02/22/23 02/22/23 Prevagen 1 cap PO DAILY 02/22/23 02/22/23 Vitamin D3(Unknown Dose) 1 tab PO DAILY 02/22/23 02/22/23 allopurinoL 100 mg PO DAILY 02/22/23 02/22/23 amLODIPine [Norvasc] 2.5 mg PO BID 02/22/23 02/22/23 Previous Rx's Medication Instructions Recorded ALPRAZolam [Xanax] 0.25 mg PO BID PRN #6 tab 10/21/18 Apixaban [Eliquis] 2.5 mg PO BID #0 tablet 03/17/19 Acetaminophen Tab [Tylenol] 650 mg PO Q6HR PRN tab 02/27/23 Gabapentin [Neurontin] 300 mg PO TID cap 02/27/23 Lidocaine 5% Patch [Lidoderm 5% 1 patch TOPICAL DAILY #30 patch 02/27/23 Patch] cefuroxime axetiL [Ceftin] 500 mg PO BID 7 Days #14 tab 02/27/23 guaiFENesin [Mucinex] 600 mg PO Q12HR 10 Days #20 tab 02/27/23 Acetaminophen [Tylenol Extra 500 mg PO Q4H PRN #100 tablet 01/08/25 Strength] Lidocaine 4% Patch 1 patch TOPICAL Q24H PRN #10 patch 01/08/25 Allergies Allergy/AdvReac Type Severity Reaction Status Date / Time Corticosteroids Allergy Unknown Verified 01/08/25 13:26 (Glucocorticoids) nitrofurantoin Allergy Unknown Verified 01/08/25 13:26 [From Macrobid] Penicillins Allergy Dyspnea Verified 01/08/25 13:26 Sulfa (Sulfonamide Allergy Dyspnea Verified 01/08/25 13:26 Antibiotics) triamcinolone acetonide AdvReac unsure if Verified 01/08/25 13:26 [From Kenalog] the kenalog was the cause, RASH/HIVES Review of Systems ROS Statement: Those systems with pertinent positive or pertinent negative responses have been documented in the HPI. ROS Other: All systems not noted in ROS Statement are negative. Past Medical History Past Medical History: Atrial Fibrillation, Cancer, Chest Pain / Angina, Fibromyalgia, GERD/Reflux, Hyperlipidemia, Hypertension, Mitral Valve Prolapse (MVP), Neurologic Disorder, Osteoarthritis (OA), Renal Disease, Vascular Disorder Additional Past Medical History / Comment(s): NEUROPATHY ASHER. LEGS & FEET, VARICOSE VEINS, KIDNEYS(small kidneys) FUNCTIONING @ 50%-URINE LEAKAGE- WEARS A PAD, HX skin, BREAST & OVARIAN CA-CHEMO 1986 & 1987, LUMBAR DDD-HERNIATION L3- L4, constipation History of Any Multi-Drug Resistant Organisms: None Reported Date of last positivie culture/infection: 02/10/21 MDRO Source:: Urine Past Surgical History: Bowel Resection, Breast Surgery, Heart Catheterization, Hysterectomy, Orthopedic Surgery Additional Past Surgical History / Comment(s): COLOSTOMY & THEN REVERSAL OF COLOSTOMY,ASHER. MASTECTOMY, EXC.CATARACT ASHER, ASHER. THUMB SURGERY, skin cancer removed from nose, bowel resection 01/12/16 Past Anesthesia/Blood Transfusion Reactions: Previous Problems w/ Anesthesia Additional Past Anesthesia/Blood Transfusion Reaction / Comment(s): AFTER LAST PAIN CLINIC PROCEDURE 01/12/15 HAD ALLEGIC REACTION- broke out in hives and itching all over that lasted over 1 week, also had ELEVATED PULSE & BP. Type of Cardiac Device: Permanent Pacemaker Device Placement Date:: 12/11/18 Past Psychological History: No Psychological Hx Reported Smoking Status: Former smoker Past Alcohol Use History: None Reported Past Drug Use History: None Reported - Past Family History Daughter(s) Family Medical History: Cancer Additional Family Medical History / Comment(s): lung CA Father Additional Family Medical History / Comment(s): Father of lung CA at the age of 80yrs. He was a smoker. Mother Additional Family Medical History / Comment(s): CABG. Mother at the age of 94 yrs. General Exam Limitations: no limitations General appearance: alert, in no apparent distress Head exam: Present: atraumatic, normocephalic, normal inspection Eye exam: Present: normal appearance, PERRL, EOMI. Absent: scleral icterus, conjunctival injection, periorbital swelling ENT exam: Present: normal exam, mucous membranes moist Neck exam: Present: normal inspection. Absent: tenderness, meningismus, lymphadenopathy Respiratory exam: Present: normal lung sounds bilaterally. Absent: respiratory distress, wheezes, rales, rhonchi, stridor Cardiovascular Exam: Present: regular rate, normal rhythm, normal heart sounds. Absent: systolic murmur, diastolic murmur, rubs, gallop, clicks GI/Abdominal exam: Present: soft, normal bowel sounds. Absent: distended, tenderness, guarding, rebound, rigid Extremities exam: Present: normal inspection, full ROM, tenderness (Positive right lateral hip tenderness without obvious crepitus, deformity.), normal capillary refill. Absent: pedal edema, joint swelling, calf tenderness Back exam: Present: normal inspection Neurological exam: Present: alert, oriented X3, CN II-XII intact Psychiatric exam: Present: normal affect, normal mood Skin exam: Present: warm, dry, intact, normal color. Absent: rash Course Vital Signs 01/08/25 01/08/25 13:23 15:32 Temperature 97.9 F 97.8 F Pulse Rate 68 67 Respiratory 20 18 Rate Blood Pressure 193/92 158/68 O2 Sat by Pulse 99 97 Oximetry Medical Decision Making - Medical Decision Making Was pt. sent in by a medical professional or institution (, PA, ELECTRONIC SYSTEM ENGINEER, urgent care, hospital, or correction...) When possible be specific @ -No Did you speak to anyone other than the patient for history (EMS, parent, family, police, friend...)? What history was obtained from this source @ -No Did you review nursing and triage notes (agree or disagree)? Why? @ -I reviewed and agree with nursing and triage notes Were old charts reviewed (outside hosp., previous admission, EMS record, old EKG, old radiological studies, urgent care reports/EKG's, correction records)? Report findings @ -No old charts were reviewed Differential Diagnosis (chest pain, altered mental status, abdominal pain women, abdominal pain men, vaginal bleeding, weakness, fever, dyspnea, syncope, headache, dizziness, GI bleed, back pain, seizure, CVA, palpatations, mental health, musculoskeletal)? @ -Differential Musculoskeletal Muscular strain, contusion, ligament sprain, fracture, arthritis, septic arthritis, bursitis, cellulitis, muscle spasm, nerve compression, DVT, arterial occlusion, herpes zoster, electrolyte abnormality, tumor.... This is not meant to be in all inclusive list EKG interpreted by me (3pts min.). @ -Not done X-rays interpreted by me (1pt min.). @ -Right hip x-ray shows no acute fracture or dislocation with moderate/severe right hip degenerative osteoarthritis. CT interpreted by me (1pt min.). @ -None done U/S interpreted by me (1pt. min.). @ -None done What testing was considered but not performed or refused? (CT, X-rays, U/S, labs)? Why? @ -None What meds were considered but not given or refused? Why? @ -None Did you discuss the management of the patient with other professionals (professionals i.e. DrMichele, PA, ELECTRONIC SYSTEM ENGINEER, lab, RT, psych nurse, medical social worker, contact representative, teacher, soil science technical officer, complex case manager)? Give summary @ -No Was smoking cessation discussed for >3mins.? @ -No Was critical care preformed (if so, how long)? @ -No Were there social determinants of health that impacted care today? How? (Homelessness, low income, unemployed, alcoholism, drug addiction, transp ortation, low edu. Level, literacy, decrease access to med. care, skilled nursing, rehab)? @ -No Was there de-escalation of care discussed even if they declined (Discuss DNR or withdrawal of care, Hospice)? DNR status @ -No What co-morbidities impacted this encounter? (DM, HTN, Smoking, COPD, CAD, Cancer, CVA, ARF, Chemo, Hep., AIDS, mental health diagnosis, sleep apnea, morbid obesity)? @ -OA, renal disease Was patient admitted / discharged? Hospital course, mention meds given and route, prescriptions, significant lab abnormalities, going to OR and other pertinent info. @ -Patient provided p.o. Tylenol and lidocaine patch for pain. Right hip x-ray shows no acute fracture or dislocation with moderate/severe right hip degenerative osteoarthritis. Tylenol and lidocaine patches sent to patient's pharmacy. Advised follow-up with PCP/orthopedics for ongoing care/management of right hip osteoarthritis. Discussed patient with Dr. Farah. Undiagnosed new problem with uncertain prognosis? @ -No Drug Therapy requiring intensive monitoring for toxicity (Heparin, Nitro, Insulin, Cardizem)? @ -No Were any procedures done? @ -No Diagnosis/symptom? @ -Right hip osteoarthritis Acute, or Chronic, or Acute on Chronic? @ -Acute Uncomplicated (without systemic symptoms) or Complicated (systemic symptoms)? @ -Uncomplicated Side effects of treatment? @ -No Exacerbation, Progression, or Severe Exacerbation? @ -No Poses a threat to life or bodily function? How? (Chest pain, [place], [place], pneumonia, PE, COPD, DKA, ARF, appy, cholecystitis, CVA, Diverticulitis, Homicidal, Suicidal, threat to staff... and all critical care pts) @ -No Disposition Clinical Impression: Osteoarthritis of right hip Disposition: HOME SELF-CARE Condition: Fair Instructions (If sedation given, give patient instructions): Osteoarthritis (ED), Hip Pain (ED) Additional Instructions: Tylenol every 4-6 hours as needed for pain. Follow-up with PCP/orthopedics for ongoing management and evaluation of right hip pain/arthritis. Prescriptions: Lidocaine 4% Patch 1 patch TOPICAL Q24H PRN #10 patch PRN Reason: Pain Acetaminophen [Tylenol Extra Strength] 500 mg PO Q4H PRN #100 tablet PRN Reason: Pain Is patient prescribed a controlled substance at d/c from ED?: No Referrals: Lucio Rice MD [Primary Care Provider] - 1-2 days [facility] [Provider Group] - 1-2 days [facility] [Provider Group] - 1-2 days Time of Disposition: 15:01
--- NOTE | 2025-01-08 15:00 | XR ---
EXAMINATION TYPE: XR Hip Complete RT DATE OF EXAM: 01/08/2025 2:47 PM COMPARISON: Prior radiograph 10/24/2015. CLINICAL INDICATION: Female, 89 years old with history of Chronic atraumatic right hip pain; PHH, dahiana n TECHNIQUE: XR Hip Complete RT; Frontal and lateral views FINDINGS: No acute fracture or dislocation. 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 Calcifications the partially visualized pelvis. No focal osseous erosion or aggressive periosteal re action. IMPRESSION: No acute osseous abnormality. [facility], , 01/08/2025 2:57 PM
[2025-01-08] MEDS: ACETAMINOPHEN TAB 325 MG TAB PO STA (15:25)
[2025-01-08] MEDS: LIDOCAINE 4% PATCH TOPICAL ONE (15:25)
[2025-01-08 15:34] VITALS: BP 158/68; PULSE 67; RESP 18; TEMP 97.8
== END 2025-01-08 15:33 | disposition home or self-care (01) ==
LOC: EC 13:15
DX: M16.11 Unilateral primary osteoarthritis, right hip (principal); Z87.448 Personal history of other diseases of urinary system; Z88.0 Allergy status to penicillin; Z88.1 Allergy status to other antibiotic agents; Z88.2 Allergy status to sulfonamides
CPT/HCPCS: 73502; 99283